=== PATIENT | female | born 1955 | race Caucasian/White ===

== ENCOUNTER 2016-08-21 07:58 | Emergency (ER) | payer BC ==
[2016-08-21 09:22] LABS: BASO % 0.4 % (0.0-1.0); EOS % 0.5 % (0.0-3.0); LARGE UNSTAINED CELL # 0.2 K/mm3 (0.0-0.4); LARGE UNSTAINED CELL % 2.4 % (0.0-4.0); LYMPH # 0.7 K/mm3 (1.5-4.5); LYMPH % 7.1 % (24.0-44.0); MEAN CORPUSCULAR HEMOGLOBIN 28.5 pg (27.0-33.0); MEAN CORPUSCULAR HGB CONC 32.1 g/dl (32.0-36.5); MEAN CORPUSCULAR VOLUME 88.8 fl (80.0-96.0); MONO # 0.3 K/mm3 (0.0-0.8); MONO % 3.4 % (0.0-5.0); NEUTROPHILS # 8.1 K/mm3 (1.8-7.7); NEUTROPHILS % 86.3 % (36.0-66.0); PLATELET COUNT, AUTOMATED 121 k/mm3 (150-450); RED CELL DISTRIBUTION WIDTH 14.1 % (11.5-14.5); WHITE BLOOD COUNT 9.4 K/mm3 (4.0-10.0)
[2016-08-21 09:32] LABS: ANION GAP 13 MEQ/L (8-16); BLOOD UREA NITROGEN 37 MG/DL (7-18); CALCIUM LEVEL 8.7 MG/DL (8.8-10.2); CARBON DIOXIDE LEVEL 25 MEQ/L (21-32); CHLORIDE LEVEL 90 MEQ/L (98-107); CREATININE FOR GFR 2.02 MG/DL (0.55-1.02); GLOMERULAR FILTRATION RATE 26.7 (>45); POTASSIUM SERUM 3.7 MEQ/L (3.5-5.1); SODIUM LEVEL 128 MEQ/L (136-145)
[2016-08-21 09:43] LABS: GLUCOSE, FASTING 689 MG/DL (80-110)
--- NOTE | 2016-08-21 09:58 | REP ---
Chest two views HISTORY: Shortness of breath Comparison: 12/11/2012 The lungs are clear. The heart is normal in size. The pulmonary vasculature is normal in appearance. The bony structure is intact. IMPRESSION: No acute disease. Signed by Calin Arzola MD 08/21/2016 09:50 A
[2016-08-21 10:12] LABS: VENOUS BASE EXCESS -0.5 (-2.0-2.0); VENOUS O2 SATURATION 99.2 % (60.0-80.0); VENOUS PARTIAL PRESSURE CO2 43.4 mmHg (38.0-50.0); VENOUS PARTIAL PRESSURE O2 170.2 mmHg (30.0-50.0); VENOUS STANDARD HCO3 24.1 MEQ/L; VENOUS TOTAL CO2 26.2 MEQ/L (24.0-28.0)
[2016-08-21] MEDS ORDERED: HumuLIN R (REGULAR) INSULIN (NovoLIN R) **100U/ML** PER UNIT As Ordered ONE (11:57)
--- NOTE | 2016-08-21 12:48 | EDDOCDS ---
Nurse's Notes [facility] Name: Marcia Avila Age: 61 yrs Sex: Female : 1955 Arrival Date: 08/21/2016 Time: 07:58 Bed 12 Private MD: Shwetha Alfredo DO. Diagnosis: Type 2 diabetes mellitus with hyperglycemia;Patient's noncompliance with medical treatment and regimen;Chronic kidney disease, stage 3 (moderate) Presentation: 08/21 08:04 Presenting complaint: Patient states: Multiple complaints, generalized weakness, dwg difficulty walking and standing for long periods, shortness of breath with minimal exertion, symptoms started about 7pm yesterday. The last date and time the patient was known to be well was was at 19:00 on August 20, 2016. No acute neurological deficit is noted. Adult Sepsis Screening: The patient does not have new or worsening altered mentation. Patient's respiratory rate is less than 22. Systolic blood pressure is greater than 100. Patient has a qSOFA score of 0- Negative Sepsis Screen. Suicide/Homicide risk assessment- the patient denies having any suicidal and/or homicidal ideations and does not present with any other emotional, behavioral or mental health complaints. 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 Transition of care: patient was not received from another setting of care. 08:04 Acuity: FLETCHER Level 3 dwg 08:04 Method Of Arrival: Wheelchair dwg 08:14 Pre-hospital glucose is not applicable to this patient. js13 Triage Assessment: 08:10 General: Appears in no apparent distress. Pain: Pain currently is 7 out of 10 on a pain dwg scale. HIV screening NA for this visit Offered previously. Historical: - Allergies: PENICILLINS; - Home Meds: 1. Humulin 70/30 Sub-Q per [facility] patient has not filled any medications since December - PMHx: Hypertension; Diabetes - IDDM: controlled; Hypercholesterolemia; DVT's; PE; - PSHx: ''Lung biopsy''; ; Right knee tendon repair; - Social history: Smoking status: Patient states was never smoker of tobacco. No barriers to communication noted, The patient speaks fluent Slovak. - Family history: Not pertinent. - : The pt / caregiver states he / she is not on anticoagulants. Unable to Verify Home Med List with the patient / caregiver. - Exposure Risk Screening:: None identified. Screenin:15 Screening information is obtained from the patient. Fall risk: At risk due to gait js13 disturbance. Assistance ADL's: requires no assistance with activities of daily living. Abuse/DV Screen: The patient / caregiver reports he/she is: not in a situation that causes fear, pain or injury. Nutritional screening: No deficits noted. Advance Directives: There is no active DNR order. home support is adequate. Assessment: 08:43 General: Appears in no apparent distress, comfortable, Behavior is appropriate for age, js13 cooperative. Pain: Denies pain. Neurological: Level of Consciousness is awake, alert. Cardiovascular: Chest pain is denied. Respiratory: Airway is patent Respiratory effort is even, unlabored, Respiratory pattern is regular, symmetrical. Derm: Skin is pink, warm & dry. 08:43 General: called and spoke with Dr. Alfredo's office, patient has not been there to ml6 see him or received Scripts from the office since December 2014. 09:50 General: Appears in no apparent distress, comfortable, to be sleeping. Cardiovascular: js13 Rhythm is sinus rhythm. Respiratory: Airway is patent Respiratory effort is even, unlabored, Respiratory pattern is regular, symmetrical. Derm: Skin is pink, warm & dry. 10:50 General: Appears in no apparent distress, comfortable, Behavior is appropriate for age, js13 cooperative. Pain: Denies pain. Neurological: No deficits noted. Level of Consciousness is awake, alert. Cardiovascular: Rhythm is sinus rhythm Chest pain is denied. Respiratory: Airway is patent Respiratory effort is even, unlabored, Respiratory pattern is regular, symmetrical. Derm: Skin is pink, warm & dry. 10:50 Adult Sepsis Screening: The patient does not have new or worsening altered mentation. js13 Patient's respiratory rate is less than 22. Systolic blood pressure is greater than 100. Patient has a qSOFA score of 0- Negative Sepsis Screen. 11:43 General: Appears in no apparent distress, comfortable, Behavior is appropriate for age, js13 cooperative. Pain: Denies pain. Neurological: Level of Consciousness is awake, alert. Cardiovascular: Rhythm is sinus rhythm Chest pain is denied. Respiratory: Airway is patent Respiratory effort is even, unlabored, Respiratory pattern is regular, symmetrical. Derm: Skin is pink, warm & dry. 12:13 General: Appears in no apparent distress, comfortable, Behavior is appropriate for age, js13 cooperative. Pain: Denies pain. Neurological: No deficits noted. Level of Consciousness is awake, alert. Cardiovascular: Rhythm is sinus tachycardia Chest pain is denied. Respiratory: No deficits noted. Airway is patent Respiratory effort is even, unlabored, Respiratory pattern is regular, symmetrical, Breath sounds are clear. Derm: Skin is pink, warm & dry. Vital Signs: 08:10 BP 106 / 62; Pulse 94; Resp 20; Temp 98.8(T); Pulse Ox 96% on R/A; Weight 125.19 kg; [facility] Height 5 ft. 3 in. (160.02 cm); Pain 7/10; 09:25 BP 129 / 56 (auto/); js13 09:25 Pulse 98 MON; Resp 16; Pulse Ox 95% on R/A; js13 09:42 BP 128 / 62 (auto/); js13 09:44 Pulse 98 MON; Resp 18; Pulse Ox 92% on R/A; js13 09:57 BP 128 / 66 (auto/); js13 09:57 Pulse 94 MON; Resp 18; Pulse Ox 95% on R/A; js13 11:58 BP 140 / 78 (auto/); js13 11:58 Pulse 94 MON; Resp 18; Pulse Ox 95% on R/A; js13 12:13 BP 129 / 72 (auto/); js13 12:13 Pulse 98 MON; Resp 18; Pulse Ox 96% on R/A; js13 12:24 Temp 97.3(O); ar3 12:28 BP 144 / 71 (auto/); js13 12:28 Pulse 102 MON; Resp 18; Pulse Ox 96% on R/A; js13 08:10 Body Mass Index 48.89 (125.19 kg, 160.02 cm) [facility] Vitals: 08:10 Log In Time: August 21, 2016 at 07:57. [facility] ED Course: 07:59 Patient visited by Cherie Perea. mm15 07:59 Shwetha Alfredo is Private Physician. mm15 07:59 Patient moved to Waiting mm15 08:06 Triage Initiated [facility] 08:12 Dulce Nugent,RN is Primary Nurse. [facility] 08:12 Meggan Barrera,BRIGIDO is Primary Nurse. dwg 08:12 Patient moved to 12 dwg 08:15 The patient / caregiver is instructed regarding the plan of care and ED course. js13 08:23 Vero Connelly DO is PHCP. jo4 08:23 Harvey Shaw MD is Attending Physician. jo4 08:33 Patient visited by Vero Connelly DO. jo4 08:43 Placed in gown. Bed in low position. Call light in reach. Side rails up X2. js13 08:43 Inserted saline lock: 18 gauge in left antecubital area and blood collected. The js13 patient tolerated the procedure well. No procedures done that require assistance. Labs drawn. (by ED staff). Sent per order to lab. Labs/Blood culture drawn. 08:45 Patient visited by Meggan Barrera RN. js13 09:20 EKG done. (by ED staff). Reviewed by Harvey Shaw MD. dem1 09:21 [place] [place] [facility] Payment Agreement was scanned into [employer] and attached to record. mm15 09:22 Patient visited by Tom Antunez. dem1 09:43 Notified attending ED physician of Critical lab value. Glucose--689. mcp 09:45 Venous Blood Gas (large pea green tube on ice) Sent. js13 09:58 Patient visited by Jud Chang PCA. ct3 10:18 Chest, 2 View (pa\E\lat) Returned. EDMS 10:36 Patient visited by Jud Chang PCA. ct3 11:43 Patient visited by Jud Chang PCA. ct3 11:45 Patient visited by Tom Antunez. dem1 11:45 Assisted to bedside commode. dem1 12:15 Patient visited by Meggan Barrera RN. js13 12:21 Chichi Taylor FNP is Referral Physician. pc 12:24 Patient visited by Elizabeth Padilla PCA. ar3 12:41 T-Sheet-- Draft Copy was scanned into [employer] and attached to record. gb 12:45 Discontinued IV lock intact, bleeding controlled, pressure dressing applied, No js13 redness/swelling at site. Administered Medications: 09:10 Drug: NS 0.9% 1000 ml [sodium chloride 0.9 % intravenous solution] Route: IV; Rate: js13 bolus; Site: left antecubital; 09:45 Follow up: IV Status: Completed infusion; IV Intake: 1000ml js13 12:01 Drug: Insulin Regular Human 10 units [insulin regular human 100 unit/mL injection js13 solution (0.1 mL)] {Co-Signature: ml6 (Navneet Garcia RN).} Route: Sub-Q; Site: abdomen; 12:44 Follow up: Response: Glucose decreased js13 Point of Care Testing: Blood Glucose: 08:43 Blood Glucose: High; js13 Ranges: Intake: 09:45 IV: 1000.00ml; Total: 1000.00ml. js13 Order Results: Lab Order: Cardiac Marker Panel; SPEC'M 08/21/16 08:40 Test: CPK CREATINE PHOSPHOKINASE; Value: 81; Range: 26-192; Units: U/L; Status: F Test: CK-MB VALUE MASS; Value: 1.3; Range: 0.0-3.6; Units: NG/ML; Status: F Test: MB/CK RELATIVE INDEX; Value: 1.60; Range: < OR =4; Status: F Test: TROPONIN I; Value: < 0.02; Range: < 0.10; Units: NG/ML; Status: F Test Note: ; DIAGNOSIS CRITERIA MMB ng/ml Relative Index (RI) NON-AMI < or = 5 N/A GALDAMEZ ZONE > 5 < or = 4 AMI > 5 > 4 Lab Order: CBC with Diff; SPEC'M 08/21/16 08:40 Test: WHITE BLOOD COUNT; Value: 9.4; Range: 4.0-10.0; Units: K/mm3; Status: F Test: RED BLOOD COUNT; Value: 4.57; Range: 4.00-5.40; Units: M/mm3; Status: F Test: HEMOGLOBIN; Value: 13.0; Range: 12.0-16.0; Units: g/dl; Status: F Test: HEMATOCRIT; Value: 40.6; Range: 36.0-47.0; Units: %; Status: F Test: MEAN CORPUSCULAR VOLUME; Value: 88.8; Range: 80.0-96.0; Units: fl; Status: F Test: MEAN CORPUSCULAR HEMOGLOBIN; Value: 28.5; Range: 27.0-33.0; Units: pg; Status: F Test: MEAN CORPUSCULAR HGB CONC; Value: 32.1; Range: 32.0-36.5; Units: g/dl; Status: F Test: RED CELL DISTRIBUTION WIDTH; Value: 14.1; Range: 11.5-14.5; Units: %; Status: F Test: PLATELET COUNT, AUTOMATED; Value: 121; Range: 150-450; Abnormal: Below low normal; Units: k/mm3; Status: F Test: NEUTROPHILS %; Value: 86.3; Range: 36.0-66.0; Abnormal: Above high normal; Units: %; Status: F Test: LYMPH %; Value: 7.1; Range: 24.0-44.0; Abnormal: Below low normal; Units: %; Status: F Test: MONO %; Value: 3.4; Range: 0.0-5.0; Units: %; Status: F Test: EOS %; Value: 0.5; Range: 0.0-3.0; Units: %; Status: F Test: BASO %; Value: 0.4; Range: 0.0-1.0; Units: %; Status: F Test: LARGE UNSTAINED CELL %; Value: 2.4; Range: 0.0-4.0; Units: %; Status: F Test: NEUTROPHILS #; Value: 8.1; Range: 1.8-7.7; Abnormal: Above high normal; Units: K/mm3; Status: F Test: LYMPH #; Value: 0.7; Range: 1.5-4.5; Abnormal: Below low normal; Units: K/mm3; Status: F Test: MONO #; Value: 0.3; Range: 0.0-0.8; Units: K/mm3; Status: F Test: EOS #; Value: 0.0; Range: 0.0-0.50; Units: K/mm3; Status: F Test: BASO #; Value: 0.0; Range: 0.0-0.2; Units: K/mm3; Status: F Test: LARGE UNSTAINED CELL #; Value: 0.2; Range: 0.0-0.4; Units: K/mm3; Status: F Lab Order: BMP; SPEC'M 08/21/16 08:40 Test: GLUCOSE, FASTING; Value: 689; Range: 80-110; Abnormal: Above upper panic limits; Units: MG/DL; Status: F Test: BLOOD UREA NITROGEN; Value: 37; Range: 7-18; Abnormal: Above high normal; Units: MG/DL; Status: F Test: CREATININE FOR GFR; Value: 2.02; Range: 0.55-1.02; Abnormal: Above high normal; Units: MG/DL; Status: F Test: GLOMERULAR FILTRATION RATE; Value: 26.7; Range: >45; Abnormal: Below low normal; Status: F Test: SODIUM LEVEL; Value: 128; Range: 136-145; Abnormal: Below low normal; Units: MEQ/L; Status: F Test: POTASSIUM SERUM; Value: 3.7; Range: 3.5-5.1; Units: MEQ/L; Status: F Test: CHLORIDE LEVEL; Value: 90; Range: 98-107; Abnormal: Below low normal; Units: MEQ/L; Status: F Test: CARBON DIOXIDE LEVEL; Value: 25; Range: 21-32; Units: MEQ/L; Status: F Test: ANION GAP; Value: 13; Range: 8-16; Units: MEQ/L; Status: F Test: CALCIUM LEVEL; Value: 8.7; Range: 8.8-10.2; Abnormal: Below low normal; Units: MG/DL; Status: F Test Note: ; Units are mL/min/1.73 m2 Chronic Kidney Disease Staging per NKF: Stage I & II GFR >=60 Normal to Mildly Decreased Stage III GFR 30-59 Moderately Decreased Stage IV GFR 15-29 Severely Decreased Stage V GFR <15 Very Little GFR Left ESRD GFR <15 on RETAIL CLERK Lab Order: Venous Blood Gas (large pea green tube on ice); SPEC'M 08/21/16 10:04 Test: VENOUS PH; Value: 7.376; Range: 7.330-7.430; Units: UNITS; Status: F Test: VENOUS PARTIAL PRESSURE CO2; Value: 43.4; Range: 38.0-50.0; Units: mmHg; Status: F Test: VENOUS PARTIAL PRESSURE O2; Value: 170.2; Range: 30.0-50.0; Abnormal: Above high normal; Units: mmHg; Status: F Test: VENOUS TOTAL CO2; Value: 26.2; Range: 24.0-28.0; Units: MEQ/L; Status: F Test: VENOUS HCO3; Value: 24.9; Range: 23.0-27.0; Units: MEQ/L; Status: F Test: VENOUS BASE EXCESS; Value: -0.5; Range: -2.0-2.0; Status: F Test: VENOUS STANDARD HCO3; Value: 24.1; Units: MEQ/L; Status: F Test: VENOUS O2 SATURATION; Value: 99.2; Range: 60.0-80.0; Abnormal: Above high normal; Units: %; Status: F Lab Order: Fingerstick Blood Sugar; SPEC'M 08/21/16 08:24 Test: BEDSIDE GLUCOSE; Value: > 600; Range: 80-115; Abnormal: Above upper panic limits; Units: MG/DL; Status: F Test Note: ; Serum Blood Draw Radiology Order: Chest, 2 View (pa\E\lat) Test: Chest, 2 View (pa\E\lat) REASON FOR EXAMINATION: Shortness of Breath; Chest two views; ; HISTORY: Shortness of breath; ; Comparison: 12/11/2012; ; The lungs are clear. The heart is normal in size. The pulmonary vasculature is; normal in appearance. The bony structure is intact.; ; IMPRESSION: No acute disease.; ; ; Signed by; Calin Arzola MD 08/21/2016 09:50 A; Outcome: 12:21 Discharge ordered by Provider. pc 12:28 Discharge Assessment: Patient awake, alert and oriented x 3. No cognitive and/or js13 functional deficits noted. Patient verbalized understanding of disposition instructions. patient administered narcotics - no. The following High Risk Discharge criteria are identified: None. Discharged to home ambulatory. Condition: stable. Discharge instructions given to patient, Instructed on discharge instructions, follow up and referral plans. medication usage, Demonstrated understanding of instructions, medications, Pt was receptive of discharge instructions/ teaching. Prescriptions given X 1. No special radiology studies were completed. Property :Personal belongings accompany Pt. 12:47 Patient left the ED. js13 Signatures: Dispatcher [employer] EDMS Harvey Shaw MD MD pc Greene, Daniel, RN RN dwg Peters, Mary, RN Ruthie Au mcp, Reg Reg dread Garcia, BRIGIDO Ttoh RN ml6 Valerie, Elizabeth, SPRAY GUN REPAIRER SPRAY GUN REPAIRER ar3 Chang, Jud, SPRAY GUN REPAIRER SPRAY GUN REPAIRER ct3 Tulio, Tom dem1 Meggan Barrera,RN RN js13 Cherie Perea mm15 Vero Connelly, DO CID jo4 Navneet Garcia RN ml6 Corrections: (The following items were deleted from the chart) 08: 08:10 Home Meds: Unknown; issa ml6 08: 08:10 Home Meds: Will contact [facility] for med list; issa [facility] MTDD
--- NOTE | 2016-08-21 12:48 | EDDOCDS ---
Physician Documentation [facility] Name: Marcia Avila Age: 61 yrs Sex: Female : 1955 Arrival Date: 08/21/2016 Time: 07:58 Bed 12 Private MD: Shwetha Alfredo DO. Disposition: 08/21 10:45 I have independently interviewed and examined the patient, and I agree with the pc investigation, diagnosis and treatment plan as documented by the Resident. Disposition: 08/21/16 12:21 Discharged to Home/Self Care. Impression: Type 2 diabetes mellitus with hyperglycemia, Patient's noncompliance with medical treatment and regimen, Chronic kidney disease, stage 3 (moderate). - Condition is Stable. - Discharge Instructions: Hyperglycemia, [id number], Chronic Kidney Disease. - Prescriptions for Humulin 70/30 100 unit/mL (70- 30) Subcutaneous suspension - inject 34 unit by SUBCUTANEOUS route 2 times per day; 1 vial. - Medication Reconciliation, Local Pharmacy Hours form. - Follow up: Chichi Taylor; When: As previously arranged; Reason: Recheck today's complaints. - Problem is chronic. - Symptoms are unchanged. - Notes: You were evaluated in the emergency department for type 2 diabetes mellitus with hyperglycemia. Laboratory results indicated a blood sugar of 689. Your chest x-ray did not show any acute abnormality. Your electrocardiogram was without abnormality. You were given some fluids and 10 units of regular insulin. An appointment has been scheduled with Elizabeth Taylor on 08/23/2016 at 2:20pm. Historical: - Allergies: PENICILLINS; - Home Meds: 1. Humulin 70/30 Sub-Q per [facility] patient has not filled any medications since December - PMHx: Hypertension; Diabetes - IDDM: controlled; Hypercholesterolemia; DVT's; PE; - PSHx: ''Lung biopsy''; ; Right knee tendon repair; - Social history: Smoking status: Patient states was never smoker of tobacco. No barriers to communication noted, The patient speaks fluent Icelandic. - Family history: Not pertinent. - : The pt / caregiver states he / she is not on anticoagulants. Unable to Verify Home Med List with the patient / caregiver. - Exposure Risk Screening:: None identified. Vital Signs: 08:10 BP 106 / 62; Pulse 94; Resp 20; Temp 98.8(T); Pulse Ox 96% on R/A; Weight 125.19 kg / dwg 276 lbs; Height 5 ft. 3 in. (160.02 cm); Pain 7/10; 09:25 BP 129 / 56 (auto/); js13 09:25 Pulse 98 MON; Resp 16; Pulse Ox 95% on R/A; js13 09:42 BP 128 / 62 (auto/); js13 09:44 Pulse 98 MON; Resp 18; Pulse Ox 92% on R/A; js13 09:57 BP 128 / 66 (auto/); js13 09:57 Pulse 94 MON; Resp 18; Pulse Ox 95% on R/A; js13 11:58 BP 140 / 78 (auto/); js13 11:58 Pulse 94 MON; Resp 18; Pulse Ox 95% on R/A; js13 12:13 BP 129 / 72 (auto/); js13 12:13 Pulse 98 MON; Resp 18; Pulse Ox 96% on R/A; js13 12:24 Temp 97.3(O); ar3 12:28 BP 144 / 71 (auto/); js13 12:28 Pulse 102 MON; Resp 18; Pulse Ox 96% on R/A; js13 08:10 Body Mass Index 48.89 (125.19 kg, 160.02 cm) dwg MDM: 08:35 IV Saline Lock ordered. jo4 09:10 Cardiac Marker Panel Ordered. EDMS 09:10 Troponin Ordered. EDMS 09:10 CBC with Diff Ordered. EDMS 09:10 BMP Ordered. EDMS 09:10 Chest, 2 View (pa\E\lat) Ordered. EDMS 09:11 ECG WITH READING ER PHYS+CARDIAG ordered. EDMS 09:12 Misc Shoelace Tipping Machine Operator Order ordered. jo4 09:12 NS 0.9% 1000 ml IV at bolus once ordered. jo4 09:17 Financial registration complete. mm15 09:17 [facility] Shoelace Tipping Machine Operator Order complete. lbd 09:21 [facility] Payment Agreement was scanned into [employer] and attached to record. mm15 09:29 CBC with Diff Reviewed. jo4 09:44 Venous Blood Gas (large pea green tube on ice) Ordered. EDMS 09:48 BMP Reviewed. jo4 09:49 Cardiac Marker Panel Reviewed. jo4 10:29 Venous Blood Gas (large pea green tube on ice) Reviewed. jo4 10:42 Chest, 2 View (pa\E\lat) Reviewed. pc 11:39 Insulin Regular Human 10 units Sub-Q once ordered. jo4 12:41 T-Sheet-- Draft Copy was scanned into [employer] and attached to record. Point of Care Testing: Blood Glucose: 08:43 Blood Glucose: High; js13 Ranges: Administered Medications: 09:10 Drug: NS 0.9% 1000 ml [sodium chloride 0.9 % intravenous solution] Route: IV; Rate: js13 bolus; Site: left antecubital; 09:45 Follow up: IV Status: Completed infusion; IV Intake: 1000ml js13 12:01 Drug: Insulin Regular Human 10 units [insulin regular human 100 unit/mL injection js13 solution (0.1 mL)] {Co-Signature: [email or web address] (Navneet Garcia RN).} Route: Sub-Q; Site: abdomen; 12:44 Follow up: Response: Glucose decreased js13 Signatures: Dispatcher [employer] EDHarvey Granados MD MD pc Daly, Linda, Fine Artist Unit lbd Lorenzo Pleitez RN RN Ruthie Parnell, Reg Reg Navneet Delgado, RN RN ml6 Meggan BarreraRN RN js13 Cherie Perea mm15 Vero Connelly DO DO jo4 Navneet Garcia RN ml6 The chart was reviewed and I authenticate all verbal orders and agree with the evaluation and treatment provided.Corrections: (The following items were deleted from the chart) 08:21 08:10 Home Meds: Unknown; sandovalg ml6 08:21 08:10 [facility]; sandovalg ml6 Attachments: 09:21 [facility] Payment Agreement mm15 12:41 T-Sheet-- Draft Copy MTDD
--- NOTE | 2016-08-22 07:55 | ECGEPIP ---
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
--- NOTE | 2016-08-23 13:48 | EDDOCDS ---
Physician Documentation [facility] Name: Marcia Avila Age: 61 yrs Sex: Female : 1955 Arrival Date: 08/21/2016 Time: 07:58 Bed 12 Private MD: Shwetha Alfredo DO. Disposition: 08/21 10:45 I have independently interviewed and examined the patient, and I agree with the pc investigation, diagnosis and treatment plan as documented by the Resident. Disposition: 08/21/16 12:21 Discharged to Home/Self Care. Impression: Type 2 diabetes mellitus with hyperglycemia, Patient's noncompliance with medical treatment and regimen, Chronic kidney disease, stage 3 (moderate). - Condition is Stable. - Discharge Instructions: Hyperglycemia, [id number], Chronic Kidney Disease. - Prescriptions for Humulin 70/30 100 unit/mL (70- 30) Subcutaneous suspension - inject 34 unit by SUBCUTANEOUS route 2 times per day; 1 vial. - Medication Reconciliation, Local Pharmacy Hours form. - Follow up: Chichi Taylor; When: As previously arranged; Reason: Recheck today's complaints. - Problem is chronic. - Symptoms are unchanged. - Notes: You were evaluated in the emergency department for type 2 diabetes mellitus with hyperglycemia. Laboratory results indicated a blood sugar of 689. Your chest x-ray did not show any acute abnormality. Your electrocardiogram was without abnormality. You were given some fluids and 10 units of regular insulin. An appointment has been scheduled with Elizabeth Taylor on 08/23/2016 at 2:20pm. Historical: - Allergies: PENICILLINS; - Home Meds: 1. Humulin 70/30 Sub-Q per [facility] patient has not filled any medications since December - PMHx: Hypertension; Diabetes - IDDM: controlled; Hypercholesterolemia; DVT's; PE; - PSHx: ''Lung biopsy''; ; Right knee tendon repair; - Social history: Smoking status: Patient states was never smoker of tobacco. No barriers to communication noted, The patient speaks fluent Welsh. - Family history: Not pertinent. - : The pt / caregiver states he / she is not on anticoagulants. Unable to Verify Home Med List with the patient / caregiver. - Exposure Risk Screening:: None identified. Vital Signs: 08:10 BP 106 / 62; Pulse 94; Resp 20; Temp 98.8(T); Pulse Ox 96% on R/A; Weight 125.19 kg / dwg 276 lbs; Height 5 ft. 3 in. (160.02 cm); Pain 7/10; 09:25 BP 129 / 56 (auto/); js13 09:25 Pulse 98 MON; Resp 16; Pulse Ox 95% on R/A; js13 09:42 BP 128 / 62 (auto/); js13 09:44 Pulse 98 MON; Resp 18; Pulse Ox 92% on R/A; js13 09:57 BP 128 / 66 (auto/); js13 09:57 Pulse 94 MON; Resp 18; Pulse Ox 95% on R/A; js13 11:58 BP 140 / 78 (auto/); js13 11:58 Pulse 94 MON; Resp 18; Pulse Ox 95% on R/A; js13 12:13 BP 129 / 72 (auto/); js13 12:13 Pulse 98 MON; Resp 18; Pulse Ox 96% on R/A; js13 12:24 Temp 97.3(O); ar3 12:28 BP 144 / 71 (auto/); js13 12:28 Pulse 102 MON; Resp 18; Pulse Ox 96% on R/A; js13 08:10 Body Mass Index 48.89 (125.19 kg, 160.02 cm) dwg MDM: 08:35 IV Saline Lock ordered. jo4 09:10 Cardiac Marker Panel Ordered. EDMS 09:10 Troponin Ordered. EDMS 09:10 CBC with Diff Ordered. EDMS 09:10 BMP Ordered. EDMS 09:10 Chest, 2 View (pa\E\lat) Ordered. EDMS 09:11 ECG WITH READING ER PHYS+CARDIAG ordered. EDMS 09:12 Misc Toxics Program Officer Order ordered. jo4 09:12 NS 0.9% 1000 ml IV at bolus once ordered. jo4 09:17 Financial registration complete. mm15 09:17 [facility] [place] Order complete. lbd 09:21 [facility] [place] Agreement was scanned into Fetch MD and attached to record. mm15 09:29 CBC with Diff Reviewed. jo4 09:44 Venous Blood Gas (large pea green tube on ice) Ordered. EDMS 09:48 BMP Reviewed. jo4 09:49 Cardiac Marker Panel Reviewed. jo4 10:29 Venous Blood Gas (large pea green tube on ice) Reviewed. jo4 10:42 Chest, 2 View (pa\E\lat) Reviewed. pc 11:39 Insulin Regular Human 10 units Sub-Q once ordered. jo4 12:41 T-Sheet-- Draft Copy was scanned into Fetch MD and attached to record. 12:52 Fingerstick Blood Sugar Ordered. EDMS 08/22 11:55 ECG/EKG was scanned into MEDHOST and attached to record. Point of Care Testing: Blood Glucose: 08/21 08:43 Blood Glucose: High; js13 Ranges: Administered Medications: 09:10 Drug: NS 0.9% 1000 ml [sodium chloride 0.9 % intravenous solution] Route: IV; Rate: js13 bolus; Site: left antecubital; 09:45 Follow up: IV Status: Completed infusion; IV Intake: 1000ml js13 12:01 Drug: Insulin Regular Human 10 units [insulin regular human 100 unit/mL injection js13 solution (0.1 mL)] {Co-Signature: jesús (Navneet Garcia RN).} Route: Sub-Q; Site: abdomen; 12:44 Follow up: Response: Glucose decreased js13 Signatures: Dispatcher MedHost EDMS Harvey Shaw MD MD pc Daly, Linda, Sewing Machine Maintenance Mechanic Unit lbd Lorenzo Pleitez RN RN Ruthie Parnell, Reg Reg Navneet Delgado, BRIGIDO RN ml6 Meggan Barrera RN RN js13 Cherie Perea mm15 Vero Connelly DO DO jo4 Navneet Garcia RN ml6 The chart was reviewed and I authenticate all verbal orders and agree with the evaluation and treatment provided.Corrections: (The following items were deleted from the chart) 08: 08:10 Home Meds: Unknown; issa ml6 08:21 08:10 Home Meds: Will contact Shay on [facility] for med list; issa [email or web address] Attachments: 09: [facility] Payment Agreement mm15 12:41 T-Sheet-- Draft Copy 08/22 11:55 ECG/EKG gb Chart Complete MTDD
--- NOTE | 2016-08-23 13:48 | EDDOCDS ---
Nurse's Notes [facility] Name: Marcia Avila Age: 61 yrs Sex: Female : 1955 Arrival Date: 08/21/2016 Time: 07:58 Bed 12 Private MD: Shwetha Alfredo DO. Diagnosis: Type 2 diabetes mellitus with hyperglycemia;Patient's noncompliance with medical treatment and regimen;Chronic kidney disease, stage 3 (moderate) Presentation: 08/21 08:04 Presenting complaint: Patient states: Multiple complaints, generalized weakness, dwg difficulty walking and standing for long periods, shortness of breath with minimal exertion, symptoms started about 7pm yesterday. The last date and time the patient was known to be well was was at 19:00 on August 20, 2016. No acute neurological deficit is noted. Adult Sepsis Screening: The patient does not have new or worsening altered mentation. Patient's respiratory rate is less than 22. Systolic blood pressure is greater than 100. Patient has a qSOFA score of 0- Negative Sepsis Screen. Suicide/Homicide risk assessment- the patient denies having any suicidal and/or homicidal ideations and does not present with any other emotional, behavioral or mental health complaints. Status: Patient is not a service clerk or dependent. Transition of care: patient was not received from another setting of care. 08:04 Acuity: FLETCHER Level 3 dwg 08:04 Method Of Arrival: Wheelchair dwg 08:14 Pre-hospital glucose is not applicable to this patient. js13 Triage Assessment: 08:10 General: Appears in no apparent distress. Pain: Pain currently is 7 out of 10 on a pain dwg scale. HIV screening NA for this visit Offered previously. Historical: - Allergies: PENICILLINS; - Home Meds: 1. Humulin 70/30 Sub-Q per [facility] patient has not filled any medications since December - PMHx: Hypertension; Diabetes - IDDM: controlled; Hypercholesterolemia; DVT's; PE; - PSHx: ''Lung biopsy''; ; Right knee tendon repair; - Social history: Smoking status: Patient states was never smoker of tobacco. No barriers to communication noted, The patient speaks fluent Chadian. - Family history: Not pertinent. - : The pt / caregiver states he / she is not on anticoagulants. Unable to Verify Home Med List with the patient / caregiver. - Exposure Risk Screening:: None identified. Screenin:15 Screening information is obtained from the patient. Fall risk: At risk due to gait js13 disturbance. Assistance ADL's: requires no assistance with activities of daily living. Abuse/DV Screen: The patient / caregiver reports he/she is: not in a situation that causes fear, pain or injury. Nutritional screening: No deficits noted. Advance Directives: There is no active DNR order. home support is adequate. Assessment: 08:43 General: Appears in no apparent distress, comfortable, Behavior is appropriate for age, js13 cooperative. Pain: Denies pain. Neurological: Level of Consciousness is awake, alert. Cardiovascular: Chest pain is denied. Respiratory: Airway is patent Respiratory effort is even, unlabored, Respiratory pattern is regular, symmetrical. Derm: Skin is pink, warm & dry. 08:43 General: called and spoke with Dr. Alfredo's office, patient has not been there to ml6 see him or received Scripts from the office since December 2014. 09:50 General: Appears in no apparent distress, comfortable, to be sleeping. Cardiovascular: js13 Rhythm is sinus rhythm. Respiratory: Airway is patent Respiratory effort is even, unlabored, Respiratory pattern is regular, symmetrical. Derm: Skin is pink, warm & dry. 10:50 General: Appears in no apparent distress, comfortable, Behavior is appropriate for age, js13 cooperative. Pain: Denies pain. Neurological: No deficits noted. Level of Consciousness is awake, alert. Cardiovascular: Rhythm is sinus rhythm Chest pain is denied. Respiratory: Airway is patent Respiratory effort is even, unlabored, Respiratory pattern is regular, symmetrical. Derm: Skin is pink, warm & dry. 10:50 Adult Sepsis Screening: The patient does not have new or worsening altered mentation. js13 Patient's respiratory rate is less than 22. Systolic blood pressure is greater than 100. Patient has a qSOFA score of 0- Negative Sepsis Screen. 11:43 General: Appears in no apparent distress, comfortable, Behavior is appropriate for age, js13 cooperative. Pain: Denies pain. Neurological: Level of Consciousness is awake, alert. Cardiovascular: Rhythm is sinus rhythm Chest pain is denied. Respiratory: Airway is patent Respiratory effort is even, unlabored, Respiratory pattern is regular, symmetrical. Derm: Skin is pink, warm & dry. 12:13 General: Appears in no apparent distress, comfortable, Behavior is appropriate for age, js13 cooperative. Pain: Denies pain. Neurological: No deficits noted. Level of Consciousness is awake, alert. Cardiovascular: Rhythm is sinus tachycardia Chest pain is denied. Respiratory: No deficits noted. Airway is patent Respiratory effort is even, unlabored, Respiratory pattern is regular, symmetrical, Breath sounds are clear. Derm: Skin is pink, warm & dry. Vital Signs: 08:10 BP 106 / 62; Pulse 94; Resp 20; Temp 98.8(T); Pulse Ox 96% on R/A; Weight 125.19 kg; [facility] Height 5 ft. 3 in. (160.02 cm); Pain 7/10; 09:25 BP 129 / 56 (auto/); js13 09:25 Pulse 98 MON; Resp 16; Pulse Ox 95% on R/A; js13 09:42 BP 128 / 62 (auto/); js13 09:44 Pulse 98 MON; Resp 18; Pulse Ox 92% on R/A; js13 09:57 BP 128 / 66 (auto/); js13 09:57 Pulse 94 MON; Resp 18; Pulse Ox 95% on R/A; js13 11:58 BP 140 / 78 (auto/); js13 11:58 Pulse 94 MON; Resp 18; Pulse Ox 95% on R/A; js13 12:13 BP 129 / 72 (auto/); js13 12:13 Pulse 98 MON; Resp 18; Pulse Ox 96% on R/A; js13 12:24 Temp 97.3(O); ar3 12:28 BP 144 / 71 (auto/); js13 12:28 Pulse 102 MON; Resp 18; Pulse Ox 96% on R/A; js13 08:10 Body Mass Index 48.89 (125.19 kg, 160.02 cm) [facility] Vitals: 08:10 Log In Time: August 21, 2016 at 07:57. [facility] ED Course: 07:59 Patient visited by Cherie Perea. mm15 07:59 Shwetha Alfredo is Private Physician. mm15 07:59 Patient moved to Waiting mm15 08:06 Triage Initiated [facility] 08:12 Dulce Nugent,RN is Primary Nurse. [facility] 08:12 Meggan Barrera,BRIGIDO is Primary Nurse. dwg 08:12 Patient moved to 12 dwg 08:15 The patient / caregiver is instructed regarding the plan of care and ED course. js13 08:23 Vero Connelly DO is PHCP. jo4 08:23 Harvey Shaw MD is Attending Physician. jo4 08:33 Patient visited by Vero Connelly DO. jo4 08:43 Placed in gown. Bed in low position. Call light in reach. Side rails up X2. js13 08:43 Inserted saline lock: 18 gauge in left antecubital area and blood collected. The js13 patient tolerated the procedure well. No procedures done that require assistance. Labs drawn. (by ED staff). Sent per order to lab. Labs/Blood culture drawn. 08:45 Patient visited by Meggan Barrera RN. js13 09:20 EKG done. (by ED staff). Reviewed by Harvey Shaw MD. dem1 09:21 [facility] Payment Agreement was scanned into oDesk and attached to record. mm15 09:22 Patient visited by Tom Antunez. dem1 09:43 Notified attending ED physician of Critical lab value. Glucose--689. mcp 09:45 Venous Blood Gas (large pea green tube on ice) Sent. js13 09:58 Patient visited by Jud Chang PCA. ct3 10:18 Chest, 2 View (pa\E\lat) Returned. EDMS 10:36 Patient visited by Jud Chang PCA. ct3 11:43 Patient visited by Jud Chang PCA. ct3 11:45 Patient visited by Tom Antunez. dem1 11:45 Assisted to bedside commode. dem1 12:15 Patient visited by Meggan Barrera RN. js13 12:21 Chichi Taylor FNP is Referral Physician. pc 12:24 Patient visited by Elizabeth Padilla PCA. ar3 12:41 T-Sheet-- Draft Copy was scanned into oDesk and attached to record. gb 12:45 Discontinued IV lock intact, bleeding controlled, pressure dressing applied, No js13 redness/swelling at site. 08/22 08:22 EKG-ADULT Returned. EDMS 11:55 ECG/EKG was scanned into oDesk and attached to record. gb Administered Medications: 08/21 09:10 Drug: NS 0.9% 1000 ml [sodium chloride 0.9 % intravenous solution] Route: IV; Rate: js13 bolus; Site: left antecubital; 09:45 Follow up: IV Status: Completed infusion; IV Intake: 1000ml js13 12:01 Drug: Insulin Regular Human 10 units [insulin regular human 100 unit/mL injection js13 solution (0.1 mL)] {Co-Signature: ml6 (Navneet Garcia RN).} Route: Sub-Q; Site: abdomen; 12:44 Follow up: Response: Glucose decreased js13 Point of Care Testing: Blood Glucose: 08:43 Blood Glucose: High; js13 Ranges: Intake: 09:45 IV: 1000.00ml; Total: 1000.00ml. js13 Order Results: Lab Order: Cardiac Marker Panel; SPEC'M 08/21/16 08:40 Test: CPK CREATINE PHOSPHOKINASE; Value: 81; Range: 26-192; Units: U/L; Status: F Test: CK-MB VALUE MASS; Value: 1.3; Range: 0.0-3.6; Units: NG/ML; Status: F Test: MB/CK RELATIVE INDEX; Value: 1.60; Range: < OR =4; Status: F Test: TROPONIN I; Value: < 0.02; Range: < 0.10; Units: NG/ML; Status: F Test Note: ; DIAGNOSIS CRITERIA MMB ng/ml Relative Index (RI) NON-AMI < or = 5 N/A GALDAMEZ ZONE > 5 < or = 4 AMI > 5 > 4 Lab Order: CBC with Diff; SPEC'M 08/21/16 08:40 Test: WHITE BLOOD COUNT; Value: 9.4; Range: 4.0-10.0; Units: K/mm3; Status: F Test: RED BLOOD COUNT; Value: 4.57; Range: 4.00-5.40; Units: M/mm3; Status: F Test: HEMOGLOBIN; Value: 13.0; Range: 12.0-16.0; Units: g/dl; Status: F Test: HEMATOCRIT; Value: 40.6; Range: 36.0-47.0; Units: %; Status: F Test: MEAN CORPUSCULAR VOLUME; Value: 88.8; Range: 80.0-96.0; Units: fl; Status: F Test: MEAN CORPUSCULAR HEMOGLOBIN; Value: 28.5; Range: 27.0-33.0; Units: pg; Status: F Test: MEAN CORPUSCULAR HGB CONC; Value: 32.1; Range: 32.0-36.5; Units: g/dl; Status: F Test: RED CELL DISTRIBUTION WIDTH; Value: 14.1; Range: 11.5-14.5; Units: %; Status: F Test: PLATELET COUNT, AUTOMATED; Value: 121; Range: 150-450; Abnormal: Below low normal; Units: k/mm3; Status: F Test: NEUTROPHILS %; Value: 86.3; Range: 36.0-66.0; Abnormal: Above high normal; Units: %; Status: F Test: LYMPH %; Value: 7.1; Range: 24.0-44.0; Abnormal: Below low normal; Units: %; Status: F Test: MONO %; Value: 3.4; Range: 0.0-5.0; Units: %; Status: F Test: EOS %; Value: 0.5; Range: 0.0-3.0; Units: %; Status: F Test: BASO %; Value: 0.4; Range: 0.0-1.0; Units: %; Status: F Test: LARGE UNSTAINED CELL %; Value: 2.4; Range: 0.0-4.0; Units: %; Status: F Test: NEUTROPHILS #; Value: 8.1; Range: 1.8-7.7; Abnormal: Above high normal; Units: K/mm3; Status: F Test: LYMPH #; Value: 0.7; Range: 1.5-4.5; Abnormal: Below low normal; Units: K/mm3; Status: F Test: MONO #; Value: 0.3; Range: 0.0-0.8; Units: K/mm3; Status: F Test: EOS #; Value: 0.0; Range: 0.0-0.50; Units: K/mm3; Status: F Test: BASO #; Value: 0.0; Range: 0.0-0.2; Units: K/mm3; Status: F Test: LARGE UNSTAINED CELL #; Value: 0.2; Range: 0.0-0.4; Units: K/mm3; Status: F Lab Order: [facility]; SPEC'M 08/21/16 08:40 Test: GLUCOSE, FASTING; Value: 689; Range: 80-110; Abnormal: Above upper panic limits; Units: MG/DL; Status: F Test: BLOOD UREA NITROGEN; Value: 37; Range: 7-18; Abnormal: Above high normal; Units: MG/DL; Status: F Test: CREATININE FOR GFR; Value: 2.02; Range: 0.55-1.02; Abnormal: Above high normal; Units: MG/DL; Status: F Test: GLOMERULAR FILTRATION RATE; Value: 26.7; Range: >45; Abnormal: Below low normal; Status: F Test: SODIUM LEVEL; Value: 128; Range: 136-145; Abnormal: Below low normal; Units: MEQ/L; Status: F Test: POTASSIUM SERUM; Value: 3.7; Range: 3.5-5.1; Units: MEQ/L; Status: F Test: CHLORIDE LEVEL; Value: 90; Range: 98-107; Abnormal: Below low normal; Units: MEQ/L; Status: F Test: CARBON DIOXIDE LEVEL; Value: 25; Range: 21-32; Units: MEQ/L; Status: F Test: ANION GAP; Value: 13; Range: 8-16; Units: MEQ/L; Status: F Test: CALCIUM LEVEL; Value: 8.7; Range: 8.8-10.2; Abnormal: Below low normal; Units: MG/DL; Status: F Test Note: ; Units are mL/min/1.73 m2 Chronic Kidney Disease Staging per NKF: Stage I & II GFR >=60 Normal to Mildly Decreased Stage III GFR 30-59 Moderately Decreased Stage IV GFR 15-29 Severely Decreased Stage V GFR <15 Very Little GFR Left ESRD GFR <15 on RESOURCE COORDINATOR Lab Order: Venous Blood Gas (large pea green tube on ice); SPEC'08/21/16 10:04 Test: VENOUS PH; Value: 7.376; Range: 7.330-7.430; Units: UNITS; Status: F Test: VENOUS PARTIAL PRESSURE CO2; Value: 43.4; Range: 38.0-50.0; Units: mmHg; Status: F Test: VENOUS PARTIAL PRESSURE O2; Value: 170.2; Range: 30.0-50.0; Abnormal: Above high normal; Units: mmHg; Status: F Test: VENOUS TOTAL CO2; Value: 26.2; Range: 24.0-28.0; Units: MEQ/L; Status: F Test: VENOUS HCO3; Value: 24.9; Range: 23.0-27.0; Units: MEQ/L; Status: F Test: VENOUS BASE EXCESS; Value: -0.5; Range: -2.0-2.0; Status: F Test: VENOUS STANDARD HCO3; Value: 24.1; Units: MEQ/L; Status: F Test: VENOUS O2 SATURATION; Value: 99.2; Range: 60.0-80.0; Abnormal: Above high normal; Units: %; Status: F Lab Order: Fingerstick Blood Sugar; SPEC'M 08/21/16 08:24 Test: BEDSIDE GLUCOSE; Value: > 600; Range: 80-115; Abnormal: Above upper panic limits; Units: MG/DL; Status: F Test Note: ; Serum Blood Draw Lab Order: Fingerstick Blood Sugar; SPEC'M 08/21/16 12:43 Test: BEDSIDE GLUCOSE; Value: 531; Range: 80-115; Abnormal: Above upper panic limits; Units: MG/DL; Status: F Test Note: ; Dr Order not to Draw Doctor Notified Radiology Order: Chest, 2 View (pa\E\lat) Test: Chest, 2 View (pa\E\lat) REASON FOR EXAMINATION: Shortness of Breath; Chest two views; ; HISTORY: Shortness of breath; ; Comparison: 12/11/2012; ; The lungs are clear. The heart is normal in size. The pulmonary vasculature is; normal in appearance. The bony structure is intact.; ; IMPRESSION: No acute disease.; ; ; Signed by; Calin Arzola MD 08/21/2016 09:50 A; Radiology Order: EKG-ADULT Test: EKG-ADULT REASON FOR EXAMINATION: Shortness of Breath; Stationary ECG Study; [facility] - ED; ; Test Date: 2016-08-21; Pat Name: MARCIA MARY Department:; Room: -; Gender: F Paper Folder: isauro; : 1955 Requested By: VERO JUSTIN; Order Number: [id number] Reading MD: Vannessa Key; Measurements; Intervals [place]; Rate: 102 P: 55; MN: 156 QRS: -11; QRSD: 84 T: 124; QT: 333; QTc: 434; Interpretive Statements; SINUS TACHYCARDIA; LOW QRS VOLTAGE IN PRECORDIAL LEADS; ANTEROSEPTAL MYOCARDIAL INFARCTION, OF INDETERMINATE AGE; NSTTW ABNORMALITY; Electronically Signed On 08-22-2016 7:54:49 EST by Vannessa Key; Outcome: 12:21 Discharge ordered by Provider. pc 12:28 Discharge Assessment: Patient awake, alert and oriented x 3. No cognitive and/or js13 functional deficits noted. Patient verbalized understanding of disposition instructions. patient administered narcotics - no. The following High Risk Discharge criteria are identified: None. Discharged to home ambulatory. Condition: stable. Discharge instructions given to patient, Instructed on discharge instructions, follow up and referral plans. medication usage, Demonstrated understanding of instructions, medications, Pt was receptive of discharge instructions/ teaching. Prescriptions given X 1. No special radiology studies were completed. Property :Personal belongings accompany Pt. 12:47 Patient left the ED. js13 Signatures: Dispatcher MedHost EDMS Harvey Shaw MD MD pc Greene, Daniel, RN Barbara Leon RN Ruthie Au mcp, Navneet Chatman RN RN ml6 Elizabeth Padilla, EMERGENCY MANAGEMENT PROGRAM SPECIALIST EMERGENCY MANAGEMENT PROGRAM SPECIALIST ar3 Jud Chang, EMERGENCY MANAGEMENT PROGRAM SPECIALIST EMERGENCY MANAGEMENT PROGRAM SPECIALIST ct3 Tom Antunez dem1 Meggan BarreraRN RN js13 Cherie Perea mm15 Vero Connelly DO DO jo4 Navneet Garcia RN ml6 Corrections: (The following items were deleted from the chart) 08:21 08:10 Home Meds: Unknown; issa ml6 08:21 08:10 Home Meds: Will contact Shay on [facility] for med list; issa ml6 Chart Complete MTDD
--- NOTE | 2016-08-23 13:48 | EDDOCDS ---
Physician Documentation [facility] Name: Marcia Avila Age: 61 yrs Sex: Female : 1955 Arrival Date: 08/21/2016 Time: 07:58 Bed 12 Private MD: Shwetha Alfredo DO. Disposition: 08/21 10:45 I have independently interviewed and examined the patient, and I agree with the pc investigation, diagnosis and treatment plan as documented by the Resident. Disposition: 08/21/16 12:21 Discharged to Home/Self Care. Impression: Type 2 diabetes mellitus with hyperglycemia, Patient's noncompliance with medical treatment and regimen, Chronic kidney disease, stage 3 (moderate). - Condition is Stable. - Discharge Instructions: Hyperglycemia, [id number], Chronic Kidney Disease. - Prescriptions for Humulin 70/30 100 unit/mL (70- 30) Subcutaneous suspension - inject 34 unit by SUBCUTANEOUS route 2 times per day; 1 vial. - Medication Reconciliation, Local Pharmacy Hours form. - Follow up: Chichi Taylor; When: As previously arranged; Reason: Recheck today's complaints. - Problem is chronic. - Symptoms are unchanged. - Notes: You were evaluated in the emergency department for type 2 diabetes mellitus with hyperglycemia. Laboratory results indicated a blood sugar of 689. Your chest x-ray did not show any acute abnormality. Your electrocardiogram was without abnormality. You were given some fluids and 10 units of regular insulin. An appointment has been scheduled with Elizabeth Taylor on 08/23/2016 at 2:20pm. Historical: - Allergies: PENICILLINS; - Home Meds: 1. Humulin 70/30 Sub-Q per [facility] patient has not filled any medications since December - PMHx: Hypertension; Diabetes - IDDM: controlled; Hypercholesterolemia; DVT's; PE; - PSHx: ''Lung biopsy''; ; Right knee tendon repair; - Social history: Smoking status: Patient states was never smoker of tobacco. No barriers to communication noted, The patient speaks fluent Spanish. - Family history: Not pertinent. - : The pt / caregiver states he / she is not on anticoagulants. Unable to Verify Home Med List with the patient / caregiver. - Exposure Risk Screening:: None identified. Vital Signs: 08:10 BP 106 / 62; Pulse 94; Resp 20; Temp 98.8(T); Pulse Ox 96% on R/A; Weight 125.19 kg / dwg 276 lbs; Height 5 ft. 3 in. (160.02 cm); Pain 7/10; 09:25 BP 129 / 56 (auto/); js13 09:25 Pulse 98 MON; Resp 16; Pulse Ox 95% on R/A; js13 09:42 BP 128 / 62 (auto/); js13 09:44 Pulse 98 MON; Resp 18; Pulse Ox 92% on R/A; js13 09:57 BP 128 / 66 (auto/); js13 09:57 Pulse 94 MON; Resp 18; Pulse Ox 95% on R/A; js13 11:58 BP 140 / 78 (auto/); js13 11:58 Pulse 94 MON; Resp 18; Pulse Ox 95% on R/A; js13 12:13 BP 129 / 72 (auto/); js13 12:13 Pulse 98 MON; Resp 18; Pulse Ox 96% on R/A; js13 12:24 Temp 97.3(O); ar3 12:28 BP 144 / 71 (auto/); js13 12:28 Pulse 102 MON; Resp 18; Pulse Ox 96% on R/A; js13 08:10 Body Mass Index 48.89 (125.19 kg, 160.02 cm) dwg MDM: 08:35 IV Saline Lock ordered. jo4 09:10 Cardiac Marker Panel Ordered. EDMS 09:10 Troponin Ordered. EDMS 09:10 CBC with Diff Ordered. EDMS 09:10 BMP Ordered. EDMS 09:10 Chest, 2 View (pa\E\lat) Ordered. EDMS 09:11 ECG WITH READING ER PHYS+CARDIAG ordered. EDMS 09:12 Misc Professor Of Theology Order ordered. jo4 09:12 NS 0.9% 1000 ml IV at bolus once ordered. jo4 09:17 Financial registration complete. mm15 09:17 [facility] Order complete. lbd 09:21 [facility] [place] [facility] Payment Agreement was scanned into [employer] and attached to record. mm15 09:29 CBC with Diff Reviewed. jo4 09:44 Venous Blood Gas (large pea green tube on ice) Ordered. EDMS 09:48 BMP Reviewed. jo4 09:49 Cardiac Marker Panel Reviewed. jo4 10:29 Venous Blood Gas (large pea green tube on ice) Reviewed. jo4 10:42 Chest, 2 View (pa\E\lat) Reviewed. pc 11:39 Insulin Regular Human 10 units Sub-Q once ordered. jo4 12:41 T-Sheet-- Draft Copy was scanned into [employer] and attached to record. 12:52 Fingerstick Blood Sugar Ordered. EDMS 08/22 11:55 ECG/EKG was scanned into [employer] and attached to record. Point of Care Testing: Blood Glucose: 08/21 08:43 Blood Glucose: High; js13 Ranges: Administered Medications: 09:10 Drug: NS 0.9% 1000 ml [sodium chloride 0.9 % intravenous solution] Route: IV; Rate: js13 bolus; Site: left antecubital; 09:45 Follow up: IV Status: Completed infusion; IV Intake: 1000ml js13 12:01 Drug: Insulin Regular Human 10 units [insulin regular human 100 unit/mL injection js13 solution (0.1 mL)] {Co-Signature: jseús (Navneet Garcia RN).} Route: Sub-Q; Site: abdomen; 12:44 Follow up: Response: Glucose decreased js13 Signatures: Dispatcher [employer] EDMS Harvey Shaw MD MD pc Daly, Linda, Director Of [facility] lbd Lorenzo Pleitez RN RN Ruthie Parnell, Reg Reg Navneet Delgado, BRIGIDO RN ml6 Meggan Barrera RN RN js13 Cherie Perea mm15 Vero Connelly DO DO jo4 Navneet Garcia RN ml6 The chart was reviewed and I authenticate all verbal orders and agree with the evaluation and treatment provided.Corrections: (The following items were deleted from the chart) 08: 08:10 Home Meds: Unknown; issa ml6 08:21 08:10 Home Meds: Will contact [facility] for med list; issa [email or web address] Attachments: 09: [facility] Payment Agreement mm15 12:41 T-Sheet-- Draft Copy 08/22 11:55 ECG/EKG gb Chart Complete MTDD
== END 2016-08-21 12:47 | disposition home or self-care (01) ==
LOC: M ED 07:58
DX: E11.65 Type 2 diabetes mellitus with hyperglycemia (principal); N18.3 Chronic kidney disease, stage 3 (moderate); Z91.19 Patient's noncompliance with other medical treatment and regimen; E11.22 Type 2 diabetes mellitus with diabetic chronic kidney disease; I12.9 Hypertensive chronic kidney disease with stage 1 through stage 4 chronic kidney disease, or unspecified chronic kidney disease; E78.00 Pure hypercholesterolemia, unspecified; Z86.718 Personal history of other venous thrombosis and embolism; Z86.711 Personal history of pulmonary embolism; Z88.0 Allergy status to penicillin

== ENCOUNTER → 2016-08-23 | Outpatient (REF) | payer BC | LOC: M LAB REF 10:16 | PROVIDERS: ATTEND Podiatrist | DX: L97.512 Non-pressure chronic ulcer of other part of right foot with fat layer exposed (principal) ==

== ENCOUNTER 2016-09-30 10:07 | Inpatient (IN) | payer BC ==
[~2016-09-30] VITALS: Ht 160 cm; Wt 126.0 kg
[2016-09-30] MEDS ORDERED: CIPROFLOXACIN/D5W 400 MG/200 ML BAG (J0744) As Ordered ONE (11:02)
[2016-09-30 11:13] LABS: BASO % 0.2 % (0.0-1.0); EOS # 0.2 K/mm3 (0.0-0.50); EOS % 1.3 % (0.0-3.0); LARGE UNSTAINED CELL # 0.1 K/mm3 (0.0-0.4); LARGE UNSTAINED CELL % 0.7 % (0.0-4.0); LYMPH # 1.5 K/mm3 (1.5-4.5); LYMPH % 9.6 % (24.0-44.0); MEAN CORPUSCULAR VOLUME 84.4 fl (80.0-96.0); MONO # 0.5 K/mm3 (0.0-0.8); MONO % 3.2 % (0.0-5.0); NEUTROPHILS # 12.1 K/mm3 (1.8-7.7); PLATELET COUNT, AUTOMATED 525 k/mm3 (150-450); RED CELL DISTRIBUTION WIDTH 13.5 % (11.5-14.5); WHITE BLOOD COUNT 14.2 K/mm3 (4.0-10.0)
[2016-09-30 11:18] LABS: INR 1.13
--- NOTE | 2016-09-30 11:32 | REP ---
Clinical: Evaluate for osteomyelitis. Technique: AP, lateral, bilateral oblique views of the right toes. Findings: Fracture-dislocation involving the second toe at the proximal interphalangeal joint is appreciated along with erosive changes at the terminal tuft. Overlying soft tissue swelling with subcutaneous emphysema involve the region of the second through fourth toes. Findings are concerning for cellulitis and osteomyelitis with gas-forming organism. Impression: Osseous and soft tissue changes including fracture dislocation and subcutaneous emphysema is most suggestive of osteomyelitis and cellulitis with gas-forming organisms. Signed by Aamir Medina MD 09/30/2016 11:23 A
[2016-09-30 11:34] LABS: ALBUMIN 2.7 GM/DL (3.2-5.2); ALBUMIN/GLOBULIN RATIO 0.45 (1.00-1.93); ALKALINE PHOSPHATASE 112 U/L (45-117); ALT/SGPT 15 U/L (12-78); ANION GAP 11 MEQ/L (8-16); AST/SGOT 17 U/L (15-37); BILIRUBIN,DIRECT 0.2 MG/DL (0.0-0.2); BILIRUBIN,TOTAL 0.5 MG/DL (0.2-1.0); BLOOD UREA NITROGEN 14 MG/DL (7-18); CALCIUM LEVEL 8.8 MG/DL (8.8-10.2); CARBON DIOXIDE LEVEL 31 MEQ/L (21-32); CHLORIDE LEVEL 92 MEQ/L (98-107); CREATININE FOR GFR 0.79 MG/DL (0.55-1.02); GLOMERULAR FILTRATION RATE > 60.0 (>45); GLUCOSE, FASTING 140 MG/DL (80-110); SODIUM LEVEL 134 MEQ/L (136-145); TOTAL PROTEIN 8.7 GM/DL (6.4-8.2)
[2016-09-30] MEDS ORDERED: VANCOMYCIN 1000 MG/20 ML VIAL (J3370) As Ordered ONE (12:04)
[2016-09-30] MEDS ORDERED: POTA10CA PO (12:14)
[2016-09-30] MEDS ORDERED: HYDR12CA PO (12:14)
[2016-09-30] MEDS ORDERED: IBUP40TA PO (12:14)
[2016-09-30] MEDS ORDERED: METF1000 PO (12:14)
[2016-09-30] MEDS ORDERED: ATOR40TA PO (12:14)
[2016-09-30] MEDS ORDERED: SILV50CR EXT (12:14)
[2016-09-30] MEDS ORDERED: HUMU70IN SC ×2 (12:14)
[2016-09-30] MEDS ORDERED: BYET10IN2 SC (12:14)
[2016-09-30] MEDS ORDERED: POTASSIUM CHLORIDE 10 MEQ SR TABLET As Ordered ONE (12:18)
[2016-09-30] MEDS ORDERED: ONDANSETRON 4MG/2ML VIAL (J2405) IV PRN (13:15)
[2016-09-30] MEDS ORDERED: GLUCOSE 4 GM CHEW TABLET PO PRN (13:15)
[2016-09-30] MEDS ORDERED: GLUCAGON FOR INJ 1 MG VIAL (J1610) SC PRN (13:15)
[2016-09-30] MEDS ORDERED: BISACODYL 10 MG SUPP PR PRN (13:15)
[2016-09-30] MEDS ORDERED: DEXTROSE 50% 50 ML SYRINGE IV PRN (13:15)
--- NOTE | 2016-09-30 14:38 | EDDOCDS ---
Physician Documentation [facility] Name: Marcia Avila Age: 61 yrs Sex: Female : 1955 Arrival Date: 09/30/2016 Time: 10:07 Bed I4 / M4 Private MD: Other - Complete Info On Cds Disposition: 09/30/16 12:31 Hospitalization ordered by Vivian Mccurdy for Inpatient Admission. Preliminary diagnosis are Gas gangrene - right foot, Other acute osteomyelitis, right ankle and foot, Hypokalemia, Elevated C-reactive protein (CRP), Elevated erythrocyte sedimentation rate, Elevated white blood cell count. - Bed requested for M PED. - Status is Inpatient Admission. rs3 - Condition is Stable. - Problem is new. - Symptoms are unchanged. Historical: - Allergies: PENICILLINS; - Home Meds: 1. Humulin 70/30 38 units in AM, 46 units in PM Sub-Q per [facility] patient has not filled any medications since December (Last dose: 09/29/2016) 2. potassium 10 MEQ daily (Last dose: 09/29/2016) 3. HCTZ 12.5mg daily (Last dose: 09/29/2016) 4. metformin 1,000 mg Oral tab 1 tab 2 times per day (Last dose: 09/29/2016) 5. Lipitor 40 mg Oral tab 1 tab once daily (Last dose: 09/29/2016) 6. Byetta 10 mg twice a day (Last dose: 09/29/2016) - PMHx: Diabetes - IDDM: controlled; DVT's; Hypercholesterolemia; Hypertension; PE; - PSHx: Laparoscopic right knee surgery; ; Lung biopsy; - Social history: Smoking status: Patient states was never smoker of tobacco. No barriers to communication noted, The patient speaks fluent Syriac. - Family history: Not pertinent. - : The pt / caregiver states he / she is not on anticoagulants. Home medication list is obtained from the patient. - Exposure Risk Screening:: None identified. Vital Signs: 09/30 10:10 BP 178 / 88 RA Sitting (auto/reg); Pulse 87; Resp 18; Temp 98.6(O); Pulse Ox 100% on jrd R/A; Weight 122.47 kg / 270 lbs (R); Height 5 ft. 3 in. (160.02 cm) (R); Pain 6/10; 12:23 BP 172 / 69; Pulse 94; Resp 16; Temp 99.2(O); Pulse Ox 96% on R/A; dy 14:10 BP 154 / 74; Pulse 89; Resp 16; Temp 99.5; Pulse Ox 96% ; Pain 6/10; jlf 10:10 Body Mass Index 47.83 (122.47 kg, 160.02 cm) jrd MDM: 10:20 Accucheck ordered. btw 10:32 -Blood Culture (Adults Only), peripheral from different site, or from device/port/PICC btw etc. if present ordered. 10:32 IV Saline Lock ordered. btw 10:33 -Blood Culture Ordered. EDMS 10:33 C Reactive Protein Ordered. EDMS 10:33 CBC with Diff Ordered. EDMS 10:33 Lactic Acid (Reyes tube on ice) Ordered. EDMS 10:33 Liver Profile Ordered. EDMS 10:33 MED Profile Ordered. EDMS 10:33 PT/INR Ordered. EDMS 10:33 PTT Ordered. EDMS 10:33 Wound Culture & GS - All Other Sources Ordered. EDMS 10:34 Fingerstick Blood Sugar Ordered. EDMS 10:34 -Blood Culture (Adults Only), peripheral from different site, or from device/port/PICC jlf etc. if present complete. 10:34 Toes Ordered. EDMS 10:35 Ciprofloxacin 400 mg IVPB at 200 mL/hr once over 60 mins ordered. btw 10:35 BLOOD CULTURES Ordered. EDMS 10:[address] GRAM [address] Ordered. EDMS 10:43 Fingerstick Blood Sugar Reviewed. btw 10:44 ESR Ordered. EDMS 11:06 Financial registration complete. mm15 11:10 [facility] Payment Agreement was scanned into [employer] and attached to record. mm15 11:35 CBC with Diff Reviewed. btw 11:35 PT/INR Reviewed. btw 11:35 Lactic Acid (Reyes tube on ice) Reviewed. btw 11:35 PTT Reviewed. btw 11:37 C Reactive Protein Reviewed. btw 11:37 Liver Profile Reviewed. btw 11:37 MED Profile Reviewed. btw 11:37 ESR Reviewed. btw 11:50 vancomycin (loading dose for pt. wt. >= 80kg) 2000 mg IVPB once ordered. btw 11:52 BED REQUEST+ADM ordered. EDMS 12:11 Potassium Chloride Extended Release Tablet 20 mEq PO once ordered. btw 13:09 Admission / Observation Status ordered. EDMS 13:09 CONSISTENT CARBOHYDRATES ordered. EDMS Point of Care Testing: Blood Glucose: 10:27 Blood Glucose: 129 mg/dL; mlb1 Ranges: Administered Medications: 11:09 Drug: Ciprofloxacin 400 mg [ciprofloxacin 400 mg/200 mL in 5 % dextrose intravenous dy piggyback] Route: IVPB; Rate: 200 mL/hr; Infused Over: 60 mins; Site: left forearm; 12:10 Follow up: IV Status: Completed infusion; IV Intake: 200ml dy 12:15 Drug: vancomycin (loading dose for pt. wt. >= 80kg) 2000 mg [vancomycin 1,000 mg dy intravenous injection] Route: IVPB; Site: left forearm; 14:23 Follow up: IV Status: Completed infusion rs3 12:23 Drug: Potassium Chloride 20 mEq [potassium chloride ER 10 mEq tablet,extended release dy (2 tabs)] Route: PO; Signatures: Dispatcher [employer] Lorenzo Mcgraw, BRIGIDO RN dwLolis TruongRN RN rs3 Roosevelt Schultz PA PA btw Cherie Perea mm15 Jess Carter, JESUSITA SURVEILLANCE SYSTEM MONITOR Saul Harrison RN dy The chart was reviewed and I authenticate all verbal orders and agree with the evaluation and treatment provided.Attachments: 11:10 [facility] Payment Agreement mm15 MTDD
--- NOTE | 2016-09-30 14:39 | EDDOCDS ---
Nurse's Notes [facility] Name: Marcia Avila Age: 61 yrs Sex: Female : 1955 Arrival Date: 09/30/2016 Time: 10:07 Bed I4 / M4 Private MD: Other - Complete Info On Cds Diagnosis: Gas gangrene-right foot;Other acute osteomyelitis, right ankle and foot;Hypokalemia;Elevated C-reactive protein (CRP);Elevated erythrocyte sedimentation rate;Elevated white blood cell count Presentation: 09/30 10:15 Presenting complaint: Patient states: Worsening diabetic ulcers to 3rd and 4th toes dwg right foot. Blood sugars have been elevated for last 3 days. Adult Sepsis Screening: The patient does not have new or worsening altered mentation. Patient's respiratory rate is less than 22. Systolic blood pressure is greater than 100. Patient has a qSOFA score of 0- Negative Sepsis Screen. Suicide/Homicide risk assessment- the patient denies having any suicidal and/or homicidal ideations and does not present with any other emotional, behavioral or mental health complaints. Status: Patient is not a substance abuse services director or dependent. Transition of care: patient was not received from another setting of care. 10:15 Acuity: FLETCHER Level 3 dwg 10:15 Method Of Arrival: Walkin/Carried/Asstd dwg Triage Assessment: 10:22 General: Appears in no apparent distress. Pain: Pain currently is 6 out of 10 on a pain dwg scale. HIV screening NA for this visit Offered previously. Historical: - Allergies: PENICILLINS; - Home Meds: 1. Humulin 70/30 38 units in AM, 46 units in PM Sub-Q per [facility] patient has not filled any medications since December (Last dose: 09/29/2016) 2. potassium 10 MEQ daily (Last dose: 09/29/2016) 3. HCTZ 12.5mg daily (Last dose: 09/29/2016) 4. metformin 1,000 mg Oral tab 1 tab 2 times per day (Last dose: 09/29/2016) 5. Lipitor 40 mg Oral tab 1 tab once daily (Last dose: 09/29/2016) 6. Byetta 10 mg twice a day (Last dose: 09/29/2016) - PMHx: Diabetes - IDDM: controlled; DVT's; Hypercholesterolemia; Hypertension; PE; - PSHx: Laparoscopic right knee surgery; ; Lung biopsy; - Social history: Smoking status: Patient states was never smoker of tobacco. No barriers to communication noted, The patient speaks fluent [place]. - Family history: Not pertinent. - : The pt / caregiver states he / she is not on anticoagulants. Home medication list is obtained from the patient. - Exposure Risk Screening:: None identified. Screenin:58 Screening information is obtained from the patient. Fall risk: No risks identified. dy Assistance ADL's: requires no assistance with activities of daily living. Abuse/DV Screen: The patient / caregiver reports he/she is: not in a situation that causes fear, pain or injury. Nutritional screening: No deficits noted. Advance Directives: There is no active DNR order. home support is adequate. Assessment: 11:09 General: Appears in no apparent distress, Behavior is appropriate for age, cooperative. dy Pain: Location: right second toe Pain currently is 6 out of 10 on a pain scale. Neurological: No deficits noted. Respiratory: Airway is patent Respiratory effort is even, unlabored, Breath sounds are clear bilaterally. Derm: Skin is on dorsum of right foot, right second toe and right third toe. 12:24 General: Appears in no apparent distress, Behavior is appropriate for age, cooperative. dy General: Reports chills for. Pain: Denies pain. Neurological: No deficits noted. 13:16 General: Appears in no apparent distress, Behavior is cooperative, resting comfortable. rs3 IV antibiotic vancomycin infusing. tolerating well. reports of right foot pain. 14:19 General: Appears in no apparent distress, Behavior is appropriate for age, cooperative. rs3 Pain: Location: right third toe and right foot. Cardiovascular: Capillary refill < 3 seconds Heart tones S1 S2. Respiratory: Airway is patent Respiratory effort is even, unlabored. GI: Abdomen is non- distended. : No deficits noted. Derm: necrosed eschar on 3 rd toe, mild odor to the wound Swollen area noted on dorsum of right foot and right second toe. Vital Signs: 10:10 BP 178 / 88 RA Sitting (auto/reg); Pulse 87; Resp 18; Temp 98.6(O); Pulse Ox 100% on jrd R/A; Weight 122.47 kg (R); Height 5 ft. 3 in. (160.02 cm) (R); Pain 6/10; 12:23 BP 172 / 69; Pulse 94; Resp 16; Temp 99.2(O); Pulse Ox 96% on R/A; dy 14:10 BP 154 / 74; Pulse 89; Resp 16; Temp 99.5; Pulse Ox 96% ; Pain 6/10; jlf 10:10 Body Mass Index 47.83 (122.47 kg, 160.02 cm) [facility] Vitals: 10:10 Log In Time: September 30, 2016 at 10:08. d ED Course: 10:09 Patient visited by Casey Bill PCA. jrd 10:09 Other - Complete Info On Cds is Private Physician. jrd 10:09 Patient moved to Waiting jrd 10:11 Patient visited by Casey Bill PCA. jrd 10:11 Patient moved to Pre RCE jrd 10:18 Triage Initiated dwg 10:23 Patient moved to Triage 2 dwg 10:26 Roosevelt Schultz PA is PHCP. btw 10:27 Danielito Dey MD is Attending Physician. btw 10:27 Patient visited by Roosevelt Schultz PA. btw 10:37 Patient moved to I4 / M4 mlb1 10:55 Inserted saline lock: 20 gauge in left forearm and blood collected. The patient dy tolerated the procedure well. 10:55 Labs/Blood culture drawn Wound culture sent to lab. dy 10:57 Patient visited by Jess Carter PCA. jlf 10:57 ESR Sent. dy 10:[address] GRAM [address] Sent. dy 10:57 BLOOD CULTURES Sent. dy 10:57 Wound Culture & GS - All Other Sources Sent. dy 10:58 The patient / caregiver is instructed regarding the plan of care and ED course. Patient dy has correct armband on for positive identification. Placed in gown. Bed in low position. Call light in reach. Side rails up X 1. 10:58 -Blood Culture Sent. dy 10:58 C Reactive Protein Sent. dy 10:58 CBC with Diff Sent. dy 10:58 Lactic Acid (Reyes tube on ice) Sent. dy 10:58 Liver Profile Sent. dy 10:58 MED Profile Sent. dy 10:58 PT/INR Sent. dy 10:58 PTT Sent. dy 11:10 [facility] Payment Agreement was scanned into [employer] and attached to record. mm15 11:42 Patient visited by Jess Carter PCA. jlf 11:59 Toes Returned. EDMS 12:07 Patient visited by Jess Carter PCA. jlf 12:24 Patient visited by Saul Lakhani RN. dy 12:28 Vivian Mccurdy is Hospitalizing Provider. btw 13:16 Patient visited by Lolis Jacobo RN. rs3 14:10 Patient visited by Jess Carter PCA. jlf 14:11 Patient visited by Jess Carter PCA. jlf 14:23 No procedures done that require assistance. rs3 Administered Medications: 11:09 Drug: Ciprofloxacin 400 mg [ciprofloxacin 400 mg/200 mL in 5 % dextrose intravenous dy piggyback] Route: IVPB; Rate: 200 mL/hr; Infused Over: 60 mins; Site: left forearm; 12:10 Follow up: IV Status: Completed infusion; IV Intake: 200ml dy 12:15 Drug: vancomycin (loading dose for pt. wt. >= 80kg) 2000 mg [vancomycin 1,000 mg dy intravenous injection] Route: IVPB; Site: left forearm; 14:23 Follow up: IV Status: Completed infusion rs3 12:23 Drug: Potassium Chloride 20 mEq [potassium chloride ER 10 mEq tablet,extended release dy (2 tabs)] Route: PO; Point of Care Testing: Blood Glucose: 10:27 Blood Glucose: 129 mg/dL; mlb1 Ranges: Intake: 12:10 IV: 200.00ml; Total: 200.00ml. dy Order Results: Lab Order: C Reactive Protein; SPEC'M 09/30/16 10:52 Test: C REACTIVE PROTEIN QUANTITATIV; Value: 24.80; Range: 0.00-0.30; Abnormal: Above high normal; Units: MG/DL; Status: F Lab Order: CBC with Diff; SPEC'M 09/30/16 10:52 Test: WHITE BLOOD COUNT; Value: 14.2; Range: 4.0-10.0; Abnormal: Above high normal; Units: K/mm3; Status: F Test: RED BLOOD COUNT; Value: 4.27; Range: 4.00-5.40; Units: M/mm3; Status: F Test: HEMOGLOBIN; Value: 11.5; Range: 12.0-16.0; Abnormal: Below low normal; Units: g/dl; Status: F Test: HEMATOCRIT; Value: 36.0; Range: 36.0-47.0; Units: %; Status: F Test: MEAN CORPUSCULAR VOLUME; Value: 84.4; Range: 80.0-96.0; Units: fl; Status: F Test: MEAN CORPUSCULAR HEMOGLOBIN; Value: 27.0; Range: 27.0-33.0; Units: pg; Status: F Test: MEAN CORPUSCULAR HGB CONC; Value: 32.0; Range: 32.0-36.5; Units: g/dl; Status: F Test: RED CELL DISTRIBUTION WIDTH; Value: 13.5; Range: 11.5-14.5; Units: %; Status: F Test: PLATELET COUNT, AUTOMATED; Value: 525; Range: 150-450; Abnormal: Above high normal; Units: k/mm3; Status: F Test: NEUTROPHILS %; Value: 85.0; Range: 36.0-66.0; Abnormal: Above high normal; Units: %; Status: F Test: LYMPH %; Value: 9.6; Range: 24.0-44.0; Abnormal: Below low normal; Units: %; Status: F Test: MONO %; Value: 3.2; Range: 0.0-5.0; Units: %; Status: F Test: EOS %; Value: 1.3; Range: 0.0-3.0; Units: %; Status: F Test: BASO %; Value: 0.2; Range: 0.0-1.0; Units: %; Status: F Test: LARGE UNSTAINED CELL %; Value: 0.7; Range: 0.0-4.0; Units: %; Status: F Test: NEUTROPHILS #; Value: 12.1; Range: 1.8-7.7; Abnormal: Above high normal; Units: K/mm3; Status: F Test: LYMPH #; Value: 1.5; Range: 1.5-4.5; Units: K/mm3; Status: F Test: MONO #; Value: 0.5; Range: 0.0-0.8; Units: K/mm3; Status: F Test: EOS #; Value: 0.2; Range: 0.0-0.50; Units: K/mm3; Status: F Test: BASO #; Value: 0.0; Range: 0.0-0.2; Units: K/mm3; Status: F Test: LARGE UNSTAINED CELL #; Value: 0.1; Range: 0.0-0.4; Units: K/mm3; Status: F Lab Order: Lactic Acid (Reyes tube on ice); [facility] 09/30/16 10:52 Test: LACTIC ACID SEPSIS PROTOCOL; Value: 1.1; Range: 0.4-2.0; Units: MMOL/L; Status: F Lab Order: Liver Profile; [facility] 09/30/16 10:52 Test: AST/SGOT; Value: 17; Range: 15-37; Units: U/L; Status: F Test: ALT/SGPT; Value: 15; Range: 12-78; Units: U/L; Status: F Test: ALKALINE PHOSPHATASE; Value: 112; Range: 45-117; Units: U/L; Status: F Test: BILIRUBIN,TOTAL; Value: 0.5; Range: 0.2-1.0; Units: MG/DL; Status: F Test: BILIRUBIN,DIRECT; Value: 0.2; Range: 0.0-0.2; Units: MG/DL; Status: F Test: TOTAL PROTEIN; Value: 8.7; Range: 6.4-8.2; Abnormal: Above high normal; Units: GM/DL; Status: F Test: ALBUMIN; Value: 2.7; Range: 3.2-5.2; Abnormal: Below low normal; Units: GM/DL; Status: F Test: ALBUMIN/GLOBULIN RATIO; Value: 0.45; Range: 1.00-1.93; Abnormal: Below low normal; Status: F Lab Order: MED Profile; [facility] 10:52 Test: GLUCOSE, FASTING; Value: 140; Range: 80-110; Abnormal: Above high normal; Units: MG/DL; Status: F Test: BLOOD UREA NITROGEN; Value: 14; Range: 7-18; Units: MG/DL; Status: F Test: CREATININE FOR GFR; Value: 0.79; Range: 0.55-1.02; Units: MG/DL; Status: F Test: GLOMERULAR FILTRATION RATE; Value: > 60.0; Range: >45; Status: F Test: SODIUM LEVEL; Value: 134; Range: 136-145; Abnormal: Below low normal; Units: MEQ/L; Status: F Test: POTASSIUM SERUM; Value: 3.0; Range: 3.5-5.1; Abnormal: Below low normal; Units: MEQ/L; Status: F Test: CHLORIDE LEVEL; Value: 92; Range: 98-107; Abnormal: Below low normal; Units: MEQ/L; Status: F Test: CARBON DIOXIDE LEVEL; Value: 31; Range: 21-32; Units: MEQ/L; Status: F Test: ANION GAP; Value: 11; Range: 8-16; Units: MEQ/L; Status: F Test: CALCIUM LEVEL; Value: 8.8; Range: 8.8-10.2; Units: MG/DL; Status: F Test Note: ; Units are mL/min/1.73 m2 Chronic Kidney Disease Staging per NKF: Stage I & II GFR >=60 Normal to Mildly Decreased Stage III GFR 30-59 Moderately Decreased Stage IV GFR 15-29 Severely Decreased Stage V GFR <15 Very Little GFR Left ESRD GFR <15 on SEATING AND MOBILITY TECHNOLOGIST Lab Order: PT/INR; SPEC'09/30/16 10:52 Test: PROTHROMBIN TIME; Value: 14.6; Range: 12.3-14.5; Abnormal: Above high normal; Units: SECONDS; Status: F Test: INR; Value: 1.13; Status: F Test Note: ; THERAPUTIC HUMAN INR VALUES INDICATIONS NORMAL RANGES PROPHYLAXIS/TREATMENT OF: VENOUS THROMBOSIS 2.0-3.0 PULMONARY EMBOLISM 2.0-3.0 PREVENTION OF SYSTEMIC EMBOLISM FROM: TISSUE HEART VALVES 2.0-3.0 ACUTE MYOCARDIAL INFARCTION 2.0-3.0 VALVULAR HEART DISEASE 2.0-3.0 ATRIAL FIBRILLATION 2.0-3.0 MECHANICAL VALVES(HIGH RISK) 2.5-3.5 RECURRENT MYOCARDIAL INFARCTION 2.5-3.5 Lab Order: PTT; SPEC'09/30/16 10:52 Test: PARTIAL THROMBOPLASTIN TIME; Value: 32.6; Range: 26.6-37.1; Units: SECONDS; Status: F Lab Order: Fingerstick Blood Sugar; SPEC'M 09/30/16 10:25 Test: BEDSIDE GLUCOSE; Value: 129; Range: 80-115; Abnormal: Above high normal; Units: MG/DL; Status: F Lab Order: ESR; SPEC'M 09/30/16 10:54 Test: ERYTHROCYTE SEDIMENTATION RATE; Value: 92; Range: 0-30; Abnormal: Above high normal; Units: mm/hr; Status: F Radiology Order: Toes Test: Toes REASON FOR EXAMINATION: ? OSTEOMYELITIS; Clinical: Evaluate for osteomyelitis.; ; Technique: AP, lateral, bilateral oblique views of the right toes.; ; Findings:; Fracture-dislocation involving the second toe at the proximal interphalangeal; joint is appreciated along with erosive changes at the terminal tuft. Overlying; soft tissue swelling with subcutaneous emphysema involve the region of the second; through fourth toes. Findings are concerning for cellulitis and osteomyelitis; with gas-forming organism.; ; Impression:; Osseous and soft tissue changes including fracture dislocation and subcutaneous; emphysema is most suggestive of osteomyelitis and cellulitis with gas-forming; organisms.; ; ; Signed by; Aamir Medina MD 09/30/2016 11:23 A; Outcome: 12:31 Decision to Hospitalize by Provider. btw 14:22 Discharge Assessment: patient administered narcotics - no. The following High Risk rs3 Discharge criteria are identified: None. Admitted to Pediatrics accompanied by tech, via wheelchair, with chart. Condition: stable. No special radiology studies were completed. Property :Personal belongings accompany Pt. 14:38 Patient left the ED. rs3 Signatures: Dispatcher [employer] EDMS Lorenzo Pleitez RN Saul Brown RN RN dy Barney, Michael B, RN RN mlb1 Lolis Jacobo RN RN rs3 Roosevelt Schultz PA PA btw Cherie Perea mm15 Jess Carter, INSTRUCTIONAL DEVELOPER INSTRUCTIONAL DEVELOPER Casey Patterson, INSTRUCTIONAL DEVELOPER INSTRUCTIONAL DEVELOPER jrd MTDD
[2016-09-30 15:00] VITALS: BP 164/74
--- NOTE | 2016-09-30 15:28 | HPE ---
DATE OF ADMISSION: 09/30/2016 PRIMARY CARE PROVIDER: Edd Claudia at [facility] PRACTICE SPECIALIST: Dr. Walker. CHIEF COMPLAINT: Right second and third toe redness, swelling, maceration and discharge, worsened over the past 3 days with change in color. PAST MEDICAL HISTORY: 1. Diabetes. 2. Obesity. 3. Obstructive sleep apnea on continuous positive airway pressure (CPAP). 4. Hypertension. 5. Hyperlipidemia. 6. Diabetic neuropathy. 7. Chronic diabetic ulcer. 8. History of pulmonary embolism 4 or 5 years ago, not on any anticoagulation. 9. History of deep vein thrombosis (DVT), not on anticoagulation. HISTORY OF PRESENT ILLNESS: This is a 61-year-old female who has been having right toe little redness and discoloration and some ulcer for the past 3 weeks, for which she has been following with Dr. Walker and has been doing dressings twice a day; however, three days ago she noticed that the coloration has worsened and there is increased swelling, increased discoloration and discharge from the toe and foul smelling, so came to the emergency room today for evaluation. The patient notes that about 6 weeks ago she had dropped a box of Ensure on her right foot, though she was wearing her sneakers and she did not have much pain, so she did not pay any attention to that. Subsequently, about 4 weeks ago, she had gone to see her primary care provider and mentioned this and she was noted to have a little discoloration on her right toes, second and third toes, so she was referred to Dr. Walker and started following up with him and continued to do dressings as advised and then the toes got really bad over the past three days so came to the emergency room. In the emergency department, she had an x-ray of the foot done, which showed some soft tissue changes, including fracture, dislocation and subcutaneous emphysema involving the right second toe and the proximal interphalangeal joint, along with erosive changes of the terminal tuft. There is subcutaneous emphysema involving the whole region from the second to the fourth toes, concerning for cellulitis and osteomyelitis with gas forming organism. Dr. Walker was consulted from emergency room and he is going to evaluate the patient, but his initial opinion was that the patient will need to go to the operating room tomorrow for removal of the toes. The patient is being admitted to the hospitalist service for antibiotics and further treatment. The patient received vancomycin and Cipro in the emergency department. Blood cultures and wound cultures were sent. PAST SURGICAL HISTORY: 1. Laparoscopic knee surgery. 2. section. 3. Lung biopsy. SOCIAL HISTORY: The patient does not smoke. Does not abuse alcohol or recreational drugs. ALLERGIES: PENICILLIN. HOME MEDICATIONS: - atorvastatin 40 mg at bedtime - Byetta 10 mcg subcutaneously twice a day - hydrochlorothiazide 12.5 mg by mouth daily - ibuprofen 400 mg by mouth as needed for pain - Humulin 70/30 38 units in the morning - Humulin 70/30 46 units at night - metformin 1000 mg by mouth twice a day - potassium chloride 10 mEq by mouth daily - silver sulfadiazine 1% cream twice a day REVIEW OF SYSTEMS: The patient denied any fever or chills. Denied any chest pain, shortness of breath. Denies any nausea, vomiting, diarrhea or abdominal pain. Has some pain on the right foot but not too bad. PHYSICAL EXAMINATION: VITAL SIGNS: Blood pressure 178/88, pulse 87, respiratory rate 18, temperature 98.6, pulse oximetry 100% on room air. GENERAL: Awake, alert, oriented times three. Sitting up in bed in no acute distress. HEENT: Normocephalic, atraumatic. Moist mucous membranes. Anicteric eyes. CHEST: Clear to auscultation. CARDIOVASCULAR: S1, S2 regular. No rub, murmur or gallop. ABDOMEN: Obese, soft, nontender. Bowel sounds present. EXTREMITIES: There is diffuse edema of the right lower extremity with inflammation and maceration, some gangrenous changes noted on the right second and third toes. The left has no edema. on the left big toe there is ulcer. LABORATORY DATA: WBC 14.2, hemoglobin 11.5, platelets 525, ESR is 92. Sodium is 134, potassium 3.0, chloride 92, bicarbonate 31, BUN 14, creatinine 0.7, sugar 140, lactate 1.1. Liver function tests are normal. C-reactive protein 24.8, protein 8.7, albumin 2.7. ASSESSMENT AND PLAN: This is a 61-year-old female admitted for right toe cellulitis, osteomyelitis, and gangrene. PLAN: 1. Right toe gangrene and left toe ulcer: The patient is to be evaluated by Dr. Walker for possible operating room tomorrow. We will continue with meropenem and clindamycin. Meropenem to cover for gram-positive, gram-negative Pseudomonas and clindamycin to cover for methicillin resistant Staphylococcus aureus (MRSA), clostridium, and anaerobes. We will add antibiotics based on wound culture. 2. Diabetes. We will continue with Humulin mixture of 70/30 insulin, 30 units twice a day. We will give Lispro if required. We will hold metformin and Byetta at this point. 3. Hypertension. We will hold hydrochlorothiazide at this point. We will give amlodipine if required. 4. Hyperlipidemia. We will continue with atorvastatin. 5. Obstructive sleep apnea. We will continue with home continuous positive airway pressure (CPAP). 6. Hypokalemia. Potassium has been replaced. 7. Deep vein thrombosis (DVT) prophylaxis has been ordered. [facility]
[2016-09-30] MEDS ORDERED: HumuLIN (NovoLIN)70/30 INSULIN INJ PER UNIT SC SCH (17:30)
[2016-09-30] MEDS: POTASSIUM CHLORIDE 10 MEQ SR TABLET PO SCH (18:05)
[2016-09-30] MEDS: HumuLIN (NovoLIN)70/30 INSULIN INJ PER UNIT SC SCH (18:06)
[2016-09-30] MEDS: CLINDAMYCIN 600 MG in APPROPRIATE DILUENT 1 EA IV SCH ×2 (18:06→21:36)
[2016-09-30] MEDS: amLODIPine 5 MG TAB PO SCH (18:06)
--- NOTE | 2016-09-30 18:25 | REP ---
Clinical: Ulcer. Technique: AP, lateral, bilateral oblique views of the left first toe. Findings: The osseous structures are intact. There is no evidence for acute fracture or dislocation. Age-related degenerative changes suggested. Subtle swelling and possible subcutaneous emphysema at the level of the first interphalangeal joint. Impression: Degenerative changes. No acute fracture or dislocation. Osteomyelitis cannot be inferred by current radiographic evaluation. Signed by Aamir Medina MD 09/30/2016 06:16 P
--- NOTE | 2016-09-30 18:54 | CR ---
DATE: 09/30/2016 TIME: 6:30 p.m. CHIEF COMPLAINT: Patient is seen today for evaluation of worsening of her ulcer. She states she has noticed it worsen over the last three days and noticed change in color and increasing odor. She denies any recent trauma to the area; however, she states it may have been caught in her bed sheets at night. She is seen today for evaluation. PAST MEDICAL HISTORY: 1. Diabetes. 2. Obesity. 3. Chronic obstructive pulmonary disease. 4. Hypertension. 5. Hyperlipidemia. 6. Diabetic neuropathy. 7. Chronic ulcerations. 8. History of pulmonary embolism and deep vein thrombosis. PAST SURGICAL HISTORY: 1. Laparoscopic knee surgery. 2. section. 3. Lung biopsy. HOME MEDICATIONS: - atorvastatin 40 mg at bedtime - Byetta 10 mg subcutaneously twice a day - hydrochlorothiazide 12.5 mg daily - ibuprofen 400 mg as needed for pain - Humulin 70/30 38 units in the morning and 46 units at night - metformin 1000 mg twice a day - potassium chloride 10 mEq daily - silver sulfadiazine applied to ulcers twice a day PHYSICAL EXAMINATION: Reveals an alert, well orientated 61-year-old female in no acute distress. Evaluation of her foot reveals an ulceration on the second toe at the proximal interphalangeal joint. Bone is sticking through the ulcer with discharge. There is a cyanotic color to the toe. There is also an ulcer present on the distal aspect of the digit. The proximal ulcer over the proximal interphalangeal joint measures 1 cm from medial to lateral, and 2 cm from distal to proximal, extending to bone with a yellow discharge. The ulceration on the distal tip of the second toe measures approximately 4 mm x 5 mm x 1 mm in depth. Ulceration on the third toe of the right foot over the proximal interphalangeal joint measures 6 mm x 6 mm x 1 mm in depth with a yellow, necrotic base. Evaluation of the ulcer on her left foot reveals an ulceration measuring 1 cm x 2 cm with a dark eschar over the dorsal aspect of the hallux. The dorsalis pedis and posterior tibial pulses are palpable. DIAGNOSTIC STUDIES: Reviewed. White blood cell count 14.2. ESR 92. C-reactive protein 24.8. GFR greater than 60. X-rays reveal a fracture of the proximal phalanx and necrosis of the distal phalanx consistent with osteomyelitis. Evaluation on x-ray of the left foot revealed some periosteal reaction over the lateral aspect of the head of the proximal phalanx of the hallux. No definitive evidence of osteomyelitis. ASSESSMENT: 1. Osteomyelitis with gangrenous changes second toe right foot. 2. Stage IV ulceration third toe, right foot. 3. Stage IV ulceration left hallux. PLAN: Informed consent was obtained and signed by the patient, consisting of an amputation of the second toe of the right foot which will be performed tomorrow. She will be nothing by mouth after breakfast tomorrow. This will be scheduled after office hours, and debridement of the ulceration on the third toe of the right foot, and on the left hallux. Wound care will consist of Silvadene and a dressing. The patient's antibiotics will be tailored according to her culture and sensitivity. Her questions were answered.
[2016-09-30] MEDS: MEROPENEM INJ 1 GM in D5W MINI-BAG PLUS 100 ML IV SCH (19:09)
[2016-09-30 20:00] VITALS: BP 155/75
[2016-09-30] MEDS: ATORVASTATIN 20 MG TAB PO SCH (21:36)
[2016-09-30] MEDS: SILVER SULFADIAZINE 1% CR 50 GM JAR TOP SCH (21:38)
[2016-10-01] VITALS (8 sets, daily range): BP systolic 119–145; BP diastolic 56–68
[2016-10-01] MEDS: MEROPENEM INJ 1 GM in D5W MINI-BAG PLUS 100 ML IV SCH ×3 (00:17→16:30)
[2016-10-01] MEDS: ACETAMINOPHEN 500 MG TAB PO PRN (00:28)
[2016-10-01] MEDS: CLINDAMYCIN 600 MG in APPROPRIATE DILUENT 1 EA IV SCH ×4 (02:53→21:24)
[2016-10-01 07:09] LABS: BASO % 0.4 % (0.0-1.0); EOS # 0.1 K/mm3 (0.0-0.50); EOS % 0.9 % (0.0-3.0); LARGE UNSTAINED CELL # 0.2 K/mm3 (0.0-0.4); LARGE UNSTAINED CELL % 1.6 % (0.0-4.0); LYMPH # 1.7 K/mm3 (1.5-4.5); LYMPH % 11.4 % (24.0-44.0); MEAN CORPUSCULAR HEMOGLOBIN 26.4 pg (27.0-33.0); MEAN CORPUSCULAR HGB CONC 31.8 g/dl (32.0-36.5); MONO # 0.7 K/mm3 (0.0-0.8); MONO % 4.7 % (0.0-5.0); NEUTROPHILS % 81.1 % (36.0-66.0); PLATELET COUNT, AUTOMATED 542 k/mm3 (150-450); RED CELL DISTRIBUTION WIDTH 13.5 % (11.5-14.5); WHITE BLOOD COUNT 14.8 K/mm3 (4.0-10.0)
[2016-10-01 07:18] LABS: ANION GAP 10 MEQ/L (8-16); BLOOD UREA NITROGEN 11 MG/DL (7-18); CARBON DIOXIDE LEVEL 31 MEQ/L (21-32); CHLORIDE LEVEL 94 MEQ/L (98-107); CREATININE FOR GFR 0.77 MG/DL (0.55-1.02); GLOMERULAR FILTRATION RATE > 60.0 (>45); GLUCOSE, FASTING 154 MG/DL (80-110); MAGNESIUM LEVEL 1.5 MG/DL (1.8-2.4); POTASSIUM SERUM 3.5 MEQ/L (3.5-5.1); SODIUM LEVEL 135 MEQ/L (136-145)
[2016-10-01] MEDS ORDERED: HumuLIN (NovoLIN)70/30 INSULIN INJ PER UNIT SC SCH (07:30)
[2016-10-01] MEDS: amLODIPine 5 MG TAB PO SCH (08:31)
[2016-10-01] MEDS: POTASSIUM CHLORIDE 10 MEQ SR TABLET PO SCH (08:32)
[2016-10-01] MEDS ORDERED: ENOXAPARIN 40 MG/0.4 ML SYRINGE (J1650) SC SCH (09:00)
[2016-10-01] MEDS: SILVER SULFADIAZINE 1% CR 50 GM JAR TOP SCH ×2 (09:30→21:00)
[2016-10-01] MEDS: MAG SULF 1GM/100ML (MAG RUN) 1 GM in APPROPRIATE DILUENT 1 EA IV SCH ×2 (11:29→14:03)
[2016-10-01] MEDS ORDERED: POTASSIUM CHLORIDE 10 MEQ SR TABLET PO ONE (11:30)
--- NOTE | 2016-10-01 11:33 | IPN ---
DATE OF EXAMINATION: 10/01/2016 SUBJECTIVE: Today, the patient tells me that she has some subtle pain in the right lower extremity but otherwise has no complaints, no fevers, chills, chest pain, shortness of breath, nausea, vomiting, or diarrhea. OBJECTIVE: VITAL SIGNS: Temperature 98.2, pulse 77, respiratory rate 18, blood pressure (BP) 145/67, oxygen (O2) saturation 97% on room air. GENERAL: She is very pleasant elderly female, lying flat in bed. She does not appear to be in any acute distress. HEENT: Cranial nerves II-XII are grossly intact. She has moist mucous membranes. No elevation in central venous pressure. CARDIOVASCULAR EXAMINATION: S1, S2, regular rate and rhythm. RESPIRATORY EXAMINATION: Is fairly clear. ABDOMINAL EXAMINATION: Obese. Bowel sounds are present. The abdomen is soft. EXTREMITIES: Her bilateral lower extremities are bandaged, taken down, in the right lower extremity, reveals necrotic 2nd toe, malodorous, purulent drainage, necrotic. Appears to be wet gangrene. No edema is appreciated. LABORATORY STUDIES: Today, WBC 14.8, hemoglobin 9.7, hematocrit 30.4, platelet count 542, ESR 92. Chemistry panel: Sodium 135, potassium 3.5, chloride 94, bicarbonate 31, BUN 11, creatinine 0.7, magnesium 1.5, CRP 18 down from 24 yesterday. Blood cultures are pending. Wound culture is pending. IMAGING: Toe x-ray on the left reveals no acute fracture. Osteomyelitis cannot be inferred by the current radiographic evaluation. The patient also had a toe x-ray on the right, which revealed fracture dislocation and subcutaneous emphysema most suggestive of osteomyelitis and cellulitis with gas-forming organisms. ASSESSMENT AND PLAN: This is a 61-year-old female with osteomyelitis with wet gangrene of the right 2nd toe. PROBLEMS: 1. Osteomyelitis with wet gangrene of the right 2nd toe. Dr. Walker has been consulted. He is planning to take her to the operating room for amputation. The patient had a previously culture, which has been polymicrobial. She is currently on clindamycin for possible methicillin-resistant Staphylococcus aureus (MRSA), which has been sensitive to in the past with addition of meropenem. If Dr. Walker is able to remove all of her infected bone, she is likely to be treated for a course of antibiotics for cellulitis. In preparation for her operative procedure, we will hold her deep venous thrombosis (DVT) prophylaxis and hold her morning insulin. 2. Hypertension. The patient is controlled with Norvasc. 3. Dyslipidemia. The patient on Lipitor. 4. Type 2 diabetes. The patient is currently nothing by mouth. We are holding her morning insulin. She will require a [id number] consistent-carbohydrate diet with fingerstick before meals and at bedtime on returning from the operating room (OR). 5. Hypokalemia. Will replete. She is normally on 10 mEq. Will give her an additional 40. Will also replete her magnesium with a magnesium run. 6. Deep venous thrombosis (DVT) prophylaxis. The patient is ordered for Lovenox. We will hold this in preparation for her operative procedure. 7. Obstructive sleep apnea. The patient is to use her home continuous positive airway pressure (CPAP).
[2016-10-01 12:37] LABS: RETIC HEMOGLOBIN CONTENT CHr 24.2 PG (24-36); RETICULOCYTE % ADVIA2120 1.6 % (0.5-1.5)
[2016-10-01 13:12] LABS: PERCENT SATURATION 10.9 % (13.2-37.4)
[2016-10-01] MEDS ORDERED: BUPIVACAINE HCL 0.5% 30 ML VIAL As Ordered ONE (16:59)
[2016-10-01] MEDS ORDERED: GENTAMICIN SULF INJ 80MG/2ML VIAL (J1580) As Ordered ONE (16:59)
[2016-10-01] MEDS ORDERED: LIDOCAINE 2% MDV 20 ML VIAL As Ordered ONE (16:59)
[2016-10-01] MEDS ORDERED: MIDAZOLAM INJ 2 MG/2 ML VIAL (J2250) As Ordered ONE (17:16)
[2016-10-01] MEDS ORDERED: fentaNYL 100 MCG/2 ML INJECTION (J3010) As Ordered ONE (17:17)
[2016-10-01] MEDS ORDERED: LIDOCAINE 2% INJ 100 MG/5 ML SDV (FOR ANES.) As Ordered ONE (17:18)
[2016-10-01] MEDS ORDERED: PROPOFOL 200 MG/20 ML VIAL As Ordered ONE (17:18)
[2016-10-01] MEDS: HumuLIN (NovoLIN)70/30 INSULIN INJ PER UNIT SC SCH ×2 (17:23→20:00)
[2016-10-01] MEDS ORDERED: HumaLOG INSULIN (NovoLOG) PER UNIT As Ordered ONE ×2 (17:25→18:41)
[2016-10-01] MEDS: HumaLOG INSULIN (NovoLOG) PER UNIT SC SCH ×3 (17:30→21:00)
[2016-10-01] MEDS ORDERED: BUPIVACAINE HCL 0.5% 10 ML VIAL SC ONE (18:04)
[2016-10-01] MEDS ORDERED: LIDOCAINE 1% MDV 20ML VIAL XX ONE (18:06)
[2016-10-01] MEDS ORDERED: GENTAMICIN/SOD CHL 80 MG/100 ML BAG (J1580) XX ONE (18:08)
[2016-10-01] MEDS ORDERED: ePHEDrine SULFATE 25 MG/5 ML(5MG/ML) SYRINGE As Ordered ONE (18:12)
[2016-10-01] MEDS ORDERED: ONDANSETRON 4MG/2ML VIAL (J2405) As Ordered ONE (18:15)
[2016-10-01] MEDS ORDERED: ONDANSETRON 4MG/2ML VIAL (J2405) IV PRN (19:00)
[2016-10-01] MEDS ORDERED: fentaNYL 100 MCG/2 ML INJECTION (J3010) IV PRN (19:00)
[2016-10-01] MEDS ORDERED: LR 1,000 ML IV SCH (19:00)
[2016-10-01] MEDS ORDERED: ENOXAPARIN 40 MG/0.4 ML SYRINGE (J1650) SC ONE (21:00)
[2016-10-01] MEDS ORDERED: HumaLOG INSULIN (NovoLOG) PER UNIT SC SCH (21:00)
[2016-10-01] MEDS: ATORVASTATIN 20 MG TAB PO SCH (21:26)
[2016-10-01] MEDS: SENOKOT S TAB PO SCH (21:26)
[2016-10-01] MEDS ORDERED: NORCO, ANEXSIA 5/325MG TABLET (HYDROcodone/ACETAMINOPHEN) PO PRN (22:45)
[2016-10-02] VITALS: BP 109/56
[2016-10-02] MEDS: MEROPENEM INJ 1 GM in D5W MINI-BAG PLUS 100 ML IV SCH ×3 (00:28→15:49)
[2016-10-02] MEDS: NORCO, ANEXSIA 5/325MG TABLET (HYDROcodone/ACETAMINOPHEN) PO PRN ×3 (00:29→22:39)
[2016-10-02] MEDS: CLINDAMYCIN 600 MG in APPROPRIATE DILUENT 1 EA IV SCH ×4 (03:17→22:40)
[2016-10-02 04:00] VITALS: BP 121/59
--- NOTE | 2016-10-02 06:47 | REP ---
Right foot series: Three views. History: Postop. Findings: Views taken through overlying dressing demonstrate amputation of the second toe at the MTP joint. There is diffuse forefoot swelling. There is Achilles and plantar calcaneal spurring and some midfoot spurring is seen. Signed by Paco Morton MD 10/02/2016 08:30 A
[2016-10-02 07:06] LABS: BASO % 0.2 % (0.0-1.0); EOS # 0.2 K/mm3 (0.0-0.50); EOS % 1.2 % (0.0-3.0); LARGE UNSTAINED CELL # 0.2 K/mm3 (0.0-0.4); LARGE UNSTAINED CELL % 1.5 % (0.0-4.0); LYMPH # 2.4 K/mm3 (1.5-4.5); LYMPH % 16.5 % (24.0-44.0); MEAN CORPUSCULAR HEMOGLOBIN 27.4 pg (27.0-33.0); MEAN CORPUSCULAR VOLUME 85.8 fl (80.0-96.0); MONO # 0.7 K/mm3 (0.0-0.8); MONO % 5.6 % (0.0-5.0); NEUTROPHILS # 9.9 K/mm3 (1.8-7.7); PLATELET COUNT, AUTOMATED 548 k/mm3 (150-450); RED CELL DISTRIBUTION WIDTH 13.9 % (11.5-14.5); WHITE BLOOD COUNT 13.2 K/mm3 (4.0-10.0)
[2016-10-02 07:09] LABS: ANION GAP 6 MEQ/L (8-16); BLOOD UREA NITROGEN 12 MG/DL (7-18); CALCIUM LEVEL 7.7 MG/DL (8.8-10.2); CARBON DIOXIDE LEVEL 32 MEQ/L (21-32); CHLORIDE LEVEL 95 MEQ/L (98-107); CREATININE FOR GFR 0.85 MG/DL (0.55-1.02); GLOMERULAR FILTRATION RATE > 60.0 (>45); GLUCOSE, FASTING 153 MG/DL (80-110); MAGNESIUM LEVEL 1.9 MG/DL (1.8-2.4); POTASSIUM SERUM 3.9 MEQ/L (3.5-5.1); SODIUM LEVEL 133 MEQ/L (136-145)
[2016-10-02] MEDS: HumuLIN (NovoLIN)70/30 INSULIN INJ PER UNIT SC SCH ×2 (08:19→17:52)
[2016-10-02] MEDS: SENOKOT S TAB PO SCH ×2 (08:21→22:40)
[2016-10-02] MEDS: HumaLOG INSULIN (NovoLOG) PER UNIT SC SCH ×4 (08:21→21:00)
[2016-10-02] MEDS: POTASSIUM CHLORIDE 10 MEQ SR TABLET PO SCH (08:21)
--- NOTE | 2016-10-02 08:33 | RO ---
DATE OF PROCEDURE: 10/01/2016 PREOPERATIVE DIAGNOSES: 1. Osteomyelitis 2nd toe, right foot. 2. Stage IV ulceration 3rd toe, right foot. 3. Stage IV ulceration left hallux. POSTOPERATIVE DIAGNOSES: 1. Osteomyelitis 2nd toe, right foot. 2. Stage IV ulceration 3rd toe, right foot. 3. Stage IV ulceration left hallux. SURGERY PERFORMED: 1. 2nd toe amputation right foot. 2. Debridement to tendon 3rd toe, right foot. 3. Debridement to capsule left hallux. SURGEON: Dr. Kade Walker DPM E/M ENGINEER: None. ANESTHESIA: Local MAC IRRIGATION: Dilute gentamicin solution. ESTIMATED BLOOD LOSS: Less than 10 mL. HEMOSTASIS: None. SPECIMENS: 2nd toe and aerobic and anaerobic cultures. DESCRIPTION OF OPERATION: On 10/01/2016, this 61-year-old white female was taken from her hospital room to the operating room and placed on the operating table in supine position. Following induction of intravenous (IV) sedation, local and regional anesthesia, attention was directed to the patient's 2nd toe of the right foot and the following procedure was performed: 2ND TOE AMPUTATION AT THE METATARSAL PHALANGEAL JOINT RIGHT FOOT: Attention was directed to the patient's right foot where the bone was sticking through the skin on the 2nd toe with pathologic fracture and infection. A racket- type incision was placed over the 2nd toe, which is proximal to the ulcerations. Dissection was carried straight to bone. The toe was disarticulated. Utilizing a low pressure pulse lavage system, the wound was irrigated with dilute gentamicin solution. Hemostasis was obtained with electrocautery and the wound was closed with #3-0 nylon in a simple interrupted type fashion. Attention was then directed to the patient's 3rd toe where the following procedure was performed: DEBRIDEMENT TO TENDON 3RD TOE, RIGHT FOOT: Attention was directed to the patient's 3rd toe where utilizing a sterile scalpel debridement was carried down to the level of the 3rd toe extensor tendon. All necrotic tissue was removed and the wound was irrigated. Sterile dressing was applied to the patient's right foot consisting of 4 x 4's, Fred and Boom wrap. Attention was directed to the patient's left hallux and the following procedure was performed: DEBRIDEMENT TO CAPSULE LEFT HALLUX: Attention was directed to the patient's left hallux where an ulceration was noted measuring 2 cm x 1.7 cm. Utilizing a scalpel, the necrotic tissue was debrided to the joint capsule. The wound was irrigated and a sterile dressing was applied to the patient's left foot consisting of 4 x 4's and Fred. Patient having apparently tolerated the surgical procedure well was taken from the operating room (OR) to the recovery room for further monitoring by the anesthesia department. All surgical specimens were sent to pathology. The bone was sent to mycobacteriology for aerobic and anaerobic cultures. Patient's questions were answered. AMANDA
[2016-10-02] MEDS: amLODIPine 5 MG TAB PO SCH (09:00)
[2016-10-02] MEDS: SILVER SULFADIAZINE 1% CR 50 GM JAR TOP SCH ×2 (09:00→22:41)
[2016-10-02 12:00] VITALS: BP 124/59
--- NOTE | 2016-10-02 15:39 | EDDOCDS ---
Nurse's Notes [facility] Name: Marcia Avila Age: 61 yrs Sex: Female : 1955 Arrival Date: 09/30/2016 Time: 10:07 Bed I4 / M4 Private MD: Other - Complete Info On Cds Diagnosis: Gas gangrene-right foot;Other acute osteomyelitis, right ankle and foot;Hypokalemia;Elevated C-reactive protein (CRP);Elevated erythrocyte sedimentation rate;Elevated white blood cell count Presentation: 09/30 10:15 Presenting complaint: Patient states: Worsening diabetic ulcers to 3rd and 4th toes dwg right foot. Blood sugars have been elevated for last 3 days. Adult Sepsis Screening: The patient does not have new or worsening altered mentation. Patient's respiratory rate is less than 22. Systolic blood pressure is greater than 100. Patient has a qSOFA score of 0- Negative Sepsis Screen. Suicide/Homicide risk assessment- the patient denies having any suicidal and/or homicidal ideations and does not present with any other emotional, behavioral or mental health complaints. Status: Patient is not a janitorial services supervisor or dependent. Transition of care: patient was not received from another setting of care. 10:15 Acuity: FLETCHER Level 3 dwg 10:15 Method Of Arrival: Walkin/Carried/Asstd dwg Triage Assessment: 10:22 General: Appears in no apparent distress. Pain: Pain currently is 6 out of 10 on a pain dwg scale. HIV screening NA for this visit Offered previously. Historical: - Allergies: PENICILLINS; - Home Meds: 1. Humulin 70/30 38 units in AM, 46 units in PM Sub-Q per [facility] patient has not filled any medications since December (Last dose: 09/29/2016) 2. potassium 10 MEQ daily (Last dose: 09/29/2016) 3. HCTZ 12.5mg daily (Last dose: 09/29/2016) 4. metformin 1,000 mg Oral tab 1 tab 2 times per day (Last dose: 09/29/2016) 5. Lipitor 40 mg Oral tab 1 tab once daily (Last dose: 09/29/2016) 6. Byetta 10 mg twice a day (Last dose: 09/29/2016) - PMHx: Diabetes - IDDM: controlled; DVT's; Hypercholesterolemia; Hypertension; PE; - PSHx: Laparoscopic right knee surgery; ; Lung biopsy; - Social history: Smoking status: Patient states was never smoker of tobacco. No barriers to communication noted, The patient speaks fluent Chinese. - Family history: Not pertinent. - : The pt / caregiver states he / she is not on anticoagulants. Home medication list is obtained from the patient. - Exposure Risk Screening:: None identified. Screenin:58 Screening information is obtained from the patient. Fall risk: No risks identified. dy Assistance ADL's: requires no assistance with activities of daily living. Abuse/DV Screen: The patient / caregiver reports he/she is: not in a situation that causes fear, pain or injury. Nutritional screening: No deficits noted. Advance Directives: There is no active DNR order. home support is adequate. Assessment: 11:09 General: Appears in no apparent distress, Behavior is appropriate for age, cooperative. dy Pain: Location: right second toe Pain currently is 6 out of 10 on a pain scale. Neurological: No deficits noted. Respiratory: Airway is patent Respiratory effort is even, unlabored, Breath sounds are clear bilaterally. Derm: Skin is on dorsum of right foot, right second toe and right third toe. 12:24 General: Appears in no apparent distress, Behavior is appropriate for age, cooperative. dy General: Reports chills for. Pain: Denies pain. Neurological: No deficits noted. 13:16 General: Appears in no apparent distress, Behavior is cooperative, resting comfortable. rs3 IV antibiotic vancomycin infusing. tolerating well. reports of right foot pain. 14:19 General: Appears in no apparent distress, Behavior is appropriate for age, cooperative. rs3 Pain: Location: right third toe and right foot. Cardiovascular: Capillary refill < 3 seconds Heart tones S1 S2. Respiratory: Airway is patent Respiratory effort is even, unlabored. GI: Abdomen is non- distended. : No deficits noted. Derm: necrosed eschar on 3 rd toe, mild odor to the wound Swollen area noted on dorsum of right foot and right second toe. Vital Signs: 10:10 BP 178 / 88 RA Sitting (auto/reg); Pulse 87; Resp 18; Temp 98.6(O); Pulse Ox 100% on jrd R/A; Weight 122.47 kg (R); Height 5 ft. 3 in. (160.02 cm) (R); Pain 6/10; 12:23 BP 172 / 69; Pulse 94; Resp 16; Temp 99.2(O); Pulse Ox 96% on R/A; dy 14:10 BP 154 / 74; Pulse 89; Resp 16; Temp 99.5; Pulse Ox 96% ; Pain 6/10; jlf 10:10 Body Mass Index 47.83 (122.47 kg, 160.02 cm) [facility] Vitals: 10:10 Log In Time: September 30, 2016 at 10:08. d ED Course: 10:09 Patient visited by Casey Bill PCA. jrd 10:09 Other - Complete Info On Cds is Private Physician. jrd 10:09 Patient moved to Waiting jrd 10:11 Patient visited by Casey Bill PCA. jrd 10:11 Patient moved to Pre RCE jrd 10:18 Triage Initiated dwg 10:23 Patient moved to Triage 2 dwg 10:26 Roosevelt Schultz PA is PHCP. btw 10:27 Danielito Dey MD is Attending Physician. btw 10:27 Patient visited by Roosevelt Schultz PA. btw 10:37 Patient moved to I4 / M4 mlb1 10:55 Inserted saline lock: 20 gauge in left forearm and blood collected. The patient dy tolerated the procedure well. 10:55 Labs/Blood culture drawn Wound culture sent to lab. dy 10:57 Patient visited by Jess Carter PCA. jlf 10:57 ESR Sent. dy 10:[address] GRAM [address] Sent. dy 10:57 BLOOD CULTURES Sent. dy 10:57 Wound Culture & GS - All Other Sources Sent. dy 10:58 The patient / caregiver is instructed regarding the plan of care and ED course. Patient dy has correct armband on for positive identification. Placed in gown. Bed in low position. Call light in reach. Side rails up X 1. 10:58 -Blood Culture Sent. dy 10:58 C Reactive Protein Sent. dy 10:58 CBC with Diff Sent. dy 10:58 Lactic Acid (Reyes tube on ice) Sent. dy 10:58 Liver Profile Sent. dy 10:58 MED Profile Sent. dy 10:58 PT/INR Sent. dy 10:58 PTT Sent. dy 11:10 [facility] Payment Agreement was scanned into [employer] and attached to record. mm15 11:42 Patient visited by Jess Carter PCA. jlf 11:59 Toes Returned. EDMS 12:07 Patient visited by Jess Carter PCA. jlf 12:24 Patient visited by Saul Lakhani RN. dy 12:28 Kaz Vivian is Hospitalizing Provider. btw 13:16 Patient visited by Lolis Jacobo RN. rs3 14:10 Patient visited by Jess Carter PCA. jlf 14:11 Patient visited by Jess Carter PCA. jlf 14:23 No procedures done that require assistance. rs3 10/01 10:27 T-Sheet-- Draft Copy was scanned into [employer] and attached to record. gb Administered Medications: 09/30 11:09 Drug: Ciprofloxacin 400 mg [ciprofloxacin 400 mg/200 mL in 5 % dextrose intravenous dy piggyback] Route: IVPB; Rate: 200 mL/hr; Infused Over: 60 mins; Site: left forearm; 12:10 Follow up: IV Status: Completed infusion; IV Intake: 200ml dy 12:15 Drug: vancomycin (loading dose for pt. wt. >= 80kg) 2000 mg [vancomycin 1,000 mg dy intravenous injection] Route: IVPB; Site: left forearm; 14:23 Follow up: IV Status: Completed infusion rs3 12:23 Drug: Potassium Chloride 20 mEq [potassium chloride ER 10 mEq tablet,extended release dy (2 tabs)] Route: PO; Point of Care Testing: Blood Glucose: :27 Blood Glucose: 129 mg/dL; mlb1 Ranges: Intake: 12:10 IV: 200.00ml; Total: 200.00ml. dy Order Results: Lab Order: C Reactive Protein; SPEC'M 09/30/16 10:52 Test: C REACTIVE PROTEIN QUANTITATIV; Value: 24.80; Range: 0.00-0.30; Abnormal: Above high normal; Units: MG/DL; Status: F Lab Order: CBC with Diff; SPEC'M 09/30/16 10:52 Test: WHITE BLOOD COUNT; Value: 14.2; Range: 4.0-10.0; Abnormal: Above high normal; Units: K/mm3; Status: F Test: RED BLOOD COUNT; Value: 4.27; Range: 4.00-5.40; Units: M/mm3; Status: F Test: HEMOGLOBIN; Value: 11.5; Range: 12.0-16.0; Abnormal: Below low normal; Units: g/dl; Status: F Test: HEMATOCRIT; Value: 36.0; Range: 36.0-47.0; Units: %; Status: F Test: MEAN CORPUSCULAR VOLUME; Value: 84.4; Range: 80.0-96.0; Units: fl; Status: F Test: MEAN CORPUSCULAR HEMOGLOBIN; Value: 27.0; Range: 27.0-33.0; Units: pg; Status: F Test: MEAN CORPUSCULAR HGB CONC; Value: 32.0; Range: 32.0-36.5; Units: g/dl; Status: F Test: RED CELL DISTRIBUTION WIDTH; Value: 13.5; Range: 11.5-14.5; Units: %; Status: F Test: PLATELET COUNT, AUTOMATED; Value: 525; Range: 150-450; Abnormal: Above high normal; Units: k/mm3; Status: F Test: NEUTROPHILS %; Value: 85.0; Range: 36.0-66.0; Abnormal: Above high normal; Units: %; Status: F Test: LYMPH %; Value: 9.6; Range: 24.0-44.0; Abnormal: Below low normal; Units: %; Status: F Test: MONO %; Value: 3.2; Range: 0.0-5.0; Units: %; Status: F Test: EOS %; Value: 1.3; Range: 0.0-3.0; Units: %; Status: F Test: BASO %; Value: 0.2; Range: 0.0-1.0; Units: %; Status: F Test: LARGE UNSTAINED CELL %; Value: 0.7; Range: 0.0-4.0; Units: %; Status: F Test: NEUTROPHILS #; Value: 12.1; Range: 1.8-7.7; Abnormal: Above high normal; Units: K/mm3; Status: F Test: LYMPH #; Value: 1.5; Range: 1.5-4.5; Units: K/mm3; Status: F Test: MONO #; Value: 0.5; Range: 0.0-0.8; Units: K/mm3; Status: F Test: EOS #; Value: 0.2; Range: 0.0-0.50; Units: K/mm3; Status: F Test: BASO #; Value: 0.0; Range: 0.0-0.2; Units: K/mm3; Status: F Test: LARGE UNSTAINED CELL #; Value: 0.1; Range: 0.0-0.4; Units: K/mm3; Status: F Lab Order: Lactic Acid (Reyes tube on ice); [facility] 09/30/16 10:52 Test: LACTIC ACID SEPSIS PROTOCOL; Value: 1.1; Range: 0.4-2.0; Units: MMOL/L; Status: F Lab Order: Liver Profile; [facility] 09/30/16 10:52 Test: AST/SGOT; Value: 17; Range: 15-37; Units: U/L; Status: F Test: ALT/SGPT; Value: 15; Range: 12-78; Units: U/L; Status: F Test: ALKALINE PHOSPHATASE; Value: 112; Range: 45-117; Units: U/L; Status: F Test: BILIRUBIN,TOTAL; Value: 0.5; Range: 0.2-1.0; Units: MG/DL; Status: F Test: BILIRUBIN,DIRECT; Value: 0.2; Range: 0.0-0.2; Units: MG/DL; Status: F Test: TOTAL PROTEIN; Value: 8.7; Range: 6.4-8.2; Abnormal: Above high normal; Units: GM/DL; Status: F Test: ALBUMIN; Value: 2.7; Range: 3.2-5.2; Abnormal: Below low normal; Units: GM/DL; Status: F Test: ALBUMIN/GLOBULIN RATIO; Value: 0.45; Range: 1.00-1.93; Abnormal: Below low normal; Status: F Lab Order: MED Profile; [facility] 09/30/16 10:52 Test: GLUCOSE, FASTING; Value: 140; Range: 80-110; Abnormal: Above high normal; Units: MG/DL; Status: F Test: BLOOD UREA NITROGEN; Value: 14; Range: 7-18; Units: MG/DL; Status: F Test: CREATININE FOR GFR; Value: 0.79; Range: 0.55-1.02; Units: MG/DL; Status: F Test: GLOMERULAR FILTRATION RATE; Value: > 60.0; Range: >45; Status: F Test: SODIUM LEVEL; Value: 134; Range: 136-145; Abnormal: Below low normal; Units: MEQ/L; Status: F Test: POTASSIUM SERUM; Value: 3.0; Range: 3.5-5.1; Abnormal: Below low normal; Units: MEQ/L; Status: F Test: CHLORIDE LEVEL; Value: 92; Range: 98-107; Abnormal: Below low normal; Units: MEQ/L; Status: F Test: CARBON DIOXIDE LEVEL; Value: 31; Range: 21-32; Units: MEQ/L; Status: F Test: ANION GAP; Value: 11; Range: 8-16; Units: MEQ/L; Status: F Test: CALCIUM LEVEL; Value: 8.8; Range: 8.8-10.2; Units: MG/DL; Status: F Test Note: ; Units are mL/min/1.73 m2 Chronic Kidney Disease Staging per NKF: Stage I & II GFR >=60 Normal to Mildly Decreased Stage III GFR 30-59 Moderately Decreased Stage IV GFR 15-29 Severely Decreased Stage V GFR <15 Very Little GFR Left ESRD GFR <15 on [employer] Lab Order: PT/INR; SPEC'09/30/16 10:52 Test: PROTHROMBIN TIME; Value: 14.6; Range: 12.3-14.5; Abnormal: Above high normal; Units: SECONDS; Status: F Test: INR; Value: 1.13; Status: F Test Note: ; THERAPUTIC HUMAN INR VALUES INDICATIONS NORMAL RANGES PROPHYLAXIS/TREATMENT OF: VENOUS THROMBOSIS 2.0-3.0 PULMONARY EMBOLISM 2.0-3.0 PREVENTION OF SYSTEMIC EMBOLISM FROM: TISSUE HEART VALVES 2.0-3.0 ACUTE MYOCARDIAL INFARCTION 2.0-3.0 VALVULAR HEART DISEASE 2.0-3.0 ATRIAL FIBRILLATION 2.0-3.0 MECHANICAL VALVES(HIGH RISK) 2.5-3.5 RECURRENT MYOCARDIAL INFARCTION 2.5-3.5 Lab Order: PTT; SPEC'09/30/16 10:52 Test: PARTIAL THROMBOPLASTIN TIME; Value: 32.6; Range: 26.6-37.1; Units: SECONDS; Status: F Lab Order: Fingerstick Blood Sugar; SPEC'M 09/30/16 10:25 Test: BEDSIDE GLUCOSE; Value: 129; Range: 80-115; Abnormal: Above high normal; Units: MG/DL; Status: F Lab Order: ESR; SPEC'M 09/30/16 10:54 Test: ERYTHROCYTE SEDIMENTATION RATE; Value: 92; Range: 0-30; Abnormal: Above high normal; Units: mm/hr; Status: F Radiology Order: Toes Test: Toes REASON FOR EXAMINATION: ? OSTEOMYELITIS; Clinical: Evaluate for osteomyelitis.; ; Technique: AP, lateral, bilateral oblique views of the right toes.; ; Findings:; Fracture-dislocation involving the second toe at the proximal interphalangeal; joint is appreciated along with erosive changes at the terminal tuft. Overlying; soft tissue swelling with subcutaneous emphysema involve the region of the second; through fourth toes. Findings are concerning for cellulitis and osteomyelitis; with gas-forming organism.; ; Impression:; Osseous and soft tissue changes including fracture dislocation and subcutaneous; emphysema is most suggestive of osteomyelitis and cellulitis with gas-forming; organisms.; ; ; Signed by; Aamir Medina MD 09/30/2016 11:23 A; Outcome: 12:31 Decision to Hospitalize by Provider. btw 14:22 Discharge Assessment: patient administered narcotics - no. The following High Risk rs3 Discharge criteria are identified: None. Admitted to Pediatrics accompanied by tech, via wheelchair, with chart. Condition: stable. No special radiology studies were completed. Property :Personal belongings accompany Pt. 14:38 Patient left the ED. rs3 Signatures: Dispatcher [employer] EDMS Lorenzo Pleitez, Ruthie Bloom RN, Reg Reg Saul Jarrell RN Dexter Nguyen RN RN mlLolis Wei RN RN rs3 Roosevelt Schultz PA PA btw Cherie Perea mm15 Jess Carter, AUTOMATIC TOE LASTER AUTOMATIC TOE LASTER jlf Casey Bill, AUTOMATIC TOE LASTER AUTOMATIC TOE LASTER jrd Chart Complete MTDD
--- NOTE | 2016-10-02 15:39 | EDDOCDS ---
Physician Documentation [facility] Name: Marcia Avila Age: 61 yrs Sex: Female : 1955 Arrival Date: 09/30/2016 Time: 10:07 Bed I4 / M4 Private MD: Other - Complete Info On Cds Disposition: 09/30/16 12:31 Hospitalization ordered by Vivian Mccurdy for Inpatient Admission. Preliminary diagnosis are Gas gangrene - right foot, Other acute osteomyelitis, right ankle and foot, Hypokalemia, Elevated C-reactive protein (CRP), Elevated erythrocyte sedimentation rate, Elevated white blood cell count. - Bed requested for M PED. - Status is Inpatient Admission. rs3 - Condition is Stable. - Problem is new. - Symptoms are unchanged. Historical: - Allergies: PENICILLINS; - Home Meds: 1. Humulin 70/30 38 units in AM, 46 units in PM Sub-Q per [facility] patient has not filled any medications since December (Last dose: 09/29/2016) 2. potassium 10 MEQ daily (Last dose: 09/29/2016) 3. HCTZ 12.5mg daily (Last dose: 09/29/2016) 4. metformin 1,000 mg Oral tab 1 tab 2 times per day (Last dose: 09/29/2016) 5. Lipitor 40 mg Oral tab 1 tab once daily (Last dose: 09/29/2016) 6. Byetta 10 mg twice a day (Last dose: 09/29/2016) - PMHx: Diabetes - IDDM: controlled; DVT's; Hypercholesterolemia; Hypertension; PE; - PSHx: Laparoscopic right knee surgery; ; Lung biopsy; - Social history: Smoking status: Patient states was never smoker of tobacco. No barriers to communication noted, The patient speaks fluent Macedonian. - Family history: Not pertinent. - : The pt / caregiver states he / she is not on anticoagulants. Home medication list is obtained from the patient. - Exposure Risk Screening:: None identified. Vital Signs: 09/30 10:10 BP 178 / 88 RA Sitting (auto/reg); Pulse 87; Resp 18; Temp 98.6(O); Pulse Ox 100% on jrd R/A; Weight 122.47 kg / 270 lbs (R); Height 5 ft. 3 in. (160.02 cm) (R); Pain 6/10; 12:23 BP 172 / 69; Pulse 94; Resp 16; Temp 99.2(O); Pulse Ox 96% on R/A; dy 14:10 BP 154 / 74; Pulse 89; Resp 16; Temp 99.5; Pulse Ox 96% ; Pain 6/10; jlf 10:10 Body Mass Index 47.83 (122.47 kg, 160.02 cm) jrd MDM: 10:20 Accucheck ordered. btw 10:32 -Blood Culture (Adults Only), peripheral from different site, or from device/port/PICC btw etc. if present ordered. 10:32 IV Saline Lock ordered. btw 10:33 -Blood Culture Ordered. EDMS 10:33 C Reactive Protein Ordered. EDMS 10:33 CBC with Diff Ordered. EDMS 10:33 Lactic Acid (Reyes tube on ice) Ordered. EDMS 10:33 Liver Profile Ordered. EDMS 10:33 MED Profile Ordered. EDMS 10:33 PT/INR Ordered. EDMS 10:33 PTT Ordered. EDMS 10:33 Wound Culture & GS - All Other Sources Ordered. EDMS 10:34 Fingerstick Blood Sugar Ordered. EDMS 10:34 -Blood Culture (Adults Only), peripheral from different site, or from device/port/PICC jlf etc. if present complete. 10:34 Toes Ordered. EDMS 10:35 Ciprofloxacin 400 mg IVPB at 200 mL/hr once over 60 mins ordered. btw 10:35 BLOOD CULTURES Ordered. EDMS 10:36 WOUND CULTURE AND GRAM ST Ordered. EDMS 10:43 Fingerstick Blood Sugar Reviewed. btw 10:44 ESR Ordered. EDMS 11:06 Financial registration complete. mm15 11:10 [facility] Payment Agreement was scanned into [employer] and attached to record. mm15 11:35 CBC with Diff Reviewed. btw 11:35 PT/INR Reviewed. btw 11:35 Lactic Acid (Reyes tube on ice) Reviewed. btw 11:35 PTT Reviewed. btw 11:37 C Reactive Protein Reviewed. btw 11:37 Liver Profile Reviewed. btw 11:37 MED Profile Reviewed. btw 11:37 ESR Reviewed. btw 11:50 vancomycin (loading dose for pt. wt. >= 80kg) 2000 mg IVPB once ordered. btw 11:52 BED REQUEST+ADM ordered. EDMS 12:11 Potassium Chloride Extended Release Tablet 20 mEq PO once ordered. btw 13:09 Admission / Observation Status ordered. EDMS 13:09 CONSISTENT CARBOHYDRATES ordered. EDMS 10/01 10: T-Sheet-- Draft Copy was scanned into [employer] and attached to record. Point of Care Testing: Blood Glucose: 09/30 10: Blood Glucose: 129 mg/dL; mlb1 Ranges: Administered Medications: 11:09 Drug: Ciprofloxacin 400 mg [ciprofloxacin 400 mg/200 mL in 5 % dextrose intravenous dy piggyback] Route: IVPB; Rate: 200 mL/hr; Infused Over: 60 mins; Site: left forearm; 12:10 Follow up: IV Status: Completed infusion; IV Intake: 200ml dy 12:15 Drug: vancomycin (loading dose for pt. wt. >= 80kg) 2000 mg [vancomycin 1,000 mg dy intravenous injection] Route: IVPB; Site: left forearm; 14:23 Follow up: IV Status: Completed infusion rs3 12:23 Drug: Potassium Chloride 20 mEq [potassium chloride ER 10 mEq tablet,extended release dy (2 tabs)] Route: PO; Signatures: Dispatcher [employer] EDMS Lorenzo Pleitez, RN RN dwg Ruthie Nguyen, Reg Reg gb Lolis Jacobo RN RN rs3 Roosevelt Schultz PA PA btw Cherie Perea mm15 Jess Carter, Saul Camahco RN dy The chart was reviewed and I authenticate all verbal orders and agree with the evaluation and treatment provided.Attachments: 11: [place] Payment Agreement mm15 10/01 10:27 T-Sheet-- Draft Copy gb Chart Complete MTDD
--- NOTE | 2016-10-02 15:39 | EDDOCDS ---
Physician Documentation [facility] Name: Marcia Avila Age: 61 yrs Sex: Female : 1955 Arrival Date: 09/30/2016 Time: 10:07 Bed I4 / M4 Private MD: Other - Complete Info On Cds Disposition: 09/30/16 12:31 Hospitalization ordered by Vivian Mccurdy for Inpatient Admission. Preliminary diagnosis are Gas gangrene - right foot, Other acute osteomyelitis, right ankle and foot, Hypokalemia, Elevated C-reactive protein (CRP), Elevated erythrocyte sedimentation rate, Elevated white blood cell count. - Bed requested for M PED. - Status is Inpatient Admission. rs3 - Condition is Stable. - Problem is new. - Symptoms are unchanged. Historical: - Allergies: PENICILLINS; - Home Meds: 1. Humulin 70/30 38 units in AM, 46 units in PM Sub-Q per [facility] patient has not filled any medications since December (Last dose: 09/29/2016) 2. potassium 10 MEQ daily (Last dose: 09/29/2016) 3. HCTZ 12.5mg daily (Last dose: 09/29/2016) 4. metformin 1,000 mg Oral tab 1 tab 2 times per day (Last dose: 09/29/2016) 5. Lipitor 40 mg Oral tab 1 tab once daily (Last dose: 09/29/2016) 6. Byetta 10 mg twice a day (Last dose: 09/29/2016) - PMHx: Diabetes - IDDM: controlled; DVT's; Hypercholesterolemia; Hypertension; PE; - PSHx: Laparoscopic right knee surgery; ; Lung biopsy; - Social history: Smoking status: Patient states was never smoker of tobacco. No barriers to communication noted, The patient speaks fluent Swedish. - Family history: Not pertinent. - : The pt / caregiver states he / she is not on anticoagulants. Home medication list is obtained from the patient. - Exposure Risk Screening:: None identified. Vital Signs: 09/30 10:10 BP 178 / 88 RA Sitting (auto/reg); Pulse 87; Resp 18; Temp 98.6(O); Pulse Ox 100% on jrd R/A; Weight 122.47 kg / 270 lbs (R); Height 5 ft. 3 in. (160.02 cm) (R); Pain 6/10; 12:23 BP 172 / 69; Pulse 94; Resp 16; Temp 99.2(O); Pulse Ox 96% on R/A; dy 14:10 BP 154 / 74; Pulse 89; Resp 16; Temp 99.5; Pulse Ox 96% ; Pain 6/10; jlf 10:10 Body Mass Index 47.83 (122.47 kg, 160.02 cm) jrd MDM: 10:20 Accucheck ordered. btw 10:32 -Blood Culture (Adults Only), peripheral from different site, or from device/port/PICC btw etc. if present ordered. 10:32 IV Saline Lock ordered. btw 10:33 -Blood Culture Ordered. EDMS 10:33 C Reactive Protein Ordered. EDMS 10:33 CBC with Diff Ordered. EDMS 10:33 Lactic Acid (Reyes tube on ice) Ordered. EDMS 10:33 Liver Profile Ordered. EDMS 10:33 MED Profile Ordered. EDMS 10:33 PT/INR Ordered. EDMS 10:33 PTT Ordered. EDMS 10:33 Wound Culture & GS - All Other Sources Ordered. EDMS 10:34 Fingerstick Blood Sugar Ordered. EDMS 10:34 -Blood Culture (Adults Only), peripheral from different site, or from device/port/PICC jlf etc. if present complete. 10:34 Toes Ordered. EDMS 10:35 Ciprofloxacin 400 mg IVPB at 200 mL/hr once over 60 mins ordered. btw 10:35 BLOOD CULTURES Ordered. EDMS 10:[address] W[address]ULT[address] AND GRAM ST Ordered. EDMS 10:43 Fingerstick Blood Sugar Reviewed. btw 10:44 ESR Ordered. EDMS 11:06 Financial registration complete. mm15 11:10 [facility] Payment Agreement was scanned into [employer] and attached to record. mm15 11:35 CBC with Diff Reviewed. btw 11:35 PT/INR Reviewed. btw 11:35 Lactic Acid (Reyes tube on ice) Reviewed. btw 11:35 PTT Reviewed. btw 11:37 C Reactive Protein Reviewed. btw 11:37 Liver Profile Reviewed. btw 11:37 MED Profile Reviewed. btw 11:37 ESR Reviewed. btw 11:50 vancomycin (loading dose for pt. wt. >= 80kg) 2000 mg IVPB once ordered. btw 11:52 BED REQUEST+ADM ordered. EDMS 12:11 Potassium Chloride Extended Release Tablet 20 mEq PO once ordered. btw 13:09 Admission / Observation Status ordered. EDMS 13:09 CONSISTENT CARBOHYDRATES ordered. EDMS 10/01 10: T-Sheet-- Draft Copy was scanned into [employer] and attached to record. Point of Care Testing: Blood Glucose: 09/30 10: Blood Glucose: 129 mg/dL; mlb1 Ranges: Administered Medications: 11:09 Drug: Ciprofloxacin 400 mg [ciprofloxacin 400 mg/200 mL in 5 % dextrose intravenous dy piggyback] Route: IVPB; Rate: 200 mL/hr; Infused Over: 60 mins; Site: left forearm; 12:10 Follow up: IV Status: Completed infusion; IV Intake: 200ml dy 12:15 Drug: vancomycin (loading dose for pt. wt. >= 80kg) 2000 mg [vancomycin 1,000 mg dy intravenous injection] Route: IVPB; Site: left forearm; 14:23 Follow up: IV Status: Completed infusion rs3 12:23 Drug: Potassium Chloride 20 mEq [potassium chloride ER 10 mEq tablet,extended release dy (2 tabs)] Route: PO; Signatures: Dispatcher [employer] EDMS Lorenzo Pleitez, RN RN dwg Ruthie Nguyen, Reg Reg gb Lolis Jacobo RN RN rs3 Roosevelt Schultz PA PA btw Cherie Perea mm15 Jess Carter, Saul Camacho RN dy The chart was reviewed and I authenticate all verbal orders and agree with the evaluation and treatment provided.Attachments: 11: [place] Payment Agreement mm15 10/01 10:27 T-Sheet-- Draft Copy gb Chart Complete MTDD
[2016-10-02 16:24] VITALS: BP 119/69
--- NOTE | 2016-10-02 16:57 | IPN ---
DATE OF SERVICE: 10/02/2016 A 61-year-old female seen at bedside today. Did well with her surgery with Dr. Walker. No overnight issues. No chest pain. No nausea or vomiting. No shortness of breath. OBJECTIVE: Temperature is 98.4, pulse 71, respiratory rate 18, blood pressure 124/59, SpO2 96% on room air. GENERAL: The patient appears to be in no acute distress, is alert, oriented. HEENT: Unremarkable. LUNGS: Clear. HEART: Regular rate and rhythm. ABDOMEN: Soft. EXTREMITIES: No edema. No calf tenderness. She does have multiple lower extremity lesions status post right toe amputation involving the metatarsophalangeal joint, the right second toe, debridement of the tendon in the third of right foot, and debridement of the capsule of the left hallux by Dr. Walker. White count today is 13.2, down from 14,000, hemoglobin 9.2 and platelets 548,000. Sodium 133, potassium 3.9, chloride 95, bicarbonate 32, anion gap 6, BUN 12, creatinine 0.85, glucose 153, calcium 7.7, magnesium 1.9. C-reactive protein (CRP) is 17.6, down from 18.5. Current wound and blood cultures are pending times two. Will continue with antibiotic coverage as outlined previously and per Dr. Walker's recommendations. ASSESSMENT AND PLAN: 1. Diabetic osteomyelitis involving the right foot, second toe, with gas gangrene status post amputation and debridement per Dr. Walker, as described above. 2. Multiple lower extremity skin lesions. Appreciate Dr. Walker's recommendations for wound dressings. 3. Diabetes. We will continue fingersticks before meals and at bedtime. Consistent carbohydrate diet and sliding scale coverage. 4. Obesity, which complicates her medical care with having a body mass index (BMI) of 48. 5. Obstructive sleep apnea with continuous positive airway pressure (CPAP) use. 6. Hypertension stable. 7. Hyperlipidemia. Stable. 8. Diabetic neuropathy. Continue current medications. 9. History of chronic diabetic ulcer. Again, appreciate Dr. Wlaker's involvement. 10. Prior history of pulmonary embolism four or five years ago, not currently on any anticoagulation therapy. 11. Prior history of deep venous thrombosis (DVT). No anticoagulation currently, but will continue with DVT prophylaxis. DISPOSITION: The patient does appear to be doing well. We will continue to follow her labs and appreciate Dr. Walker's input regarding wound management and current intravenous (IV) antibiotics include clindamycin, meropenem, and will deescalate pending any further changes in her cultures.
[2016-10-02 20:00] VITALS: BP 120/59
[2016-10-02] MEDS: ATORVASTATIN 20 MG TAB PO SCH (22:39)
[2016-10-03] VITALS: BP 110/78
[2016-10-03] MEDS: MEROPENEM INJ 1 GM in D5W MINI-BAG PLUS 100 ML IV SCH ×3 (01:09→16:07)
[2016-10-03] MEDS: CLINDAMYCIN 600 MG in APPROPRIATE DILUENT 1 EA IV SCH ×3 (02:36→15:01)
[2016-10-03] MEDS: HumaLOG INSULIN (NovoLOG) PER UNIT SC SCH ×4 (07:30→21:00)
[2016-10-03 07:51] LABS: ANION GAP 8 MEQ/L (8-16); BLOOD UREA NITROGEN 13 MG/DL (7-18); CALCIUM LEVEL 8.2 MG/DL (8.8-10.2); CARBON DIOXIDE LEVEL 28 MEQ/L (21-32); CHLORIDE LEVEL 98 MEQ/L (98-107); CREATININE FOR GFR 0.76 MG/DL (0.55-1.02); GLOMERULAR FILTRATION RATE > 60.0 (>45); GLUCOSE, FASTING 83 MG/DL (80-110); MAGNESIUM LEVEL 1.9 MG/DL (1.8-2.4); SODIUM LEVEL 134 MEQ/L (136-145)
[2016-10-03 08:00] VITALS: BP 141/67
[2016-10-03 08:40] LABS: BASO % 0.3 % (0.0-1.0); EOS # 0.2 K/mm3 (0.0-0.50); EOS % 1.6 % (0.0-3.0); LARGE UNSTAINED CELL # 0.2 K/mm3 (0.0-0.4); LARGE UNSTAINED CELL % 1.5 % (0.0-4.0); LYMPH # 1.9 K/mm3 (1.5-4.5); MEAN CORPUSCULAR HEMOGLOBIN 26.5 pg (27.0-33.0); MEAN CORPUSCULAR HGB CONC 31.5 g/dl (32.0-36.5); MEAN CORPUSCULAR VOLUME 84.3 fl (80.0-96.0); MONO # 0.5 K/mm3 (0.0-0.8); MONO % 4.2 % (0.0-5.0); NEUTROPHILS # 9.3 K/mm3 (1.8-7.7); NEUTROPHILS % 76.3 % (36.0-66.0); PLATELET COUNT, AUTOMATED 604 k/mm3 (150-450); RED CELL DISTRIBUTION WIDTH 13.7 % (11.5-14.5); WHITE BLOOD COUNT 12.2 K/mm3 (4.0-10.0)
[2016-10-03] MEDS: HumuLIN (NovoLIN)70/30 INSULIN INJ PER UNIT SC SCH ×2 (08:55→18:34)
[2016-10-03] MEDS: SENOKOT S TAB PO SCH ×2 (08:56→22:04)
[2016-10-03] MEDS: POTASSIUM CHLORIDE 10 MEQ SR TABLET PO SCH (08:56)
[2016-10-03] MEDS: amLODIPine 5 MG TAB PO SCH (08:57)
[2016-10-03] MEDS: SILVER SULFADIAZINE 1% CR 50 GM JAR TOP SCH (09:04)
--- NOTE | 2016-10-03 14:15 | IPN ---
DATE: 10/03/2016 CHIEF COMPLAINT: Patient was visited at bedside for evaluation of bilateral ulcers on her foot and a 2nd toe amputation on the right foot. The bandage is intact. It was removed. The stitches are intact over the 2nd toe amputation site, and the ulcers on the 3rd toe of the left foot are improving as well as the left hallux ulcer. Cultures obtained from the right 2nd toe reveal staphylococcus group B. The anaerobic cultures are pending. Soft tissue culture revealed enterococcus. Patient is allergic to PENICILLIN. The enterococcus is sensitive to quinolones, however. ASSESSMENT: Healing status post 2nd toe amputation and stage IV ulcerations, as described, left hallux and 3rd toe right foot. PLAN: Continue with local wound care on the ulcers, Silvadene and a dressing twice a day. Patient is presently on clindamycin and meropenem. On discharge, her coverage could be obtained with ciprofloxacin 500 mg one by mouth twice a day. Patient will be followed up in my office; however, I will be out of town next week, and Dr. Too Soler is covering my service. Her questions are answered.
[2016-10-03] MEDS: ACETAMINOPHEN 500 MG TAB PO PRN (14:29)
[2016-10-03 16:00] VITALS: BP 106/53
--- NOTE | 2016-10-03 17:35 | IPN ---
DATE: 10/03/2016 SUBJECTIVE: A 61-year-old female seen at bedside, doing well. No chest pain, shortness breath, no nausea, vomiting, tolerating her meals, passing flatus and voiding fine. OBJECTIVE: VITAL SIGNS: Temperature is 98.9, pulse 75, respiratory rate 20, blood pressure 141/76, sPO2 is 95% on room air. GENERAL: The patient appears to be in no acute distress. Is alert and oriented. HEENT: Unremarkable. LUNGS: Clear. HEART: Regular rate and rhythm. ABDOMEN: Soft. EXTREMITIES: No edema, no calf tenderness. Dressings are in place on both feet and legs. They have already been changed by Dr. Walker earlier today, so I will not disrupt the dressings at this time. LABORATORY DATA: White count 12.2 down from 13,000, hemoglobin 10.4 and platelets are 604,000. Sodium 134, potassium 4.0, chloride 98, bicarb 28, anion gap eight, BUN is 13, creatinine 0.76, glucose 83, magnesium 1.9. CRP is 16.1. MICROBIOLOGY: Cultures of the wound sites did grow Enterococcus fecalis, Streptococcus anginosus, and Streptococcus agalactiae group B. Sensitivities are in the chart as well. However, the patient does have an allergy to PENICILLIN. ASSESSMENT AND PLAN: 1. Diabetic osteomyelitis involving the right foot second toe with gangrene, status post amputation and debridement by Dr. Walker. 2. Multiple lower extremity skin lesions. Appreciate Dr. Walker's recommendations for wound dressings. 3. Diabetes. Continue fingersticks before meals and at bedtime, consistent carbohydrate diet. Sliding scale coverage. 4. Obesity which complicates medical care. She has a body mass index of 48. 5. Obstructive sleep apnea (STACY). Encourage continued use of home continuous positive airway pressure (CPAP). 6. Hypertension, stable. 7. Hyperlipidemia. Stable. 8. Diabetic neuropathy. Continue current medications. 9. Chronic diabetic ulcer. Appreciate Dr. Walker's input. 10. Prior history of pulmonary embolism 4-5 years ago. No current anticoagulation therapy and she is asymptomatic. 11. Deep venous thrombosis (DVT) prophylaxis. No anticoagulation currently, but will continue on DVT prophylaxis with thromboembolism deterrent stockings (TEDs) sequentials, and she is ambulating with assistance of nursing and physical therapy (PT). DISPOSITION: She does appear to be doing well. Again, appreciate Dr. Walker's input, Based on sensitivities and allergy to PENICILLINS, I am going to switch her antibiotics from clindamycin and meropenem to start on Zyvox, I already sent the script in to her pharmacy in case it needs prior authorization. Further disposition: I do anticipate the patient will be here another couple of days. MTDD
[2016-10-03] MEDS: LINEZOLID 600 MG in APPROPRIATE DILUENT 1 EA IV SCH (18:34)
[2016-10-03 20:00] VITALS: BP 121/58
[2016-10-03] MEDS: ATORVASTATIN 20 MG TAB PO SCH (22:04)
[2016-10-04] MEDS: ACETAMINOPHEN 500 MG TAB PO PRN ×2 (01:46→21:29)
[2016-10-04 04:00] VITALS: BP 161/70
[2016-10-04] MEDS: LINEZOLID 600 MG in APPROPRIATE DILUENT 1 EA IV SCH ×2 (05:31→18:00)
[2016-10-04] MEDS: NORCO, ANEXSIA 5/325MG TABLET (HYDROcodone/ACETAMINOPHEN) PO PRN (05:31)
[2016-10-04] MEDS: SILVER SULFADIAZINE 1% CR 50 GM JAR TOP SCH ×3 (05:32→20:59)
[2016-10-04 07:16] LABS: BASO % 0.3 % (0.0-1.0); EOS # 0.2 K/mm3 (0.0-0.50); LARGE UNSTAINED CELL # 0.1 K/mm3 (0.0-0.4); LARGE UNSTAINED CELL % 1.1 % (0.0-4.0); LYMPH % 18.2 % (24.0-44.0); MEAN CORPUSCULAR HEMOGLOBIN 26.5 pg (27.0-33.0); MEAN CORPUSCULAR HGB CONC 31.7 g/dl (32.0-36.5); MEAN CORPUSCULAR VOLUME 83.5 fl (80.0-96.0); MONO # 0.6 K/mm3 (0.0-0.8); MONO % 5.6 % (0.0-5.0); NEUTROPHILS # 7.4 K/mm3 (1.8-7.7); NEUTROPHILS % 72.7 % (36.0-66.0); RED CELL DISTRIBUTION WIDTH 13.7 % (11.5-14.5); WHITE BLOOD COUNT 10.2 K/mm3 (4.0-10.0)
[2016-10-04 07:26] LABS: PLATELET COUNT, AUTOMATED 733 k/mm3 (150-450)
[2016-10-04] MEDS ORDERED: ZYVO100T PO (07:35)
[2016-10-04 07:44] LABS: ANION GAP 7 MEQ/L (8-16); BLOOD UREA NITROGEN 11 MG/DL (7-18); CALCIUM LEVEL 8.6 MG/DL (8.8-10.2); CARBON DIOXIDE LEVEL 31 MEQ/L (21-32); CHLORIDE LEVEL 98 MEQ/L (98-107); CREATININE FOR GFR 0.69 MG/DL (0.55-1.02); GLOMERULAR FILTRATION RATE > 60.0 (>45); GLUCOSE, FASTING 120 MG/DL (80-110); MAGNESIUM LEVEL 1.9 MG/DL (1.8-2.4); POTASSIUM SERUM 4.3 MEQ/L (3.5-5.1); SODIUM LEVEL 136 MEQ/L (136-145)
[2016-10-04 08:00] VITALS: BP 153/69
[2016-10-04] MEDS: HumaLOG INSULIN (NovoLOG) PER UNIT SC SCH ×4 (08:16→21:00)
[2016-10-04] MEDS: HumuLIN (NovoLIN)70/30 INSULIN INJ PER UNIT SC SCH ×2 (08:16→18:00)
[2016-10-04] MEDS: amLODIPine 5 MG TAB PO SCH (08:17)
[2016-10-04] MEDS: POTASSIUM CHLORIDE 10 MEQ SR TABLET PO SCH (08:17)
[2016-10-04] MEDS: SENOKOT S TAB PO SCH ×2 (08:17→20:58)
[2016-10-04] MEDS: NYSTATIN 100,000 UNITS/GM TOPICAL PWD 15 GM TOP SCH ×2 (08:17→20:59)
[2016-10-04 12:00] VITALS: BP 162/69
[2016-10-04 16:00] VITALS: BP 141/76
--- NOTE | 2016-10-04 17:53 | IPN ---
DATE: 10/04/2016 61-year-old female doing well at bedside, status post amputation and debridement with Dr. Walker. No overnight issues. OBJECTIVE: Temperature 97.3, pulse 78, respiratory rate 18, BP 141/76, SPO2 is 96% on room air. General: The patient appears to be in no acute distress. Is alert, oriented. HEENT: Unremarkable. Lungs: Clear. Heart: Regular rhythm. Abdomen: Soft. Extremities: No edema or calf tenderness. LABORATORY DATA: White count 10.2 down from 12,000, hemoglobin 10.1, platelets 733,000, most likely reactive. Sodium is 136, potassium 4.3, chloride 98, bicarb 31, anion gap 7, BUN is 11, creatinine 0.69, glucose 120. C-reactive protein is 11.2, down from 16.1. ASSESSMENT/PLAN: 1. Diabetic osteomyelitis involving the right foot second toe with gangrene, status post amputation for debridement of wounds by Dr. Walker. Doing well otherwise. She did have multiple organisms growing in her cultures consisting of enterococcus facealis, Streptococcus, anginosum and group B Streptococcus. She is allergic to PENICILLIN. We did start on Zyvox yesterday, which she is tolerating and a prescription was sent in for prior authorization. 2. Multiple lower extremity skin lesions. Appreciate Dr. Walker's recommendations, wound dressings. 3. Diabetes. Continue fingersticks before food, at bedtime. Consistent carbohydrate diet. Sliding scale coverage. 4. Obesity, which complicates medical care. Body mass index 48. 5. Obstructive sleep apnea (STACY). Encourage use of C-PAP while sleeping. 6. Hypertension, stable. 7. Hyperlipidemia, stable. 8. Diabetic neuropathy. Continue current medications. 9. Chronic diabetic ulcer. Appreciate Dr. Walker's input. 10. History of pulmonary embolism 4 or 5 years ago. No current issues. Not currently on anticoagulation therapy. 11. Deep venous thrombosis (DVT) prophylaxis. Thromboembolism deterrents (TEDs), sequential was encouraged to ambulate and physical therapy. DISPOSITION: She has done well with physical therapy today. Feels that she is at her baseline. Again we are making sure there Zyvox prior authorized. Will watch her overnight. Anticipate home discharge tomorrow morning.
[2016-10-04 20:00] VITALS: BP 143/72
[2016-10-04] MEDS: ATORVASTATIN 20 MG TAB PO SCH (20:58)
[2016-10-05] VITALS: BP 120/59
[2016-10-05] MEDS: LINEZOLID 600 MG in APPROPRIATE DILUENT 1 EA IV SCH (06:02)
[2016-10-05] MEDS ORDERED: NYST10PW TOP (06:41)
[2016-10-05] MEDS ORDERED: NORCOTAB PO (06:41)
[2016-10-05] MEDS ORDERED: AMLO5TAB2 PO (06:41)
[2016-10-05 07:42] LABS: BASO % 0.3 % (0.0-1.0); EOS # 0.2 K/mm3 (0.0-0.50); EOS % 1.7 % (0.0-3.0); LARGE UNSTAINED CELL # 0.2 K/mm3 (0.0-0.4); LARGE UNSTAINED CELL % 1.7 % (0.0-4.0); LYMPH # 2.2 K/mm3 (1.5-4.5); MEAN CORPUSCULAR HEMOGLOBIN 27.3 pg (27.0-33.0); MEAN CORPUSCULAR VOLUME 85.3 fl (80.0-96.0); MONO # 0.6 K/mm3 (0.0-0.8); MONO % 5.6 % (0.0-5.0); NEUTROPHILS # 6.9 K/mm3 (1.8-7.7); NEUTROPHILS % 69.7 % (36.0-66.0); PLATELET COUNT, AUTOMATED 674 k/mm3 (150-450); RED CELL DISTRIBUTION WIDTH 13.6 % (11.5-14.5); WHITE BLOOD COUNT 9.8 K/mm3 (4.0-10.0)
[2016-10-05 08:00] VITALS: BP 145/86
[2016-10-05 08:00] LABS: ANION GAP 6 MEQ/L (8-16); BLOOD UREA NITROGEN 10 MG/DL (7-18); CALCIUM LEVEL 8.2 MG/DL (8.8-10.2); CARBON DIOXIDE LEVEL 30 MEQ/L (21-32); CHLORIDE LEVEL 99 MEQ/L (98-107); GLOMERULAR FILTRATION RATE > 60.0 (>45); GLUCOSE, FASTING 159 MG/DL (80-110); MAGNESIUM LEVEL 1.8 MG/DL (1.8-2.4); POTASSIUM SERUM 4.4 MEQ/L (3.5-5.1); SODIUM LEVEL 135 MEQ/L (136-145)
[2016-10-05] MEDS: POTASSIUM CHLORIDE 10 MEQ SR TABLET PO SCH (08:19)
[2016-10-05] MEDS: SENOKOT S TAB PO SCH (08:19)
[2016-10-05 08:20] VITALS: BP 145/86
[2016-10-05] MEDS: amLODIPine 5 MG TAB PO SCH (08:20)
[2016-10-05] MEDS: NYSTATIN 100,000 UNITS/GM TOPICAL PWD 15 GM TOP SCH (08:21)
[2016-10-05] MEDS: HumuLIN (NovoLIN)70/30 INSULIN INJ PER UNIT SC SCH (08:22)
[2016-10-05] MEDS: HumaLOG INSULIN (NovoLOG) PER UNIT SC SCH ×2 (08:23→12:34)
[2016-10-05] MEDS: SILVER SULFADIAZINE 1% CR 50 GM JAR TOP SCH (08:24)
--- NOTE | 2016-10-05 17:42 | DSES ---
DATE OF ADMISSION: 09/30/2016 DATE OF DISCHARGE: 10/05/2016 PRIMARY CARE PROVIDER: Elizabeth Taylor [place] supercharge repair supervisor. INDIGO MIXER: Dr. Walker. CONSULTANTS: Dr. Walker. PROCEDURES: Second toe amputation of the right foot, debridement of the tendon of the third toe on the right foot, and debridement of the capsule left hallux. COMPLICATIONS: None. ADMISSION/DISCHARGE DIAGNOSES: 1. Osteomyelitis of the second toe of the right foot likely secondary to diabetes. 2. Stage IV ulceration of the third toe of the right foot. 3. Stage IV alteration of the left hallux managed by surgical intervention. 4. Diabetes. 5. Obesity which complicates medical care. 6. Obstructive sleep apnea (STACY), encouraged to use continuous positive airway pressure (C-PAP) while sleeping. 7. Hypertension. 8. Hyperlipidemia. 9. Diabetic neuropathy. 10. Chronic diabetic ulcers 11. Pulmonary embolism 4-5 years ago. No current problems. Not currently on any anticoagulation therapy. BRIEF HOSPITAL COURSE: Ms. Avila was admitted to the hospital on 09/30/2016, due to issues with gangrene involving the right second toe, as well as the third toe and left hallux area needing further debridement. Initially her labs showed a white count of 14.2. Sedimentation rate of 92 and C-reactive protein (CRP) of 24.8. She was admitted. Dr. Walker was consulted and debridement and amputation as outlined above. She was initially placed on broad-spectrum antibiotics. Wound cultures did grow multiple species with group B strep, coagulase-negative Staphylococcus, Enterococcus faecalis, streptococcus milleri. Antibiotics were de-escalated and streamlined to Zyvox. She was given a couple doses of intravenous (IV) Zyvox, tolerating this here in the hospital and prior authorization was approved for oral Zyvox. On date of discharge she was doing well with wound dressings, postoperative shoes both left and right, and did well with physical therapy who felt that she was appropriate for home discharge with home health services. For further information regarding intake, physical, labs, diagnostics, as well as the surgical note, please refer the history and physical (H P) by Dr. Mccurdy and the surgical note by Dr. Zamudio. PHYSICAL EXAMINATION: VITAL SIGNS: Today temperature is 96.3, pulse 72, respiratory rate is 20, blood pressure 145/86, sPO2 is 96% on room air. GENERAL: The patient appears to be in no acute distress. She is alert, pleasant. HEENT: Unremarkable. LUNGS: Clear to auscultation bilaterally. HEART: Regular rate, rhythm. ABDOMEN: Soft. EXTREMITIES: No edema. No calf tenderness. Pulses were equal distally. The wounds do appear to be granulating well and dressings are being changed appropriately. LABORATORY DATA: Today white count is 14.8, hemoglobin 9.7, and platelets are 542,000, CRP is down to 7.37. Sodium 135, potassium 4.4, chloride 99, bicarb 30, anion gap 6, BUN is 10, creatinine 0.7. DISCHARGE CONDITION: Good. DISPOSITION: Discharge to home with home health services and dressing changes appropriately per Dr. Walker's instructions. DISCHARGE MEDICATIONS - Zyvox 600 mg twice a day for 10 more days - [place] 5/325 one tablet every four hours as needed - Norvasc 5 mg daily - Nystatin powder applied twice a day to skin folds - Lipitor 40 mg at bedtime - Byetta 10 mg subcutaneous twice a day - hydrochlorothiazide 12.5 mg daily - ibuprofen 400 mg three times a day as needed - insulin Humalog 70/30 38 units in the morning, 46 units in the evening - metformin 1000 mg twice a day - Klor-Con 10 mEq daily - silver sulfadiazine applied daily twice a day with dressing changes DISCHARGE INSTRUCTIONS: Discharge home. Activity as tolerated. Consistent carbohydrate diet. Followup with primary care provider in a week, with Dr. Walker in a week. Dressing changes 1-2 times daily. Public health referral was placed and she is to seek medical attention if symptoms should worsen or progress. She voices understanding.
== END 2016-10-05 14:20 | disposition home or self-care (01) | DRG 314 ==
LOC: M ED 10:07 → M ED INP 13:01 → M PED 14:30
PROVIDERS: ADMIT Internal Medicine Nephrology; ATTEND Hospitalist
PROC: 0QBQ0ZZ Excision of Right Toe Phalanx, Open Approach (ICD-10-PCS; 2016-10-01)
PROC: 0JBQ0ZZ Excision of Right Foot Subcutaneous Tissue and Fascia, Open Approach (ICD-10-PCS; 2016-10-01)
PROC: 0Y6R0Z3 Detachment at Right 2nd Toe, Low, Open Approach (ICD-10-PCS; principal; 2016-10-01 07:49)
DX: E11.621 Type 2 diabetes mellitus with foot ulcer (principal); E11.40 Type 2 diabetes mellitus with diabetic neuropathy, unspecified; E11.52 Type 2 diabetes mellitus with diabetic peripheral angiopathy with gangrene; L97.514 Non-pressure chronic ulcer of other part of right foot with necrosis of bone; Z68.42 Body mass index [BMI] 45.0-49.9, adult; M90.871 Osteopathy in diseases classified elsewhere, right ankle and foot; E66.9 Obesity, unspecified; G47.33 Obstructive sleep apnea (adult) (pediatric); I10 Essential (primary) hypertension; E78.5 Hyperlipidemia, unspecified; Z86.711 Personal history of pulmonary embolism; Z79.899 Other long term (current) drug therapy; Z79.4 Long term (current) use of insulin; Z86.718 Personal history of other venous thrombosis and embolism; Z88.0 Allergy status to penicillin; E87.6 Hypokalemia; E11.628 Type 2 diabetes mellitus with other skin complications

== ENCOUNTER → 2016-10-16 | Outpatient (REF) | payer BC ==
[~2016-10-16] MED LIST: AMLO5TAB2 PO; ATOR40TA PO; BYET10IN2 SC; HUMU70IN SC; HYDR12CA PO; IBUP40TA PO; METF1000 PO; NORCOTAB PO; NYST10PW TOP; POTA10CA PO; SILV50CR EXT; ZYVO100T PO
== END ==
LOC: M LAB REF 11:12
PROVIDERS: ATTEND Podiatrist
DX: E11.621 Type 2 diabetes mellitus with foot ulcer (principal); L97.512 Non-pressure chronic ulcer of other part of right foot with fat layer exposed; L97.522 Non-pressure chronic ulcer of other part of left foot with fat layer exposed

== ENCOUNTER → 2017-03-28 | Outpatient (REF) | payer OTHER ==
[~2017-03-28] MED LIST changes: +AMLO10TA2 PO; -ATOR40TA PO; +ATOR40TA75 PO; +INVO100T; +LIPI20TA PO; -METF1000 PO; +METF10004 PO; +MUPI2OI; +XARE20TA PO
== END ==
LOC: M LAB REF 17:20
PROVIDERS: ATTEND Nurse Practitioner Family
DX: Z02.1 Encounter for pre-employment examination (principal)

== ENCOUNTER 2017-06-10 11:11 | Inpatient (IN) | payer OTHER ==
[~2017-06-10] VITALS: Ht 160 cm; Wt 114.3 kg
[~2017-06-10 11:11] MED LIST changes: -AMLO10TA2 PO; -INVO100T; -LIPI20TA PO; -MUPI2OI; -XARE20TA PO
[2017-06-10] MEDS ORDERED: INVO100T (11:19)
[2017-06-10] MEDS ORDERED: MUPI2OI (11:19)
[2017-06-10] MEDS ORDERED: XARE20TA PO (11:20)
[2017-06-10] MEDS ORDERED: LIPI20TA PO (11:20)
[2017-06-10 13:16] LABS: MEAN CORPUSCULAR HEMOGLOBIN 26.7 pg (27.0-33.0); MEAN CORPUSCULAR HGB CONC 32.4 g/dl (32.0-36.5); MEAN CORPUSCULAR VOLUME 82.5 fl (80.0-96.0); PLATELET COUNT, AUTOMATED 255 10^3/uL (150-450); WHITE BLOOD COUNT 11.2 10^3/uL (4.0-10.0)
--- NOTE | 2017-06-10 13:26 | REP ---
LEFT LOWER EXTREMITY DOPPLER VENOUS ULTRASOUND: 06/10/2017. Clinical history: Pain, erythema, swelling lower extremity. History of DVT. Comparison: 05/07/2014. Technique: The deep venous system of the left lower extremity is evaluated with lan scale imaging, compression ultrasound, color imaging and duplex Doppler interrogation. Examination from the groin through the popliteal fossa into the proximal calf. Findings: There is full compressibility from the common femoral vein in the inguinal region through the popliteal vein. Color imaging confirms patency throughout the course of the deep venous system. There is respiratory variation and augmented flow at all levels. Impression: 1. No Doppler venous ultrasound evidence of DVT in the left lower extremity. Signed by Jesus Nichols MD 06/10/2017 02:29 P
[2017-06-10 13:37] LABS: CALCIUM LEVEL 9.1 MG/DL (8.8-10.2); CREATININE FOR GFR 1.1 MG/DL (0.55-1.02); GLOMERULAR FILTRATION RATE 53.6 (>45); POTASSIUM SERUM 3.5 MEQ/L (3.5-5.1)
--- NOTE | 2017-06-10 13:43 | REP ---
LEFT TIBIA-FIBULA: 06/10/2017. CLINICAL HISTORY: Pain and swelling left lower extremity. FINDINGS: No prior study. Four views were provided to encompass the entirety of the tibia and fibula. There is diffuse subcutaneous edema in the lower leg. There are vascular calcifications in the popliteal artery and its branches in the calf. There are degenerative changes of the patellofemoral joint and knee with slight narrowing of the medial compartment. There is no focal bone lesion or fracture in the tibia or fibula. Plantar and Achilles insertion spurs noted in the posterior calcaneus. Subtalar joints with some degenerative change and mild spurring dorsal aspect talonavicular joint. IMPRESSION: 1. Diffuse soft tissue swelling and subcutaneous edema lower leg on that left side with vascular calcifications. 2. Degenerative changes knee and ankle without visible or displaced fracture. Signed by Jesus Nichols MD 06/10/2017 02:33 P
[2017-06-10 13:54] LABS: ERYTHROCYTE SEDIMENTATION RATE 76 mm/hr (0-30)
[2017-06-10] MEDS ORDERED: CEFTAROLINE FOSAMIL 600 MG in D5W 50 ML IV ONE (14:30)
--- NOTE | 2017-06-10 15:10 | HPEPDOC ---
[facility] Medical History & Physical Date of Admission Jun 10, 2017 History and Physical ATTENDING: Dr. 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 Denies any fevers, chills, weakness, fatigue, MCGRATH, CP, SOB, cough, palpitations, abdominal pain, N/V/D or changes in bowel or bladder habits. Upon presentation to the hospital the patient was found to have cellulitis LLE, thus the hospitalist team was consulted. PMHx: 1. IDDM. 2. Obesity. BMI 44.3 3. Obstructive sleep apnea on continuous positive airway pressure (CPAP). 4. Hypertension. 5. Hyperlipidemia. 6. Diabetic neuropathy. 7. Chronic diabetic ulcer. 8. History of pulmonary embolism 4 or 5 years ago, not on any anticoagulation. 9. 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 On Xarelto. PSHX: c section x 2 labia reduction surgery [facility] Lung biopsy 25 yo. Sarcoidosis. Rt knee surgery. amputation and Rt foot debridement 09/21 [facility]. SOCHX: Resides in: [facility] Marital Status: Employment: [employer] Tobacco use: denies ETOH: denies Illicit Drugs: Denies Recent travel: denies Advanced directives: none FAMHX: Mother: Alive, HTN, DM, CKD Father: Lung Ca Siblings: 2 brothers, 1 sister Alive, AL, stents, COPD, DVT, PE. Children: Alive, RA, Bipolar disorder ROS: As noted in HPI, otherwise 11pt ROS of systems reviewed and unremarkable. PE: GEN: 62yoF, appears stated age. Well-nourished, well developed. No acute distress. Alert and oriented x 3. Pleasant, interactive. HEENT: Normocephalic, atraumatic. Pupils are equal, round, and reactive to light. Extraocular movements are intact. No nystagmus appreciated. Sclera are nonicteric. Conjunctiva without injection. Nose midline. Nasal turbinates without bogginess. EACs both patent BL. TMs both visualized and lan with good cone of light, no bulging or erythema. No facial asymmetry. Moist mucous membranes. Dentition fair. Pharynx pink and moist, no cobblestoning. Neck supple , trachea midline. No lymphadenopathy or thyromegaly appreciated. CHEST: Regular rate and rhythm, +S1, +S2 LUNGS: Clear to auscultation bilaterally. No wheezes, rales, or rhonchi. Breathing appears symmetric and easy. Patient is speaking in full sentences. No accessory muscle use. ABD: Round, soft, non-tender, non-distended. +Bowel sounds throughout. No rebound or guarding. No costovertebral angle tenderness. EXT: Pulses 2+ bilaterally dorsalis pedis and radial. Erythema edema and warmth noted LLE with small ulceration noted, no drainage. NEURO: Alert and oriented x 3. Cranial nerves III-XII are intact. No focal deficits appreciated. XR: 1. Diffuse soft tissue swelling and subcutaneous edema lower leg on that left side with vascular calcifications. 2. Degenerative changes knee and ankle without visible or displaced fracture. LE U/S 1. No Doppler venous ultrasound evidence of DVT in the left lower extremity. EKG: Sr, low voltage, poss old AWMI, 86 bpm. BLOOD CULTURES: x 2 pending. CRP 17.50 A&P: 62yoF with a past medical history significant for DM, diabetic neuropathy , HTN, HLD, who reports onset of LLE pain. 1. The patient will be admitted to /S for at least [address] Lara's service. Pt is discussed with Dr Mccurdy. 2. LLE cellulitis. BC x 2 pending. UC pending. Trend CRP. Continue IV ceftaroline. 3. IDDM. Hold Metformin. CC diet/Continue Insulin 70/30. 4. STACY. CPAP. 5. HTN. Hold HCTZ temporarily. SCr noted to be 1.10. Norvasc with hold parameters 6. HLD. Statin. 7. H/O Recurrent DVT/H/O PE. Continue Xarelto. DVT prophylaxis. The patient is a Full code. Vital Signs Vital Signs Date Time Temp Pulse Resp B/P (MAP) Pulse Ox O2 Delivery O2 Flow Rate FiO2 06/10/17 14:40 98.9 85 20 126/59 (81) 97 Room Air Laboratory Data Labs 24H Laboratory Tests 2 06/10/17 11:54: Nucleated Red Blood Cells % (auto) 0.0, Erythrocyte Sedimentation Rate 76H, Anion Gap 8, Glomerular Filtration Rate 53.6, Blood Urea Nitrogen 16, Creatinine 1.10H, Sodium Level 133L, Potassium Level 3.5, Chloride Level 95L, Carbon Dioxide Level 30, Calcium Level 9.1, C-Reactive Protein, Quantitative 17.50H CBC/BMP Laboratory Tests 06/10/17 11:54 Red Blood Count 4.45, Mean Corpuscular Volume 82.5, Mean Corpuscular Hemoglobin 26.7 L, Mean Corpuscular Hemoglobin Concent 32.4, Red Cell Distribution Width 14.0, Calcium Level 9.1 Microbiology Microbiology 06/10/17 Blood Culture, Received Pending 06/10/17 Blood Culture, Received Pending Home Medications Scheduled Amlodipine Besylate (Amlodipine Besylate) 10 Mg Tab, 10 MG PO DAILY Atorvastatin Calcium (Atorvastatin Calcium) 40 Mg Tab, 40 MG PO QHS Hydrochlorothiazide (Hydrochlorothiazide) 12.5 Mg Cap, 12.5 MG PO DAILY Insulin Human Isophan/Regular (Humulin 70/30 (70-30) 100 Unit/ml) 1 Inj Inj, 38 UNITS SC QAM Insulin Human Isophan/Regular (Humulin 70/30 (70-30) 100 Unit/ml) 1 Inj Inj, 46 UNITS SC QPM Metformin Hydrochloride (Metformin HCl) 1,000 Mg Tab, 1,000 MG PO BID Potassium Chloride (Klor-Con M10) 10 Meq Tabcr, 10 MEQ PO DAILY Rivaroxaban (Xarelto) 20 Mg Tab, 20 MG PO DAILY Allergies Coded Allergies: Penicillins (Verified Allergy, Mild, HIVES, 09/30/16) Shannon Marcus Jun 10, 2017 15:10
[2017-06-10] MEDS ORDERED: AMLO10TA2 PO (15:40)
[2017-06-10] MEDS ORDERED: GLUCOSE 4 GM CHEW TABLET PO PRN (15:45)
[2017-06-10] MEDS ORDERED: DEXTROSE 50% 50 ML SYRINGE IV PRN (15:45)
[2017-06-10] MEDS ORDERED: GLUCAGON FOR INJ 1 MG VIAL (J1610) SC PRN (15:45)
[2017-06-10 16:45] VITALS: BP 145/70
[2017-06-10] MEDS ORDERED: HumaLOG INSULIN (NovoLOG) PER UNIT SC SCH ×2 (17:30→21:00)
[2017-06-10] MEDS: ATORVASTATIN 20 MG TAB PO SCH (20:45)
[2017-06-10] MEDS ORDERED: HumuLIN (NovoLIN)70/30 INSULIN INJ PER UNIT SC SCH (21:00)
[2017-06-11 00:30] VITALS: BP 127/55
[2017-06-11] MEDS: CEFTAROLINE FOSAMIL 600 MG in D5W 50 ML IV SCH ×2 (04:15→15:00)
[2017-06-11 06:00] VITALS: BP 122/56
[2017-06-11 07:03] LABS: MEAN CORPUSCULAR HEMOGLOBIN 26.9 pg (27.0-33.0); MEAN CORPUSCULAR HGB CONC 32.7 g/dl (32.0-36.5); MEAN CORPUSCULAR VOLUME 82.2 fl (80.0-96.0); PLATELET COUNT, AUTOMATED 254 10^3/uL (150-450); RED CELL DISTRIBUTION WIDTH 13.9 % (11.5-14.5); WHITE BLOOD COUNT 12.8 10^3/uL (4.0-10.0)
[2017-06-11 07:10] LABS: ALBUMIN 2.3 GM/DL (3.2-5.2); ALKALINE PHOSPHATASE 51 U/L (45-117); ALT/SGPT 15 U/L (12-78); ANION GAP 8 MEQ/L (8-16); AST/SGOT 20 U/L (7-37); BILIRUBIN,TOTAL 0.5 MG/DL (0.2-1.0); BLOOD UREA NITROGEN 15 MG/DL (7-18); CALCIUM LEVEL 8.4 MG/DL (8.8-10.2); CARBON DIOXIDE LEVEL 30 MEQ/L (21-32); CHLORIDE LEVEL 96 MEQ/L (98-107); CREATININE FOR GFR 0.78 MG/DL (0.55-1.02); GLOMERULAR FILTRATION RATE > 60.0 (>45); GLUCOSE, FASTING 107 MG/DL (80-110); SODIUM LEVEL 134 MEQ/L (136-145); TOTAL PROTEIN 6.9 GM/DL (6.4-8.2)
[2017-06-11] MEDS: HumuLIN (NovoLIN)70/30 INSULIN INJ PER UNIT SC SCH ×2 (09:00→21:00)
--- NOTE | 2017-06-11 09:08 | ECGEPIP ---
Stationary ECG Study [facility] - ED Test Date: 2017-06-10 Pat Name: HEATHER HERNANDEZ Department: Room: [place] [address] Gender: F Canvas Baster: dustin : 1955 Requested By: TAMMI Crow PA-C Order Number: [id number] Reading MD: Vannessa Key Measurements Intervals [place] Rate: 86 P: 86 HI: 146 QRS: -1 QRSD: 72 T: 40 QT: 339 QTc: 406 Interpretive Statements SINUS RHYTHM LOW QRS VOLTAGE IN PRECORDIAL LEADS POSSIBLE ANTERIOR MYOCARDIAL INFARCTION, PROBABLY OLD DECREASED RATE 08/21/16 Electronically Signed On 06-11-2017 9:08:32 EST by Vannessa Key
[2017-06-11] MEDS: RIVAROXABAN 20 MG TAB (XARELTO) PO SCH (10:18)
[2017-06-11] MEDS: POTASSIUM CHLORIDE 10 MEQ SR TABLET PO SCH (10:18)
[2017-06-11] MEDS: amLODIPine 10 MG TAB PO SCH (10:20)
[2017-06-11] MEDS ORDERED: POTASSIUM CHLORIDE 10 MEQ SR TABLET PO ONE (11:00)
[2017-06-11] MEDS: KCL 10MEQ IN 100ML SWI (KRUN) 10 MEQ in APPROPRIATE DILUENT 1 EA IV SCH ×4 (12:11→13:21)
[2017-06-11 14:00] VITALS: BP 110/53
[2017-06-11 21:00] VITALS: BP 131/58
[2017-06-11] MEDS: ATORVASTATIN 20 MG TAB PO SCH (21:10)
--- NOTE | 2017-06-11 21:31 | IPN ---
DATE: 06/11/2017 06/11/2017. SUBJECTIVE: Patient seen and examined in the room today. Patient states that the discomfort of her left lower extremity where she has infection is improving. Per patient, patient stated that her skin erythema and the swelling progress rapidly since the weekend and creates significant discomfort for the patient. There is (cut off) originating from the punch-like lesion located at the medial distal lower extremity just about the ankle. Patient cannot remember if she had a traumatic injury or she has a bite from insects or animals. OBJECTIVE: VITAL SIGNS: Temperature 96.5, pulse is 78, respirations 18, blood pressure 122/56, pulse oximetry 95% in room air. GENERAL: No acute distress, alert and oriented times three. HEENT: Normocephalic, atraumatic. Extraocular motor grossly intact. CARDIOVASCULAR: Positive S1, S2, regular rate. LUNGS: Clear to auscultation bilaterally. ABDOMEN: Soft, nontender, nondistended. Bowel sounds present. EXTREMITIES: Erythematous skin changes and warmth noted on the left lower extremity below the knee. There is a small ulcerative lesion located at the distal lower extremity medially, just above the ankle. No active discharge noted. The wound lesion border marked with a surgical marker. Additional significant progression noted. Still has some extremity edema noted, especially near the erythematous lesion. LABORATORY DATA: WBC 12.8, hemoglobin 10.7, hematocrit 32.7, platelet count is 254. Sodium is 134, potassium 3, chloride is 96, carbon dioxide 30, BUN 15, creatinine 0.78, GFR greater than 60, fasting glucose 107, calcium 8.4. Total bilirubin 0.5, AST 20, ALT 15, alkaline phosphatase is 51, C-reactive protein is 17.9, total protein 6.9, albumin 2.3. Microbiology: Blood cultures negative after 24 hours times two. Official report pending. Urine culture pending. ASSESSMENT AND PLAN: 1. Left lower extremity cellulitis. Patient started on the intravenous (IV) antibiotics. Wound borders were outlined with a surgical marker. Continue to trend with infection/inflammatory markers and also vital signs. 2. Insulin-dependent diabetes, on Humulin 70/30 regimen, 30 units every morning, 46 units every evening. On consistent-carbohydrate diet. 3. Hypokalemia. Start potassium supplement. 4. Hyperlipidemia. On statin. 5. Hypertension. Previously patient had acute kidney injury (TEMO). Diuretic was on hold. Renal function improved to baseline, even without the hydrochlorothiazide. Patient blood pressure is still within normal range. Continue with Norvasc. 6. History of recurrent deep vein thrombosis (DVT) of the left lower extremity. Most recent one May 2017, on Xarelto. 7. Deep vein thrombosis (DVT) prophylaxis, on Xarelto. 8. Obstructive sleep apnea (STACY), on continuous positive airway pressure (CPAP).
[2017-06-11 22:20] VITALS: BP 132/67
[2017-06-11] MEDS: NYSTATIN 100,000 UNITS/GM TOPICAL PWD 15 GM TOP PRN (23:24)
[2017-06-12] MEDS: CEFTAROLINE FOSAMIL 600 MG in D5W 50 ML IV SCH ×2 (03:02→15:02)
[2017-06-12 06:00] VITALS: BP 147/63
[2017-06-12 07:20] LABS: MEAN CORPUSCULAR HEMOGLOBIN 26.8 pg (27.0-33.0); MEAN CORPUSCULAR HGB CONC 32.3 g/dl (32.0-36.5); PLATELET COUNT, AUTOMATED 289 10^3/uL (150-450); WHITE BLOOD COUNT 13.5 10^3/uL (4.0-10.0)
[2017-06-12 07:40] LABS: ALBUMIN 2.4 GM/DL (3.2-5.2); ALBUMIN/GLOBULIN RATIO 0.45 (1.00-1.93); ALKALINE PHOSPHATASE 70 U/L (45-117); ALT/SGPT 18 U/L (12-78); ANION GAP 6 MEQ/L (8-16); AST/SGOT 23 U/L (7-37); BILIRUBIN,TOTAL 0.3 MG/DL (0.2-1.0); BLOOD UREA NITROGEN 18 MG/DL (7-18); CALCIUM LEVEL 8.7 MG/DL (8.8-10.2); CARBON DIOXIDE LEVEL 29 MEQ/L (21-32); CHLORIDE LEVEL 98 MEQ/L (98-107); CREATININE FOR GFR 0.79 MG/DL (0.55-1.02); GLOMERULAR FILTRATION RATE > 60.0 (>45); GLUCOSE, FASTING 138 MG/DL (80-110); POTASSIUM SERUM 3.6 MEQ/L (3.5-5.1); SODIUM LEVEL 133 MEQ/L (136-145); TOTAL PROTEIN 7.7 GM/DL (6.4-8.2)
[2017-06-12 08:00] VITALS: BP 128/60
[2017-06-12] MEDS: amLODIPine 10 MG TAB PO SCH (08:59)
[2017-06-12] MEDS: RIVAROXABAN 20 MG TAB (XARELTO) PO SCH (09:00)
[2017-06-12] MEDS: POTASSIUM CHLORIDE 10 MEQ SR TABLET PO SCH (09:00)
[2017-06-12] MEDS: HumuLIN (NovoLIN)70/30 INSULIN INJ PER UNIT SC SCH ×2 (10:25→20:30)
--- NOTE | 2017-06-12 15:06 | IPN ---
DATE: 06/12/2017 SUBJECTIVE: Patient seen and examined in the room today. Patient states that the discomfort of her left lower extremity cellulitis is improving; however, there is still some swelling that persists, but there is no progression of the erythema. The patient has never had a similar episode in the past. The patient denies any history of vasculitis. OBJECTIVE: VITAL SIGNS: Temperature 96.7, pulse 65, respiratory rate 18, blood pressure 128/60, pulse oximetry 97% on room air. GENERAL: No acute distress, alert and oriented times three. HEENT: Normocephalic, atraumatic. Extraocular motor grossly intact. CARDIOVASCULAR: Positive S1, S2, regular rate. LUNGS: Clear to auscultation bilaterally. ABDOMEN: Soft, nontender, nondistended. Bowel sounds present. EXTREMITIES: There are still some erythematous skin changes and warmth noted on the left lower extremity below the knee. The borders were marked with a surgical marker, there is no progression of the erythema beyond the surgical marker site. There is a small ulcerative lesion located at the distal lower extremity medially.. No active discharge noted. No active bleeding noted. There is still 2+ pitting edema at the left lower extremity. LABORATORY DATA: WBC 13.5, hemoglobin 12, hematocrit 37.1, platelet count is 289. Sodium is 133, potassium 3.6, chloride 98, carbon dioxide 29, BUN 18, creatinine 0.79, GFR is greater than 60, fasting glucose is 138, A1/c is 9, calcium is 8.7, magnesium 2, total bilirubin 0.3, AST is 23, ALT is 18, alkaline phosphatase is 70, C-reactive protein is 15.2, total protein 7.7, albumin is 2.84. Blood cultures negative after 48 hours times two sets, official report pending. ASSESSMENT AND PLAN: 1. Left lower extremity cellulitis. Patient has been on intravenous (IV) Teflaro. Clinically, the patient stated that there is improvement of her lesions. The patient started to have decreased C-reactive protein. Continue to follow. Currently, the patient has stable vitals. No history of vasculitis. 2. Insulin-dependent diabetes. The patient's A1/c is 9. Yesterday, the patient did have an episode of hypoglycemia. Before the insulin usage, the patient had a glucose measurement of around 110. The patient stated that according to her experience when the glucose is around 110 range, she will try to avoid using the insulin because it will cause hypoglycemia episode. The patient is on consistent carbohydrate diet. 3. Hypokalemia. The patient had potassium supplement. 4. Hypertension. Previously due to acute kidney injury (TEMO). Diuretic was on hold. Renal function returned to baseline now. Currently, even without the diuretic, the patient's blood pressure is in the satisfactory range. Continue with Norvasc only. 5. History of recurrent deep vein thrombosis (DVT) of the left lower extremity. On Xarelto. 6. Deep vein thrombosis (DVT) prophylaxis, on Xarelto. 7. Obstructive sleep apnea (STACY), on continuous positive airway pressure (CPAP).
[2017-06-12 16:00] VITALS: BP 144/68
[2017-06-12] MEDS: ACETAMINOPHEN TAB 650MG DOSE (2X325MG) PO PRN (19:12)
[2017-06-12 20:00] VITALS: BP 129/58
[2017-06-12] MEDS: NYSTATIN 100,000 UNITS/GM TOPICAL PWD 15 GM TOP PRN (20:28)
[2017-06-12] MEDS: ATORVASTATIN 20 MG TAB PO SCH (20:28)
[2017-06-13] MEDS: CEFTAROLINE FOSAMIL 600 MG in D5W 50 ML IV SCH ×2 (03:05→14:59)
[2017-06-13 04:00] VITALS: BP 127/63
[2017-06-13 07:25] LABS: MEAN CORPUSCULAR HEMOGLOBIN 26.9 pg (27.0-33.0); MEAN CORPUSCULAR HGB CONC 32.9 g/dl (32.0-36.5); MEAN CORPUSCULAR VOLUME 81.6 fl (80.0-96.0); PLATELET COUNT, AUTOMATED 330 10^3/uL (150-450); RED CELL DISTRIBUTION WIDTH 13.9 % (11.5-14.5); WHITE BLOOD COUNT 10.3 10^3/uL (4.0-10.0)
[2017-06-13 07:52] LABS: ALBUMIN 2.3 GM/DL (3.2-5.2); ALBUMIN/GLOBULIN RATIO 0.48 (1.00-1.93); ALKALINE PHOSPHATASE 54 U/L (45-117); ALT/SGPT 15 U/L (12-78); ANION GAP 6 MEQ/L (8-16); AST/SGOT 16 U/L (7-37); BILIRUBIN,TOTAL 0.3 MG/DL (0.2-1.0); BLOOD UREA NITROGEN 14 MG/DL (7-18); CALCIUM LEVEL 8.3 MG/DL (8.8-10.2); CARBON DIOXIDE LEVEL 30 MEQ/L (21-32); CHLORIDE LEVEL 99 MEQ/L (98-107); GLOMERULAR FILTRATION RATE > 60.0 (>45); GLUCOSE, FASTING 194 MG/DL (80-110); POTASSIUM SERUM 3.6 MEQ/L (3.5-5.1); SODIUM LEVEL 135 MEQ/L (136-145); TOTAL PROTEIN 7.1 GM/DL (6.4-8.2)
[2017-06-13 08:00] VITALS: BP 122/59
[2017-06-13] MEDS: RIVAROXABAN 20 MG TAB (XARELTO) PO SCH (08:09)
[2017-06-13] MEDS: POTASSIUM CHLORIDE 10 MEQ SR TABLET PO SCH (08:10)
[2017-06-13] MEDS: amLODIPine 10 MG TAB PO SCH (08:10)
[2017-06-13] MEDS: HumuLIN (NovoLIN)70/30 INSULIN INJ PER UNIT SC SCH ×2 (08:10→20:42)
[2017-06-13] MEDS: SENNA 8.6 MG TAB (SENOKOT) PO PRN (14:59)
[2017-06-13] MEDS: ACETAMINOPHEN TAB 650MG DOSE (2X325MG) PO PRN (15:01)
[2017-06-13 16:00] VITALS: BP 131/64
--- NOTE | 2017-06-13 18:34 | IPNPDOC ---
Text Note Date of Service The patient was seen on 06/13/17. NOTE SUBJECTIVE: Patient seen and examined in the room today. Patient states she feels her left leg swelling and redness are improving. Denies any fever or chill. Denies LLE discomfort from swelling. OBJECTIVE: VITAL SIGNS: Listed below. GENERAL: No acute distress, alert and oriented times three. HEENT: Normocephalic, atraumatic. Extraocular motor grossly intact. CARDIOVASCULAR: Positive S1, S2, regular rate. LUNGS: Clear to auscultation bilaterally. ABDOMEN: Soft, nontender, nondistended. Bowel sounds present. EXTREMITIES: There are still some erythematous skin changes and warmth noted on the left lower extremity below the knee. The borders were marked with a surgical marker, there is no progression of the erythema beyond the surgical marker site. There is a small ulcerative lesion located at the distal lower extremity medially.. No active discharge noted. No active bleeding noted. There is still 2+ pitting edema at the left lower extremity. LABORATORY DATA: Listed below ASSESSMENT AND PLAN: 1. Left lower extremity cellulitis. Patient has been on intravenous (IV) Teflaro. Clinically, the patient stated that there is improvement of her lesions. The patient started to have decreased C-reactive protein and WBC. Continue to follow. Currently, the patient has stable vitals. No history of vasculitis. 2. Insulin-dependent diabetes. The patient's A1/c is 9. Yesterday, the patient did have an episode of hypoglycemia. Before the insulin usage, the patient had a glucose measurement of around 110. The patient stated that according to her experience when the glucose is around 110 range, she will try to avoid using the insulin because it will cause hypoglycemia episode. The patient is on consistent carbohydrate diet. 3. Hypokalemia. The patient had potassium supplement. 4. Hypertension. Previously due to acute kidney injury (TEMO). Diuretic was on hold. Renal function returned to baseline now. Currently, even without the diuretic, the patient's blood pressure is in the satisfactory range. Continue with Norvasc only. 5. History of recurrent deep vein thrombosis (DVT) of the left lower extremity. On Xarelto. 6. Deep vein thrombosis (DVT) prophylaxis, on Xarelto. 7. Obstructive sleep apnea (STACY), Non-compliant with CPAP. On STACY protocol VS,Fishbone, I+O VS, Fishbone, I+O Laboratory Tests 06/13/17 07:12 Red Blood Count 4.02, Mean Corpuscular Volume 81.6, Mean Corpuscular Hemoglobin 26.9 L, Mean Corpuscular Hemoglobin Concent 32.9, Red Cell Distribution Width 13.9, Calcium Level 8.3 L, Aspartate Amino Transf (AST/SGOT) 16, Alanine Aminotransferase (ALT/SGPT) 15, Alkaline Phosphatase 54, Total Bilirubin 0.3, Total Protein 7.1, Albumin 2.3 L Vital Signs Date Time Temp Pulse Resp B/P (MAP) Pulse Ox O2 Delivery O2 Flow Rate FiO2 06/13/17 16:00 97.5 65 16 131/64 (86) 96 Room Air I&O- Last 24 Hours up to 6 AM 06/14/17 06:00 Intake Total 650 ml Output Total 700 ml Balance -50 ml KEVIN BRITO DO Jun 13, 2017 18:34
[2017-06-13] MEDS: ATORVASTATIN 20 MG TAB PO SCH (20:42)
[2017-06-13] MEDS: NYSTATIN 100,000 UNITS/GM TOPICAL PWD 15 GM TOP PRN (21:00)
[2017-06-14] VITALS: BP 107/57
[2017-06-14] MEDS: ACETAMINOPHEN TAB 650MG DOSE (2X325MG) PO PRN ×2 (00:22→20:48)
[2017-06-14] MEDS: CEFTAROLINE FOSAMIL 600 MG in D5W 50 ML IV SCH (03:29)
[2017-06-14 07:17] LABS: MEAN CORPUSCULAR HEMOGLOBIN 26.9 pg (27.0-33.0); MEAN CORPUSCULAR HGB CONC 32.1 g/dl (32.0-36.5); MEAN CORPUSCULAR VOLUME 83.6 fl (80.0-96.0); PLATELET COUNT, AUTOMATED 393 10^3/uL (150-450); RED CELL DISTRIBUTION WIDTH 14.2 % (11.5-14.5); WHITE BLOOD COUNT 8.9 10^3/uL (4.0-10.0)
[2017-06-14 07:37] LABS: ALBUMIN 2.2 GM/DL (3.2-5.2); ALBUMIN/GLOBULIN RATIO 0.46 (1.00-1.93); ALKALINE PHOSPHATASE 57 U/L (45-117); ALT/SGPT 17 U/L (12-78); ANION GAP 4 MEQ/L (8-16); AST/SGOT 15 U/L (7-37); BILIRUBIN,TOTAL 0.3 MG/DL (0.2-1.0); BLOOD UREA NITROGEN 14 MG/DL (7-18); CALCIUM LEVEL 8.3 MG/DL (8.8-10.2); CARBON DIOXIDE LEVEL 32 MEQ/L (21-32); CHLORIDE LEVEL 103 MEQ/L (98-107); CREATININE FOR GFR 0.73 MG/DL (0.55-1.02); GLOMERULAR FILTRATION RATE > 60.0 (>45); GLUCOSE, FASTING 112 MG/DL (80-110); POTASSIUM SERUM 3.7 MEQ/L (3.5-5.1); SODIUM LEVEL 139 MEQ/L (136-145)
[2017-06-14 08:30] VITALS: BP 142/67
[2017-06-14] MEDS: RIVAROXABAN 20 MG TAB (XARELTO) PO SCH (08:41)
[2017-06-14] MEDS: HumuLIN (NovoLIN)70/30 INSULIN INJ PER UNIT SC SCH ×2 (08:43→17:53)
[2017-06-14] MEDS: POTASSIUM CHLORIDE 10 MEQ SR TABLET PO SCH (08:44)
[2017-06-14] MEDS: amLODIPine 10 MG TAB PO SCH (08:45)
[2017-06-14] MEDS ORDERED: **hydrALAZINE HCL** 25 MG TAB PO SCH (09:00)
[2017-06-14] MEDS: DOXYCYCLINE HYCLATE 100 MG TAB PO SCH ×2 (14:31→20:48)
[2017-06-14 15:45] VITALS: BP 119/56
--- NOTE | 2017-06-14 16:04 | IPNPDOC ---
Text Note Date of Service The patient was seen on 06/14/17. NOTE SUBJECTIVE: Patient seen and examined in the room today. Patient states she feels her left leg swelling and redness are improving. Denies any fever or chill. Denies LLE discomfort from swelling. OBJECTIVE: VITAL SIGNS: Listed below. GENERAL: No acute distress, alert and oriented times three. HEENT: Normocephalic, atraumatic. Extraocular motor grossly intact. CARDIOVASCULAR: Positive S1, S2, regular rate. LUNGS: Clear to auscultation bilaterally. ABDOMEN: Soft, nontender, nondistended. Bowel sounds present. EXTREMITIES: There are still some erythematous skin changes and warmth noted on the left lower extremity below the knee. The borders were marked with a surgical marker, there is no progression of the erythema beyond the surgical marker site. There is a small ulcerative lesion located at the distal lower extremity medially.. No active discharge noted. No active bleeding noted. There is still 2+ pitting edema at the left lower extremity. LABORATORY DATA: Listed below ASSESSMENT AND PLAN: 1. Left lower extremity cellulitis. Patient has been on intravenous (IV) Teflaro. Clinically, the patient stated that there is improvement of her lesions. The patient started to have decreased C-reactive protein and WBC. Will switch to PO doxycycline. Currently, the patient has stable vitals. 2. Insulin-dependent diabetes. The patient's A1/c is 9. The patient is on consistent carbohydrate diet. On insulin. 3. Hypokalemia. resolved. 4. Hypertension. Previously due to acute kidney injury (TEMO). Diuretic was on hold. Renal function returned to baseline now. Continue Norvasc. Restart hydrochlorothiazide. 5. History of recurrent deep vein thrombosis (DVT) of the left lower extremity. On Xarelto. 6. Deep vein thrombosis (DVT) prophylaxis, on Xarelto. 7. Obstructive sleep apnea (STACY). Non-compliant with CPAP. On STACY protocol VS,Fishbone, I+O VS, Fishbone, I+O Laboratory Tests 06/14/17 06:54 Red Blood Count 3.91 L, Mean Corpuscular Volume 83.6, Mean Corpuscular Hemoglobin 26.9 L, Mean Corpuscular Hemoglobin Concent 32.1, Red Cell Distribution Width 14.2, Calcium Level 8.3 L, Aspartate Amino Transf (AST/SGOT) 15, Alanine Aminotransferase (ALT/SGPT) 17, Alkaline Phosphatase 57, Total Bilirubin 0.3, Total Protein 7.0, Albumin 2.2 L Vital Signs Date Time Temp Pulse Resp B/P (MAP) Pulse Ox O2 Delivery O2 Flow Rate FiO2 06/14/17 08:45 60 142/67 06/14/17 08:30 98.1 18 96 Room Air 06/14/17 05:00 2.0 I&O- Last 24 Hours up to 6 AM 06/15/17 06:00 Intake Total 540 ml Output Total 350 ml Balance 190 ml KEVIN BRITO DO Jun 14, 2017 16:04
[2017-06-14] MEDS ORDERED: hydroCHLOROthiazide 12.5 MG CAPSULE PO ONE (17:00)
[2017-06-14 20:00] VITALS: BP 138/65
[2017-06-14] MEDS: ATORVASTATIN 20 MG TAB PO SCH (20:48)
[2017-06-14] MEDS: NYSTATIN 100,000 UNITS/GM TOPICAL PWD 15 GM TOP PRN (20:49)
[2017-06-15] VITALS: BP 126/59
[2017-06-15 07:04] LABS: MEAN CORPUSCULAR HEMOGLOBIN 26.6 pg (27.0-33.0); MEAN CORPUSCULAR HGB CONC 31.9 g/dl (32.0-36.5); MEAN CORPUSCULAR VOLUME 83.5 fl (80.0-96.0); PLATELET COUNT, AUTOMATED 420 10^3/uL (150-450); WHITE BLOOD COUNT 9.2 10^3/uL (4.0-10.0)
[2017-06-15 07:29] LABS: ALBUMIN 2.3 GM/DL (3.2-5.2); ALBUMIN/GLOBULIN RATIO 0.47 (1.00-1.93); ALKALINE PHOSPHATASE 61 U/L (45-117); ALT/SGPT 18 U/L (12-78); ANION GAP 6 MEQ/L (8-16); AST/SGOT 14 U/L (7-37); BILIRUBIN,TOTAL 0.3 MG/DL (0.2-1.0); BLOOD UREA NITROGEN 13 MG/DL (7-18); CALCIUM LEVEL 8.8 MG/DL (8.8-10.2); CARBON DIOXIDE LEVEL 31 MEQ/L (21-32); CHLORIDE LEVEL 102 MEQ/L (98-107); CREATININE FOR GFR 0.77 MG/DL (0.55-1.02); GLOMERULAR FILTRATION RATE > 60.0 (>45); GLUCOSE, FASTING 185 MG/DL (80-110); POTASSIUM SERUM 3.9 MEQ/L (3.5-5.1); SODIUM LEVEL 139 MEQ/L (136-145); TOTAL PROTEIN 7.2 GM/DL (6.4-8.2)
[2017-06-15] MEDS: POTASSIUM CHLORIDE 10 MEQ SR TABLET PO SCH (08:29)
[2017-06-15] MEDS: hydroCHLOROthiazide 12.5 MG CAPSULE PO SCH (08:29)
[2017-06-15] MEDS: RIVAROXABAN 20 MG TAB (XARELTO) PO SCH (08:29)
[2017-06-15] MEDS: amLODIPine 10 MG TAB PO SCH (08:30)
[2017-06-15] MEDS: DOXYCYCLINE HYCLATE 100 MG TAB PO SCH ×2 (08:30→20:42)
[2017-06-15] MEDS: HumuLIN (NovoLIN)70/30 INSULIN INJ PER UNIT SC SCH ×2 (08:31→20:42)
[2017-06-15 08:35] VITALS: BP 145/67
--- NOTE | 2017-06-15 11:57 | IPNPDOC ---
Text Note Date of Service The patient was seen on 06/15/17. NOTE SUBJECTIVE: Patient seen and examined in the room today. Patient states she feels her left leg swelling and redness are improving. Denies any fever or chill. Antibiotic was switched to doxycycline since yesterday. Denies any adverse effect to doxycycline. OBJECTIVE: VITAL SIGNS: Listed below. GENERAL: No acute distress, alert and oriented times three. HEENT: Normocephalic, atraumatic. Extraocular motor grossly intact. CARDIOVASCULAR: Positive S1, S2, regular rate. LUNGS: Clear to auscultation bilaterally. ABDOMEN: Soft, nontender, nondistended. Bowel sounds present. EXTREMITIES: There are still some erythematous skin changes and warmth noted on the left lower extremity below the knee. The borders were marked with a surgical marker, there is no progression of the erythema beyond the surgical marker site. There is a small ulcerative lesion located at the distal lower extremity medially.. No active discharge noted. No active bleeding noted. There is still 2+ pitting edema at the left lower extremity. No edema at right lower extremity LABORATORY DATA: Listed below ASSESSMENT AND PLAN: 1. Left lower extremity cellulitis. Patient was on Teflaro previously. Switched to doxycycline PO since yesterday. Continue showing clinical improvements. Currently, the patient has stable vitals. 2. Insulin-dependent diabetes. The patient's A1/c is 9. The patient is on consistent carbohydrate diet. On insulin 3. Hypokalemia. resolved. 4. Hypertension. Previously due to acute kidney injury (TEMO). Diuretic was on hold. Renal function returned to baseline now. Continue Norvasc. Restart hydrochlorothiazide. 5. History of recurrent deep vein thrombosis (DVT) of the left lower extremity. On Xarelto. 6. Deep vein thrombosis (DVT) prophylaxis, on Xarelto. 7. Obstructive sleep apnea (STACY). Non-compliant with CPAP. On STACY protocol VS,Fishbone, I+O VS, Fishbone, I+O Laboratory Tests 06/15/17 06:45 Red Blood Count 3.94 L, Mean Corpuscular Volume 83.5, Mean Corpuscular Hemoglobin 26.6 L, Mean Corpuscular Hemoglobin Concent 31.9 L, Red Cell Distribution Width 14.0, Calcium Level 8.8, Aspartate Amino Transf (AST/SGOT) 14 , Alanine Aminotransferase (ALT/SGPT) 18, Alkaline Phosphatase 61, Total Bilirubin 0.3, Total Protein 7.2, Albumin 2.3 L Vital Signs Date Time Temp Pulse Resp B/P (MAP) Pulse Ox O2 Delivery O2 Flow Rate FiO2 06/15/17 08:48 97 Room Air 06/15/17 08:35 98.1 66 18 145/67 (93) 06/15/17 00:00 2.0 I&O- Last 24 Hours up to 6 AM 06/16/17 06:00 Intake Total 240 ml Output Total 500 ml Balance -260 ml KEVIN BRITO DO Jun 15, 2017 11:57
[2017-06-15 16:00] VITALS: BP 133/65
[2017-06-15 20:00] VITALS: BP 143/67
[2017-06-15] MEDS: ATORVASTATIN 20 MG TAB PO SCH (20:43)
[2017-06-15] MEDS: ACETAMINOPHEN TAB 650MG DOSE (2X325MG) PO PRN (20:59)
[2017-06-16 01:05] VITALS: BP 135/62
[2017-06-16 06:33] LABS: MEAN CORPUSCULAR HEMOGLOBIN 26.4 pg (27.0-33.0); MEAN CORPUSCULAR HGB CONC 31.6 g/dl (32.0-36.5); MEAN CORPUSCULAR VOLUME 83.6 fl (80.0-96.0); PLATELET COUNT, AUTOMATED 492 10^3/uL (150-450); RED CELL DISTRIBUTION WIDTH 14.1 % (11.5-14.5); WHITE BLOOD COUNT 9.6 10^3/uL (4.0-10.0)
[2017-06-16 06:51] LABS: ALBUMIN 2.3 GM/DL (3.2-5.2); ALBUMIN/GLOBULIN RATIO 0.43 (1.00-1.93); ALKALINE PHOSPHATASE 60 U/L (45-117); ALT/SGPT 19 U/L (12-78); ANION GAP 4 MEQ/L (8-16); AST/SGOT 21 U/L (7-37); BILIRUBIN,TOTAL 0.3 MG/DL (0.2-1.0); BLOOD UREA NITROGEN 12 MG/DL (7-18); CALCIUM LEVEL 8.7 MG/DL (8.8-10.2); CARBON DIOXIDE LEVEL 33 MEQ/L (21-32); CHLORIDE LEVEL 101 MEQ/L (98-107); CREATININE FOR GFR 0.75 MG/DL (0.55-1.02); GLOMERULAR FILTRATION RATE > 60.0 (>45); GLUCOSE, FASTING 72 MG/DL (80-110); POTASSIUM SERUM 3.7 MEQ/L (3.5-5.1); SODIUM LEVEL 138 MEQ/L (136-145); TOTAL PROTEIN 7.7 GM/DL (6.4-8.2)
[2017-06-16 09:30] VITALS: BP 138/69
[2017-06-16] MEDS: RIVAROXABAN 20 MG TAB (XARELTO) PO SCH (10:14)
[2017-06-16] MEDS: POTASSIUM CHLORIDE 10 MEQ SR TABLET PO SCH (10:15)
[2017-06-16] MEDS: hydroCHLOROthiazide 12.5 MG CAPSULE PO SCH (10:15)
[2017-06-16] MEDS: amLODIPine 10 MG TAB PO SCH (10:15)
[2017-06-16] MEDS: DOXYCYCLINE HYCLATE 100 MG TAB PO SCH ×2 (10:16→20:26)
[2017-06-16] MEDS: HumuLIN (NovoLIN)70/30 INSULIN INJ PER UNIT SC SCH ×2 (10:16→20:26)
--- NOTE | 2017-06-16 13:53 | IPNPDOC ---
Text Note Date of Service The patient was seen on 06/16/17. NOTE SUBJECTIVE: Patient seen and examined in the room today. Patient states she feels her left leg swelling and redness are improving. Denies any fever or chill. Antibiotic was switched to doxycycline. Denies any adverse effect to doxycycline. She always restarted on hydrochlorothiazide, she feels her left lower extremity swelling is improving. OBJECTIVE: VITAL SIGNS: Listed below. GENERAL: No acute distress, alert and oriented times three. HEENT: Normocephalic, atraumatic. Extraocular motor grossly intact. CARDIOVASCULAR: Positive S1, S2, regular rate. LUNGS: Clear to auscultation bilaterally. ABDOMEN: Soft, nontender, nondistended. Bowel sounds present. EXTREMITIES: There are still some erythematous skin changes and warmth noted on the left lower extremity below the knee. The borders were marked with a surgical marker, there is no progression of the erythema beyond the surgical marker site. There is a small ulcerative lesion located at the distal lower extremity medially.. No active discharge noted. No active bleeding noted. There is still 2+ pitting edema at the left lower extremity. No edema at right lower extremity LABORATORY DATA: Listed below ASSESSMENT AND PLAN: 1. Left lower extremity cellulitis. Patient was on Teflaro previously. Switched to doxycycline PO since 2 days ago. Continue showing clinical improvements. Currently, the patient has stable vitals. No abscess formation is noted. 2. Insulin-dependent diabetes. The patient's A1/c is 9. The patient is on consistent carbohydrate diet. On insulin 3. Hypokalemia. resolved. 4. Hypertension. Previously due to acute kidney injury (TEMO). Diuretic was on hold. Renal function returned to baseline now. Continue Norvasc. Restart hydrochlorothiazide. 5. History of recurrent deep vein thrombosis (DVT) of the left lower extremity. On Xarelto. 6. Deep vein thrombosis (DVT) prophylaxis, on Xarelto. 7. Obstructive sleep apnea (STACY). Non-compliant with CPAP. On STACY protocol VS,Fishbone, I+O VS, Fishbone, I+O Laboratory Tests 06/16/17 06:20 Red Blood Count 4.20, Mean Corpuscular Volume 83.6, Mean Corpuscular Hemoglobin 26.4 L, Mean Corpuscular Hemoglobin Concent 31.6 L, Red Cell Distribution Width 14.1, Calcium Level 8.7 L, Aspartate Amino Transf (AST/SGOT) 21, Alanine Aminotransferase (ALT/SGPT) 19, Alkaline Phosphatase 60, Total Bilirubin 0.3, Total Protein 7.7, Albumin 2.3 L Vital Signs Date Time Temp Pulse Resp B/P (MAP) Pulse Ox O2 Delivery O2 Flow Rate FiO2 06/16/17 10:15 70 138/69 06/16/17 09:30 97.5 16 97 Room Air 06/15/17 00:00 2.0 I&O- Last 24 Hours up to 6 AM 06/17/17 06:00 Intake Total 120 ml Output Total 350 ml Balance -230 ml KEVIN BRITO DO Jun 16, 2017 13:53
[2017-06-16 16:16] VITALS: BP 151/68
[2017-06-16] MEDS: SENNA 8.6 MG TAB (SENOKOT) PO PRN (16:19)
[2017-06-16 20:00] VITALS: BP 157/70
[2017-06-16] MEDS: ATORVASTATIN 20 MG TAB PO SCH (20:26)
[2017-06-17 04:00] VITALS: BP 128/62
[2017-06-17 07:29] LABS: MEAN CORPUSCULAR HEMOGLOBIN 26.7 pg (27.0-33.0); MEAN CORPUSCULAR VOLUME 83.6 fl (80.0-96.0); PLATELET COUNT, AUTOMATED 484 10^3/uL (150-450); RED CELL DISTRIBUTION WIDTH 14.1 % (11.5-14.5); WHITE BLOOD COUNT 9.5 10^3/uL (4.0-10.0)
[2017-06-17 07:59] LABS: ALBUMIN 2.3 GM/DL (3.2-5.2); ALBUMIN/GLOBULIN RATIO 0.48 (1.00-1.93); ALKALINE PHOSPHATASE 54 U/L (45-117); ALT/SGPT 20 U/L (12-78); ANION GAP 5 MEQ/L (8-16); AST/SGOT 17 U/L (7-37); BILIRUBIN,TOTAL 0.3 MG/DL (0.2-1.0); BLOOD UREA NITROGEN 11 MG/DL (7-18); CALCIUM LEVEL 8.8 MG/DL (8.8-10.2); CARBON DIOXIDE LEVEL 33 MEQ/L (21-32); CHLORIDE LEVEL 99 MEQ/L (98-107); CREATININE FOR GFR 0.74 MG/DL (0.55-1.02); GLOMERULAR FILTRATION RATE > 60.0 (>45); GLUCOSE, FASTING 117 MG/DL (80-110); POTASSIUM SERUM 3.9 MEQ/L (3.5-5.1); SODIUM LEVEL 137 MEQ/L (136-145); TOTAL PROTEIN 7.1 GM/DL (6.4-8.2)
[2017-06-17 08:00] VITALS: BP 131/63
[2017-06-17] MEDS: RIVAROXABAN 20 MG TAB (XARELTO) PO SCH (08:28)
[2017-06-17] MEDS: DOXYCYCLINE HYCLATE 100 MG TAB PO SCH (08:28)
[2017-06-17] MEDS: hydroCHLOROthiazide 12.5 MG CAPSULE PO SCH (08:28)
[2017-06-17 08:29] VITALS: BP 131/63
[2017-06-17] MEDS: amLODIPine 10 MG TAB PO SCH (08:29)
[2017-06-17] MEDS: HumuLIN (NovoLIN)70/30 INSULIN INJ PER UNIT SC SCH (08:32)
[2017-06-17] MEDS: POTASSIUM CHLORIDE 10 MEQ SR TABLET PO SCH (08:32)
[2017-06-17] MEDS ORDERED: BACITAB PO (11:23)
[2017-06-17] MEDS ORDERED: DOXY100T PO (11:23)
[2017-06-17] MEDS ORDERED: DESIOIN3 TOP (11:23)
--- NOTE | 2017-06-17 17:42 | DSES ---
DATE OF ADMISSION: 06/10/2017 DATE OF DISCHARGE: 06/17/2017 PRIMARY CARE PROVIDER: LOUISE Turcios CONSULTANTS: None. DISCHARGE DIAGNOSES: 1. Left lower extremity cellulitis. 2. Insulin dependent diabetes with A1c of 9. 3. Hypokalemia. 4. Hypertension. 5. History of recurrent deep venous thrombosis (DVT), on Xarelto. 6. Obstructive sleep apnea (STACY). Noncompliant with CPAP. HOSPITALIZATION COURSE: The patient is 62-year-old female presented to the [facility] [place] on June 10, 2017 with left lower extremity swelling with erythematous lesions. The patient was diagnosed with lower extremity cellulitis. The patient was started on IV antibiotics treatment. The patient's erythematous lesions have continued to decrease in size and the swelling is also improving. The patient continues to show clinical improvement. Later the patient's antibiotic was switched to oral doxycycline and the patient was monitored closely. The patient continued to show improvements without any adverse affect or allergy to the medications and on 06/17/2017 the patient was determined medically stable for discharge with recommendation to finish the course of antibiotics for her cellulitis and the patient recommended to followup with primary care provider in 1 to 2 weeks. VITAL SIGNS ON THE DAY OF DISCHARGE: Temperature is 97.2, pulse is 66, respirations 18, blood pressure 131/63, pulse oximetry 100% with 2 liter nasal cannula. Later went off to room air. The patient has been using nasal cannula during the nighttime for her obstructive sleep apnea (STACY). LABORATORY DATA ON THE DAY OF DISCHARGE: WBC 9.5, hemoglobin 10.9, hematocrit 34.1, platelet count is 484. Sodium is 137, potassium 3.9, chloride 99, carbon dioxide 33, BUN 11, creatinine 0.74. GFR greater than 60. Fasting glucose 117. Calcium 8.8. Total bilirubin is 0.3, AST 17, ALT 20, alkaline phosphatase 54, total protein 7.1, albumin 2.3. MICROBIOLOGY: Blood cultures negative after 5 days times two sets. Second one on 06/10/2017. Urine culture on 06/11/2017 is negative. IMAGING STUDIES: Left lower extremity Doppler shows no DVT. Left tibia and fibula x-ray show diffuse soft tissue swelling and subcutaneous edema of the left lower extremity. DISCHARGE MEDICATIONS: - Doxycycline 100 mg by mouth twice a day for 3 more days - Bacid 1 tablet by mouth by mouth with meals for 7 days - Desitin topically applied over the buttocks - amlodipine 10 mg by mouth every day - atorvastatin 40 mg by mouth at bedtime - hydrochlorothiazide 12.5 mg by mouth every daily - insulin 70/30, 38 units subcutaneous every a.m. - insulin 70/30, 46 units subcutaneous every p.m. - metformin 1000 mg by mouth twice a day - potassium chloride 10 mg by mouth daily - Xarelto 20 mg by mouth daily DISCHARGE CONDITION: Stable. Discharge time greater than 30 minutes.
== END 2017-06-17 12:56 | disposition home or self-care (01) | DRG 383 ==
LOC: M ED 11:11 → M ED INP 16:07 → M MS4PR 18:15 → M PED 06-11 22:12
PROVIDERS: ADMIT Internal Medicine Nephrology; ATTEND Internal Medicine
DX: L03.116 Cellulitis of left lower limb (principal); E11.40 Type 2 diabetes mellitus with diabetic neuropathy, unspecified; Z68.41 Body mass index [BMI] 40.0-44.9, adult; Z79.4 Long term (current) use of insulin; Z88.0 Allergy status to penicillin; Z79.899 Other long term (current) drug therapy; E78.5 Hyperlipidemia, unspecified; E87.6 Hypokalemia; Z86.711 Personal history of pulmonary embolism; Z86.718 Personal history of other venous thrombosis and embolism; I10 Essential (primary) hypertension; G47.33 Obstructive sleep apnea (adult) (pediatric); Z91.19 Patient's noncompliance with other medical treatment and regimen; E66.9 Obesity, unspecified

== ENCOUNTER 2019-01-19 08:59 | Day surgery (SDC) | payer OTHER ==
[~2019-01-19] VITALS: Ht 160 cm; Wt 125.6 kg
[~2019-01-19 08:59] MED LIST changes: +AMLO10TA5 PO; -AMLO5TAB2 PO; +AMLO5TAB6 PO; +BACITAB PO; +BYET10IN10 SC; -BYET10IN2 SC; +DESIOIN3 TOP; +DOXY100T PO; +HYDR-3715 PO; +INVO100T; +KLOR10TA76 PO; +LIPI20TA PO; +LOMO2.5T PO; +LOSA50TA88 PO; +MUPI2OI; -NORCOTAB PO; +NS 1,000 ML IV ONE; +NYST-15 TOP; -NYST10PW TOP; -POTA10CA PO; +STEG5TAB PO; +XARE20TA PO; -ZYVO100T PO; +ZYVO1TAB PO
[2019-01-19] MEDS ORDERED: LIDOCAINE 2% INJ 100 MG/5 ML SDV (FOR ANES.) As Ordered ONE (10:37)
[2019-01-19] MEDS ORDERED: PROPOFOL 200 MG/20 ML VIAL As Ordered ONE (10:37)
--- NOTE | 2019-01-19 11:22 | ROOR ---
Patient Name: Marcia Avila Procedure Date: 01/19/2019 11:01 AM Date of : 1955 Age: 63 Room: [facility] Gender: Female Note Status: Finalized Procedure: Total Colonoscopy to Cecum Indications: Screening for colorectal malignant neoplasm Providers: Howard Guan MD Referring MD: NATALIE MORALEZ NP Requesting Provider: Medicines: Monitored Anesthesia Care Complications: No immediate complications. Procedure: Pre-Anesthesia Assessment: - The heart rate, respiratory rate, oxygen saturations, blood pressure, adequacy of pulmonary ventilation, and response to care were monitored throughout the procedure. The Colonoscope was introduced through the anus and advanced to the cecum, identified by appendiceal orifice and ileocecal valve. The colonoscopy was performed without difficulty. The patient tolerated the procedure well. The quality of the bowel preparation was good. Findings: The perianal and digital rectal examinations were normal. Non-bleeding internal hemorrhoids were found during retroflexion. The hemorrhoids were small and Grade I (internal hemorrhoids that do not prolapse). No other significant abnormalities were identified in a careful examination of the remainder of the colon. The exam was otherwise without abnormality on direct and retroflexion views. Impression: - Non-bleeding internal hemorrhoids. - The examination was otherwise normal on direct and retroflexion views. - No specimens collected. - The exam was otherwise normal to the cecum. Recommendation: - Patient has a contact number available for emergencies. The signs and symptoms of potential delayed complications were discussed with the patient. Return to normal activities tomorrow. Written discharge instructions were provided to the patient. - High fiber diet. - Discharge patient to home. - Continue present medications. - Repeat colonoscopy in 10 years for screening purposes. - Return to referring physician. - The findings and recommendations were discussed with the patient's family. Howard Guan MD Howard Guan MD 01/19/2019 11:21:49 AM Electronically signed by Howard Guan MD Number of Addenda: 0 Note Initiated On: 01/19/2019 11:01 AM Estimated Blood Loss: Estimated blood loss: none.
[2019-01-19 11:45] VITALS: BP 145/73
== END 2019-01-19 11:50 | disposition home or self-care (01) ==
LOC: M OPP 08:59
PROVIDERS: ATTEND Internal Medicine Gastroenterology
DX: Z12.11 Encounter for screening for malignant neoplasm of colon (principal); K64.0 First degree hemorrhoids; Z79.899 Other long term (current) drug therapy; Z88.0 Allergy status to penicillin

== ENCOUNTER 2019-04-17 22:58 | Emergency (ER) | payer OTHER ==
[~2019-04-17] VITALS: Ht 160 cm; Wt 125.9 kg
[~2019-04-17 22:58] MED LIST changes: -NS 1,000 ML IV ONE
[2019-04-18] MEDS ORDERED: NS 1,000 ML IV ONE (00:30)
[2019-04-18] MEDS ORDERED: ONDANSETRON 4MG/2ML VIAL (J2405) IV ONE (00:30)
[2019-04-18 01:31] LABS: BASO % 0.4 % (0.0-1.0); EOS % 0.2 % (0.0-3.0); HEMATOCRIT 44.6 % (36.0-47.0); HEMOGLOBIN 14.5 g/dl (12.0-15.5); LYMPH # 1.4 10^3/uL (1.5-5.0); LYMPH % 12.5 % (24.0-44.0); MEAN CORPUSCULAR HGB CONC 32.5 g/dl (32.0-36.5); MEAN CORPUSCULAR VOLUME 86.3 fl (80.0-96.0); MONO # 0.6 10^3/uL (0.0-0.8); NEUTROPHILS # 9.2 10^3/uL (1.5-8.5); NEUTROPHILS % 81.6 % (36.0-66.0); PLATELET COUNT, AUTOMATED 311 10^3/uL (150-450); RED BLOOD COUNT 5.17 10^6/uL (4.00-5.40); WHITE BLOOD COUNT 11.2 10^3/uL (4.0-10.0)
--- NOTE | 2019-04-18 02:03 | REPVR ---
EXAM: US Duplex Bilateral Lower Extremity Veins EXAM DATE/TIME: 04/18/2019 12:40 AM CLINICAL HISTORY: 63 years old, female; Swelling (edema) of limb; Lower extremity, bilateral; Additional info: B/l leg swelling, HX of dvt TECHNIQUE: Imaging protocol: Real-time duplex ultrasound of the Bilateral Lower Extremities with 2-D lan scale, color Doppler flow and spectral waveform analysis with image documentation. Complete exam focused on the bilateral lower extremity veins. COMPARISON: US Duplex, Ext,LOWER veins,unilat LEFT 06/10/2017 12:08 PM FINDINGS: Right deep veins: The common femoral, femoral and popliteal veins are patent without thrombus. Normal Doppler waveforms. Normal compressibility and/or augmentation response. Right superficial veins: Saphenofemoral junction is patent without thrombus. Left deep veins: The common femoral, femoral and popliteal veins are patent without thrombus. Normal Doppler waveforms. Normal compressibility and/or augmentation response. Left superficial veins: Saphenofemoral junction is patent without thrombus. IMPRESSION: No evidence of deep vein thrombosis. Electronically signed by: Justin Mayorga On 04/18/2019 02:03:08 AM
[2019-04-18 02:05] LABS: BLOOD UREA NITROGEN 26 MG/DL (7-18); CALCIUM LEVEL 9.6 MG/DL (8.8-10.2); CARBON DIOXIDE LEVEL 28 MEQ/L (21-32); CHLORIDE LEVEL 99 MEQ/L (98-107); CK-MB VALUE MASS 2.4 NG/ML (<3.6); CPK CREATINE PHOSPHOKINASE 197 U/L (26-192); CREATININE FOR GFR 1.79 MG/DL (0.55-1.30); GLOMERULAR FILTRATION RATE 30.4 (>45); GLUCOSE, FASTING 189 MG/DL (70-100); MB/CK RELATIVE INDEX 1.22 (< OR =4); POTASSIUM SERUM 4.8 MEQ/L (3.5-5.1); SODIUM LEVEL 137 MEQ/L (136-145); TROPONIN I < 0.02 NG/ML (< 0.10)
--- NOTE | 2019-04-18 06:07 | ECGEPIP ---
[facility] - ED Test Date: 2019-04-18 Pat Name: HEATHER HERNANDEZ Department: Room: - Gender: Female Clinical Program Coordinator: : 1955 Requested By: MATHEUS Lowe Order Number: [id number] Reading MD: Harvey Shaw Measurements Intervals Harvey Rate: 90 P: 42 CA: 158 QRS: -21 QRSD: 86 T: 110 QT: 343 QTc: 420 Interpretive Statements SINUS RHYTHM ANTEROSEPTAL MYOCARDIAL INFARCTION, OF INDETERMINATE AGE SIMILAR TO 06/13/17 Electronically Signed on 04-18-2019 6:07:20 EDT by Harvey Shaw
[2019-04-18 07:15] VITALS: BP 148/71
--- NOTE | 2019-04-18 09:42 | REP ---
TWO-VIEW CHEST: REASON: Chest pain. COMPARISON: 08/21/2016 The technique utilized in obtaining the radiograph has magnified the cardiac silhouette and accentuated the interstitial markings. FINDINGS: The superior mediastinal structures are midline. The cardiac silhouette is unremarkable in size, shape, and position. The diaphragmatic surfaces of the lungs are regular, and the costophrenic angles are clear. The pulmonary wilkins are clear. The imaged osseous structures are intact. IMPRESSION: There is no acute cardiopulmonary disease. No significant change from the prior exam. Electronically Signed by Haris Herrera DO 04/18/2019 09:48 A
== END 2019-04-18 07:16 | disposition home or self-care (01) ==
LOC: M ED 22:58
DX: R53.81 Other malaise (principal); E11.65 Type 2 diabetes mellitus with hyperglycemia; I10 Essential (primary) hypertension; Z88.0 Allergy status to penicillin; Z79.4 Long term (current) use of insulin; Z79.899 Other long term (current) drug therapy
CPT/HCPCS: 71045; 80048; 82550; 82553; 85025; 93005; 93041; 93970; 94760; 96361; 96374; 99285; J2405

== ENCOUNTER 2020-02-28 10:13 | Emergency (ER) | payer OTHER ==
[~2020-02-28 10:13] MED LIST changes: -AMLO10TA5 PO; +AMLO1TAB24 PO; +AMLO1TAB25 PO; -AMLO5TAB6 PO
[2020-02-28] MEDS ORDERED: ISOVUE-370 76% 100ML VIAL As Ordered ONE (12:29)
[2020-02-28] MEDS ORDERED: MORPHINE 4 MG/ML 1ML VIAL/SYRINGE (J2270) As Ordered ONE (12:45)
[2020-03-25 11:54] LABS: INR 1.2; PARTIAL THROMBOPLASTIN TIME 35.1 SECONDS (25.0-38.4); PROTHROMBIN TIME 15.5 SECONDS (11.8-14.0)
[2020-03-25 16:08] LABS: BASO # 0.1 10^3/uL (0.0-0.2); BASO % 0.6 % (0.0-1.0); EOS # 0.1 10^3/uL (0.0-0.5); EOS % 1.2 % (0.0-3.0); HEMATOCRIT 43.6 % (36.0-47.0); HEMOGLOBIN 13.7 g/dl (12.0-15.5); LYMPH # 1.5 10^3/uL (1.5-5.0); LYMPH % 16.6 % (24.0-44.0); MEAN CORPUSCULAR HEMOGLOBIN 26.7 pg (27.0-33.0); MEAN CORPUSCULAR HGB CONC 31.4 g/dl (32.0-36.5); MONO # 0.5 10^3/uL (0.0-0.8); MONO % 5.9 % (0.0-5.0); NEUTROPHILS # 6.8 10^3/uL (1.5-8.5); NEUTROPHILS % 75.1 % (36.0-66.0); PLATELET COUNT, AUTOMATED 300 10^3/uL (150-450); RED BLOOD COUNT 5.13 10^6/uL (4.00-5.40)
[2020-04-05 10:54] LABS: ALT/SGPT 19 IU/L (0-32); BLOOD UREA NITROGEN 28 MG/DL (7-18); CALCIUM LEVEL 9.2 MG/DL (8.8-10.2); CARBON DIOXIDE LEVEL 30 mmol/L (20-29); CHLORIDE LEVEL 103 MEQ/L (98-107); CREATININE FOR GFR 1.27 MG/DL (0.55-1.30); GLOMERULAR FILTRATION RATE 45.1 (>45); GLUCOSE, FASTING 130 MG/DL (70-100); POTASSIUM SERUM 3.7 MEQ/L (3.5-5.1); SODIUM LEVEL 139 MEQ/L (136-145)
[2020-04-05 10:55] LABS: ALBUMIN 3.4 GM/DL (3.2-5.2); BILIRUBIN,DIRECT < 0.1 MG/DL (0.0-0.2); BILIRUBIN,TOTAL 0.4 MG/DL (0.2-1.0); TOTAL PROTEIN 8.6 GM/DL (6.4-8.2)
[2020-04-05 11:05] LABS: CA 125 10.3 U/ML (<30.2); CA19-9 TUMOR MARKER,CARBOHYDRA 68.5 U/ML (<35.0)
--- NOTE | 2020-04-22 13:52 | REP ---
CT OF THE ABDOMEN AND PELVIS WITH CONTRAST: HISTORY: Abdominal pain. TECHNIQUE: Axial contrast-enhanced images from the lung bases to the pubic symphysis using 100 cc Isovue 370 intravenous contrast material with coronal and sagittal reformations. FINDINGS: The lung bases are clear. The visualized heart and pericardium are normal. Mild fatty infiltration to the liver is suggested without focal hepatic lesion. The spleen, pancreas, bilateral adrenal glands and kidneys are essentially normal. A 2.3 cm exophytic left renal cyst is identified. Evidence for prior cholecystectomy noted. The enteric system is without obstruction or acute inflammatory process. A normal terminal ileum and appendix are identified in the right lower quadrant. The pelvis demonstrates normal uterus and left adnexa. There is a 4.7 cm complex right ovarian cyst which is nonspecific. No pelvic fluid. No ascites. No free air. No adenopathy. The abdominal aorta and vasculature are without aneurysm or dissection. There is a 3 cm periumbilical hernia containing mesenteric fat and suspected small trapped lymph node. The osseous structures demonstrate age related degenerative changes without acute abnormality. IMPRESSION: 1. 4.7 cm complex right ovarian cyst may warrant pelvic ultrasound follow up. 2. Left renal hypodensity most compatible with simple cyst. May be confirmed by ultrasound. 3. Mild fatty infiltration to the liver. 4. No further acute abdominopelvic pathology appreciated. MTDD
--- NOTE | 2020-04-22 13:54 | REP ---
PELVIC ULTRASOUND: HISTORY: Lower abdominal pain and complex cyst on recent CT. TECHNIQUE: Transabdominal and transvaginal ultrasound examination with color Doppler evaluation. FINDINGS: The bladder is normal and measures 10.0 x 8.0 x 8.8 cm. Anteverted uterus measures 8.0 x 3.2 x 4.5 cm. The endometrial complex measures 4 mm in thickness. The left ovary is not visualized on either transabdominal or transvaginal imaging. The right ovary measures 5.1 x 6.7 x 3.9 cm (RI 0.67) and includes a 3.9 x 5.0 x 3.1 cm complex cyst. No pelvic fluid or obvious adnexal mass lesion. IMPRESSION: Complex right ovarian cyst. Consider follow up examination in 4-6 weeks to evaluate for resolution. Normal uterus. Left ovary not visualized. MTDD
[2020-04-26] MEDS ORDERED: ELIQ5TAB PO (13:10)
[2020-04-26] MEDS ORDERED: LIPI80TA PO (13:10)
--- NOTE | 2020-05-24 19:37 | ED PDOC ---
Post-Departure Follow-Up [facility] faxed formal report of ct abd/p for fu Abdulaziz Hassan MD May 24, 2020 19:37
--- NOTE | 2020-05-24 19:38 | ED PDOC ---
Post-Departure Follow-Up pelvic us faxed to [facility] for fu Abdulaziz Hassan MD May 24, 2020 19:38
== END 2020-02-28 15:38 | disposition home or self-care (01) ==
LOC: M ED 10:13
DX: N83.291 Other ovarian cyst, right side (principal); Z79.899 Other long term (current) drug therapy; Z79.01 Long term (current) use of anticoagulants; Z88.0 Allergy status to penicillin
CPT/HCPCS: 74177; 76830; 76856; 80048; 80076; 82378; 85025; 85610; 85730; 86301; 86304; 93976; 96361; 96374; 99284; J2270; Q9967

== ENCOUNTER → 2020-04-13 | Outpatient (CLI) | payer MEDICARE, OTHER ==
[~2020-04-13] MED LIST changes: +ELIQ5TAB PO; +LIPI80TA PO
[2020-04-14 11:45] LABS: CA 125 9.9 U/ML (<30.2)
[2020-04-14 12:53] LABS: CA19-9 TUMOR MARKER,CARBOHYDRA 70.1 U/ML (<35.0)
== END ==
LOC: M LAB 15:16
PROVIDERS: ATTEND Obstetrics & Gynecology
DX: N83.291 Other ovarian cyst, right side (principal)

== ENCOUNTER → 2020-04-29 | Outpatient (CLI) | payer OTHER | LOC: M LABSMTC 10:14 | PROVIDERS: ATTEND Anesthesiology | DX: Z01.812 Encounter for preprocedural laboratory examination (principal); Z20.828 Contact with and (suspected) exposure to other viral communicable diseases | CPT/HCPCS: C9803; U0003 ==

== ENCOUNTER 2020-05-04 07:03 | Day surgery (SDC) | payer MEDICARE, OTHER ==
[~2020-05-04] VITALS: Ht 160 cm; Wt 127.0 kg
[2020-05-04] VITALS (9 sets, daily range): BP systolic 137–168; BP diastolic 76–90; O2SAT 100
[~2020-05-04 07:03] MED LIST changes: +ACETAMINOPHEN *IV* 1,000 MG IV ONE; +LR 1,000 ML IV ONE
[2020-05-04 07:37] LABS: HEMATOCRIT 50.1 % (36.0-47.0); HEMOGLOBIN 15.4 g/dl (12.0-15.5); MEAN CORPUSCULAR HEMOGLOBIN 26.3 pg (27.0-33.0); MEAN CORPUSCULAR HGB CONC 30.7 g/dl (32.0-36.5); MEAN CORPUSCULAR VOLUME 85.6 fl (80.0-96.0); PLATELET COUNT, AUTOMATED 311 10^3/uL (150-450); RED BLOOD COUNT 5.85 10^6/uL (4.00-5.40); WHITE BLOOD COUNT 8.4 10^3/uL (4.0-10.0)
[2020-05-04] MEDS ORDERED: ceFAZolin SOD 2 GM in IV 1 EA IV ONE (07:45)
[2020-05-04] MEDS ORDERED: dexameTHASONE 4 MG/ML 1ML VIAL (J1100 PER 1MG) As Ordered ONE (07:56)
[2020-05-04] MEDS ORDERED: MIDAZOLAM INJ 2MG/2ML VIAL (J2250 PER 1MG) As Ordered ONE (07:56)
[2020-05-04] MEDS ORDERED: fentaNYL 250 MCG/5 ML INJECTION (J3010) As Ordered ONE (07:56)
[2020-05-04] MEDS ORDERED: ONDANSETRON 4MG/2ML VIAL As Ordered ONE (07:56)
[2020-05-04] MEDS ORDERED: LIDOCAINE 2% 100MG/5ML SDV (FOR ANES.) As Ordered ONE (07:57)
[2020-05-04] MEDS ORDERED: propofoL 200 MG/20 ML VIAL As Ordered ONE (07:59)
[2020-05-04] MEDS ORDERED: ROCURONIUM BROMIDE 50 MG/5 ML VIAL As Ordered ONE (08:02)
[2020-05-04] MEDS ORDERED: SUGAMMADEX SODIUM 500 MG/5 ML VIAL (BRIDION) As Ordered ONE (08:02)
[2020-05-04 08:03] LABS: CALCIUM LEVEL 9.2 MG/DL (8.8-10.2); GLOMERULAR FILTRATION RATE 59.2 (>45)
[2020-05-04] MEDS ORDERED: LOSARTAN 50MG TABLET PO SCH (09:00)
[2020-05-04] MEDS ORDERED: hydroCHLOROthiazide 12.5 MG CAPSULE PO SCH (09:00)
[2020-05-04] MEDS ORDERED: BUPIVACAINE/EPIN 0.25% 30 ML VIAL As Ordered ONE (09:29)
[2020-05-04] MEDS ORDERED: FLUORESCEIN 10% (100MG/ML) 5 ML VIAL As Ordered ONE (09:30)
[2020-05-04] MEDS ORDERED: ACETAMINOPHEN 1000MG 100ML IV BTL (OFIRMEV) (J0131 PER 10MG) As Ordered ONE (10:12)
[2020-05-04] MEDS ORDERED: ePHEDrine SULFATE 25 MG/5 ML(5MG/ML) SYRINGE As Ordered ONE (10:34)
[2020-05-04] MEDS ORDERED: PHENYLephrine HCL 500 MCG/5 ML (100MCG/ML) SYRINGE (J2370) As Ordered ONE (10:34)
[2020-05-04] MEDS ORDERED: LR 1,000 ML IV SCH ×2 (12:49→13:45)
[2020-05-04] MEDS ORDERED: fentaNYL 100 MCG/2 ML INJECTION (J3010) As Ordered ONE (12:56)
[2020-05-04] MEDS ORDERED: ONDANSETRON 4MG/2ML VIAL IV PRN ×2 (13:00→13:45)
[2020-05-04] MEDS ORDERED: PERCOCET 5MG/325MG TAB PO PRN ×2 (13:00)
[2020-05-04] MEDS ORDERED: GLUCAGON INJ 1MG VIAL SC PRN (13:15)
[2020-05-04] MEDS ORDERED: GLUCOSE 4GM CHEW TABLET PO PRN (13:15)
[2020-05-04] MEDS ORDERED: DEXTROSE 50% 50 ML SYRINGE IV PRN (13:15)
[2020-05-04] MEDS ORDERED: oxyCODONE 5MG TAB As Ordered ONE (13:23)
[2020-05-04] MEDS: oxyCODONE 5MG TAB PO PRN ×2 (13:25→14:05)
[2020-05-04] MEDS ORDERED: MEPERIDINE INJ 25 MG/ML VIAL (J2175) IV PRN (13:45)
[2020-05-04] MEDS ORDERED: METOCLOPRAMIDE INJ 10MG/2ML VIAL (J2765 PER 1) IV PRN (13:45)
[2020-05-04] MEDS ORDERED: fentaNYL 100 MCG/2 ML INJECTION (J3010) IV PRN (13:45)
--- NOTE | 2020-05-04 14:36 | HPEPDOC ---
General Date of Admission 05/04/2020 Date of Service: May 04, [address] ARROYO Attending Physician: JASON CAMPOS MD Chief Complaint The patient is a 65-year-old female admitted with a reason for visit of Pelvic, Perineal Pain, Ovarian Cyst. Source: Patient Exam Limitations: No limitations Severity: Severe Associated Symptoms: Other (pelvic pain) History of Present Illness 65 yo W with IDDM c/b peripheral neuropathy, morbid obesity, HTN, HLD, history of DVT/PE on eliquis, STACY on CPAP, history of PCOS with a complex right ovarian cyst c/b R pelvic and groin pain for which she presented today for elective hysterectomy is now being admitted post robotic laparoscopic hysterectomy, cystoscopy with pelvic washings and bilateral oophorectomy and internal medicine is now consulted for co-management of chronic medical conditions. On evaluation, Ms. Avila is currently in 02/11 pelvic pain, is mildly drowsy but otherwise normotensive and breathing comfortably on room air. Her pre-op labs were wnl with WBC of 8.4, hgb 15.4, platelets 311, Na 139, K 4, Cr 1, glucose 130 and covid-19 was negative. She reports having held her eliquis a few days ago pre instruction in preparation for surgery, and this morning only took amlodipine for hypertension and held her HCTZ and losartan.. Home Medications Scheduled Amlodipine Besylate (Amlodipine Besylate) 10 Mg Tab, 10 MG PO DAILY, (Reported) Apixaban (Eliquis) 5 Mg Tablet, 5 MG PO BID, (Reported) Atorvastatin Calcium (Lipitor) 80 Mg Tablet, 80 MG PO QPM, (Reported) Ertugliflozin Pidolate (Steglatro) 5 Mg Tablet, 15 MG PO DAILY, (Reported) Hydrochlorothiazide (Hydrochlorothiazide) 12.5 Mg Cap, 12.5 MG PO DAILY, (Reported) Insulin NPH Hum/Reg Insulin Hm (Humulin 70-30 Vial) 1 Inj Inj, 42 UNITS SC QAM, (Reported) Insulin NPH Hum/Reg Insulin Hm (Humulin 70-30 Vial) 1 Inj Inj, 40 UNITS SC QPM, (Reported) Losartan Potassium (Losartan Potassium) 50 Mg Tablet, 50 MG PO DAILY, (Reported) Potassium Chloride (Klor-Con M10) 10 Meq Tabcr, 10 MEQ PO DAILY, (Reported) Allergies Coded Allergies: Penicillins (Verified Allergy, Intermediate, hives, 04/26/20) Past Medical History Medical History IDDM c/b peripheral neuropathy Morbid obesity HTN HLD History of DVT/PE on eliquis STACY on CPAP History of PCOS with a complex right ovarian cyst c/b R pelvic and groin pain Surgical History C section x 2 R knee arthroplasty cholecystectomy tubal ligation labia reduction R lung biopsy 2nd R toe amputation Family History Significant Family History: No pertinent family hx Social History * Smoker: Denies Alcohol: rarely Drugs: denies Recent Travel/Sick Contacts: Denies: Recent travel, Recent sick contacts Psychosocial History: No pertinent psych hx A-FIB/CHADSVASC A-FIB History Current/History of A-Fib/PAF?: No Current PO Anticoag Therapy: No Age/Risk Factor Scoring CHADSVASC: CHADSVASC Response (Comments) Value Age Risk Factor Age < 65 years old 0 Gender Risk Factor Female 1 Hx of CHF No 0 Hx of HTN Yes 1 Hx of Stroke/TIA/or VTE Yes 2 Hx of Diabetes Yes 1 Hx of Vascular Disease No 0 Total 5 Treatment Treatment ordered: NONE Reason Anticoagulant not given: Recent/upcomin procedure Review of Systems Constitutional: Denies: Chills, Fever, Night Sweats Eyes: Denies: Pain, Vision change ENT: Denies: Head Aches, Ear Pain, Dysphagia Skin: Denies: Rash, Lesions, Breakdown Pulmonary: Denies: Dyspnea, Cough Cardiovascular: Denies: Chest Pain, Palpitations, Orthopnea, Paroxysmal Noc. Dyspnea, Lt Headedness Gastrointestinal: Reports: Abdominal Pain (pelvic pain R>L); Denies: Nausea, Vomiting, Diarrhea Genitourinary: Denies: Dysuria, Frequency, Incontinence, Hematuria, Retention Hematologic: Denies: Bruising, Bleeding Excessively Endocrine: Denies: Polydipsia, Polyphagia, Polyuria, Heat Intolerance, Cold Intolerance, Other Endocrine Sx Musculoskeletal: Denies: Neck Pain, Back Pain, Joint Pain, Muscle Pain, Spasms Neurological: Denies: Weakness, Numbness, Change in speech, Confusion Psych: Reports: Mood Normal; Denies: Depression, Memory Issues Physical Examination General Exam: Positive: Alert, Cooperative, No Acute Distress, Other (obese) Eye Exam: Positive: PERRLA, Conjunctiva & lids normal, EOMI; Negative: Sclera icteric ENT Exam: Positive: Atraumatic, Mucous membr. moist/pink, Pharynx Normal Neck Exam: Positive: Supple; Negative: JVD, thyromegaly, Lymphadenopathy Chest Exam: Positive: Clear to auscultation, Normal air movement Heart Exam: Positive: Rate Normal, Regular Rhythm, Normal S1, Normal S2; Negative: Murmurs, Rubs Abdomen Exam: Positive: BS Hypoactive, Soft, Tenderness (TTP), Other (Obese) Extremity Exam: Positive: Edema (trace bilateral LE edema), Normal pulses; Negative: Clubbing, Cyanosis Skin Exam: Positive: Nl turgor and temperature; Negative: Breakdown, Lesion Neuro Exam: Positive: Normal Speech, Cranial Nerves 3-12 NL, Other (moving all extremities, clear speech) Psych Exam: Positive: Mental status NL, Mood NL, Oriented x 3 Vital Signs Vital Signs Date Time Temp Pulse Resp B/P (MAP) Pulse Ox O2 Delivery O2 Flow Rate FiO2 05/04/20 07:47 97.8 80 20 180/78 (112) 99 Room Air Laboratory Data Labs 24H Laboratory Tests 2 05/04/20 07:20: Nucleated Red Blood Cells % (auto) 0.0, Anion Gap 5L, Glomerular Filtration Rate 59.2, Calcium Level 9.2 05/04/20 08:10: Bedside Glucose (Misc Panel) 122H 05/04/20 13:35: Bedside Glucose (Misc Panel) 170H CBC/BMP Laboratory Tests 05/04/20 07:20 Assessment/Plan 65 yo W with IDDM c/b peripheral neuropathy, morbid obesity, HTN, HLD, history of DVT/PE on eliquis, STACY on CPAP, history of PCOS with a complex right ovarian cyst c/b R pelvic and groin pain for which she presented today for elective hysterectomy is now being admitted post robotic laparoscopic hysterectomy, cystoscopy with pelvic washings and bilateral oophorectomy and internal medicine is now consulted for co-management of chronic medical conditions. Pelvic pain s/p robotic laparoscopic hysterectomy, cystoscopy with pelvic w ashings and bilateral oophorectomy: -Pain management per surgery primary team--> Percocet [id number] for moderate and [id number] for severe pain -zofran 4mg Q6HPRN for nausea -To resume anticoagulation per the direction of surgery -s/p periop ancef -will defer the starting of a diet to the primary surgery team HTN: -resume home HCTZ, losartan and amlodipine tomorrow AM HLD: -resume home lipitor IDDM: -continue home 70/30 insulin BID -SSI AC/HS -FSBG AC/HS -Diet will be advanced per surgery primary team to consistent carb/2g sodium DVT ppx: per surgical team, for now will give TEDs and SCDs Plan / VTE VTE Prophylaxis Ordered?: Yes JASON CAMPOS MD May 04, 2020 14:36
[2020-05-04] MEDS: HumuLIN (NovoLIN)70/30 INSULIN INJ PER UNIT SC SCH (16:27)
[2020-05-04] MEDS: HumaLOG INSULIN (NovoLOG) PER UNIT SC SCH (17:46)
[2020-05-04] MEDS: POTASSIUM CHLORIDE 10 MEQ SR TABLET PO SCH (17:46)
[2020-05-04] MEDS ORDERED: HumaLOG INSULIN (NovoLOG) PER UNIT SC SCH ×3 (18:00→21:00)
[2020-05-04] MEDS: LOSARTAN 50MG TABLET PO SCH (18:20)
[2020-05-04] MEDS ORDERED: ATORVASTATIN 20 MG TAB PO SCH (21:00)
[2020-05-04] MEDS ORDERED: HumuLIN (NovoLIN)70/30 INSULIN INJ PER UNIT SC SCH (21:00)
[2020-05-04] MEDS: DOCUSATE SODIUM 100 MG CAP PO SCH (21:57)
[2020-05-05 02:52] VITALS: O2SAT 100
[2020-05-05 06:00] VITALS: BP 139/69
[2020-05-05 06:06] LABS: BASO % 0.1 % (0.0-1.0); HEMATOCRIT 45.1 % (36.0-47.0); HEMOGLOBIN 14.2 g/dl (12.0-15.5); LYMPH # 0.9 10^3/uL (1.5-5.0); LYMPH % 6.5 % (24.0-44.0); MEAN CORPUSCULAR HEMOGLOBIN 26.4 pg (27.0-33.0); MEAN CORPUSCULAR HGB CONC 31.5 g/dl (32.0-36.5); MEAN CORPUSCULAR VOLUME 83.8 fl (80.0-96.0); MONO # 0.7 10^3/uL (0.0-0.8); MONO % 4.9 % (0.0-5.0); NEUTROPHILS # 11.8 10^3/uL (1.5-8.5); NEUTROPHILS % 88.1 % (36.0-66.0); PLATELET COUNT, AUTOMATED 321 10^3/uL (150-450); RED BLOOD COUNT 5.38 10^6/uL (4.00-5.40); WHITE BLOOD COUNT 13.4 10^3/uL (4.0-10.0)
[2020-05-05 06:33] LABS: ALBUMIN 2.9 GM/DL (3.2-5.2); BILIRUBIN,TOTAL 0.2 MG/DL (0.2-1.0); CALCIUM LEVEL 8.6 MG/DL (8.8-10.2); CREATININE FOR GFR 1.11 MG/DL (0.55-1.30); GLOMERULAR FILTRATION RATE 52.5 (>45); POTASSIUM SERUM 3.9 MEQ/L (3.5-5.1); TOTAL PROTEIN 7.2 GM/DL (6.4-8.2)
[2020-05-05] MEDS: HumaLOG INSULIN (NovoLOG) PER UNIT SC SCH ×2 (07:59→11:34)
[2020-05-05] MEDS: DOCUSATE SODIUM 100 MG CAP PO SCH (07:59)
[2020-05-05] MEDS: LOSARTAN 50MG TABLET PO SCH (07:59)
[2020-05-05] MEDS: POTASSIUM CHLORIDE 10 MEQ SR TABLET PO SCH (08:00)
[2020-05-05 08:01] VITALS: BP 139/69
[2020-05-05] MEDS: HumuLIN (NovoLIN)70/30 INSULIN INJ PER UNIT SC SCH (08:01)
[2020-05-05 08:52] VITALS: O2SAT 98
[2020-05-05] MEDS ORDERED: amLODIPine 10 MG TAB PO SCH (09:00)
[2020-05-05] MEDS ORDERED: ENTER DRUG NAME HERE (PATIENT'S OWN MED) PO SCH (09:00)
[2020-05-05] MEDS ORDERED: hydroCHLOROthiazide 12.5 MG CAPSULE PO SCH (09:00)
--- NOTE | 2020-05-05 10:20 | IPNPDOC ---
Text Note Date of Service The patient was seen on 05/05/20. NOTE Subjective: -Pain much better controlled -No other acute issues overnight Objective: General: Obese, NAD Eyes: PERRLA, EOMI, anicteric ENT: MMM Neck: Supple, no JVD Chest: Clear to auscultation, no crackles, wheezing or rhonchi Heart: Rate Normal, Regular Rhythm, no mrg Abdomen: Obese, normoactive, TTP in pelvic region, no rebound or guarding Extremity: bilateral trace LE edema, WWP Skin: No breakdown, no rashes Neuro: Normal Speech, Cranial Nerves 3-12 NL, moving all extremities, AOx3 Laboratory Data WBC 13.4 Hgb 14.2 platelets 321 na 134 K 3.9 Cr 1.11 Assessment: 65 yo W with IDDM c/b peripheral neuropathy, morbid obesity, HTN, HLD, history of DVT/PE on eliquis, STACY on CPAP, history of PCOS with a complex right ovarian cyst c/b R pelvic and groin pain for which she presented today for elective hysterectomy is now being admitted post robotic laparoscopic hysterectomy, cystoscopy with pelvic washings and bilateral oophorectomy and internal medicine is now consulted for co-management of chronic medical conditions. Pelvic pain s/p robotic laparoscopic hysterectomy, cystoscopy with pelvic washings and bilateral oophorectomy: -Pain management per surgery primary team -To resume anticoagulation per the direction of surgery -s/p periop ancef HTN: -resume home HCTZ, losartan and amlodipine HLD: -resume home lipitor IDDM: -continue home 70/30 insulin BID -SSI AC/HS -FSBG AC/HS -consistent carb/2g sodium DVT ppx: per surgical team, for now will give TEDs and SCDs Dispo: per primary surgery team. Otherwise medically clear for potential discharge home. VS,Fishbone, I+O VS, Fishbone, I+O Laboratory Tests 05/05/20 05:35 Vital Signs Date Time Temp Pulse Resp B/P (MAP) Pulse Ox O2 Delivery O2 Flow Rate FiO2 05/05/20 06:00 98.2 88 17 139/69 (92) 99 Nasal Cannula 2.0 I&O- Last 24 Hours up to 6 AM 05/05/20 06:00 Intake Total 6102 ml Output Total 3600 ml Balance 2502 ml JASON CAMPOS MD May 05, 2020 07:46
--- NOTE | 2020-05-11 07:16 | RO ---
DATE OF OPERATION: 05/04/2020 Marcia is a 65-year-old female with multiple medical illnesses and a history of chronic pelvic pain and found to have pelvic mass on her right ovary. After extensive counseling and a medical clearance, decision was made to proceed with a robotic-assisted total hysterectomy, removal of both tubes and ovaries, lysis of pelvic washing, and possible cystoscopy. PREOPERATIVE DIAGNOSES: 1. Pelvic mass. 2. Pelvic pain. POSTOPERATIVE DIAGNOSES: 1. Pelvic mass. 2. Pelvic pain. 3. Large right ovarian mass.. 4. Dense omental adhesion. PROCEDURES: 1. Robotic-assisted total hysterectomy. 2. Bilateral salpingo-oophorectomy. 3. Extensive lysis of adhesion. 4. Pelvic washing. 5. Cystoscopy. ANESTHESIA: General. SURGEON: Dr. Worrell SAND SLINGER: Mel Naik COMPLICATIONS: None. ESTIMATED BLOOD LOSS: Less than 50 mL. FINDINGS: An enlarged right solid ovarian mass, dense omental adhesions. Normal- size uterus. On cystoscopy bilateral tubal ostia visualized and were within normal limits. DESCRIPTION OF PROCEDURE: After obtaining informed consent, patient was taken to the operating room, where general anesthesia was found to be adequate. She was then draped and prepped in the usual sterile fashion in the dorsal lithotomy position. At this point, a Jacinto catheter was placed in the bladder for drainage. We then placed a weighed speculum in the posterior fornix of the vagina. Using a Locke retractor, and the anterior lip of the cervix was then grasped with a single-tooth tenaculum. The uterus was sounded to approximately 9 cm in size. A ELROY uterine manipulator was then placed. Attention was then turned to the abdomen, where an 8 mm infraumbilical incision was made. Using the Veress needle, the abdomen was insufflated with CO2 gas to approximately 3.5 liters. We then placed an 8 mm trocar for the camera port under direct visualization. Then two left 8 mm lateral portals were placed for robotic arms 1 and 2. After placement of these two ports, we were not able to place the robotic arm 1 port on the right side due to dense omental adhesion. At this point, the Boom Harmonic scalpel was used. Laparoscopically we were able to with a series of blunt and sharp dissection removed the omental adhesions and free up the pelvis. After taking down the omental adhesions, we were then able to place the 8 mm right lateral port for robotic arm 1. The patient was placed in steep Trendelenburg. The robot was brought to the patient's side, and the camera was docked in usual fashion. The proper targeting was done with the system, and the remaining arms were the docked. At this point, Endoshear was placed in arm 1 and a bipolar grasper in arm 2. I then unscrubbed and went to the surgeon site to begin her hysterectomy. A pelvic washing was obtained. We then obtained infundibulopelvic ligament on both sides using the vessel sealer. This was cauterized and cut. Serial bites were taken all the way down to the uterine artery. The opposite side was done in similar fashion. The large right pelvic mass that was found was found to be moveable and was able to remove without any significant difficulty. The anterior leaflet of the broad ligament was dissected to create a bladder flap. The posterior leaflet was dissected in a similar fashion. AT this point, the vessel sealer was removed and Endoshear was placed. Anterior-posterior colpotomy was performed. The uterus and the ovarian mass were removed through the vagina. We then closed the vaginal cuff using 2-0 V-lock suture in running fashion. The peritoneum over the vaginal cuff was also closed. Pelvis copiously irrigated with normal saline and suctioned down. One mL of fluorescein was given by the anesthesiologist to assist in cystoscopy. I then went to the patient's side, retrograde filled her bladder with 230 mL of normal saline. Cystoscope was inserted. Bilateral ureteral jets were noted. No evidence of any bladder injury noted. At this point, the cystoscope was removed. A Jacinto catheter was replaced back in the bladder for drainage. We then turned our attention to the abdomen, where all the trocars were removed, and the robotic ports were closed using 3-0 Vicryl in a subcuticular fashion. Marcaine 0.25% placed for postoperative pain. Dermabond placed. Patient tolerated the procedure well. She was then transferred to recovery room in stable condition. Please note that a hospitalist consult was also obtained to co-manage her medical illnesses. AMANDA
== END 2020-05-05 13:57 | disposition home or self-care (01) ==
LOC: M SDC 07:03 → M MSPAV 15:35 → M SDC 05-05 13:57
PROVIDERS: ATTEND Obstetrics & Gynecology
DX: N83.12 Corpus luteum cyst of left ovary (principal); N83.291 Other ovarian cyst, right side; K66.0 Peritoneal adhesions (postprocedural) (postinfection); N72 Inflammatory disease of cervix uteri; D27.0 Benign neoplasm of right ovary; I10 Essential (primary) hypertension; K21.9 Gastro-esophageal reflux disease without esophagitis; E28.2 Polycystic ovarian syndrome; E11.9 Type 2 diabetes mellitus without complications; Z79.4 Long term (current) use of insulin; Z86.711 Personal history of pulmonary embolism; Z86.718 Personal history of other venous thrombosis and embolism; Z79.01 Long term (current) use of anticoagulants; E78.2 Mixed hyperlipidemia; M81.0 Age-related osteoporosis without current pathological fracture; Z88.0 Allergy status to penicillin
CPT/HCPCS: 36415; 58571; 80048; 80053; 85025; 85027; 86850; 86900; 86901; 88108; 88307; 88313; J0131; J0690; J1100; J2250; J2370; J2405; J3010; S2900

== ENCOUNTER 2020-09-25 08:50 | Emergency (ER) | payer MEDICARE, MEDICAID ==
[~2020-09-25] VITALS: Ht 157.5 cm; Wt 132.7 kg
[~2020-09-25 08:50] MED LIST changes: -ACETAMINOPHEN *IV* 1,000 MG IV ONE; +IBUP1TAB5 PO; -IBUP40TA PO; -LR 1,000 ML IV ONE
--- OUTSIDE RECORDS SUMMARY | 2020-09-25 08:56 | CCD | Continuity of Care Document ---
Author Author Marcia Kraft Organization Unknown Address [address] [address] Phone [phone] Care Team Providers Care Check Scaler Name Role Phone Kim Kraft AUTM [phone] Problems Active Problems Provider Date Essential hypertension Ángel Monsalve D.O. Onset: Type 2 diabetes mellitus Ángel Monsalve D.O. Onset: 0 01/16/2012 Weight decreased Ángel Monsalve D.O. Onset: 2011 Social History Type Date Description Comments Sex Unknown ETOH Use Denies alcohol use 11/14/18 Tobacco Use Start: Unknown Patient has never smoked Allergies, Adverse Reactions, Alerts Active Allergies Reaction Severity Comments Date Penicillins hives 11/14/2011 Boom cough 09/04/2012 Medications Active Medications SIG Qnty Indications Ordering Provide r Date Torsemide 10mg Tablets 1 by mouth every day 90tabs NEO Greer 07/05/2020 Lotrimin AF 1% Cream apply daily under left breast 48gm Segun Brody MD 04/29/2020 Onetouch Ultra Strips use four times daily to check blood sugar dx e11.9 400units Fariba muñoz M.D. 03/18/2020 Lipitor 80mg Tablets 1 by mouth every day 90tabs NEO Greer 12/07/2019 Steglatro 15mg Tablets 1 by mouth every day 90tabs NEO Greer 12/07/2019 Eliquis 5mg Tablets Take One Tablet By Mouth Twice A Day 60tabs NEO Greer 0 Lomotil 2.5-0.025mg Tablets 1-2 by mouth 3-4x/d as needed for diarrhea 30tabs Danika Reeves FN 12/22/2018 Losartan Potassium 50mg Tablets 1 by mouth every day 90tabs I10 Danika Reeves FNP 11/17/2018 Shingrix 50mcg/0.5ML Suspension Re c administer at pharmacy 1units Danika Reeves FNP 11/14 Insulin Syringe/Needle 1ML/29G X 1/2" 29G X 1/2" 1 ML Misc use as directed 100units Danika Reeves FNP Amlodipine Besylate 10mg Tablets 1 by mouth every day 90tabs Danika Reeves FNP 05/13/2017 BD Pen Bailey Short/Ultrafine/31G X 5/1 6" 31G X 8 mm Misc use bid E11.9 200units Elizabeth Taylor [facility] 10/04 Nystatin Powder apply twice a day as needed to groin 120gm Yoandy Haji [facility] 10/18/2016 Klor-Con 10 10Meq Tablets ER 1 by mouth every day 90tabs E87.6 [facility]/2016 Humulin 70/30 (70-30 )100Unit/ML Suspension inject 40 units subcutaneously each morning and 20 units ea ch evening [id number] E11.65 Danika Reeves FNP 12/03/2014 One Touch Lancets bid as directed dx 250.00 100units Ángel Monsalve D.O. 12/11/2012 Medications Administered in Office Medication SIG Qnty Indications Ordering Provider Date Immunization Adminstration,1 Vaccine/Tox oid Injection Segun Brody MD 2019 Immunization Each Add'l Vacc/To Injection Danika Reeves FNP 05/26/20 19 Immunization Adminstration,1 Vaccine/Tox oid Injection Danika Reeves FNP 05/26/20 19 Immunization Adminstration,1 Vaccine/Tox oid Injection Yoandy Haji [facility] 05/19/2018 Immunization Each Add'l Vacc/To Injection Elizabeth Talyor [employer] 7 Immunizations CPT Code Status Date Vaccine Reaction Lot # 31611 Given 05/24/2020 PPD [id number] Given 04/29/2020 Influenza Vaccin e Quadrivalent Preser/Antibiotic Free Im Use [id number] 96802 Given 05/26/2019 Adacel- Tetanus Diphtheria Pertussis (Age64 & Under) [id number] 14262 Given 05/26/2019 Influenza Vaccin e Quadrivalent Preser/Antibiotic Free Im Use 801145 73756 Given 05/19/2018 Influenza Virus Vaccine, Quadrivalent (Cciiv4), Derived From 9 Given 05/14/2018 PPD 10--18 negative omm BW [id number] 66282 Given 05/13/2017 Pneumovax 23 [id number] 50131 Given 05/13/2017 Influenza Vaccin e Quadrivalent Preser/Antibiotic Free Im Use [id number] Q2037 Given 05/06/2013 Fluvirin Virus Vaccine 13 [id number] Vital Signs Date Vital Result Comment 07/05/2020 1:28pm BP Systolic 130 mmHg BP Diastolic 70 mmHg Heart Rate 86 /min Height 62.75 inches 5'2.75" Weight 299.00 lb O2 % BldC Oximetry 96 % RM Air BMI (Body Mass Index) 53.4 kg/m2 04/29/2020 8:15am BP Systolic 128 mmHg BP Diastolic 80 mmHg Heart Rate 76 /min Height 62.75 inches 5'2.75" Weight 289.00 lb BMI (Body Mass Index) 51.6 kg/m2 Results Test Acquired Date Facility Test Result H/L Range Note Complete Blood Count 07/05/2020 [facility] Podiatric Technician: [place] [address] [phone] WBC 7.6 x10*3/UL 4.1 - 10.9 RBC 5.06 x10*6/UL 4.20 - 6.30 Hemoglobin 13.9 g/dL 12.0 - 18.0 Hematocrit 41.3 % 37.0 - 51.0 MCV 81.5 fL 80.0 - 97.0 MCH 27.5 pg 26.0 - 32.0 MCHC 33.8 g/dL 31.0 - 38.0 RDW 13.7 % 11.6 - 13.7 PLT 298 x10*3/UL 140 - 440 MPV 7.9 FL 7.8 - 11.0 Lymph % 19.6 % 10.0 - 58.5 Mid % 5.0 % 1.7 - 9.3 Neut % 75.4 % 37.0 - 92.0 Lymph # 1.5 x10*3/UL 0.6 - 4.1 Mid # 0.4 x10*3/UL 0.1 - 0.6 Neut # 5.7 x10*3/UL 2.0 - 7.8 A1c 07/05/2020 [facility] Podiatric Technician: Dr Segun Brody [place], [place] [id number] [phone] Hba1c 7.2 % High <5.7 1 Est Avg Glucose 160 mg/dL High 60 - 110 Basic Metabolic Panel 07/05/2020 [facility] Podiatric Technician: [place] [address] [phone] Glucose 208 mg/dL High 74 - 99 2 BUN 28 mg/dL High 7 - 18 Creatinine 1.2 mg/dL 0.6 - 1.3 Sodium 141 mEq/L 136 - 145 Potassium 4.6 mEq/L 3.5 - 5.1 Chloride 102 mEq/L 98 - 107 Carbon Dioxide 33 mEq/L High 21 - 32 Calcium 8.8 mg/dL 8.5 - 10.1 GFR 45 mL/min Low >60 GFR 55 mL/min Low >60 3 Lipid Profile 07/05/2020 [facility] Podiatric Technician: [place] [address] [phone] Cholesterol 226 mg/dL High 131 - 200 Triglycerides 81 mg/dL 30 - 150 HDL Cholesterol 70 mg/dL High 35 - 60 LDL (Calculated) 140 CALC 50 - 159 Laboratory test finding 05/05/2020 [facility] [address] [place] [address] [phone] Bedside Glucose 96 mg/dL Normal 80-115 CBC With Differential 05/05/2020 [facility] [address] [place] [address] [phone] White Blood Count 13.4 10 High 4.0-10.0 Red Blood Count 5.38 10 Normal 4.00-5.40 Hemoglobin 14.2 g/dL Normal 12.0-15.5 Hematocrit 45.1 % Normal 36.0-47.0 Mean Corpuscular Volume 83.8 fl Normal 80.0-96.0 Mean Corpuscular Hemoglobin 26.4 pg Low 27.0-33.0 Mean Corpuscular HGB Conc 31.5 g/dL Low 32.0-36.5 Red Cell Distribution Width 14.0 % Normal 11.5-14.5 Platelet Count, Automated 321 10 Normal 150-450 Neutrophils % 88.1 % High 36.0-66.0 Lymph % 6.5 % Low 24.0-44.0 [place] % 4.9 % Normal 0.0-5.0 Eos % 0.0 % Normal 0.0-3.0 Baso % 0.1 % Normal 0.0-1.0 Immature Granulocyte % 0.4 % Normal 0-3.0 Nucleated Red Blood Cell % 0.0 % Normal 0-0 Neutrophils # 11.8 10 High 1.5-8.5 Lymph # 0.9 10 Low 1.5-5.0 [place] # 0.7 10 Normal 0.0-0.8 Eos # 0.0 10 Normal 0.0-0.5 Baso # 0.0 10 Normal 0.0-0.2 Comprehensive Metabolic Profil 05/05/[address] [address] [phone] Glucose, Fasting 179 mg/dL High 70-100 Blood Urea Nitrogen 19 mg/dL High 7-18 Creatinine For GFR 1.11 mg/dL Normal 0.55-1.30 Glomerular Filtration Rate 52.5 Normal >45 4 Sodium Level 134 mEq/L Low 136-145 Potassium Serum 3.9 mEq/L Normal 3.5-5.1 Chloride Level 100 mEq/L Normal 98-107 Carbon Dioxide Level 31 mEq/L Normal 21-32 Anion Gap 3 mEq/L Low 8-16 Calcium Level 8.6 mg/dL Low 8.8-10.2 Ast/Sgot 18 U/L Normal 7-37 Alt/SGPT 19 U/L Normal 12-78 Alkaline Phosphatase 63 U/L Normal 45-117 Bilirubin,Total 0.2 mg/dL Normal 0.2-1.0 Total Protein 7.2 GM/DL Normal 6.4-8.2 Albumin 2.9 GM/DL Low 3.2-5.2 Albumin/Globulin Ratio 0.7 Low 1.2-2.2 Type & Screen -Incl Blood Type,Shane,AB SC 05/04/[address] [address] [phone] Blood Type A POSITIVE Normal AB Screen (Indirect Addie)Vis NEGATIVE Normal Basic Metabolic Profile 05/04/[address] [address] [phone] Glucose, Fasting 130 mg/dL High 70-100 Blood Urea Nitrogen 14 mg/dL Normal 7-18 Creatinine For GFR 1.00 mg/dL Normal 0.55-1.30 Glomerular Filtration Rate 59.2 Normal >45 5 Sodium Level 139 mEq/L Normal 136-145 Potassium Serum 4.0 mEq/L Normal 3.5-5.1 Chloride Level 103 mEq/L Normal 98-107 Carbon Dioxide Level 31 mEq/L Normal 21-32 Anion Gap 5 mEq/L Low 8-16 Calcium Level 9.2 mg/dL Normal 8.8-10.2 Complete Blood Count 05/04/2020 [facility] [address] [place] [address] [phone] White Blood Count 8.4 10 Normal 4.0-10.0 Red Blood Count 5.85 10 High 4.00-5.40 Hemoglobin 15.4 g/dL Normal 12.0-15.5 Hematocrit 50.1 % High 36.0-47.0 Mean Corpuscular Volume 85.6 fl Normal 80.0-96.0 Mean Corpuscular Hemoglobin 26.3 pg Low 27.0-33.0 Mean Corpuscular HGB Conc 30.7 g/dL Low 32.0-36.5 Red Cell Distribution Width 14.0 % Normal 11.5-14.5 Platelet Count, Automated 311 10 Normal 150-450 Nucleated Red Blood Cell % 0.0 % Normal 0-0 Laboratory test finding 05/04/[address] [address] [phone] Bedside Glucose 122 mg/dL High 80-115 Laboratory test finding 05/04/[address] [address] [phone] Bedside Glucose 170 mg/dL High 80-115 6 Laboratory test finding 05/04/2020 [facility] [address] [place] [address] [phone] Bedside Glucose 189 mg/dL High 80-115 Laboratory test finding 05/04/2020 [facility] [address] [place] [address] [phone] Bedside Glucose 189 mg/dL High 80-115 Complete Blood Count 04/29/2020 [facility] Podiatric Technician: [place] [address] [phone] WBC 7.4 x10*3/UL 4.1 - 10.9 RBC 5.61 x10*6/UL 4.20 - 6.30 Hemoglobin 15.0 g/dL 12.0 - 18.0 Hematocrit 45.6 % 37.0 - 51.0 MCV 81.2 fL 80.0 - 97.0 MCH 26.7 pg 26.0 - 32.0 MCHC 32.9 g/dL 31.0 - 38.0 RDW 13.8 % High 11.6 - 13.7 PLT 319 x10*3/UL 140 - 440 MPV 7.8 FL 7.8 - 11.0 Lymph % 18.5 % 10.0 - 58.5 Mid % 5.6 % 1.7 - 9.3 Neut % 75.9 % 37.0 - 92.0 Lymph # 1.3 x10*3/UL 0.6 - 4.1 Mid # 0.5 x10*3/UL 0.1 - 0.6 Neut # 5.6 x10*3/UL 2.0 - 7.8 A1c 04/29/2020 [facility] Podiatric Technician: [place] [address] [phone] Hba1c 7.2 % High <5.7 7 Est Avg Glucose 160 mg/dL High 60 - 110 Comprehensive Chem Profile 04/29/2020 [facility] Podiatric Technician: [place] [address] [phone] Glucose 151 mg/dL High 74 - 99 8 BUN 25 mg/dL High 7 - 18 Creatinine 1.1 mg/dL 0.6 - 1.3 Sodium 137 mEq/L 136 - 145 Potassium 4.1 mEq/L 3.5 - 5.1 Chloride 97 mEq/L Low 98 - 107 Carbon Dioxide 32 mEq/L 21 - 32 Calcium 9.1 mg/dL 8.5 - 10.1 Alk. Phosphatase 64 mg/dL 46 - 116 Total Bilirubin 0.4 mg/dL 0.2 - 1.0 Ast (Sgot) 17 U/L 15 - 37 Alt (SGPT) 21 U/L 12 - 78 Albumin 3.8 g/dL 3.4 - 5.0 Total Protein 8.0 g/dL 6.4 - 8.2 A/G Ratio 0.90 CALC Low 1.00 - 1.90 GFR 50 mL/min Low >60 GFR >= 60 mL/min >60 9 Laboratory test finding 04/13/2020 [facility] [address] [place] [address] [phone] Ca19-9 Tumor Marker,Carbohydra 70.1 U/ML High < 35.0 10 LDH Lactate Dehydrogenase 207 U/L Normal 84-246 CA 125 9.9 U/ML Normal <30.2 11 Carcinoembryonic Antigen 1.5 NG/ML Normal <2.5 12 PT & Aptt 02/28/2020 [facility] [address] [place] [address] [phone] Prothrombin Time 15.5 seconds High 11.8-14.0 Inr 1.20 Normal 13 Partial Thromboplastin Time 35.1 seconds Normal 25.0-38.4 CBC With Differential 02/28/2020 [facility] [address] [place] [address] [phone] White Blood Count 9.0 10 Normal 4.0-10.0 Red Blood Count 5.13 10 Normal 4.00-5.40 Hemoglobin 13.7 g/dL Normal 12.0-15.5 Hematocrit 43.6 % Normal 36.0-47.0 Mean Corpuscular Volume 85.0 fl Normal 80.0-96.0 Mean Corpuscular Hemoglobin 26.7 pg Low 27.0-33.0 Mean Corpuscular HGB Conc 31.4 g/dL Low 32.0-36.5 Red Cell Distribution Width 14.1 % Normal 11.5-14.5 Platelet Count, Automated 300 10 Normal 150-450 Neutrophils % 75.1 % High 36.0-66.0 Lymph % 16.6 % Low 24.0-44.0 Chel[place] % 5.9 % High 0.0-5.0 Eos % 1.2 % Normal 0.0-3.0 Baso % 0.6 % Normal 0.0-1.0 Immature Granulocyte % 0.6 % Normal 0-3.0 Nucleated Red Blood Cell % 0.0 % Normal 0-0 Neutrophils # 6.8 10 Normal 1.5-8.5 Lymph # 1.5 10 Normal 1.5-5.0 [place] # 0.5 10 Normal 0.0-0.8 Eos # 0.1 10 Normal 0.0-0.5 Baso # 0.1 10 Normal 0.0-0.2 Liver Profile 02/28/2020 [facility] [address] [place] [address] [phone] Ast/Sgot 17 IU/L Normal 0-40 Alt/SGPT 19 IU/L Normal 0-32 Alkaline Phosphatase 74 U/L Normal 45-117 Bilirubin,Total 0.4 mg/dL Normal 0.2-1.0 Bilirubin,Direct < 0.1 mg/dL Normal 0.0-0.2 Total Protein 8.6 GM/DL High 6.4-8.2 Albumin 3.4 GM/DL Normal 3.2-5.2 Albumin/Globulin Ratio 0.7 Low 1.2-2.2 Basic Metabolic Profile 02/28/2020 [facility] [address] [place], [place] [id number] [phone] Glucose, Fasting 130 mg/dL High 70-100 Blood Urea Nitrogen 28 mg/dL High 7-18 Creatinine For GFR 1.27 mg/dL Normal 0.55-1.30 Glomerular Filtration Rate 45.1 Normal >45 1 4 Sodium Level 139 mEq/L Normal 136-145 Potassium Serum 3.7 mEq/L Normal 3.5-5.1 Chloride Level 103 mEq/L Normal 98-107 Carbon Dioxide Level 30 mmol/L High 20-29 Anion Gap 6 mEq/L Low 8-16 Calcium Level 9.2 mg/dL Normal 8.8-10.2 Laboratory test finding 02/28/2020 [facility] [address] [place] [address] [phone] Ca19-9 Tumor Marker,Carbohydra 68.5 U/ML High < 35.0 15 CA 125 10.3 U/ML Normal <30.2 16 Carcinoembryonic Antigen 2.7 NG/ML High <2.5 17 1 Lab Result Notes: Pre-Diabetes 5.7 - 6.4 % Diabetes = or > 6.5% 2 100-125 mg/dL PRE-DIABET ES/FASTING >126 mg/dL DIABETES/FASTING 3 CHRONIC KIDNEY DISEASE STAGI NG PER NKF STAGE I & II GFR >= 60 NORMAL TO MILDLY DECREASED STAGE III GFR 30-59 MODERATELY DECREASED STAGE IV GFR 15-29 SEVERELY DECREASED STAGE V GFR <15 VERY LITTLE GFR LEFT ESRD GFR <15 ON SERVICE STATION OPERATOR 4 Units are mL/min/1.73 m2 Chronic Kidney Disease Staging per NKF: Stage I & II GFR >=60 Normal to Mildly Decreased Stage III GFR 30-59 Moderately Decreased Stage IV GFR 15-29 Severely Decreased Stage V GFR <15 Very Little GFR Left ESRD GFR <15 on SERVICE STATION OPERATOR 5 Units are mL/min/1.73 m2 Chronic Kidney Disease Staging per NKF: Stage I & II GFR >=60 Normal to Mildly Decreased Stage III GFR 30-59 Moderately Decreased Stage IV GFR 15-29 Severely Decreased Stage V GFR <15 Very Little GFR Left ESRD GFR <15 on SERVICE STATION OPERATOR 6 Nurse Notified 7 Lab Result Notes: Pre-Diabetes 5.7 - 6.4 % Diabetes = or > 6.5% 8 100-125 mg/dL PRE-DIABET ES/FASTING >126 mg/dL DIABETES/FASTING 9 CHRONIC KIDNEY DISEASE STAGI NG PER NKF STAGE I & II GFR >= 60 NORMAL TO MILDLY DECREASED STAGE III GFR 30-59 MODERATELY DECREASED STAGE IV GFR 15-29 SEVERELY DECREASED STAGE V GFR <15 VERY LITTLE GFR LEFT ESRD GFR <15 ON SERVICE STATION OPERATOR 10 THE CA 19-9 ASSAY IS PERFORM ED ON THE Contemporary Analysis BY CHEMILUMINESCENCE AND SHOULD NOT BE COMPARED INTERCHANGEABLY WITH OTHER METHODS. IT SHOULD NOT BE USED ALONE A SCREENING TEST OR DIAGNOSIS FOR THE PRESENCE OR ABSENCE OF MALIGNANT DISEASE. PREDICTIONS OF DISEASE RECURRENCE SHOULD NOT BE BASED SOLELY ON VALUES OBTAINED FROM SERIAL PATIENT SERUM VALUES. 11 THE CA 125 ASSAY IS PERFORME D ON THE [place] BY CHEMILUMINESCENCE AND SHOULD NOT BE COMPARED INTERCHANGEABLY WITH OTHER METHODS. IT SHOULD NOT BE USED ALONE A SCREENING TEST OR DIAGNOSIS FOR THE PRESENCE OR ABSENCE OF MALIGNANT DISEASE. PREDICTIONS OF DISEASE RECURRENCE SHOULD NOT BE BASED SOLELY ON VALUES OBTAINED FROM SERIAL PATIENT SERUM VALUES. 12 THE CEA ASSAY IS PERFORMED O N THE [place] BY CHEMILUMINESCENCE AND SHOULD NOT BE COMPARED INTERCHANGEABLY WITH OTHER METHODS. IT SHOULD NOT BE USED ALONE A SCREENING TEST OR DIAGNOSIS FOR THE PRESENCE OR ABSENCE OF MALIGNANT DISEASE. PREDICTIONS OF DISEASE RECURRENCE SHOULD NOT BE BASED SOLELY ON VALUES OBTAINED FROM SERIAL PATIENT SERUM VALUES. 13 THERAPUTIC HUMAN INR VALUES INDICATIONS NORMAL RANGES PROPHYLAXIS/TREATMENT OF: VENOUS THROMBOSIS 2.0-3.0 PULMONARY EMBOLISM 2.0-3.0 PREVENTION OF SYSTEMIC EMBOLISM FROM: TISSUE HEART VALVES 2.0-3.0 ACUTE MYOCARDIAL INFARCTION 2.0-3.0 VALVULAR HEART DISEASE 2.0-3.0 ATRIAL FIBRILLATION 2.0-3.0 MECHANICAL VALVES(HIGH RISK) 2.5-3.5 RECURRENT MYOCARDIAL INFARCTION 2.5-3.5 14 Units are mL/min/1.73 m2 Chronic Kidney Disease Staging per NKF: Stage I & II GFR >=60 Normal to Mildly Decreased Stage III GFR 30-59 Moderately Decreased Stage IV GFR 15-29 Severely Decreased Stage V GFR <15 Very Little GFR Left ESRD GFR <15 on SERVICE STATION OPERATOR 15 THE CA 19-9 ASSAY IS PERFORM ED ON THE [place] BY CHEMILUMINESCENCE AND SHOULD NOT BE COMPARED INTERCHANGEABLY WITH OTHER METHODS. IT SHOULD NOT BE USED ALONE A SCREENING TEST OR DIAGNOSIS FOR THE PRESENCE OR ABSENCE OF MALIGNANT DISEASE. PREDICTIONS OF DISEASE RECURRENCE SHOULD NOT BE BASED SOLELY ON VALUES OBTAINED FROM SERIAL PATIENT SERUM VALUES. 16 THE CA 125 ASSAY IS PERFORME D ON THE [place] BY CHEMILUMINESCENCE AND SHOULD NOT BE COMPARED INTERCHANGEABLY WITH OTHER METHODS. IT SHOULD NOT BE USED ALONE A SCREENING TEST OR DIAGNOSIS FOR THE PRESENCE OR ABSENCE OF MALIGNANT DISEASE. PREDICTIONS OF DISEASE RECURRENCE SHOULD NOT BE BASED SOLELY ON VALUES OBTAINED FROM SERIAL PATIENT SERUM VALUES. 17 THE CEA ASSAY IS PERFORMED O N THE [place] BY CHEMILUMINESCENCE AND SHOULD NOT BE COMPARED INTERCHANGEABLY WITH OTHER METHODS. IT SHOULD NOT BE USED ALONE A SCREENING TEST OR DIAGNOSIS FOR THE PRESENCE OR ABSENCE OF MALIGNANT DISEASE. PREDICTIONS OF DISEASE RECURRENCE SHOULD NOT BE BASED SOLELY ON VALUES OBTAINED FROM SERIAL PATIENT SERUM VALUES. Procedures Date Code Description Status 04/29/2020 77427 EKG/Interpretation & Report Comp leted 01/21/2020 [id number] Diabetic Retinal Eye Exam Comple tam 01/12/2020 [id number] Diabetic Retinal Eye Exam Comple tam 12/21/2019 [id number] Diabetic Retinal Eye Exam Comple tam 02/26/2019 [id number] Diabetic Retinal Eye Exam Comple tam 01/19/2019 [id number] Colonoscopy Completed 06/19/2017 [id number] Diabetic Retinal Eye Exam Comple tam 09/18/2012 [id number] Mammogram Completed Medical Devices Description No Information Available Encounters Type Date Location Provider Dx Diagnosis Office Visit 07/05/2020 1:45p [facility] 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 G47.33 Obstructive sleep apnea (paty lt) (pediatric) I10 Essential (primary) hyperten teresita E66.01 Morbid (severe) obesity due to excess calories Z68.43 Body mass index [BMI] 50.0-5 9.9, adult Office Visit 04/29/2020 8:40a [facility] Z01.810 Encounter for preprocedural cardiovascul ar examination N83.291 Other ovarian cyst, right si de E11.65 Type 2 diabetes mellitus wit h hyperglycemia E11.649 Type 2 diabetes mellitus wit h hypoglycemia without coma 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 E11.42 Type 2 diabetes mellitus wit h diabetic polyneuropathy 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 G47.33 Obstructive sleep apnea (paty lt) (pediatric) I82.502 Chronic embolism and thombos unsp deep veins of l low extrem E66.01 Morbid (severe) obesity due to excess calories Z68.43 Body mass index (BMI) 50.0-5 9.9, adult Z23 Encounter for immunization Assessments Date Code Description Provider 07/05/2020 E11.65 Type 2 diabetes mellitus with hy perglycemia NEO Greer 07/05/2020 E11.21 Type 2 diabetes mellitus with di abetic nephropathy NEO Greer 07/05/2020 E11.42 Type 2 diabetes mellitus with di abetic polyneuropathy NEO Greer 07/05/2020 Z79.4 care home (current) use of insul in NEO Greer 07/05/2020 G47.33 Obstructive sleep apnea (adult) (pediatric) NEO Greer 07/05/2020 I10 Essential (primary) hypertension NEO Greer 07/05/2020 E66.01 Morbid (severe) obesity due to e xcess calories NEO Greer 07/05/2020 Z68.43 Body mass index [BMI] 50.0-59.9, adult NEO Greer 05/24/2020 Z11.1 Encounter for screening for resp iratory tuberculosis NEO Greer 05/24/2020 Z11.1 Encounter for screening for resp iratory tuberculosis Nurse Schedule 04/29/2020 Z01.810 Encounter for preprocedural card iovascular examination Segun Brody MD 04/29/2020 N83.291 Other ovarian cyst, right side C windy Brody MD 04/29/2020 E11.65 Type 2 diabetes mellitus with hy perglycemia Segun Brody MD 04/29/2020 E11.649 Type 2 diabetes mellitus with hy poglycemia without coma Segun Brody MD 04/29/2020 E11.21 Type 2 diabetes mellitus with di abetic nephropathy Segun Brody MD 04/29/2020 E11.42 Type 2 diabetes mellitus with di abetic polyneuropathy Segun Brody MD 04/29/2020 Z79.4 care home (current) use of insul in Segun Brody MD 04/29/2020 G47.33 Obstructive sleep apnea (adult) (pediatric) Segun Brody MD 04/29/2020 I82.502 Chronic embolism and thrombosis of unspecified deep veins of left lower extremity Segun Brody MD 04/29/2020 E66.01 Morbid (severe) obesity due to e xcess calories Segun Brody MD 04/29/2020 Z68.43 Body mass index (BMI) 50.0-59.9, adult Segun Brody MD 04/29/2020 Z23 Encounter for immunization Colli parris Brody MD Plan of Treatment Future Appointment(s):* 07/27/2020 11:15 am - NEO Greer at [facility] 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 Functional Status Description No Information Available Mental Status Description No Information Available Referrals Refer to Reason for Referral Status Appt Date Renny Tomas DO CONSULT FOR OVARIAN CYSTS Closed 04/2020 [facility] [address] [place] [address] [id number] [phone]
--- OUTSIDE RECORDS SUMMARY | 2020-09-25 08:56 | CCD | Continuity of Care Document ---
Author Author Marcia Kraft Organization Unknown Address [address] [address] Phone [phone] Care Team Providers Care Import Specialist Name Role Phone Kim Kraft AUTM [phone] Problems Active Problems Provider Date Essential hypertension Ángel oMnsalve D.O. Onset: Type 2 diabetes mellitus Ángel [...] 90tabs Danika Reeves FNP 05/13/2017 BD Pen [place] Short/Ultrafine/31G X 5/1 6" 31G X 8 mm Misc use bid E11.9 200units Elizabeth Taylor [facility] 10/04 Nystatin Powder apply twice a day as needed to groin 120gm Yoandy Haji [facility] 10/18/2016 Klor-Con 10 10Meq Tablets ER 1 by mouth every day 90tabs E87.6 [facility] 09/03/2016 Humulin 70/30 (70-30 )100Unit/ML Suspension inject [...] Immunization Adminstration,1 Vaccine/Tox oid Injection Yoandy Haji [facility] 05/19/2018 Immunization Each Add'l Vacc/To Injection Elizabeth Taylor [employer] 7 Immunizations CPT Code Status Date Vaccine Reaction Lot # 14836 Given 05/24/2020 PPD [id number] Given 04/29/2020 Influenza Vaccin e Quadrivalent Preser/Antibiotic Free Im Use [id number] 40995 Given 05/26/2019 Adacel- Tetanus Diphtheria Pertussis (Age64 & Under) [id number] 50908 Given 05/26/2019 Influenza Vaccin e Quadrivalent Preser/Antibiotic Free Im Use [id number] 80047 Given 05/19/2018 Influenza Virus Vaccine, Quadrivalent (Cciiv4), Derived From 4 Given 05/14/2018 PPD 10--18 negative omm BW [id number] 98623 Given 05/13/2017 Pneumovax 23 [id number] 13408 Given 05/13/2017 Influenza Vaccin e Quadrivalent Preser/Antibiotic Free Im Use 874062 Q2037 Given 05/06/2013 Fluvirin Virus Vaccine 13 [id number] Vital Signs Date Vital Result Comment 07/05/2020 [...] H/L Range Note Complete Blood Count 07/05/2020 [facility] Mortgage Loan Counselor: [place] [address] [phone] WBC 7.6 x10*3/UL 4.1 - 10.9 RBC [...] 5.7 x10*3/UL 2.0 - 7.8 A1c 07/05/2020 [facility] Mortgage Loan Counselor: Dr Segun Brody [place], [place] [id number] [phone] Hba1c 7.2 % High <5.7 1 Est Avg Glucose 160 mg/dL High 60 - 110 Basic Metabolic Panel 07/05/2020 [facility] Mortgage Loan Counselor: [place] [address] [phone] Glucose 208 mg/dL High 74 - 99 [...] mL/min Low >60 3 Lipid Profile 07/05/2020 [facility] Mortgage Loan Counselor: [place] [address] [phone] Cholesterol 226 mg/dL High 131 - 200 Triglycerides 81 mg/dL 30 - 150 HDL Cholesterol 70 mg/dL High 35 - 60 LDL (Calculated) 140 CALC 50 - 159 Laboratory test finding 05/05/2020 [facility] [address] [place] [address] [phone] Bedside Glucose 96 mg/dL Normal 80-115 CBC With Differential 05/05/2020 [facility] [address] [place] [address] [phone] White Blood Count 13.4 10 High 4.0-10.0 [...] 36.0-66.0 Lymph % 6.5 % Low 24.0-44.0 [place] % 4.9 % Normal 0.0-5.0 Eos % 0.0 % Normal 0.0-3.0 Baso % 0.1 % Normal 0.0-1.0 Immature Granulocyte % 0.4 % Normal 0-3.0 Nucleated Red Blood Cell % 0.0 % Normal 0-0 Neutrophils # 11.8 10 High 1.5-8.5 Lymph # 0.9 10 Low 1.5-5.0 [place] # 0.7 10 Normal 0.0-0.8 Eos # 0.0 10 Normal 0.0-0.5 Baso # 0.0 10 Normal 0.0-0.2 Comprehensive Metabolic Profil 05/05/[address] [address] [phone] Glucose, Fasting 179 mg/dL High 70-100 Blood [...] & Screen -Incl Blood Type,Shane,AB SC 05/04/[address] [address] [phone] Blood Type A POSITIVE Normal AB Screen (Indirect Addie)Vis NEGATIVE Normal Basic Metabolic Profile 05/04/[address] [address] [phone] Glucose, Fasting 130 mg/dL High 70-100 Blood [...] mg/dL Normal 8.8-10.2 Complete Blood Count 05/04/2020 [facility] [address] [place] [address] [phone] White Blood Count 8.4 10 Normal 4.0-10.0 [...] % Normal 0-0 Laboratory test finding 05/04/[address] [address] [phone] Bedside Glucose 122 mg/dL High 80-115 Laboratory test finding 05/04/[address] [address] [phone] Bedside Glucose 170 mg/dL High 80-115 6 Laboratory test finding 05/04/2020 [facility] [address] [place] [address] [phone] Bedside Glucose 189 mg/dL High 80-115 Laboratory test finding 05/04/2020 [facility] [address] [place] [address] [phone] Bedside Glucose 189 mg/dL High 80-115 Complete Blood Count 04/29/2020 [facility] Mortgage Loan Counselor: [place] [address] [phone] WBC 7.4 x10*3/UL 4.1 - 10.9 RBC [...] 5.6 x10*3/UL 2.0 - 7.8 A1c 04/29/2020 [facility] Mortgage Loan Counselor: [place] [address] [phone] Hba1c 7.2 % High <5.7 7 Est Avg Glucose 160 mg/dL High 60 - 110 Comprehensive Chem Profile 04/29/2020 [facility] Mortgage Loan Counselor: [place] [address] [phone] Glucose 151 mg/dL High 74 - 99 [...] mL/min >60 9 Laboratory test finding 04/13/2020 [facility] [address] [place] [address] [phone] Ca19-9 Tumor Marker,Carbohydra 70.1 U/ML High < 35.0 10 LDH Lactate Dehydrogenase 207 U/L Normal 84-246 CA 125 9.9 U/ML Normal <30.2 11 Carcinoembryonic Antigen 1.5 NG/ML Normal <2.5 12 PT & Aptt 02/28/2020 [facility] [address] [place] [address] [phone] Prothrombin Time 15.5 seconds High 11.8-14.0 Inr 1.20 Normal 13 Partial Thromboplastin Time 35.1 seconds Normal 25.0-38.4 CBC With Differential 02/28/2020 [facility] [address] [place] [address] [phone] White Blood Count 9.0 10 Normal 4.0-10.0 [...] 36.0-66.0 Lymph % 16.6 % Low 24.0-44.0 [place] % 5.9 % High 0.0-5.0 Eos % 1.2 % Normal 0.0-3.0 Baso % 0.6 % Normal 0.0-1.0 Immature Granulocyte % 0.6 % Normal 0-3.0 Nucleated Red Blood Cell % 0.0 % Normal 0-0 Neutrophils # 6.8 10 Normal 1.5-8.5 Lymph # 1.5 10 Normal 1.5-5.0 [place] # 0.5 10 Normal 0.0-0.8 Eos # 0.1 10 Normal 0.0-0.5 Baso # 0.1 10 Normal 0.0-0.2 Liver Profile 02/28/2020 [facility] [address] [place] [address] [phone] Ast/Sgot 17 IU/L Normal 0-40 Alt/SGPT 19 IU/L Normal 0-32 Alkaline Phosphatase 74 U/L Normal 45-117 Bilirubin,Total 0.4 mg/dL Normal 0.2-1.0 Bilirubin,Direct < 0.1 mg/dL Normal 0.0-0.2 Total Protein 8.6 GM/DL High 6.4-8.2 Albumin 3.4 GM/DL Normal 3.2-5.2 Albumin/Globulin Ratio 0.7 Low 1.2-2.2 Basic Metabolic Profile 02/28/2020 [facility] [address] [place], [place] [address] [phone] Glucose, Fasting 130 mg/dL High 70-100 Blood [...] mg/dL Normal 8.8-10.2 Laboratory test finding 02/28/2020 [facility] [address] [place] [address] [phone] Ca19-9 Tumor Marker,Carbohydra 68.5 U/ML High < [...] LITTLE GFR LEFT ESRD GFR <15 ON JOURNEYMAN PIPEFITTER 4 Units are mL/min/1.73 m2 Chronic Kidney Disease Staging per NKF: Stage I & II GFR >=60 Normal to Mildly Decreased Stage III GFR 30-59 Moderately Decreased Stage IV GFR 15-29 Severely Decreased Stage V GFR <15 Very Little GFR Left ESRD GFR <15 on JOURNEYMAN PIPEFITTER 5 Units are mL/min/1.73 m2 Chronic Kidney Disease Staging per NKF: Stage I & II GFR >=60 Normal to Mildly Decreased Stage III GFR 30-59 Moderately Decreased Stage IV GFR 15-29 Severely Decreased Stage V GFR <15 Very Little GFR Left ESRD GFR <15 on JOURNEYMAN PIPEFITTER 6 Nurse Notified 7 Lab Result Notes: [...] LITTLE GFR LEFT ESRD GFR <15 ON JOURNEYMAN PIPEFITTER 10 THE CA 19-9 ASSAY IS PERFORM ED ON THE [place] BY CHEMILUMINESCENCE AND SHOULD NOT BE COMPARED [...] Little GFR Left ESRD GFR <15 on JOURNEYMAN PIPEFITTER 15 THE CA 19-9 ASSAY IS PERFORM [...] VALUES. Procedures Date Code Description Status 04/29/2020 29012 EKG/Interpretation & Report Comp leted 01/21/2020 [id number] Diabetic Retinal Eye Exam Comple tam 01/12/2020 [id number] Diabetic Retinal Eye Exam Comple tam 12/21/2019 [id number] Diabetic Retinal Eye Exam Comple tam 02/26/2019 [id number] Diabetic Retinal Eye Exam Comple tam 01/19/2019 [id number] Colonoscopy Completed 06/19/2017 [id number] Diabetic Retinal Eye Exam Comple tam 09/18/2012 [id number] Mammogram Completed Medical Devices Description No Information Available Encounters Type Date Location Provider Dx Diagnosis Office Visit 04/29/2020 8:40a [facility] MD Z01.810 Encounter for preprocedural cardiovascul ar examination N83.291 Other ovarian cyst, right si de E11.65 Type 2 diabetes mellitus wit h hyperglycemia E11.649 Type 2 diabetes mellitus wit h hypoglycemia without coma 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 E11.42 Type 2 diabetes mellitus wit h diabetic polyneuropathy Z79.4 keno terminal operator (current) use of i nsulin G47.33 Obstructive [...] di abetic polyneuropathy NEO Greer 07/05/2020 Z79.4 custodial (current) use of insul in NEO Greer 07/05/2020 G47.33 Obstructive sleep apnea (adult) (pediatric) NEO Greer 07/05/2020 E66.01 Morbid (severe) obesity due to e xcess calories NEO Greer 07/05/2020 I10 Essential (primary) hypertension NEO Greer 07/05/2020 Z68.43 Body mass index [...] abetic polyneuropathy Segun Brody MD 04/29/2020 Z79.4 custodial (current) use of insul in Segun Brody [...] 07/27/2020 11:15 am - NEO Greer at [facility] 07/05/2020 - NEO Greer* E11.65 Type 2 diabetes mellitus with hyperglycemia * E11.21 Type 2 diabetes mellitus with diabetic nephropathy * E11.42 Type 2 diabetes mellitus with diabetic polyneuropathy * Z79.4 keno terminal operator (current) use of insulin * G47.33 Obstructive sleep apnea (adult) (pediatric) * E66.01 Morbid (severe) obesity due to excess calories * I10 Essential (primary) hypertension * Z68.43 Body mass index [BMI] 50.0-59.9, adult * All * New Medication:* Torsemide 10 mg - 1 by mouth every day Functional Status Description No Information Available Mental Status Description No Information Available Referrals Refer to Reason for Referral Status Appt Date Renny Tomas DO CONSULT FOR OVARIAN CYSTS Closed 04/2020 [facility] [address] [place] [address] [id number] [phone]
--- OUTSIDE RECORDS SUMMARY | 2020-09-25 08:56 | CCD | Continuity of Care Document ---
Author Author Marcia Kraft Organization Unknown Address [address] [address] Phone [phone] Care Team Providers Care Rug Dyer Name Role Phone Kim Kraft AUTM [phone] Problems Active Problems Provider Date Essential hypertension [...] Tablets 1 by mouth every day 90tabs Daniak Reeves FNP 05/13/2017 BD Pen [place] Short/Ultrafine/31G X 5/1 6" 31G X 8 mm Misc use bid E11.9 200units Elizabeth Taylor [facility] 10/04 Nystatin Powder apply twice a day as needed to groin 120gm Yoandy Haji [facility] 10/18/2016 Klor-Con 10 10Meq Tablets ER 1 by mouth every day 90tabs E87.6 [facility] 09/03/2016 Humulin 70/30 (70-30 )100Unit/ML Suspension [...] Immunization Adminstration,1 Vaccine/Tox oid Injection Yoandy Haji [facility] 05/19/2018 Immunization Each Add'l Vacc/To Injection Elizabeth Taylor EXTRACTOR MACHINE OPERATOR 7 Immunizations CPT Code Status Date Vaccine Reaction Lot # 08243 Given 05/24/2020 PPD [id number] 09310 Given 04/29/2020 Influenza Vaccin e Quadrivalent Preser/Antibiotic Free Im Use [id number] 50461 Given 05/26/2019 Adacel- Tetanus Diphtheria Pertussis (Age64 & Under) [id number] 25142 Given 05/26/2019 Influenza Vaccin e Quadrivalent Preser/Antibiotic Free Im Use 455843 07204 Given 05/19/2018 Influenza Virus Vaccine, Quadrivalent (Cciiv4), Derived From 5 Given 05/14/2018 PPD 10--18 negative omm BW [id number] 20239 Given 05/13/2017 Pneumovax 23 [id number] 75628 Given 05/13/2017 Influenza Vaccin e Quadrivalent Preser/Antibiotic Free Im Use 209398 Q2037 Given 05/06/2013 Fluvirin Virus Vaccine 13 [id number] Vital Signs Date Vital Result Comment 07/05/2020 [...] H/L Range Note Complete Blood Count 07/05/2020 [facility] Tile Layer Supervisor: [place] [address] [phone] WBC 7.6 x10*3/UL 4.1 - 10.9 RBC [...] 5.7 x10*3/UL 2.0 - 7.8 A1c 07/05/2020 [facility] Tile Layer Supervisor: Dr Segun Brody [place], [place] [address] [phone] Hba1c 7.2 % High <5.7 1 Est Avg Glucose 160 mg/dL High 60 - 110 Basic Metabolic Panel 07/05/2020 [facility] Tile Layer Supervisor: [place] [address] [phone] Glucose 208 mg/dL High 74 - 99 [...] mL/min Low >60 3 Lipid Profile 07/05/2020 [facility] Tile Layer Supervisor: [place] [address] [phone] Cholesterol 226 mg/dL High 131 - 200 Triglycerides 81 mg/dL 30 - 150 HDL Cholesterol 70 mg/dL High 35 - 60 LDL (Calculated) 140 CALC 50 - 159 Laboratory test finding 05/05/2020 [facility] [address] [place] [address] [phone] Bedside Glucose 96 mg/dL Normal 80-115 CBC With Differential 05/05/2020 [facility] [address] [place] [address] [phone] White Blood Count 13.4 10 High 4.0-10.0 [...] 36.0-66.0 Lymph % 6.5 % Low 24.0-44.0 [place] % 4.9 % Normal 0.0-5.0 Eos % 0.0 % Normal 0.0-3.0 Baso % 0.1 % Normal 0.0-1.0 Immature Granulocyte % 0.4 % Normal 0-3.0 Nucleated Red Blood Cell % 0.0 % Normal 0-0 Neutrophils # 11.8 10 High 1.5-8.5 Lymph # 0.9 10 Low 1.5-5.0 [place] # 0.7 10 Normal 0.0-0.8 Eos # 0.0 10 Normal 0.0-0.5 Baso # 0.0 10 Normal 0.0-0.2 Comprehensive Metabolic Profil 05/05/[address] [address] [phone] Glucose, Fasting 179 mg/dL High 70-100 Blood [...] & Screen -Incl Blood Type,Shane,AB SC 05/04/[address] [address] [phone] Blood Type A POSITIVE Normal AB Screen (Indirect Addie)Vis NEGATIVE Normal Basic Metabolic Profile 05/04/[address] [address] [phone] Glucose, Fasting 130 mg/dL High 70-100 Blood [...] mg/dL Normal 8.8-10.2 Complete Blood Count 05/04/2020 [facility] [address] [place] [address] [phone] White Blood Count 8.4 10 Normal 4.0-10.0 [...] % Normal 0-0 Laboratory test finding 05/04/[address] [address] [phone] Bedside Glucose 122 mg/dL High 80-115 Laboratory test finding 05/04/[address] [address] [phone] Bedside Glucose 170 mg/dL High 80-115 6 Laboratory test finding 05/04/2020 [facility] [address] [place] [address] [phone] Bedside Glucose 189 mg/dL High 80-115 Laboratory test finding 05/04/2020 [facility] [address] [place] [address] [phone] Bedside Glucose 189 mg/dL High 80-115 Complete Blood Count 04/29/2020 [facility] Tile Layer Supervisor: [place] [address] [phone] WBC 7.4 x10*3/UL 4.1 - 10.9 RBC [...] 5.6 x10*3/UL 2.0 - 7.8 A1c 04/29/2020 [facility] Tile Layer Supervisor: [place] [address] [phone] Hba1c 7.2 % High <5.7 7 Est Avg Glucose 160 mg/dL High 60 - 110 Comprehensive Chem Profile 04/29/2020 [facility] Tile Layer Supervisor: [place] [address] [phone] Glucose 151 mg/dL High 74 - 99 [...] mL/min >60 9 Laboratory test finding 04/13/2020 [facility] [address] [place] [address] [phone] Ca19-9 Tumor Marker,Carbohydra 70.1 U/ML High < 35.0 10 LDH Lactate Dehydrogenase 207 U/L Normal 84-246 CA 125 9.9 U/ML Normal <30.2 11 Carcinoembryonic Antigen 1.5 NG/ML Normal <2.5 12 PT & Aptt 02/28/2020 [facility] [address] [place] [address] [phone] Prothrombin Time 15.5 seconds High 11.8-14.0 Inr 1.20 Normal 13 Partial Thromboplastin Time 35.1 seconds Normal 25.0-38.4 CBC With Differential 02/28/2020 [facility] [address] [place] [address] [phone] White Blood Count 9.0 10 Normal 4.0-10.0 [...] 36.0-66.0 Lymph % 16.6 % Low 24.0-44.0 [place] % 5.9 % High 0.0-5.0 Eos % 1.2 % Normal 0.0-3.0 Baso % 0.6 % Normal 0.0-1.0 Immature Granulocyte % 0.6 % Normal 0-3.0 Nucleated Red Blood Cell % 0.0 % Normal 0-0 Neutrophils # 6.8 10 Normal 1.5-8.5 Lymph # 1.5 10 Normal 1.5-5.0 [place] # 0.5 10 Normal 0.0-0.8 Eos # 0.1 10 Normal 0.0-0.5 Baso # 0.1 10 Normal 0.0-0.2 Liver Profile 02/28/2020 [facility] [address] [place] [address] [phone] Ast/Sgot 17 IU/L Normal 0-40 Alt/SGPT 19 IU/L Normal 0-32 Alkaline Phosphatase 74 U/L Normal 45-117 Bilirubin,Total 0.4 mg/dL Normal 0.2-1.0 Bilirubin,Direct < 0.1 mg/dL Normal 0.0-0.2 Total Protein 8.6 GM/DL High 6.4-8.2 Albumin 3.4 GM/DL Normal 3.2-5.2 Albumin/Globulin Ratio 0.7 Low 1.2-2.2 Basic Metabolic Profile 02/28/2020 [facility] [address] [place], [place] [address] [phone] Glucose, Fasting 130 mg/dL High 70-100 Blood [...] mg/dL Normal 8.8-10.2 Laboratory test finding 02/28/2020 [facility] [place] [address] [phone] Ca19-9 Tumor Marker,Carbohydra 68.5 U/ML High < [...] LITTLE GFR LEFT ESRD GFR <15 ON MASON APPRENTICE 4 Units are mL/min/1.73 m2 Chronic Kidney Disease Staging per NKF: Stage I & II GFR >=60 Normal to Mildly Decreased Stage III GFR 30-59 Moderately Decreased Stage IV GFR 15-29 Severely Decreased Stage V GFR <15 Very Little GFR Left ESRD GFR <15 on MASON APPRENTICE 5 Units are mL/min/1.73 m2 Chronic Kidney Disease Staging per NKF: Stage I & II GFR >=60 Normal to Mildly Decreased Stage III GFR 30-59 Moderately Decreased Stage IV GFR 15-29 Severely Decreased Stage V GFR <15 Very Little GFR Left ESRD GFR <15 on MASON APPRENTICE 6 Nurse Notified 7 Lab Result Notes: [...] LITTLE GFR LEFT ESRD GFR <15 ON MASON APPRENTICE 10 THE CA 19-9 ASSAY IS PERFORM ED ON THE [place] BY CHEMILUMINESCENCE AND SHOULD NOT BE COMPARED [...] Little GFR Left ESRD GFR <15 on MASON APPRENTICE 15 THE CA 19-9 ASSAY IS PERFORM [...] VALUES. Procedures Date Code Description Status 04/29/2020 41363 EKG/Interpretation & Report Comp leted 01/21/2020 [id number] Diabetic Retinal Eye Exam Comple tam 01/12/2020 [id number] Diabetic Retinal Eye Exam Comple tam 12/21/2019 [id number] Diabetic Retinal Eye Exam Comple tam 02/26/2019 [id number] Diabetic Retinal Eye Exam Comple tam 01/19/2019 [id number] Colonoscopy Completed 06/19/2017 [id number] Diabetic Retinal Eye Exam Comple tam 09/18/2012 [id number] Mammogram Completed Medical Devices Description No Information Available Encounters Type Date Location Provider Dx Diagnosis Office Visit 07/05/2020 1:45p [facility] 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 bundler (current) use of i nsulin G47.33 Obstructive sleep apnea (paty lt) (pediatric) I10 Essential (primary) hyperten teresita E66.01 Morbid (severe) obesity due to excess calories Z68.43 Body mass index [BMI] 50.0-5 9.9, adult Office Visit 04/29/2020 8:40a [facility] Z01.810 Encounter for preprocedural cardiovascul ar examination N83.291 Other ovarian cyst, right si de E11.65 Type 2 diabetes mellitus wit h hyperglycemia E11.649 Type 2 diabetes mellitus wit h hypoglycemia without coma 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 07/05/2020 - NEO Greer* E11.65 Type 2 diabetes mellitus with hyperglycemia * E11.21 Type 2 diabetes mellitus with diabetic nephropathy * E11.42 Type 2 diabetes mellitus with diabetic polyneuropathy * Z79.4 upholstery bundler (current) use of insulin * G47.33 Obstructive [...] CYSTS Closed 04/2020 [facility] [address] [place] [id number] [phone]
--- OUTSIDE RECORDS SUMMARY | 2020-09-25 08:57 | CCD ---
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 Name Role Phone Ayala Brody MD Unavailable Unavailable Ayala Brody MD Unavailable Unavailable Ayala Brody MD Unavailable Unavailable Ayala Brody MD Unavailable Unavailable Ayala Brody MD Unavailable Unavailable Ayala Brody MD Unavailable Unavailable Ayala Brody MD Unavailable Unavailable Ayala Brody MD Unavailable Unavailable Ayala Brody MD Unavailable Unavailable Ayala Brody MD Unavailable Unavailable Ayala Brody MD Unavailable Unavailable Ayala Brody MD Unavailable Unavailable Ayala Brody MD Unavailable Unavailable Ayala Brody MD Unavailable Unavailable Ayala Brody MD Unavailable Unavailable Ayala Brody MD Unavailable Unavailable Ayala Brody MD Unavailable Unavailable Ayala Brody MD Unavailable Unavailable Ayala Brody MD Unavailable Unavailable Ayala Brody MD Unavailable Unavailable Ayala Brody MD Unavailable Unavailable Ayala Brody MD Unavailable Unavailable Ayala Brody MD Unavailable Unavailable Ayala Brody MD Unavailable Unavailable Ayala Brody MD Unavailable Unavailable Ayala Brody MD Unavailable Unavailable Ayala Brody MD Unavailable Unavailable Ayala Brody MD Unavailable Unavailable BillericaAyala MD Unavailable Unavailable BillericaAyala MD Unavailable Unavailable Mary GraceAyala MD Unavailable Unavailable BillericaAyala MD Unavailable Unavailable Mary GraceAyala MD Unavailable Unavailable Mary GraceAyala MD Unavailable Unavailable BillericaAyala MD Unavailable Unavailable BillericaAyala MD Unavailable Unavailable Mary GraceAyala MD Unavailable Unavailable Mary GraceAyala MD Unavailable Unavailable BillericaAyala MD Unavailable Unavailable BillericaAyala MD Unavailable Unavailable Mary GraceAyala MD Unavailable Unavailable Mary GraceAyala MD Unavailable Unavailable Mary GraceAyala MD Unavailable Unavailable BillericaAyala MD Unavailable Unavailable BillericaAyala MD Unavailable Unavailable Mary GraceAyala MD Unavailable Unavailable BillericaAyala MD Unavailable Unavailable BillericaAyala MD Unavailable Unavailable BillericaAyala MD Unavailable Unavailable Mary GraceAyala MD Unavailable Unavailable Mary GraceAyala MD Unavailable Unavailable Mary GraceAyala MD Unavailable Unavailable BillericaAyala MD Unavailable Unavailable BillericaAyala MD Unavailable Unavailable Mary GraceAyala MD Unavailable Unavailable Mary GraceAyala MD Unavailable Unavailable BillericaAyala MD Unavailable Unavailable Mary GraceAyala MD Unavailable Unavailable Mary GraceAyala MD Unavailable Unavailable BillericaAyala MD Unavailable Unavailable BillericaAyala MD Unavailable Unavailable Mary GraceAyala MD Unavailable Unavailable BillericaAyala MD Unavailable Unavailable BillericaAyala MD Unavailable Unavailable BillericaAyala MD Unavailable Unavailable Mary GraceAyala MD Unavailable Unavailable Mary GraceAyala MD Unavailable Unavailable BillericaAyala MD Unavailable Unavailable BillericaAyala MD Unavailable Unavailable BillericaAyala MD Unavailable Unavailable Mary GraceAyala MD Unavailable Unavailable BillericaAyala MD Unavailable Unavailable Mary GraceAyala MD Unavailable Unavailable Mary GraceAyala MD Unavailable Unavailable Mary GraceAyala MD Unavailable Unavailable Mary GraceAyala MD Unavailable Unavailable BillericaAyala MD Unavailable Unavailable BillericaAyala MD Unavailable Unavailable BillericaAyala MD Unavailable Unavailable Mary GraceAyala MD Unavailable Unavailable Mary GraceAyala MD Unavailable Unavailable BillericaAyala MD Unavailable Unavailable Mary GraceAyala MD Unavailable Unavailable BillericaAyala MD Unavailable Unavailable BillericaAyala mejía MD Unavailable Unavailable Mary GraceAyala MD Unavailable Unavailable Leandro, Danika PLUMBING INSTALLER Unavailable Unavailable Leandro, Danika PLUMBING INSTALLER Unavailable Unavailable Leandro, Danika PLUMBING INSTALLER Unavailable Unavailable Leanrdo, Danika PLUMBING INSTALLER Unavailable Unavailable Leandro, Danika PLUMBING INSTALLER Unavailable Unavailable Leandro, Danika PLUMBING INSTALLER Unavailable Unavailable Leandro, Danika PLUMBING INSTALLER Unavailable Unavailable Leandro, Danika PLUMBING INSTALLER Unavailable Unavailable Leandro, Danika PLUMBING INSTALLER Unavailable Unavailable Leandro, Danika PLUMBING INSTALLER Unavailable Unavailable Leandro, Danika PLUMBING INSTALLER Unavailable Unavailable Leandro, Danika PLUMBING INSTALLER Unavailable Unavailable Leandro, Danika PLUMBING INSTALLER Unavailable Unavailable Leandro, Danika PLUMBING INSTALLER Unavailable Unavailable Leandro, Danika PLUMBING INSTALLER Unavailable Unavailable Leandro, Danika PLUMBING INSTALLER Unavailable Unavailable Leandro, Danika PLUMBING INSTALLER Unavailable Unavailable Leandro, Danika PLUMBING INSTALLER Unavailable Unavailable Leandro, Danika PLUMBING INSTALLER Unavailable Unavailable Leandro, Danika PLUMBING INSTALLER Unavailable Unavailable Leandro, Danika PLUMBING INSTALLER Unavailable Unavailable Leandro, Danika PLUMBING INSTALLER Unavailable Unavailable Leandro, Danika PLUMBING INSTALLER Unavailable Unavailable Leandro, Danika PLUMBING INSTALLER Unavailable Unavailable Leandro, Danika PLUMBING INSTALLER Unavailable Unavailable Leandro, Danika PLUMBING INSTALLER Unavailable Unavailable Leandro, Danika PLUMBING INSTALLER Unavailable Unavailable Leandro, Danika PLUMBING INSTALLER Unavailable Unavailable Leandro, Danika PLUMBING INSTALLER Unavailable Unavailable Leandro, Danika PLUMBING INSTALLER Unavailable Unavailable Leandro, Danika PLUMBING INSTALLER Unavailable Unavailable Leandro, Danika PLUMBING INSTALLER Unavailable Unavailable Leandro, Daniak PLUMBING INSTALLER Unavailable Unavailable Leandro, Danika PLUMBING INSTALLER Unavailable Unavailable Leandro, Danika PLUMBING INSTALLER Unavailable Unavailable Leandro, Danika PLUMBING INSTALLER Unavailable Unavailable Leandro, Danika PLUMBING INSTALLER Unavailable Unavailable Leandro, Danika PLUMBING INSTALLER Unavailable Unavailable Leandro, Danika PLUMBING INSTALLER Unavailable Unavailable Leandro, Danika PLUMBING INSTALLER Unavailable Unavailable Leandro, Danika PLUMBING INSTALLER Unavailable Unavailable Leandro, Danika PLUMBING INSTALLER Unavailable Unavailable Leandro, Danika PLUMBING INSTALLER Unavailable Unavailable Leandro, Danika PLUMBING INSTALLER Unavailable Unavailable Leandro, Danika PLUMBING INSTALLER Unavailable Unavailable Leandro, Danika PLUMBING INSTALLER Unavailable Unavailable Leandro, Danika PLUMBING INSTALLER Unavailable Unavailable Leandro, Danika PLUMBING INSTALLER Unavailable Unavailable Leandro, Danika PLUMBING INSTALLER Unavailable Unavailable Leandro, Danika PLUMBING INSTALLER Unavailable Unavailable Leandro, Danika PLUMBING INSTALLER Unavailable Unavailable Leandro, Danika PLUMBING INSTALLER Unavailable Unavailable Leandro, Danika PLUMBING INSTALLER Unavailable Unavailable YVON, J Kim ANP Unavailable Unavailable YVON, J Kim ANP Unavailable Unavailable YVON, J Kim ANP Unavailable Unavailable YVON, J Kim ANP Unavailable Unavailable YVON, J Kim ANP Unavailable Unavailable YVON, J Kim ANP Unavailable Unavailable YVON, J Kim ANP Unavailable Unavailable YVON, J Kim ANP Unavailable Unavailable YVON, J Kim ANP Unavailable Unavailable YVON, J Kim ANP Unavailable Unavailable YVON, J Kim ANP Unavailable Unavailable YVON, J Kim ANP Unavailable Unavailable YVON, J Kim ANP Unavailable Unavailable YVON, J Kim ANP Unavailable Unavailable YVON, J Kim ANP Unavailable Unavailable YVON, J Kim ANP Unavailable Unavailable YVON, J Kim ANP Unavailable Unavailable YVON, J Kim ANP Unavailable Unavailable YVON, J Kim ANP Unavailable Unavailable YVON, J Kim ANP Unavailable Unavailable YVON, J Kim ANP Unavailable Unavailable YVON, J Kim ANP Unavailable Unavailable YVON, J Kim ANP Unavailable Unavailable YVON, J Kim ANP Unavailable Unavailable YVON, J Kim ANP Unavailable Unavailable YVON, J Kim ANP Unavailable Unavailable YVON, J Kim ANP Unavailable Unavailable YVON, J Kim ANP Unavailable Unavailable YVON, J Kim ANP Unavailable Unavailable YVON, J Kim ANP Unavailable Unavailable YVON, J Kim ANP Unavailable Unavailable YVON, J Kim ANP Unavailable Unavailable YVON, J Kim ANP Unavailable Unavailable YVON, J Kim ANP Unavailable Unavailable YVON, J Kim ANP Unavailable Unavailable YVON, J Kim ANP Unavailable Unavailable YVON, J Kim ANP Unavailable Unavailable YVON, J Kim ANP Unavailable Unavailable YVON, J Kim ANP Unavailable Unavailable YVON, J Kim ANP Unavailable Unavailable YVON, J Kim ANP Unavailable Unavailable YVON, J Kim ANP Unavailable Unavailable YVON, J Kim ANP Unavailable Unavailable YVON, J Kim ANP Unavailable Unavailable YVON, J Kim ANP Unavailable Unavailable YVON, J Kim ANP Unavailable Unavailable YVON, J Kim ANP Unavailable Unavailable YVON, J Kim ANP Unavailable Unavailable YVON, J Kim ANP Unavailable Unavailable YVON, J Kim ANP Unavailable Unavailable YVON, J Kim ANP Unavailable Unavailable YVON, J Kim ANP Unavailable Unavailable YVON, J Kim ANP Unavailable Unavailable YVON, J Kim ANP Unavailable Unavailable YVON, J Kim ANP Unavailable Unavailable YVON, J Kim ANP Unavailable Unavailable YVON, J Kim ANP Unavailable Unavailable YVON, J Kim ANP Unavailable Unavailable YVON, J Kim ANP Unavailable Unavailable YVON, J Kim ANP Unavailable Unavailable YVON, J Kim ANP Unavailable Unavailable YVON, J Kim ANP Unavailable Unavailable YVON, J Kim ANP Unavailable Unavailable YVON, J Kim ANP Unavailable Unavailable YVON, J Kim ANP Unavailable Unavailable YVON, J Kim ANP Unavailable Unavailable Re-disclosure Warning The records that you are about to access may contain information from federally-assisted alcohol or drug abuse programs. If such information is present, then the following federally mandated warning applies: This information has been disclosed to you from records protected by federal confidentiality rules (42 CFR part 2). The federal rules prohibit you from making any further disclosure of this information unless further disclosure is expressly permitted by the written consent of the person to whom it pertains or as otherwise permitted by 42 CFR part 2. A general authorization for the release of medical or other information is NOT sufficient for this purpose. The Federal rules restrict any use of the information to criminally investigate or prosecute any alcohol or drug abuse patient.The records that you are about to access may contain highly sensitive health information, the redisclosure of which is protected by Article 27-F of the [facility] Public Health law. If you continue you may have access to information: Regarding HIV / AIDS; Provided by facilities licensed or operated by the [facility] Office of Mental Health; or Provided by the [facility] Office for People With Developmental Disabilities. If such information is present, then the following [facility] mandated warning applies: This information has been disclosed to you from confidential records which are protected by state law. State law prohibits you from making any further disclosure of this information without the specific written consent of the person to whom it pertains, or as otherwise permitted by law. Any unauthorized further disclosure in violation of state law may result in a fine or fdc sentence or both. A general authorization for the release of medical or other information is NOT sufficient authorization for further disc losure. Family History Family Member Name Family Member Gender Family Member Status Date o f Status Description Data Source(s) Unknown Male Problem [facility] ([facility]) Encounters Encounter Providers Location Date Indications Data Source(s ) Outpatient Attender: Kim SANZ NEO Alfredo 08/2019 12:45:00 PM EST [facility] ([facility] ) Outpatient Attender: Segun Alfredo 0 04/29/2020 08:40:00 AM EDT [facility] ([facility] ) Outpatient Attender: Danika Alfredo 0 12/07/2019 08:15:00 AM EDT [facility] ([facility] ) Immunizations Vaccine Date Status Description Data Source(s) TB Skin test is not vaccine. 05/24/2020 12:46:00 PM EDT completed [facility] ([facility]) Influenza, injectable, MDCK, preservative free, yaquelin valent 04/29/2020 08:30:00 AM EDT completed [facility]) Medications Medication Brand Name Start Date Product Form Dose Route Admi nistrative Instructions Pharmacy Instructions Status Indications Reaction Description Data Source(s) 80 mg 07/06/2020 12:00:00 AM EST tablet 90 TAKE ONE TABLET BY MOUTH EVERY DAY TAKE ONE TABLET BY MOUTH EVERY DAY SOLD: 07/07/2020 [facility] 10 mg 07/06/2020 12:00:00 AM EST tablet 90 TAKE ONE TABLET BY MOUTH EVERY DAY TAKE ONE TABLET BY MOUTH EVERY DAY SOLD: 07/07/2020 [facility] 15 mg 07/06/2020 12:00:00 AM EST tablet 90 TAKE ONE TABLET BY MOUTH EVERY DAY TAKE ONE TABLET BY MOUTH EVERY DAY SOLD: 07/07/2020 [facility] torsemide 10 MG Oral Tablet Torsemide 07/05/2020 12:00:00 AM EST ORAL active [facility] ([facility]) Immunization Adminstration,1 Vaccine/Toxoid 04/29/2020 12:00 :00 AM EDT completed [facility] ([facility]) Medication administered onsite Clotrimazole 10 MG/ML Topical Cream [Lotrimin] Lotrimin AF 04/29/2020 12:00:00 AM EDT active [facility] ([facility]) Onetouch Ultra 03/18/2020 12:00:00 AM EDT act yolanda [facility] ([facility]) 15 mg 02/08/2020 12:00:00 AM EDT tablet 30 TAKE ONE TABLET BY MOUTH EVERY DAY TAKE ONE TABLET BY MOUTH EVERY DAY SOLD: 03/11/2020 [facility] 15 mg 02/08/2020 12:00:00 AM EDT tablet 30 TAKE ONE TABLET BY MOUTH EVERY DAY TAKE ONE TABLET BY MOUTH EVERY DAY SOLD: 02/08/2020 [facility] 15 mg 02/08/2020 12:00:00 AM EDT tablet 30 TAKE ONE TABLET BY MOUTH EVERY DAY TAKE ONE TABLET BY MOUTH EVERY DAY SOLD: 04/09/2020 [facility] 80 mg 12/08/2019 12:00:00 AM EDT tablet 30 TAKE ONE TABLET BY MOUTH EVERY DAY TAKE ONE TABLET BY MOUTH EVERY DAY SOLD: 12/11/2019 [facility] Steglatro Steglatro 12/07/2019 12:00:00 AM EDT ORAL act yolanda [facility] ([facility]) atorvastatin 80 MG Oral Tablet [Lipitor] Lipitor 12/07/2019 12:00: 00 AM EDT ORAL active [facility] ([facility]) 5 mg 11/04/2019 12:00:00 AM EDT tablet 60 TAKE ONE TABLET BY MOUTH TWICE A DAY TAKE ONE TABLET BY MOUTH TWICE A DAY SOLD: 04/09/2020 [facility] 5 mg 11/04/2019 12:00:00 AM EDT tablet 60 TAKE ONE TABLET BY MOUTH TWICE A DAY TAKE ONE TABLET BY MOUTH TWICE A DAY SOLD: 01/04/2020 [facility] 5 mg 11/04/2019 12:00:00 AM EDT tablet 60 TAKE ONE TABLET BY MOUTH TWICE A DAY TAKE ONE TABLET BY MOUTH TWICE A DAY SOLD: 02/08/2020 [facility] 5 mg 11/04/2019 12:00:00 AM EDT tablet 60 TAKE ONE TABLET BY MOUTH TWICE A DAY TAKE ONE TABLET BY MOUTH TWICE A DAY SOLD: 12/07/2019 [facility] 5 mg 11/04/2019 12:00:00 AM EDT tablet 60 TAKE ONE TABLET BY MOUTH TWICE A DAY TAKE ONE TABLET BY MOUTH TWICE A DAY SOLD: 11/06/2019 [facility] 5 mg 11/04/2019 12:00:00 AM EDT tablet 60 TAKE ONE TABLET BY MOUTH TWICE A DAY TAKE ONE TABLET BY MOUTH TWICE A DAY SOLD: 03/11/2020 [facility] apixaban 5 MG Oral Tablet [Eliquis] Eliquis 11/03/2019 12:00:00 AM EDT active [facility] ([facility]) BLOOD SUGAR DIAGNOSTIC 10/24/2019 12:00:00 AM EDT strip 350 USE FOUR TIMES A DAY TO CHECK BLOOD SUGAR USE FOUR TIMES A DAY TO CHECK BLOOD SUGAR SOLD: 04/18/2020 [facility] BLOOD SUGAR DIAGNOSTIC 10/24/2019 12:00:00 AM EDT strip 350 USE FOUR TIMES A DAY TO CHECK BLOOD SUGAR USE FOUR TIMES A DAY TO CHECK BLOOD SUGAR SOLD: 01/23/2020 [facility] BLOOD SUGAR DIAGNOSTIC 10/24/2019 12:00:00 AM EDT strip 350 USE FOUR TIMES A DAY TO CHECK BLOOD SUGAR USE FOUR TIMES A DAY TO CHECK BLOOD SUGAR SOLD: 10/26/2019 [facility] 50 mg 10/23/2019 12:00:00 AM EDT tablet 90 TAKE ONE TABLET BY MOUTH EVERY DAY TAKE ONE TABLET BY MOUTH EVERY DAY SOLD: 04/22/2020 [facility] Potassium Chloride 10 MEQ Extended Release Oral Tablet POTAS SIUM CHLORIDE 10/23/2019 12:00:00 AM EDT tablet extended release 90 TAKE ONE TABLET BY MOUTH EVERY DAY TAKE ONE TABLET BY MOUTH EVERY DAY SOLD: 04/22/2020 [facility] Potassium Chloride 10 MEQ Extended Release Oral Tablet POTAS SIUM CHLORIDE 10/23/2019 12:00:00 AM EDT tablet extended release 90 TAKE ONE TABLET BY MOUTH EVERY DAY TAKE ONE TABLET BY MOUTH EVERY DAY SOLD: 01/23/2020 [facility] 100 unit/mL (70-30) 10/23/2019 12:00:00 AM EDT suspension 60 INJECT 38 UNITS UNDER THE SKIN EVERY MORNING AND 40 UNITS EVERY EVENING INJECT 38 UNITS UNDER THE SKIN EVERY MORNING AND 40 UNITS EVERY EVENING SOLD: 10/24/2019 [facility] 10 mg 10/23/2019 12:00:00 AM EDT tablet 90 TAKE ONE TABLET BY MOUTH EVERY DAY TAKE ONE TABLET BY MOUTH EVERY DAY SOLD: 10/24/2019 [facility] 12.5 mg 10/23/2019 12:00:00 AM EDT capsule 90 TAKE ONE CAPSULE BY MOUTH EVERY DAY TAKE ONE CAPSULE BY MOUTH EVERY DAY SOLD: 04/22/2020 [facility] 10 mg 10/23/2019 12:00:00 AM EDT tablet 90 TAKE ONE TABLET BY MOUTH EVERY DAY TAKE ONE TABLET BY MOUTH EVERY DAY SOLD: 04/22/2020 [facility] 10 mEq 10/23/2019 12:00:00 AM EDT tablet extended release 90 TAKE ONE TABLET BY MOUTH EVERY DAY TAKE ONE TABLET BY MOUTH EVERY DAY SOLD: 10/24/2019 [facility] 12.5 mg 10/23/2019 12:00:00 AM EDT capsule 90 TAKE ONE CAPSULE BY MOUTH EVERY DAY TAKE ONE CAPSULE BY MOUTH EVERY DAY SOLD: 10/24/2019 [facility] Losartan Potassium 50 MG Oral Tablet LOSARTAN POTASSIUM 12:00:00 AM EDT tablet 90 TAKE ONE TABLET BY MOUTH MICHAEL DAY TAKE ONE TABLET BY MOUTH EVERY DAY SOLD: 10/24/2019 [facility] 12.5 mg 10/23/2019 12:00:00 AM EDT capsule 90 TAKE ONE CAPSULE BY MOUTH EVERY DAY TAKE ONE CAPSULE BY MOUTH EVERY DAY SOLD: 01/23/2020 [facility] 50 mg 10/23/2019 12:00:00 AM EDT tablet 90 TAKE ONE TABLET BY MOUTH EVERY DAY TAKE ONE TABLET BY MOUTH EVERY DAY SOLD: 01/23/2020 [facility] 10 mg 10/23/2019 12:00:00 AM EDT tablet 90 TAKE ONE TABLET BY MOUTH EVERY DAY TAKE ONE TABLET BY MOUTH EVERY DAY SOLD: 01/23/2020 [facility] 5 mg 06/22/2019 12:00:00 AM EST tablet 30 TAKE ONE TABLET BY MOUTH EVERY DAY IN THE MORNING TAKE ONE TABLET BY MOUTH EVERY DAY IN THE MORNING SOLD : 12/07/2019 [facility] 5 mg 06/22/2019 12:00:00 AM EST tablet 30 TAKE ONE TABLET BY MOUTH EVERY DAY IN THE MORNING TAKE ONE TABLET BY MOUTH EVERY DAY IN THE MORNING SOLD : 10/26/2019 [facility] BLOOD SUGAR DIAGNOSTIC 12/25/2018 12:00:00 AM EDT strip 350 USE 4 TIMES DAILY TO CHECK BLOOD SUGARS USE 4 TIMES DAILY TO CHECK BLOOD SUGARS SOLD: 09/27/2019 [facility] BLOOD SUGAR DIAGNOSTIC 12/25/2018 12:00:00 AM EDT strip 350 USE 4 TIMES DAILY TO CHECK BLOOD SUGARS USE 4 TIMES DAILY TO CHECK BLOOD SUGARS SOLD: 12/21/2019 [facility] Insurance Providers Payer name Policy type / Coverage type Policy ID Covered democrat ID Covered democrat's relationship to vargas Policy Vargas Plan Information [facility] [id number] SP [id number] UN COMMUNITY PLAN [id number] SP [id number] [facility]) O [id number] S [id number] [place] [employer] Medigap Part B [id number] Self [id number] [place] [employer] Medigap Part B [id number] Self [id number] Medicaid Medigap Part B [id number] Self [id number] [facility] Allie/Ess PLS Commercial [id number] Self [id number] [employer] [place] [employer] Medigap Part B [id number] Self [id number] [place] [employer] Medigap Part B [id number] Self [id number] Medicaid Medigap Part B [id number] Self [id number] [place] [employer] Medigap Part B [id number] Self [id number] [place] [employer] Medigap Part B [id number] Self [id number] Medicaid Medigap Part B [id number] Self [id number] [employer] [place] [employer] Medigap Part B [id number] Self [id number] [place] [employer] Medigap Part B [id number] Self [id number] Medicaid Medigap Part B [id number] Self [id number] [facility] Medicaid Medicaid [id number] Self [id number] [place] [employer] Medigap Part B [id number] Self [id number] [place] [employer] Medigap Part B [id number] Self [id number] Medicaid Medigap Part B [id number] Self [id number] [place] [employer] Medigap Part B [id number] Self [id number] [place] [employer] Medigap Part B [id number] Self [id number] Medicaid Medigap Part B [id number] Self [id number] [employer] [place] [employer] Medigap Part B [id number] Self [id number] [place] [employer] Medigap Part B [id number] Self [id number] Medicaid Medigap Part B [id number] Self [id number] [employer] [place] [employer] Medigap Part B [id number] Self [id number] [place] [employer] Medigap Part B [id number] Self [id number] Medicaid Medigap Part B [id number] Self [id number] [employer] [place] [employer] Commercial [id number] Self [id number] [employer] [place] [employer] Commercial [id number] Self [id number] Medicaid Medigap Part B [id number] Self [id number] [employer] [place] [employer] Commercial [id number] Self [id number] [employer] [place] [employer] Commercial [id number] Self [id number] Medicaid Medigap Part B [id number] Self [id number] [facility] Allie/Ess PLS Commercial [id number] Self [id number] [facility] [id number] SP [id number] [facility] [id number] SP [id number] [employer] [place] [employer] Commercial [id number] Self [id number] [employer] [place] [employer] Commercial [id number] Self [id number] Medicaid Medigap Part B [id number] Self [id number] [facility] MEDICAID [id number] Keely [id number] [facility] MEDICAID [id number] Keely [id number] [facility] MEDICAID PI PI [employer] [place] [employer] Commercial [id number] Self [id number] [employer] [place] [employer] Commercial [id number] Self [id number] [facility] Allie/Ess PLS Commercial [id number] Self [id number] Medicaid Medicaid [id number] Self [id number] [employer] [employer] Commercial [id number] Self [id number] [employer] [place] [employer] Commercial [id number] Self [id number] [employer] [place] [employer] Commercial [id number] Self [id number] [employer] [place] [employer] Commercial [id number] Self [id number] [employer] [place] [employer] Commercial [id number] Self [id number] [employer] [place] [employer] Commercial [id number] Self [id number] [place] [employer] Commercial [id number] Self [id number] [employer] [place] [employer] Commercial [id number] Self [id number] [place] 306/806 [id number] SP [id number] [employer] [place] [employer] Commercial [id number] Self [id number] [place] [employer] Commercial [id number] Self [id number] [place] [employer] B [id number] S [id number] [employer] [place] [employer] Commercial 802 Self [id number] [employer] [place] [employer] Commercial 806 Self [id number] [place] [employer] Commercial 802 Self 802 [employer] 306/806 [id number] SP [id number] OTHER WORKERS COMPENSATION [id number] SP [id number] SELF PAY UNAVAILABLE SP UNAVAILA BLE [employer] [place] PPO [id number] SP [id number] [employer] [employer] P [id number] S [id number] Surgeries/Procedures Procedure Description Date Indications Data Source(s) ECG ROUTINE ECG W/LEAST 12 LDS W/I&R 04/29/2020 12:00: 00 AM EDT [facility] ([facility]) Diabetic Retinal Eye Exam 01/21/2020 12:00:00 AM EDT [facility] ([facility]) Diabetic Retinal Eye Exam 01/12/2020 12:00:00 AM EDT [facility] ([facility]) Diabetic Retinal Eye Exam 12/21/2019 12:00:00 AM EDT [facility] ([facility]) Diabetic Retinal Eye Exam 12/08/2019 12:00:00 AM EDT [facility] ([facility]) Results ID Date Data Source [id number] 09/06/2020 12:00:00 AM EST [facility] Name Value Range Interpretation Code Description Data Leighann rce(s) Supporting Document(s) SARS coronavirus 2 Ag Not Detected [facility] This lab was ordered by [facility] and reported by [facility]. ID Date Data Source [id number] 07/05/2020 01:07:00 PM EST [facility] ([facility]) Name Value Range Interpretation Code Description Data Leighann rce(s) Supporting Document(s) Triglyceride [Mass/volume] in Serum or Plasma 81 mg/dL 30-150 [facility] ([facility]) Cholesterol in HDL [Mass/volume] in Serum or Plasma 70 mg/dL 35-60 [facility] ([facility]) Cholesterol [Mass/volume] in Serum or Plasma 226 mg/dL 131-200 [facility] ([facility]) Cholesterol in LDL [Mass/volume] in Serum or Plasma by calcu lation 140 CALC 50-159 [facility] ([facility]) ID Date Data Source [id number] 07/05/2020 01:07:00 PM EST [facility] ([facility]) Name Value Range Interpretation Code Description Data Leighann rce(s) Supporting Document(s) Glucose [Mass/volume] in Serum or Plasma 208 mg/dL 74-99 [facility] ([facility]) 100-125 mg/dL PRE-DIABETES/FASTING >126 mg/dL DIABETES/FASTING Urea nitrogen [Mass/volume] in Serum or Plasma 28 mg/dL 7-18 [facility] ([facility]) Potassium [Moles/volume] in Serum or Plasma 4.6 meq/L 3.5-5.1 [facility] ([facility]) Sodium [Moles/volume] in Serum or Plasma 141 meq/L 136-145 [facility] ([facility]) Creatinine 1.2 mg/dL 0.6-1.3 [facility] ([facility]) Chloride [Moles/volume] in Serum or Plasma 102 meq/L 98-107 [facility] ([facility]) Calcium [Mass/volume] in Serum or Plasma 8.8 mg/dL 8.5-10.1 [facility] ([facility]) Carbon dioxide, total [Moles/volume] in Serum or Plasma 33 meq/L 21 -32 [facility] ([facility]) Glomerular filtration rate/1.73 sq M pre dicted among blacks [Volume Rate/Area] in Serum or Plasma by Creatinine-based formula (MDRD) 55 mL/min [facility] <content>CHRONIC KIDNEY DISEASE STAGING PER NKF</content>
<content></content>
<content>STAGE I & II GFR >= 60 NORMAL TO MILDLY DECREASED</content>
<content>STAGE III GFR 30-59 MODERATELY DECREASED</content>
<content>STAGE IV GFR 15-29 SEVERELY DECREASED</content>
<content>STAGE V GFR <15 VERY LITTLE GFR LEFT</content>
<content>ESRD GFR <15 ON PIPE LINE WALKER</content>
<content></content> Glomerular filtration rate/1.73 sq M pre dicted among non-blacks [Volume Rate/Area] in Serum or Plasma by Creatinine-based formula (MDRD) 45 mL/min [facility] ID Date Data Source [id number] 07/05/2020 01:07:00 PM EST [facility] Name Value Range Interpretation Code Description Data Leighann rce(s) Supporting Document(s) Hemoglobin A1c/Hemoglobin.total in Blood 7.2 % [facility] ([facility]) Lab Result Notes: Pre-Diabetes 5.7 - 6.4 % Diabetes = or > 6.5% Glucose mean value [Mass/volume] in Blood Estimated fr om glycated hemoglobin 160 mg/dL 60-110 [facility] ([facility] ) ID Date Data Source [id number] 07/05/2020 01:07:00 PM EST [facility] ([facility]) Name Value Range Interpretation Code Description Data Leighann rce(s) Supporting Document(s) Erythrocytes [#/volume] in Blood by Automated count 5.06 x10*6/UL 4.2 0-6.30 [facility] ([facility]) Leukocytes [#/volume] in Blood by Automated count 7.6 x10*3/UL 4.1-10 .9 [facility] ([facility]) Hemoglobin [Mass/volume] in Blood 13.9 g/dL 12.0-18.0 [facility] ([facility]) MCV 81.5 fL 80.0-97.0 [facility] ([facility]) Hematocrit [Volume Fraction] of Blood by Automated count 41.3 % 3 7.0-51.0 [facility] ([facility]) MCH 27.5 pg 26.0-32.0 [facility] ([facility]) Erythrocyte distribution width [Ratio] by Automated count 13.7 % 11.6-13.7 [facility] ([facility]) Platelets [#/volume] in Blood by Automated count 298 x10*3/UL 140-440 [facility] ([facility]) MCHC 33.8 g/dL 31.0-38.0 [facility] ([facility]) Lymph % 19.6 % 10.0-58.5 [facility] ([facility]) Mid % 5.0 % 1.7-9.3 [facility] ([facility]) MPV 7.9 FL 7.8-11.0 [facility] ([facility]) Neut % 75.4 % 37.0-92.0 [facility] ([facility]) Mid # 0.4 x10*3/UL 0.1-0.6 [facility] ([facility]) Lymph # 1.5 x10*3/UL 0.6-4.1 [facility] ([facility]) Neut # 5.7 x10*3/UL 2.0-7.8 [facility] ([facility]) ID Date Data Source [id number] 06/28/2020 12:00:00 AM EST [facility] Name Value Range Interpretation Code Description Data Leighann rce(s) Supporting Document(s) SARS coronavirus 2 Ag [facility] This lab was ordered by [facility] and reported by [facility]. ID Date Data Source [id number] 05/05/2020 11:29:00 AM EDT [facility] ([facility]) Name Value Range Interpretation Code Description Data Leighann rce(s) Supporting Document(s) Bedside Glucose 96 mg/dL 80-115 [facility] ([facility]) ID Date Data Source [id number] 05/05/2020 05:35:00 AM EDT [facility] ([facility]) Name Value Range Interpretation Code Description Data Leighann rce(s) Supporting Document(s) Glucose, Fasting 179 mg/dL 70-100 [facility] ([facility]) Blood Urea Nitrogen 19 mg/dL 7-18 [facility] ([facility]) Creatinine For GFR 1.11 mg/dL 0.55-1.30 [facility] ([facility]) Glomerular Filtration Rate 52.5 [facility] ([facility]) <content>Units are mL/min/1.73 m2</content>
<content></content>
<content>Chronic Kidney Disease Staging per NKF:</content>
<content></content>
<content>Stage I & II GFR >=60 Normal to Mildly Decreased</content>
<content>Stage III GFR 30- 59 Moderately Decreased</content>
<content>Stage IV GFR 15-29 Severely Decreased</content>
<content>Stage V GFR <15 Very Little GFR Left</content>
<content>ESRD GFR <15 on PIPE LINE WALKER</content>
<content></content> Potassium Serum 3.9 meq/L 3.5-5.1 [facility] ([facility]) Sodium Level 134 meq/L 136-145 [facility] ([facility]) Carbon Dioxide Level 31 meq/L 21-32 [facility] ([facility]) Anion Gap 3 meq/L 8-16 [facility] ([facility]) Chloride Level 100 meq/L 98-107 [facility] ([facility]) Alt/SGPT 19 U/L 12-78 [facility] ([facility]) Ast/Sgot 18 U/L 7-37 [facility] ([facility]) Calcium Level 8.6 mg/dL 8.8-10.2 [facility] ([facility]) Total Protein 7.2 GM/DL 6.4-8.2 [facility] ([facility]) Alkaline Phosphatase 63 U/L 45-117 [facility] ([facility]) Bilirubin,Total 0.2 mg/dL 0.2-1.0 [facility] ([facility]) Albumin 2.9 GM/DL 3.2-5.2 [facility] ([facility]) Albumin/Globulin Ratio 0.7 1.2-2.2 [facility] ([facility]) ID Date Data Source [id number] 05/05/2020 05:35:00 AM EDT [facility] ([facility]) Name Value Range Interpretation Code Description Data Leighann rce(s) Supporting Document(s) Red Blood Count 5.38 10 4.00-5.40 [facility] ([facility]) White Blood Count 13.4 10 4.0-10.0 [facility] ([facility]) Mean Corpuscular Volume 83.8 fl 80.0-96.0 [facility] ([facility]) Hematocrit 45.1 % 36.0-47.0 [facility] Hemoglobin 14.2 g/dL 12.0-15.5 [facility] ([facility]) Red Cell Distribution Width 14.0 % 11.5-14.5 [facility] ([facility]) Mean Corpuscular HGB Conc 31.5 g/dL 32.0-36.5 [facility] ([facility]) Mean Corpuscular Hemoglobin 26.4 pg 27.0-33.0 [facility] ([facility]) Neutrophils % 88.1 % 36.0-66.0 [facility] ([facility]) Lymph % 6.5 % 24.0-44.0 [facility] ([facility]) Platelet Count, Automated 321 10 150-450 [facility] ([facility]) [place] % 4.9 % 0.0-5.0 [facility] Eos % 0.0 % 0.0-3.0 [facility] ([facility]) Baso % 0.1 % 0.0-1.0 [facility] ([facility]) Neutrophils # 11.8 10 1.5-8.5 [facility] ([facility]) Immature Granulocyte % 0.4 % 0-3.0 [facility] ([facility]) Nucleated Red Blood Cell % 0.0 % 0-0 [facility] ([facility]) Lymph # 0.9 10 1.5-5.0 [facility]) [place] # 0.7 10 0.0-0.8 [facility] Eos # 0.0 10 0.0-0.5 [facility]) Baso # 0.0 10 0.0-0.2 [facility] ([facility]) ID Date Data Source [id number] 05/04/2020 08:04:00 PM EDT [facility] ([facility]) Name Value Range Interpretation Code Description Data Leighann rce(s) Supporting Document(s) Bedside Glucose 189 mg/dL 80-115 [facility] ([facility]) ID Date Data Source [id number] 05/04/2020 05:14:00 PM EDT [facility] ([facility]) Name Value Range Interpretation Code Description Data Leighann rce(s) Supporting Document(s) Bedside Glucose 189 mg/dL 80-115 [facility] ([facility]) ID Date Data Source [id number] 05/04/2020 01:35:00 PM EDT [facility] ([facility]) Name Value Range Interpretation Code Description Data Leighann rce(s) Supporting Document(s) Bedside Glucose 170 mg/dL 80-115 [facility] ([facility]) Nurse Notified ID Date Data Source [id number] 05/04/2020 08:10:00 AM EDT [facility] ([facility]) Name Value Range Interpretation Code Description Data Leighann rce(s) Supporting Document(s) Bedside Glucose 122 mg/dL 80-115 [facility] ([facility]) ID Date Data Source [id number] 05/04/2020 07:20:00 AM EDT [facility] ([facility]) Name Value Range Interpretation Code Description Data Leighann rce(s) Supporting Document(s) White Blood Count 8.4 10 4.0-10.0 [facility] Red Blood Count 5.85 10 4.00-5.40 [facility] ([facility]) Mean Corpuscular Volume 85.6 fl 80.0-96.0 [facility] ([facility]) Hematocrit 50.1 % 36.0-47.0 [facility]) Hemoglobin 15.4 g/dL 12.0-15.5 [facility]) Red Cell Distribution Width 14.0 % 11.5-14.5 [facility] ([facility]) Mean Corpuscular HGB Conc 30.7 g/dL 32.0-36.5 [facility] ([facility]) Mean Corpuscular Hemoglobin 26.3 pg 27.0-33.0 [facility] ([facility]) Platelet Count, Automated 311 10 150-450 [facility] ([facility]) Nucleated Red Blood Cell % 0.0 % 0-0 [facility] ([facility]) ID Date Data Source [id number] 05/04/2020 07:20:00 AM EDT [facility] ([facility]) Name Value Range Interpretation Code Description Data Leighann rce(s) Supporting Document(s) Glucose, Fasting 130 mg/dL 70-100 [facility] ([facility]) Creatinine For GFR 1.00 mg/dL 0.55-1.30 [facility] ([facility]) Blood Urea Nitrogen 14 mg/dL 7-18 [facility] ([facility]) Glomerular Filtration Rate 59.2 [facility] ([facility]) <content>Units are mL/min/1.73 m2</content>
<content></content>
<content>Chronic Kidney Disease Staging per NKF:</content>
<content></content>
<content>Stage I & II GFR >=60 Normal to Mildly Decreased</content>
<content>Stage III GFR 30- 59 Moderately Decreased</content>
<content>Stage IV GFR 15-29 Severely Decreased</content>
<content>Stage V GFR <15 Very Little GFR Left</content>
<content>ESRD GFR <15 on PIPE LINE WALKER</content>
<content></content> Potassium Serum 4.0 meq/L 3.5-5.1 [facility] ([facility]) Sodium Level 139 meq/L 136-145 [facility] ([facility]) Anion Gap 5 meq/L 8-16 [facility]) Calcium Level 9.2 mg/dL 8.8-10.2 [facility] ([facility]) Carbon Dioxide Level 31 meq/L 21-32 [facility] ([facility]) Chloride Level 103 meq/L 98-107 [facility] ([facility]) ID Date Data Source [id number] 05/04/2020 07:20:00 AM EDT [facility] ([facility]) Name Value Range Interpretation Code Description Data Leighann rce(s) Supporting Document(s) Blood Type Laboratory test result [facility] ([facility]) AB Screen (Indirect Addie)Vis Laboratory test result [facility] ([facility]) ID Date Data Source [id number] 04/29/2020 10:00:00 AM EDT [facility] Name Value Range Interpretation Code Description Data Leighann rce(s) Supporting Document(s) SARS coronavirus 2 RNA [facility] This lab was ordered by [facility] and reported by [facility]. ID Date Data Source [id number] 04/29/2020 09:14:00 AM EDT [facility] ([facility]) Name Value Range Interpretation Code Description Data Leighann rce(s) Supporting Document(s) Urea nitrogen [Mass/volume] in Serum or Plasma 25 mg/dL 7-18 [facility] ([facility]) Glucose [Mass/volume] in Serum or Plasma 151 mg/dL 74-99 [facility] ([facility]) 100-125 mg/dL PRE-DIABETES/FASTING >126 mg/dL DIABETES/FASTING Potassium [Moles/volume] in Serum or Plasma 4.1 meq/L 3.5-5.1 [facility] ([facility]) Creatinine 1.1 mg/dL 0.6-1.3 [facility] Sodium [Moles/volume] in Serum or Plasma 137 meq/L 136-145 [facility] ([facility]) Calcium [Mass/volume] in Serum or Plasma 9.1 mg/dL 8.5-10.1 [facility] ([facility]) Carbon dioxide, total [Moles/volume] in Serum or Plasma 32 meq/L 21 -32 [facility] ([facility]) Chloride [Moles/volume] in Serum or Plasma 97 meq/L 98-107 [facility] ([facility]) Aspartate aminotransferase [Enzymatic activity/volume] in Serum or Plasma 17 U/L 15-37 [facility] Alkaline phosphatase isoenzyme [Units/volume] in Serum or Pl asma 64 mg/dL 46-116 [facility] Total Bilirubin 0.4 mg/dL 0.2-1.0 [facility] ([facility]) Albumin [Mass/volume] in Serum or Plasma 3.8 g/dL 3.4-5.0 [facility] Alanine aminotransferase [Enzymatic activity/volume] in Seru m or Plasma 21 U/L 12-78 [facility] A/G Ratio 0.90 CALC 1.00-1.90 [facility] ([facility]) Proteinase 3 Ab [Units/volume] in Serum 8.0 g/dL 6.4-8.2 [facility] Glomerular filtration rate/1.73 sq M pre dicted among blacks [Volume Rate/Area] in Serum or Plasma by Creatinine-based formula (MDRD) Laboratory test result [facility] <content>CHRONIC KIDNEY DISEASE STAGING PER NKF</content>
<content></content>
<content>STAGE I & II GFR >= 60 NORMAL TO MILDLY DECREASED</content>
<content>STAGE III GFR 30-59 MODERATELY DECREASED</content>
<content>STAGE IV GFR 15-29 SEVERELY DECREASED</content>
<content>STAGE V GFR <15 VERY LITTLE GFR LEFT</content>
<content>ESRD GFR <15 ON PIPE LINE WALKER</content>
<content></content> Glomerular filtration rate/1.73 sq M pre dicted among non-blacks [Volume Rate/Area] in Serum or Plasma by Creatinine-based formula (MDRD) 50 mL/min [facility] ID Date Data Source [id number] 04/29/2020 09:14:00 AM EDT [facility] Name Value Range Interpretation Code Description Data Leighann rce(s) Supporting Document(s) Hemoglobin A1c/Hemoglobin.total in Blood 7.2 % [facility] ([facility]) Lab Result Notes: Pre-Diabetes 5.7 - 6.4 % Diabetes = or > 6.5% Glucose mean value [Mass/volume] in Blood Estimated fr om glycated hemoglobin 160 mg/dL 60-110 [facility] ID Date Data Source [id number] 04/29/2020 09:14:00 AM EDT [facility] ([facility]) Name Value Range Interpretation Code Description Data Leighann rce(s) Supporting Document(s) Hemoglobin [Mass/volume] in Blood 15.0 g/dL 12.0-18.0 [facility] Erythrocytes [#/volume] in Blood by Automated count 5.61 x10*6/UL 4.2 0-6.30 [facility] Leukocytes [#/volume] in Blood by Automated count 7.4 x10*3/UL 4.1-10 .9 [facility] MCH 26.7 pg 26.0-32.0 [facility] ([facility]) MCV 81.2 fL 80.0-97.0 [facility] ([facility]) Hematocrit [Volume Fraction] of Blood by Automated count 45.6 % 3 7.0-51.0 [facility] Platelets [#/volume] in Blood by Automated count 319 x10*3/UL 140-440 [facility] MCHC 32.9 g/dL 31.0-38.0 [facility] ([facility]) Erythrocyte distribution width [Ratio] by Automated count 13.8 % 11.6-13.7 [facility] ([facility]) Mid % 5.6 % 1.7-9.3 [facility] ([facility]) Lymph % 18.5 % 10.0-58.5 [facility] ([facility]) MPV 7.8 FL 7.8-11.0 [facility] ([facility]) Mid # 0.5 x10*3/UL 0.1-0.6 [facility] ([facility]) Neut % 75.9 % 37.0-92.0 [facility]) Lymph # 1.3 x10*3/UL 0.6-4.1 [facility] ([facility]) Neut # 5.6 x10*3/UL 2.0-7.8 [facility] ([facility]) ID Date Data Source [id number] 04/13/2020 03:25:00 PM EDT [facility] ([facility]) Name Value Range Interpretation Code Description Data Leighann rce(s) Supporting Document(s) Cancer Ag 19-9 [Units/volume] in Serum or Plasma 70.1 U/ML [facility] ([facility]) THE CA 19-9 ASSAY IS PERFORMED ON THE [employer] BY CHEMILUMINESCENCE AND SHOULD NOT BE COMPARED INTERCHANGEABLY WITH OTHER METHODS. IT SHOULD NOT BE USED ALONE A SCREENING TEST OR DIAGNOSIS FOR THE PRESENCE OR ABSENCE OF MALIGNANT DISEASE. PREDICTIONS OF DISEASE RECURRENCE SHOULD NOT BE BASED SOLELY ON VALUES OBTAINED FROM SERIAL PATIENT SERUM VALUES. Carcinoembryonic Ag [Mass/volume] in Serum or Plasma 1.5 ng/mL [facility] ([facility]) THE CEA ASSAY IS PERFORMED ON THE [employer] BY CHEMILUMINESCENCE AND SHOULD NOT BE COMPARED INTERCHANGEABLY WITH OTHER METHODS. IT SHOULD NOT BE USED ALONE A SCREENING TEST OR DIAGNOSIS FOR THE PRESENCE OR ABSENCE OF MALIGNANT DISEASE. PREDICTIONS OF DISEASE RECURRENCE SHOULD NOT BE BASED SOLELY ON VALUES OBTAINED FROM SERIAL PATIENT SERUM VALUES. Cancer Ag 125 [Units/volume] in Serum or Plasma 9.9 U/ML [facility] ([facility]) THE CA 125 ASSAY IS PERFORMED ON THE [employer] BY CHEMILUMINESCENCE AND SHOULD NOT BE COMPARED INTERCHANGEABLY WITH OTHER METHODS. IT SHOULD NOT BE USED ALONE A SCREENING TEST OR DIAGNOSIS FOR THE PRESENCE OR ABSENCE OF MALIGNANT DISEASE. PREDICTIONS OF DISEASE RECURRENCE SHOULD NOT BE BASED SOLELY ON VALUES OBTAINED FROM SERIAL PATIENT SERUM VALUES. Lactate dehydrogenase [Enzymatic activit y/volume] in Serum or Plasma by Lactate to pyruvate reaction 207 U/L 84-246 [facility] ([facility]) ID Date Data Source [id number] 02/28/2020 10:57:00 AM EDT [facility] ([facility]) Name Value Range Interpretation Code Description Data Leighann rce(s) Supporting Document(s) Hemoglobin 13.7 g/dL 12.0-15.5 [facility] White Blood Count 9.0 10 4.0-10.0 [facility] ([facility]) Red Blood Count 5.13 10 4.00-5.40 [facility] ([facility]) Mean Corpuscular Hemoglobin 26.7 pg 27.0-33.0 [facility] ([facility]) Hematocrit 43.6 % 36.0-47.0 [facility]) Mean Corpuscular Volume 85.0 fl 80.0-96.0 [facility] ([facility]) Platelet Count, Automated 300 10 150-450 [facility] ([facility]) Mean Corpuscular HGB Conc 31.4 g/dL 32.0-36.5 [facility] ([facility]) Red Cell Distribution Width 14.1 % 11.5-14.5 [facility] ([facility]) Neutrophils % 75.1 % 36.0-66.0 [facility] ([facility]) Eos % 1.2 % 0.0-3.0 [facility]) Lymph % 16.6 % 24.0-44.0 [facility]) [place] % 5.9 % 0.0-5.0 [facility]) Immature Granulocyte % 0.6 % 0-3.0 [facility] ([facility]) Nucleated Red Blood Cell % 0.0 % 0-0 [facility] ([facility]) Baso % 0.6 % 0.0-1.0 [facility]) [place] # 0.5 10 0.0-0.8 [facility]) Lymph # 1.5 10 1.5-5.0 [facility]) Neutrophils # 6.8 10 1.5-8.5 [facility] ([facility]) Eos # 0.1 10 0.0-0.5 [facility]) Baso # 0.1 10 0.0-0.2 [facility]) ID Date Data Source [id number] 02/28/2020 10:57:00 AM EDT [facility] ([facility]) Name Value Range Interpretation Code Description Data Leighann rce(s) Supporting Document(s) Inr 1.20 [facility] THERAPUTIC HUMAN INR VALUES INDICATIONS NORMAL RANGES PROPHYLAXIS/TREATMENT OF: VENOUS THROMBOSIS 2.0-3.0 PULMONARY EMBOLISM 2.0-3.0 PREVENTION OF SYSTEMIC EMBOLISM FROM: TISSUE HEART VALVES 2.0-3.0 ACUTE MYOCARDIAL INFARCTION 2.0-3.0 VALVULAR HEART DISEASE 2.0-3.0 ATRIAL FIBRILLATION 2.0-3.0 MECHANICAL VALVES(HIGH RISK) 2.5-3.5 RECURRENT MYOCARDIAL INFARCTION 2.5-3.5 Prothrombin Time 15.5 s 11.8-14.0 [facility] ([facility]) Partial Thromboplastin Time 35.1 s 25.0-38.4 [facility] ([facility]) ID Date Data Source [id number] 02/28/2020 10:50:00 AM EDT [facility] ([facility]) Name Value Range Interpretation Code Description Data [facility] rce(s) Supporting Document(s) Cancer Ag 19-9 [Units/volume] in Serum or Plasma 68.5 U/ML [facility] ([facility]) THE CA 19-9 ASSAY IS PERFORMED ON THE [employer] BY CHEMILUMINESCENCE AND SHOULD NOT BE COMPARED INTERCHANGEABLY WITH OTHER METHODS. IT SHOULD NOT BE USED ALONE A SCREENING TEST OR DIAGNOSIS FOR THE PRESENCE OR ABSENCE OF MALIGNANT DISEASE. PREDICTIONS OF DISEASE RECURRENCE SHOULD NOT BE BASED SOLELY ON VALUES OBTAINED FROM SERIAL PATIENT SERUM VALUES. Cancer Ag 125 [Units/volume] in Serum or Plasma 10.3 U/ML [facility] ([facility]) THE CA 125 ASSAY IS PERFORMED ON THE [facility] [employer] BY CHEMILUMINESCENCE AND SHOULD NOT BE COMPARED INTERCHANGEABLY WITH OTHER METHODS. IT SHOULD NOT BE USED ALONE A SCREENING TEST OR DIAGNOSIS FOR THE PRESENCE OR ABSENCE OF MALIGNANT DISEASE. PREDICTIONS OF DISEASE RECURRENCE SHOULD NOT BE BASED SOLELY ON VALUES OBTAINED FROM SERIAL PATIENT SERUM VALUES. Carcinoembryonic Ag [Mass/volume] in Serum or Plasma 2.7 ng/mL [facility] ([facility]) THE CEA ASSAY IS PERFORMED ON THE [employer] BY CHEMILUMINESCENCE AND SHOULD NOT BE COMPARED INTERCHANGEABLY WITH OTHER METHODS. IT SHOULD NOT BE USED ALONE A SCREENING TEST OR DIAGNOSIS FOR THE PRESENCE OR ABSENCE OF MALIGNANT DISEASE. PREDICTIONS OF DISEASE RECURRENCE SHOULD NOT BE BASED SOLELY ON VALUES OBTAINED FROM SERIAL PATIENT SERUM VALUES. ID Date Data Source [id number] 02/28/2020 10:50:00 AM EDT [facility] ([facility]) Name Value Range Interpretation Code Description Data Leighann rce(s) Supporting Document(s) Glucose, Fasting 130 mg/dL 70-100 [facility] ([facility]) Creatinine For GFR 1.27 mg/dL 0.55-1.30 [facility] ([facility]) Blood Urea Nitrogen 28 mg/dL 7-18 [facility] ([facility]) Potassium Serum 3.7 meq/L 3.5-5.1 [facility] ([facility]) Sodium Level 139 meq/L 136-145 [facility] ([facility]) Glomerular Filtration Rate 45.1 [facility] ([facility]) <content>Units are mL/min/1.73 m2</content>
<content></content>
<content>Chronic Kidney Disease Staging per NKF:</content>
<content></content>
<content>Stage I & II GFR >=60 Normal to Mildly Decreased</content>
<content>Stage III GFR 30- 59 Moderately Decreased</content>
<content>Stage IV GFR 15-29 Severely Decreased</content>
<content>Stage V GFR <15 Very Little GFR Left</content>
<content>ESRD GFR <15 on PIPE LINE WALKER</content>
<content></content> Carbon Dioxide Level 30 mmol/L 20-29 [facility] Anion Gap 6 meq/L 8-16 [facility] ([facility]) Calcium Level 9.2 mg/dL 8.8-10.2 [facility] ([facility]) Chloride Level 103 meq/L 98-107 [facility] ([facility]) ID Date Data Source [id number] 02/28/2020 10:50:00 AM EDT [facility] ([facility]) Name Value Range Interpretation Code Description Data Leighann rce(s) Supporting Document(s) Ast/Sgot 17 IU/L 0-40 [facility] ([facility]) Alt/SGPT 19 IU/L 0-32 [facility] ([facility]) Bilirubin,Direct Laboratory test result 0.0-0.2 [facility] ([facility]) Alkaline Phosphatase 74 U/L 45-117 [facility] ([facility]) Bilirubin,Total 0.4 mg/dL 0.2-1.0 [facility] ([facility]) Albumin 3.4 GM/DL 3.2-5.2 [facility] ([facility]) Total Protein 8.6 GM/DL 6.4-8.2 [facility] ([facility]) Albumin/Globulin Ratio 0.7 1.2-2.2 [facility] ([facility]) ID Date Data Source [id number] 12/07/2019 07:37:00 AM EDT [facility] ([facility]) Name Value Range Interpretation Code Description Data Leighann rce(s) Supporting Document(s) Microalbumin Urine 484.7 mg/L 1.3-20.0 [facility] ([facility]) Microalb/Creat Ratio 370.8 ug/mg 0.0-30.0 [facility] ([facility]) Urine Creatinine 130.7 mg/dL 30.0-125.0 [facility] ([facility]) ID Date Data Source [id number] 12/07/2019 07:37:00 AM EDT [facility] Name Value Range Interpretation Code Description Data Leighann rce(s) Supporting Document(s) Cholesterol [Mass/volume] in Serum or Plasma 238 mg/dL 131-200 [facility] ([facility]) Triglyceride [Mass/volume] in Serum or Plasma 112 mg/dL 30-150 [facility] ([facility]) Cholesterol in LDL [Mass/volume] in Serum or Plasma by calcu lation 159 CALC 50-159 [facility] ([facility]) Cholesterol in HDL [Mass/volume] in Serum or Plasma 57 mg/dL 35-60 [facility] ([facility]) ID Date Data Source [id number] 12/07/2019 07:37:00 AM EDT [facility] ([facility]) Name Value Range Interpretation Code Description Data Leighann rce(s) Supporting Document(s) Glucose [Mass/volume] in Serum or Plasma 99 mg/dL 74-99 [facility] ([facility]) 100-125 mg/dL PRE-DIABETES/FASTING >126 mg/dL DIABETES/FASTING Urea nitrogen [Mass/volume] in Serum or Plasma 27 mg/dL 7-18 [facility] ([facility]) Creatinine 1.1 mg/dL 0.6-1.3 [facility] Potassium [Moles/volume] in Serum or Plasma 4.1 meq/L 3.5-5.1 [facility] ([facility]) Sodium [Moles/volume] in Serum or Plasma 142 meq/L 136-145 [facility] ([facility]) Chloride [Moles/volume] in Serum or Plasma 102 meq/L 98-107 [facility] Carbon dioxide, total [Moles/volume] in Serum or Plasma 32 meq/L 21 -32 [facility] ([facility]) Alkaline phosphatase isoenzyme [Units/volume] in Serum or Pl asma 79 mg/dL 46-116 [facility] ([facility]) Calcium [Mass/volume] in Serum or Plasma 9.0 mg/dL 8.5-10.1 [facility] ([facility]) Total Bilirubin 0.3 mg/dL 0.2-1.0 [facility] ([facility]) Alanine aminotransferase [Enzymatic activity/volume] in Seru m or Plasma 21 U/L 12-78 [facility] ([facility]) Albumin [Mass/volume] in Serum or Plasma 3.3 g/dL 3.4-5.0 [facility] ([facility]) Aspartate aminotransferase [Enzymatic activity/volume] in Serum or Plasma 19 U/L 15-37 [facility] ([facility] ) A/G Ratio 0.77 CALC 1.00-1.90 [facility] ([facility]) Glomerular filtration rate/1.73 sq M pre dicted among non-blacks [Volume Rate/Area] in Serum or Plasma by Creatinine-based formula (MDRD) 50 mL/min [facility] Proteinase 3 Ab [Units/volume] in Serum 7.6 g/dL 6.4-8.2 [facility] Glomerular filtration rate/1.73 sq M pre dicted among blacks [Volume Rate/Area] in Serum or Plasma by Creatinine-based formula (MDRD) Laboratory test result [facility] ([facility]) <content>CHRONIC KIDNEY DISEASE STAGING PER NKF</content>
<content></content>
<content>STAGE I & II GFR >= 60 NORMAL TO MILDLY DECREASED</content>
<content>STAGE III GFR 30-59 MODERATELY DECREASED</content>
<content>STAGE IV GFR 15-29 SEVERELY DECREASED</content>
<content>STAGE V GFR <15 VERY LITTLE GFR LEFT</content>
<content>ESRD GFR <15 ON PIPE LINE WALKER</content>
<content></content> ID Date Data Source [id number] 12/07/2019 07:37:00 AM EDT [facility]) Name Value Range Interpretation Code Description Data Leighann rce(s) Supporting Document(s) Hemoglobin A1c/Hemoglobin.total in Blood 8.2 g/dL 4.8-5.6 [facility] ([facility]) Lab Result Notes: Pre-Diabetes 5.7 - 6.4 % Diabetes = or > 6.5% Glucose mean value [Mass/volume] in Blood Estimated fr om glycated hemoglobin 189 mg/dL 60-110 [facility] ([facility] ) ID Date Data Source [id number] 12/07/2019 07:37:00 AM EDT [facility]) Name Value Range Interpretation Code Description Data Leighann rce(s) Supporting Document(s) Leukocytes [#/volume] in Blood by Automated count 7.4 x10*3/UL 4.1-10 .9 [facility] Erythrocytes [#/volume] in Blood by Automated count 5.51 x10*6/UL 4.2 0-6.30 [facility] Hematocrit [Volume Fraction] of Blood by Automated count 43.9 % 3 7.0-51.0 [facility] Hemoglobin [Mass/volume] in Blood 14.3 g/dL 12.0-18.0 [facility] MCH 26.1 pg 26.0-32.0 [facility] ([facility]) MCV 79.8 fL 80.0-97.0 [facility] ([facility]) MCHC 32.7 g/dL 31.0-38.0 [facility] ([facility]) Erythrocyte distribution width [Ratio] by Automated count 14.2 % 11.6-13.7 [facility] Lymph % 20.1 % 10.0-58.5 [facility] ([facility]) Platelets [#/volume] in Blood by Automated count 261 x10*3/UL 140-440 [facility] MPV 7.5 FL 7.8-11.0 [facility] ([facility]) Neut % 72.5 % 37.0-92.0 [facility] ([facility]) Mid % 7.4 % 1.7-9.3 [facility] ([facility]) Lymph # 1.4 x10*3/UL 0.6-4.1 [facility] ([facility]) Mid # 0.7 x10*3/UL 0.1-0.6 [facility] ([facility]) Neut # 5.3 x10*3/UL 2.0-7.8 [facility] ID Date Data Source [id number] 12/07/2019 07:37:00 AM EDT [facility] Name Value Range Interpretation Code Description Data Leighann rce(s) Supporting Document(s) Hemoglobin A1c/Hemoglobin.total in Blood Laboratory test result [facility] ([facility]) Procedure Vital Signs ID Date Data Source [id number] Name Value Range Interpretation Code Description Data Source(s) Body mass index (BMI) [Ratio] 53.4 kg/m2 53.4 k g/m2 [facility] Oxygen saturation in Arterial blood by Pulse oximetry 96 % 96 % [facility] RM Air Body weight 299.00 [lb_av] 299.00 [lb_av] [facility] ([facility]) Body height 62.75 [in_i] 62.75 [in_i] [facility] ([facility]) 5'2.75" Heart rate 86 /min 86 /min [facility] Diastolic blood pressure 70 mm[Hg] 70 mm[Hg] [facility] ([facility]) Systolic blood pressure 130 mm[Hg] 130 mm[Hg] [facility] ([facility]) Body mass index (BMI) [Ratio] 51.6 kg/m2 51.6 k g/m2 [facility] ([facility]) Body weight 289.00 [lb_av] 289.00 [lb_av] [facility] ([facility]) Body height 62.75 [in_i] 62.75 [in_i] [facility] ([facility]) 5'2.75" Heart rate 76 /min 76 /min [facility] ([facility]) Diastolic blood pressure 80 mm[Hg] 80 mm[Hg] [facility] Systolic blood pressure 128 mm[Hg] 128 mm[Hg] [facility] ([facility]) Body height 62.75 [in_i] 62.75 [in_i] [facility] ([facility]) 5'2.75" Heart rate 74 /min 74 /min [facility] ([facility]) Diastolic blood pressure 60 mm[Hg] 60 mm[Hg] [facility]) Systolic blood pressure 110 mm[Hg] 110 mm[Hg] [facility] ([facility]) Body mass index (BMI) [Ratio] 50.5 kg/m2 50.5 k g/m2 [facility] ([facility]) Body weight 283.00 [lb_av] 283.00 [lb_av] [facility] T ([facility])
[2020-09-25] MEDS ORDERED: ELIQ5TAB PO (08:58)
--- NOTE | 2020-09-25 09:44 | REP ---
INDICATION: purple red distal 2nd phalynx. COMPARISON: Right toe series 09/30/2016 TECHNIQUE: Four views FINDINGS: There is an intra-articular fracture distal end of the proximal phalanx of the 2nd toe. Fracture fragment stays with the middle phalanx and is displaced as the middle phalanx is laterally subluxed. 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 Other joints show minor degenerative changes. There has been a fusion of the IP joint of the great toe since the previous study. IMPRESSION: Intra-articular fracture distal end of the proximal phalanx 2nd toe with some lateral subluxation of the middle phalanx on the proximal phalanx but no dislocation. Interval fusion of the IP joint of the great toe since the 2017 prior. <Electronically signed by Jesus Nichols > 09/25/20 [id number]
[2020-09-25 09:47] LABS: BASO # 0.1 10^3/uL (0.0-0.2); BASO % 0.6 % (0.0-1.0); EOS # 0.1 10^3/uL (0.0-0.5); EOS % 1.3 % (0.0-3.0); HEMATOCRIT 49.2 % (36.0-47.0); HEMOGLOBIN 14.8 g/dl (12.0-15.5); LYMPH # 2.1 10^3/uL (1.5-5.0); MEAN CORPUSCULAR HEMOGLOBIN 26.5 pg (27.0-33.0); MEAN CORPUSCULAR HGB CONC 30.1 g/dl (32.0-36.5); MONO # 0.7 10^3/uL (0.0-0.8); MONO % 7.4 % (2.0-8.0); NEUTROPHILS # 6.5 10^3/uL (1.5-8.5); NEUTROPHILS % 68.3 % (36.0-66.0); PLATELET COUNT, AUTOMATED 303 10^3/uL (150-450); RED BLOOD COUNT 5.59 10^6/uL (4.00-5.40); WHITE BLOOD COUNT 9.5 10^3/uL (4.0-10.0)
[2020-09-25 09:57] LABS: INR 1.08; PROTHROMBIN TIME 14.2 SECONDS (12.5-14.3)
[2020-09-25 09:58] LABS: PARTIAL THROMBOPLASTIN TIME 33.8 SECONDS (24.2-38.5)
[2020-09-25 09:59] LABS: BLOOD UREA NITROGEN 33 MG/DL (7-18); CARBON DIOXIDE LEVEL 33 MEQ/L (21-32); CHLORIDE LEVEL 100 MEQ/L (98-107); CREATININE FOR GFR 1.21 MG/DL (0.55-1.30); GLOMERULAR FILTRATION RATE 47.5 (>45); GLUCOSE, FASTING 166 MG/DL (70-100); POTASSIUM SERUM 3.8 MEQ/L (3.5-5.1); SODIUM LEVEL 139 MEQ/L (136-145)
[2020-09-25 10:00] LABS: ALBUMIN 3.9 GM/DL (3.2-5.2); ALT/SGPT 20 U/L (12-78); BILIRUBIN,DIRECT 0.2 MG/DL (0.0-0.2); BILIRUBIN,TOTAL 0.6 MG/DL (0.2-1.0); CALCIUM LEVEL 9.1 MG/DL (8.8-10.2); TOTAL PROTEIN 8.3 GM/DL (6.4-8.2)
--- OUTSIDE RECORDS SUMMARY | 2020-09-25 10:05 | CCD ---
Author Author [facility] Organization [facility] Address Unknown Phone Unavailable Care Team Providers Care Supervisor Prop Making Name Role Phone Ayala Brody MD Unavailable [...] Unavailable Unavailable Ayala Brody MD Unavailable Unavailable Mary GraceAyala MD Unavailable Unavailable Eagle BendAyala MD Unavailable Unavailable Eagle BendAyala MD Unavailable Unavailable Eagle BendAyala MD Unavailable Unavailable Mary GraceAyala MD Unavailable Unavailable Eagle BendAyala MD Unavailable Unavailable Eagle BendAyala MD Unavailable Unavailable Eagle BendAyala MD Unavailable Unavailable Eagle BendAyala MD Unavailable Unavailable Mary GraceAyala MD Unavailable Unavailable Eagle BendAyala MD Unavailable Unavailable Mary GraceAyala MD Unavailable Unavailable Mary GraceAyala MD Unavailable Unavailable Mary GraceAyala MD Unavailable Unavailable Mary GraceAyala MD Unavailable Unavailable Eagle BendAyala MD Unavailable Unavailable Eagle BendAyala MD Unavailable Unavailable Mary GraceAyala MD Unavailable Unavailable Eagle BendAyala MD Unavailable Unavailable Mary GraceAyala MD Unavailable Unavailable Mary GraceAyala MD Unavailable Unavailable Mary GraceAyala MD Unavailable Unavailable Eagle BendAyala MD Unavailable Unavailable Eagle BendAyala MD Unavailable Unavailable Eagle BendAyala MD Unavailable Unavailable Eagle BendAyala MD Unavailable Unavailable Eagle BendAyala MD Unavailable Unavailable Eagle BendAyala MD Unavailable Unavailable Mary GraceAyala MD Unavailable Unavailable Mary GraceAyala MD Unavailable Unavailable Eagle BendAyala MD Unavailable Unavailable Eagle BendAyala MD Unavailable Unavailable Eagle BendAyala MD Unavailable Unavailable Mary GraceAyala MD Unavailable Unavailable Mary GraceAyala MD Unavailable Unavailable Mary GraceAyala mejía MD Unavailable Unavailable Mary GraceAyala mejía MD Unavailable Unavailable Eagle BendAyala MD Unavailable Unavailable Eagle BendAyala mejía MD Unavailable Unavailable Eagle BendAyala MD Unavailable Unavailable Eagle BendAyala MD Unavailable Unavailable Mary GraceAyala mejía MD Unavailable Unavailable Mary GraceAyala mejía MD Unavailable Unavailable Eagle BendAyala mejía MD Unavailable Unavailable Eagle BendAyala MD Unavailable Unavailable Mary GraceAyala MD Unavailable Unavailable Eagle BendAyala MD Unavailable Unavailable Eagle BendAyala MD Unavailable Unavailable Eagle BendAyala MD Unavailable Unavailable Eagle BendAyala MD Unavailable Unavailable Eagle BendAyala MD Unavailable Unavailable Mary GraceAyala MD Unavailable Unavailable Eagle BendAyala MD Unavailable Unavailable Mary GraceAyala MD Unavailable Unavailable Eagle BendAyala MD Unavailable Unavailable Mary GraceAyala MD Unavailable Unavailable Mary Grace, F Cast MD Unavailable Unavailable Eagle BendAyala mejía MD Unavailable Unavailable Leandro, Danika VENEER JOINTER HELPER Unavailable Unavailable Leandro, Danika VENEER JOINTER HELPER Unavailable Unavailable Leandro, Danika VENEER JOINTER HELPER Unavailable Unavailable Leandro, Danika VENEER JOINTER HELPER Unavailable Unavailable Leandro, Danika VENEER JOINTER HELPER Unavailable Unavailable Leandro, Danika VENEER JOINTER HELPER Unavailable Unavailable Leandro, Danika VENEER JOINTER HELPER Unavailable Unavailable Leandro, Danika VENEER JOINTER HELPER Unavailable Unavailable Leandro, Danika VENEER JOINTER HELPER Unavailable Unavailable Leandro, Danika VENEER JOINTER HELPER Unavailable Unavailable Leandro, Danika VENEER JOINTER HELPER Unavailable Unavailable Leandro, Danika VENEER JOINTER HELPER Unavailable Unavailable Leandro, Danika VENEER JOINTER HELPER Unavailable Unavailable Leandro, Danika VENEER JOINTER HELPER Unavailable Unavailable Leandro, Danika VENEER JOINTER HELPER Unavailable Unavailable Leandro, Danika VENEER JOINTER HELPER Unavailable Unavailable Leandro, Danika VENEER JOINTER HELPER Unavailable Unavailable Leandro, Danika VENEER JOINTER HELPER Unavailable Unavailable Leandro, Danika VENEER JOINTER HELPER Unavailable Unavailable Leandro, Danika VENEER JOINTER HELPER Unavailable Unavailable Leandro, Danika VENEER JOINTER HELPER Unavailable Unavailable Leandro, Danika VENEER JOINTER HELPER Unavailable Unavailable Leandro, Danika VENEER JOINTER HELPER Unavailable Unavailable Leandro, Danika VENEER JOINTER HELPER Unavailable Unavailable Leandro, Dnaika VENEER JOINTER HELPER Unavailable Unavailable Leandro, Danika VENEER JOINTER HELPER Unavailable Unavailable Leandro, Danika VENEER JOINTER HELPER Unavailable Unavailable Leandro, Danika VENEER JOINTER HELPER Unavailable Unavailable Leandro, Danika VENEER JOINTER HELPER Unavailable Unavailable Leandro, Danika VENEER JOINTER HELPER Unavailable Unavailable Leandro, Danika VENEER JOINTER HELPER Unavailable Unavailable Leandro, Danika VENEER JOINTER HELPER Unavailable Unavailable Leandro, Danika VENEER JOINTER HELPER Unavailable Unavailable Leandro, Danika VENEER JOINTER HELPER Unavailable Unavailable Leandro, Danika VENEER JOINTER HELPER Unavailable Unavailable Leandro, Danika VENEER JOINTER HELPER Unavailable Unavailable Leandro, Danika VENEER JOINTER HELPER Unavailable Unavailable Leandro, Danika VENEER JOINTER HELPER Unavailable Unavailable Leandro, Danika VENEER JOINTER HELPER Unavailable Unavailable Leandro, Danika VENEER JOINTER HELPER Unavailable Unavailable Leandro, Danika VENEER JOINTER HELPER Unavailable Unavailable Leandro, Danika VENEER JOINTER HELPER Unavailable Unavailable Leandro, Danika VENEER JOINTER HELPER Unavailable Unavailable Leandro, Danika VENEER JOINTER HELPER Unavailable Unavailable Leandro, Danika VENEER JOINTER HELPER Unavailable Unavailable Leandro, Danika VENEER JOINTER HELPER Unavailable Unavailable Leandro, Danika VENEER JOINTER HELPER Unavailable Unavailable Leandro, Danika VENEER JOINTER HELPER Unavailable Unavailable Leandro, Danika VENEER JOINTER HELPER Unavailable Unavailable Leandro, Danika VENEER JOINTER HELPER Unavailable Unavailable Leandro, Danika VENEER JOINTER HELPER Unavailable Unavailable Leandro, Danika VENEER JOINTER HELPER Unavailable Unavailable Leandro, Danika VENEER JOINTER HELPER Unavailable Unavailable YVON, J Kim ANP Unavailable [...] is protected by Article 27-F of the [facility] Public Health law. If you continue you may have access to information: Regarding HIV / AIDS; Provided by facilities licensed or operated by the [facility] Office of Mental Health; or Provided by the [facility] Office for People With Developmental Disabilities. If such information is present, then the following [facility] mandated warning applies: This information has [...] law may result in a fine or [place] health care facility sentence or both. A general authorization for the release of medical or other information is NOT sufficient authorization for further disc losure. Family History Family Member Name Family Member Gender Family Member Status Date o f Status Description Data Source(s) Unknown Male Problem [facility] [place] Encounters Encounter Providers Location Date Indications Data Source(s ) Outpatient Attender: Kim SANZ NEO Alfredo 08/2019 12:45:00 PM EST [facility] ([facility] ) Outpatient Attender: Segun Alfredo 0 04/29/2020 08:40:00 AM EDT [facility] ([facility] ) Outpatient Attender: Danika Alfredo 0 12/07/2019 08:15:00 AM EDT [facility] ([facility] ) Immunizations Vaccine Date Status Description Data Source(s) TB Skin test is not vaccine. 05/24/2020 12:46:00 PM EDT completed [facility] ([facility]) Influenza, injectable, MDCK, preservative free, yaquelin valent 04/29/2020 08:30:00 AM EDT completed [facility]) Medications Medication Brand Name Start [...] 07/05/2020 12:00:00 AM EST ORAL active [facility] ([facility]) Immunization Adminstration,1 Vaccine/Toxoid 04/29/2020 12:00 :00 AM EDT completed [facility] ([facility]) Medication administered onsite Clotrimazole 10 MG/ML Topical Cream [Lotrimin] Lotrimin AF 04/29/2020 12:00:00 AM EDT active [facility] ([facility]) Onetouch Ultra 03/18/2020 12:00:00 AM EDT act yolanda [facility] ([facility]) 15 mg 02/08/2020 12:00:00 AM EDT [...] 12:00:00 AM EDT ORAL act yolanda [facility] ([facility]) atorvastatin 80 MG Oral Tablet [Lipitor] Lipitor 12/07/2019 12:00: 00 AM EDT ORAL active [facility] ([facility]) 5 mg 11/04/2019 12:00:00 AM EDT [...] type / Coverage type Policy ID Covered constitution party ID Covered constitution party's relationship to vargas Policy Vargas Plan Information EMEDNY [id number] SP [id number] [facility] MCRO [id number] SP [id number] UN COMMUNITY PLAN MCDO [id number] SP [id number] [facility](MCAID) O [id number] S [id number] [place] [employer] Medigap Part B [id number] Self [id number] [place] Medigap Part B [id number] Self [id number] Medicaid Medigap Part B [id number] Self [id number] [facility] Community Allie/Ess PLS Commercial [id number] Self [id number] [place] Medigap Part B [id number] Self [id number] [place] Medigap Part B [id number] Self [id number] Medicaid Medigap Part B [id number] Self [id number] [place] Medigap Part B [id number] Self [id number] [place] Medigap Part B [id number] Self [id number] Medicaid Medigap Part B [id number] Self [id number] [place] [employer] Medigap Part B [id number] Self [id number] [place] Medigap Part B [id number] Self [id number] Medicaid Medigap Part B [id number] Self [id number] [facility] Medicaid Medicaid [id number] Self [id number] [place] Medigap Part B [id number] Self [id number] [place] Medigap Part B [id number] Self [id number] Medicaid Medigap Part B [id number] Self [id number] [place] [employer] Medigap Part B [id number] Self [id number] [place] Medigap Part B [id number] Self [id number] Medicaid Medigap Part B [id number] Self [id number] [place] [employer] Medigap Part B [id number] Self [id number] [place] Medigap Part B [id number] Self [id number] Medicaid Medigap Part B [id number] Self [id number] [place] [employer] Medigap Part B [id number] Self [id number] [place] Medigap Part B [id number] Self [id number] Medicaid Medigap Part B [id number] Self [id number] [place] [employer] Commercial [id number] Self [id number] [place] [employer] Commercial [id number] Self [id number] Medicaid Medigap Part B [id number] Self [id number] [place] [employer] Commercial [id number] Self [id number] [place] [employer] Commercial [id number] Self [id number] Medicaid Medigap Part B [id number] Self [id number] [facility] Allie/Ess PLS Commercial [id number] Self [id number] [facility] [id number] SP [id number] [facility] [id number] SP [id number] [place] [employer] Commercial [id number] Self [id number] [place] [employer] Commercial [id number] Self [id number] Medicaid Medigap Part B [id number] Self [id number] [facility] MEDICAID [id number] Keely [id number] [facility] MEDICAID [id number] Keely [id number] [facility] MEDICAID PI PI [place] [employer] Commercial [id number] Self [id number] [place] [employer] Commercial [id number] Self [id number] [facility] Allie/Ess PLS Commercial [id number] Self [id number] Medicaid Medicaid [id number] Self [id number] [place] [employer] Commercial [id number] Self [id number] [place] [employer] Commercial [id number] Self [id number] [place] [employer] Commercial [id number] Self [id number] [place] [employer] Commercial [id number] Self [id number] [place] [employer] Commercial [id number] Self [id number] [place] [employer] Commercial [id number] Self [id number] [place] [employer] Commercial [id number] Self [id number] [place] [employer] Commercial [id number] Self [id number] [place] 306/806 [id number] SP [id number] [place] [employer] Commercial [id number] Self [id number] [place] [employer] Commercial [id number] Self [id number] [employer] BCBS B [id number] S [id number] [id number] [place] [employer] Commercial 802 Self 802 [place] [employer] Commercial [id number] Self [id number] [place] Commercial 802 Self [id number] [employer] [place] 306/806 [id number] SP [id number] OTHER WORKERS COMPENSATION [id number] SP [id number] SELF PAY UNAVAILABLE SP UNAVAILA BLE STATEWIDE IND PPO [id number] SP [id number] [employer] BC[employer] P [id number] S [id number] Surgeries/Procedures Procedure Description Date Indications Data Source(s) ECG ROUTINE ECG W/LEAST 12 LDS W/I&R 04/29/2020 12:00: 00 AM EDT [facility] ([facility]) Diabetic Retinal Eye Exam 01/21/2020 12:00:00 AM EDT [facility] ([facility]) Diabetic Retinal Eye Exam 01/12/2020 12:00:00 AM EDT [facility] ([facility]) Diabetic Retinal Eye Exam 12/21/2019 12:00:00 AM EDT [facility] ([facility]) Diabetic Retinal Eye Exam 12/08/2019 12:00:00 AM EDT [facility] ([facility]) Results ID Date Data Source [id number] 09/06/2020 12:00:00 AM EST [facility] Name Value Range Interpretation Code Description Data Leighann rce(s) Supporting Document(s) SARS coronavirus 2 Ag Not Detected [facility] This lab was ordered by [facility] and reported by [facility]. ID Date Data Source [id number] 07/05/2020 01:07:00 PM EST [facility] ([facility]) Name Value Range Interpretation Code Description Data Leighann rce(s) Supporting Document(s) Triglyceride [Mass/volume] in Serum or Plasma 81 mg/dL 30-150 [facility] ([facility]) Cholesterol in HDL [Mass/volume] in Serum or Plasma 70 mg/dL 35-60 [facility] ([facility]) Cholesterol [Mass/volume] in Serum or Plasma 226 mg/dL 131-200 [facility] ([facility]) Cholesterol in LDL [Mass/volume] in Serum or Plasma by calcu lation 140 CALC 50-159 [facility] ([facility]) ID Date Data Source [id number] 07/05/2020 01:07:00 PM EST [facility] ([facility]) Name Value Range Interpretation Code Description Data Leighann rce(s) Supporting Document(s) Glucose [Mass/volume] in Serum or Plasma 208 mg/dL 74-99 [facility] ([facility]) 100-125 mg/dL PRE-DIABETES/FASTING >126 mg/dL DIABETES/FASTING Urea nitrogen [Mass/volume] in Serum or Plasma 28 mg/dL 7-18 [facility] ([facility]) Potassium [Moles/volume] in Serum or Plasma 4.6 meq/L 3.5-5.1 [facility] ([facility]) Sodium [Moles/volume] in Serum or Plasma 141 meq/L 136-145 [facility] ([facility]) Creatinine 1.2 mg/dL 0.6-1.3 [facility] ([facility]) Chloride [Moles/volume] in Serum or Plasma 102 meq/L 98-107 [facility] ([facility]) Calcium [Mass/volume] in Serum or Plasma 8.8 mg/dL 8.5-10.1 [facility] ([facility]) Carbon dioxide, total [Moles/volume] in Serum or Plasma 33 meq/L 21 -32 [facility] ([facility]) Glomerular filtration rate/1.73 sq M pre dicted among blacks [Volume Rate/Area] in Serum or Plasma by Creatinine-based formula (MDRD) 55 mL/min [facility] <content>CHRONIC KIDNEY DISEASE STAGING PER NKF</content>
<content></content>
<content>STAGE I & II GFR >= 60 NORMAL TO MILDLY DECREASED</content>
<content>STAGE III GFR 30-59 MODERATELY DECREASED</content>
<content>STAGE IV GFR 15-29 SEVERELY DECREASED</content>
<content>STAGE V GFR <15 VERY LITTLE GFR LEFT</content>
<content>ESRD GFR <15 ON BRIM RAISER</content>
<content></content> Glomerular filtration rate/1.73 sq M pre dicted among non-blacks [Volume Rate/Area] in Serum or Plasma by Creatinine-based formula (MDRD) 45 mL/min [facility] ID Date Data Source [id number] 07/05/2020 01:07:00 PM EST [facility] Name Value Range Interpretation Code Description Data Leighann rce(s) Supporting Document(s) Hemoglobin A1c/Hemoglobin.total in Blood 7.2 % [facility] Result Notes: Pre-Diabetes 5.7 - 6.4 % Diabetes = or > 6.5% Glucose mean value [Mass/volume] in Blood Estimated fr om glycated hemoglobin 160 mg/dL 60-110 [facility] ID Date Data Source [id number] 07/05/2020 01:07:00 PM EST [facility] ([facility]) Name Value Range Interpretation Code Description Data Leighann rce(s) Supporting Document(s) Erythrocytes [#/volume] in Blood by Automated count 5.06 x10*6/UL 4.2 0-6.30 [facility] ([facility]) Leukocytes [#/volume] in Blood by Automated count 7.6 x10*3/UL 4.1-10 .9 [facility] ([facility]) Hemoglobin [Mass/volume] in Blood 13.9 g/dL 12.0-18.0 [facility] ([facility]) MCV 81.5 fL 80.0-97.0 [facility] [facility]) Hematocrit [Volume Fraction] of Blood by Automated count 41.3 % 3 7.0-51.0 [facility] ([facility]) MCH 27.5 pg 26.0-32.0 [facility] [facility]) Erythrocyte distribution width [Ratio] by Automated count 13.7 % 11.6-13.7 [facility] ([facility]) Platelets [#/volume] in Blood by Automated count 298 x10*3/UL 140-440 [facility] ([facility]) MCHC 33.8 g/dL 31.0-38.0 [facility] [facility]) Lymph % 19.6 % 10.0-58.5 [facility] [facility]) Mid % 5.0 % 1.7-9.3 [facility] [facility]) MPV 7.9 FL 7.8-11.0 [facility] [facility]) Neut % 75.4 % 37.0-92.0 [facility] [facility]) Mid # 0.4 x10*3/UL 0.1-0.6 [facility] ([facility]) Lymph # 1.5 x10*3/UL 0.6-4.1 [facility] ([facility]) Neut # 5.7 x10*3/UL 2.0-7.8 [facility] ([facility]) ID Date Data Source [id number] 06/28/2020 12:00:00 AM EST [facility] Name Value Range Interpretation Code Description Data Leighann rce(s) Supporting Document(s) SARS coronavirus 2 [facility] This lab was ordered by [facility] and reported by [facility]. ID Date Data Source [id number] 05/05/2020 11:29:00 AM EDT [facility] ([facility]) Name Value Range Interpretation Code Description Data Leighann rce(s) Supporting Document(s) Bedside Glucose 96 mg/dL 80-115 [facility] ([facility]) ID Date Data Source [id number] 05/05/2020 05:35:00 AM EDT [facility] ([facility]) Name Value Range Interpretation Code Description Data Leighann rce(s) Supporting Document(s) Glucose, Fasting 179 mg/dL 70-100 [facility] ([facility]) Blood Urea Nitrogen 19 mg/dL 7-18 [facility] ([facility]) Creatinine For GFR 1.11 mg/dL 0.55-1.30 [facility] ([facility]) Glomerular Filtration Rate 52.5 [facility] ([facility]) <content>Units are mL/min/1.73 m2</content>
<content></content>
<content>Chronic Kidney Disease Staging per NKF:</content>
<content></content>
<content>Stage I & II GFR >=60 Normal to Mildly Decreased</content>
<content>Stage III GFR 30- 59 Moderately Decreased</content>
<content>Stage IV GFR 15-29 Severely Decreased</content>
<content>Stage V GFR <15 Very Little GFR Left</content>
<content>ESRD GFR <15 on BRIM RAISER</content>
<content></content> Potassium Serum 3.9 meq/L 3.5-5.1 [facility] ([facility]) Sodium Level 134 meq/L 136-145 [facility] ([facility]) Carbon Dioxide Level 31 meq/L 21-32 [facility] ([facility]) Anion Gap 3 meq/L 8-16 [facility] [facility]) Chloride Level 100 meq/L 98-107 [facility] ([facility]) Alt/SGPT 19 U/L 12-78 [facility] [facility]) Ast/Sgot 18 U/L 7-37 [facility] [facility]) Calcium Level 8.6 mg/dL 8.8-10.2 [facility] ([facility]) Total Protein 7.2 GM/DL 6.4-8.2 [facility] ([facility]) Alkaline Phosphatase 63 U/L 45-117 [facility] ([facility]) Bilirubin,Total 0.2 mg/dL 0.2-1.0 [facility] ([facility]) Albumin 2.9 GM/DL 3.2-5.2 [facility] [facility]) Albumin/Globulin Ratio 0.7 1.2-2.2 [facility] ([facility]) ID Date Data Source [id number] 05/05/2020 05:35:00 AM EDT [facility] ([facility]) Name Value Range Interpretation Code Description Data Leighann rce(s) Supporting Document(s) Red Blood Count 5.38 10 4.00-5.40 [facility] ([facility]) White Blood Count 13.4 10 4.0-10.0 [facility] ([facility]) Mean Corpuscular Volume 83.8 fl 80.0-96.0 [facility] ([facility]) Hematocrit 45.1 % 36.0-47.0 [facility] Hemoglobin 14.2 g/dL 12.0-15.5 [facility] ([facility]) Red Cell Distribution Width 14.0 % 11.5-14.5 [facility] ([facility]) Mean Corpuscular HGB Conc 31.5 g/dL 32.0-36.5 MEDE NT ([facility]) Mean Corpuscular Hemoglobin 26.4 pg 27.0-33.0 [facility] ([facility]) Neutrophils % 88.1 % 36.0-66.0 [facility] ([facility]) Lymph % 6.5 % 24.0-44.0 [facility] [facility]) Platelet Count, Automated 321 10 150-450 [facility] NT ([facility]) [place] % 4.9 % 0.0-5.0 [facility] [facility]) Eos % 0.0 % 0.0-3.0 [facility] [facility] Baso % 0.1 % 0.0-1.0 [facility] Neutrophils # 11.8 10 1.5-8.5 [facility] ([facility]) Immature Granulocyte % 0.4 % 0-3.0 [facility] ([facility]) Nucleated Red Blood Cell % 0.0 % 0-0 [facility] ([facility]) Lymph # 0.9 10 1.5-5.0 [facility] [facility]) [place] # 0.7 10 0.0-0.8 [facility] [facility] Eos # 0.0 10 0.0-0.5 [facility] [facility] Baso # 0.0 10 0.0-0.2 [facility] [facility] ID Date Data Source [id number] 05/04/2020 08:04:00 PM EDT [facility] ([facility]) Name Value Range Interpretation Code Description Data Leighann rce(s) Supporting Document(s) Bedside Glucose 189 mg/dL 80-115 [facility] ID Date Data Source [id number] 05/04/2020 05:14:00 PM EDT [facility] ([facility]) Name Value Range Interpretation Code Description Data Leighann rce(s) Supporting Document(s) Bedside Glucose 189 mg/dL 80-115 [facility] ([facility]) ID Date Data Source [id number] 05/04/2020 01:35:00 PM EDT [facility] ([facility]) Name Value Range Interpretation Code Description Data Leighann rce(s) Supporting Document(s) Bedside Glucose 170 mg/dL 80-115 [facility] ([facility]) Nurse Notified ID Date Data Source [id number] 05/04/2020 08:10:00 AM EDT [facility] ([facility]) Name Value Range Interpretation Code Description Data Leighann rce(s) Supporting Document(s) Bedside Glucose 122 mg/dL 80-115 [facility] ([facility]) ID Date Data Source [id number] 05/04/2020 07:20:00 AM EDT MED[facility] ([facility]) Name Value Range Interpretation Code Description Data Leighann rce(s) Supporting Document(s) White Blood Count 8.4 10 4.0-10.0 [facility] ([facility]) Red Blood Count 5.85 10 4.00-5.40 [facility] ([place] [facility]) Mean Corpuscular Volume 85.6 fl 80.0-96.0 [facility] ([place] [facility]) Hematocrit 50.1 % 36.0-47.0 [facility] ([place] [facility]) Hemoglobin 15.4 g/dL 12.0-15.5 [facility] ([place] [facility]) Red Cell Distribution Width 14.0 % 11.5-14.5 ME DENT ([facility]) Mean Corpuscular HGB Conc 30.7 g/dL 32.0-36.5 MEDE NT ([facility]) Mean Corpuscular Hemoglobin 26.3 pg 27.0-33.0 ME DENT ([facility]) Platelet Count, Automated 311 10 150-450 MEDE NT ([facility]) Nucleated Red Blood Cell % 0.0 % 0-0 MED ENT ([facility]) ID Date Data Source [id number] 05/04/2020 07:20:00 AM EDT MED[facility] ([facility]) Name Value Range Interpretation Code Description Data Leighann rce(s) Supporting Document(s) Glucose, Fasting 130 mg/dL 70-100 [facility] ([facility]) Creatinine For GFR 1.00 mg/dL 0.55-1.30 [facility] ([facility]) Blood Urea Nitrogen 14 mg/dL 7-18 [facility] ([facility]) Glomerular Filtration Rate 59.2 [facility] ([place] <content>Units are mL/min/1.73 m2</content>
<content></content>
<content>Chronic Kidney Disease Staging per NKF:</content>
<content></content>
<content>Stage I & II GFR >=60 Normal to Mildly Decreased</content>
<content>Stage III GFR 30- 59 Moderately Decreased</content>
<content>Stage IV GFR 15-29 Severely Decreased</content>
<content>Stage V GFR <15 Very Little GFR Left</content>
<content>ESRD GFR <15 on BRIM RAISER</content>
<content></content> Potassium Serum 4.0 meq/L 3.5-5.1 MED[facility] ([facility]) Sodium Level 139 meq/L 136-145 [facility] ([place] [facility]) Anion Gap 5 meq/L 8-16 [facility] ([place] [facility]) Calcium Level 9.2 mg/dL 8.8-10.2 [facility] ([facility]) Carbon Dioxide Level 31 meq/L 21-32 [facility] ([facility]) Chloride Level 103 meq/L 98-107 [facility] ([facility]) ID Date Data Source [id number] 05/04/2020 07:20:00 AM EDT MED[facility] ([facility]) Name Value Range Interpretation Code Description Data Leighann rce(s) Supporting Document(s) Blood Type Laboratory test result [facility] ([facility]) AB Screen (Indirect Addie)Vis Laboratory test result [facility] ([facility]) ID Date Data Source [id number] 04/29/2020 10:00:00 AM EDT [facility] Name Value Range Interpretation Code Description Data Leighann rce(s) Supporting Document(s) SARS coronavirus 2 RNA [facility] This lab was ordered by [facility] and reported by [facility]. ID Date Data Source [id number] 04/29/2020 09:14:00 AM EDT MED[facility] ([facility]) Name Value Range Interpretation Code Description Data Leighann rce(s) Supporting Document(s) Urea nitrogen [Mass/volume] in Serum or Plasma 25 mg/dL 7-18 [facility] ([facility]) Glucose [Mass/volume] in Serum or Plasma 151 mg/dL 74-99 [facility] ([facility]) 100-125 mg/dL PRE-DIABETES/FASTING >126 mg/dL DIABETES/FASTING Potassium [Moles/volume] in Serum or Plasma 4.1 meq/L 3.5-5.1 [facility] ([facility]) Creatinine 1.1 mg/dL 0.6-1.3 [facility] ([place] [facility]) Sodium [Moles/volume] in Serum or Plasma 137 meq/L 136-145 [facility] ([facility]) Calcium [Mass/volume] in Serum or Plasma 9.1 mg/dL 8.5-10.1 [facility] ([facility]) Carbon dioxide, total [Moles/volume] in Serum or Plasma 32 meq/L 21 -32 [facility] ([facility]) Chloride [Moles/volume] in Serum or Plasma 97 meq/L 98-107 [facility] ([place]) Aspartate aminotransferase [Enzymatic activity/volume] in Serum or Plasma 17 U/L 15-37 [facility] ([facility] ) Alkaline phosphatase isoenzyme [Units/volume] in Serum or Pl asma 64 mg/dL 46-116 [facility] ([facility] [facility]) Total Bilirubin 0.4 mg/dL 0.2-1.0 [facility] ([facility]) Albumin [Mass/volume] in Serum or Plasma 3.8 g/dL 3.4-5.0 [facility] ([place] [facility]) Alanine aminotransferase [Enzymatic activity/volume] in Seru m or Plasma 21 U/L 12-78 [facility] ([place] [facility]) A/G Ratio 0.90 CALC 1.00-1.90 [facility] [facility] Proteinase 3 Ab [Units/volume] in Serum 8.0 g/dL 6.4-8.2 [facility] ([place] [facility] Glomerular filtration rate/1.73 sq M pre dicted among blacks [Volume Rate/Area] in Serum or Plasma by Creatinine-based formula (MDRD) Laboratory test result [facility] ([place] [facility]) <content>CHRONIC KIDNEY DISEASE STAGING PER NKF</content>
<content></content>
<content>STAGE I & II GFR >= 60 NORMAL TO MILDLY DECREASED</content>
<content>STAGE III GFR 30-59 MODERATELY DECREASED</content>
<content>STAGE IV GFR 15-29 SEVERELY DECREASED</content>
<content>STAGE V GFR <15 VERY LITTLE GFR LEFT</content>
<content>ESRD GFR <15 ON BRIM RAISER</content>
<content></content> Glomerular filtration rate/1.73 sq M pre dicted among non-blacks [Volume Rate/Area] in Serum or Plasma by Creatinine-based formula (MDRD) 50 mL/min [facility] ([place] [facility] ID Date Data Source [id number] 04/29/2020 09:14:00 AM EDT [facility] Name Value Range Interpretation Code Description Data Leighann rce(s) Supporting Document(s) Hemoglobin A1c/Hemoglobin.total in Blood 7.2 % [facility] ([facility] [facility]) Lab Result Notes: Pre-Diabetes 5.7 - 6.4 % Diabetes = or > 6.5% Glucose mean value [Mass/volume] in Blood Estimated fr om glycated hemoglobin 160 mg/dL 60-110 [facility] ([facility] ) ID Date Data Source [id number] 04/29/2020 09:14:00 AM EDT MED[facility] ([facility]) Name Value Range Interpretation Code Description Data Leighann rce(s) Supporting Document(s) Hemoglobin [Mass/volume] in Blood 15.0 g/dL 12.0-18.0 [facility] ([place] [facility] Erythrocytes [#/volume] in Blood by Automated count 5.61 x10*6/UL 4.2 0-6.30 [facility] ([place] [facility] Leukocytes [#/volume] in Blood by Automated count 7.4 x10*3/UL 4.1-10 .9 [facility] ([place] [facility] MCH 26.7 pg 26.0-32.0 [facility] ([facility]) MCV 81.2 fL 80.0-97.0 [facility] ([facility]) Hematocrit [Volume Fraction] of Blood by Automated count 45.6 % 3 7.0-51.0 [facility] ([place] [facility] Platelets [#/volume] in Blood by Automated count 319 x10*3/UL 140-440 [facility] ([place] [facility] MCHC 32.9 g/dL 31.0-38.0 [facility] ([facility]) Erythrocyte distribution width [Ratio] by Automated count 13.8 % 11.6-13.7 [facility] ([place] [facility]) Mid % 5.6 % 1.7-9.3 [facility] ([place] [facility]) Lymph % 18.5 % 10.0-58.5 [facility] ([facility]) MPV 7.8 FL 7.8-11.0 [facility] ([facility]) Mid # 0.5 x10*3/UL 0.1-0.6 [facility] ([facility] [facility]) Neut % 75.9 % 37.0-92.0 [facility] ([place] [facility]) Lymph # 1.3 x10*3/UL 0.6-4.1 [facility] ([place] [facility]) Neut # 5.6 x10*3/UL 2.0-7.8 [facility] ([place] [facility]) ID Date Data Source [id number] 04/13/2020 03:25:00 PM EDT MED[facility] ([facility]) Name Value Range Interpretation Code Description Data Leighann rce(s) Supporting Document(s) Cancer Ag 19-9 [Units/volume] in Serum or Plasma 70.1 U/ML [facility] [facility]) THE CA 19-9 ASSAY IS PERFORMED ON THE [employer] BY CHEMILUMINESCENCE AND SHOULD NOT BE COMPARED INTERCHANGEABLY WITH OTHER METHODS. IT SHOULD NOT BE USED ALONE A SCREENING TEST OR DIAGNOSIS FOR THE PRESENCE OR ABSENCE OF MALIGNANT DISEASE. PREDICTIONS OF DISEASE RECURRENCE SHOULD NOT BE BASED SOLELY ON VALUES OBTAINED FROM SERIAL PATIENT SERUM VALUES. Carcinoembryonic Ag [Mass/volume] in Serum or Plasma 1.5 ng/mL [facility] ([place] [facility]) THE CEA ASSAY IS PERFORMED ON THE [employer] BY CHEMILUMINESCENCE AND SHOULD NOT BE COMPARED INTERCHANGEABLY WITH OTHER METHODS. IT SHOULD NOT BE USED ALONE A SCREENING TEST OR DIAGNOSIS FOR THE PRESENCE OR ABSENCE OF MALIGNANT DISEASE. PREDICTIONS OF DISEASE RECURRENCE SHOULD NOT BE BASED SOLELY ON VALUES OBTAINED FROM SERIAL PATIENT SERUM VALUES. Cancer Ag 125 [Units/volume] in Serum or Plasma 9.9 U/ML [facility] ([place] [facility]) THE CA 125 ASSAY IS PERFORMED ON THE [employer] BY CHEMILUMINESCENCE AND SHOULD NOT BE COMPARED [...] Lactate to pyruvate reaction 207 U/L 84-246 [facility] ([facility]) ID Date Data Source [id number] 02/28/2020 10:57:00 AM EDT [facility] ([facility]) Name Value Range Interpretation Code Description Data Leighann rce(s) Supporting Document(s) Hemoglobin 13.7 g/dL 12.0-15.5 [facility] ([place] [facility]) White Blood Count 9.0 10 4.0-10.0 [facility] ([facility]) Red Blood Count 5.13 10 4.00-5.40 [facility] ([facility]) Mean Corpuscular Hemoglobin 26.7 pg 27.0-33.0 ME DENT ([place] [facility]) Hematocrit 43.6 % 36.0-47.0 [facility] ([place] [facility]) Mean Corpuscular Volume 85.0 fl 80.0-96.0 [facility] ([place] [facility]) Platelet Count, Automated 300 10 150-450 MEDE NT ([place] [facility]) Mean Corpuscular HGB Conc 31.4 g/dL 32.0-36.5 MED[facility] NT ([place] [facility]) Red Cell Distribution Width 14.1 % 11.5-14.5 ME [facility]ENT ([place] [facility]) Neutrophils % 75.1 % 36.0-66.0 [facility] ([facility]) Eos % 1.2 % 0.0-3.0 [facility] ([place] [facility]) Lymph % 16.6 % 24.0-44.0 [facility] ([place] [facility]) [place] % 5.9 % 0.0-5.0 [facility] ([place] [facility]) Immature Granulocyte % 0.6 % 0-3.0 [facility] ([place] [facility]) Nucleated Red Blood Cell % 0.0 % 0-0 MED ENT ([place] [facility]) Baso % 0.6 % 0.0-1.0 [facility] ([place] [facility]) [place] # 0.5 10 0.0-0.8 [facility] ([place] [facility]) Lymph # 1.5 10 1.5-5.0 [facility] ([place] [facility]) Neutrophils # 6.8 10 1.5-8.5 [facility] ([facility]) Eos # 0.1 10 0.0-0.5 [facility] ([place] [facility]) Baso # 0.1 10 0.0-0.2 [facility] ([place] [facility]) ID Date Data Source [id number] 02/28/2020 10:57:00 AM EDT [facility]) Name Value Range Interpretation Code Description Data Leighann rce(s) Supporting Document(s) Inr 1.20 [facility] ([facility]) THERAPUTIC HUMAN INR VALUES INDICATIONS NORMAL RANGES PROPHYLAXIS/TREATMENT OF: VENOUS THROMBOSIS 2.0-3.0 PULMONARY EMBOLISM 2.0-3.0 PREVENTION OF SYSTEMIC EMBOLISM FROM: TISSUE HEART VALVES 2.0-3.0 ACUTE MYOCARDIAL INFARCTION 2.0-3.0 VALVULAR HEART DISEASE 2.0-3.0 ATRIAL FIBRILLATION 2.0-3.0 MECHANICAL VALVES(HIGH RISK) 2.5-3.5 RECURRENT MYOCARDIAL INFARCTION 2.5-3.5 Prothrombin Time 15.5 s 11.8-14.0 [facility] ([facility]) Partial Thromboplastin Time 35.1 s 25.0-38.4 [facility] ([place] [facility]) ID Date Data Source [id number] 02/28/2020 10:50:00 AM EDT [facility] Name Value Range Interpretation Code Description Data Leighann rce(s) Supporting Document(s) Cancer Ag 19-9 [Units/volume] in Serum or Plasma 68.5 U/ML [facility] ([place] [facility]) THE CA 19-9 ASSAY IS PERFORMED ON THE [facility] BY CHEMILUMINESCENCE AND SHOULD NOT BE COMPARED INTERCHANGEABLY WITH OTHER METHODS. IT SHOULD NOT BE USED ALONE A SCREENING TEST OR DIAGNOSIS FOR THE PRESENCE OR ABSENCE OF MALIGNANT DISEASE. PREDICTIONS OF DISEASE RECURRENCE SHOULD NOT BE BASED SOLELY ON VALUES OBTAINED FROM SERIAL PATIENT SERUM VALUES. Cancer Ag 125 [Units/volume] in Serum or Plasma 10.3 U/ML [facility] ([place] [facility] THE CA 125 ASSAY IS PERFORMED ON THE [facility] [employer] BY CHEMILUMINESCENCE AND SHOULD NOT BE COMPARED INTERCHANGEABLY WITH OTHER METHODS. IT SHOULD NOT BE USED ALONE A SCREENING TEST OR DIAGNOSIS FOR THE PRESENCE OR ABSENCE OF MALIGNANT DISEASE. PREDICTIONS OF DISEASE RECURRENCE SHOULD NOT BE BASED SOLELY ON VALUES OBTAINED FROM SERIAL PATIENT SERUM VALUES. Carcinoembryonic Ag [Mass/volume] in Serum or Plasma 2.7 ng/mL [facility] ([place] [facility]) THE CEA ASSAY IS PERFORMED ON THE [employer] BY CHEMILUMINESCENCE AND SHOULD NOT BE COMPARED INTERCHANGEABLY WITH OTHER METHODS. IT SHOULD NOT BE USED ALONE A SCREENING TEST OR DIAGNOSIS FOR THE PRESENCE OR ABSENCE OF MALIGNANT DISEASE. PREDICTIONS OF DISEASE RECURRENCE SHOULD NOT BE BASED SOLELY ON VALUES OBTAINED FROM SERIAL PATIENT SERUM VALUES. ID Date Data Source [id number] 02/28/2020 10:50:00 AM EDT MED[facility] ([facility]) Name Value Range Interpretation Code Description Data Leighann rce(s) Supporting Document(s) Glucose, Fasting 130 mg/dL 70-100 [facility] ([facility]) Creatinine For GFR 1.27 mg/dL 0.55-1.30 [facility] ([facility]) Blood Urea Nitrogen 28 mg/dL 7-18 [facility] ([facility]) Potassium Serum 3.7 meq/L 3.5-5.1 [facility] ([facility]) Sodium Level 139 meq/L 136-145 [facility] ([place] [facility]) Glomerular Filtration Rate 45.1 [facility] E[facility] ([place] [facility]) <content>Units are mL/min/1.73 m2</content>
<content></content>
<content>Chronic Kidney Disease Staging per NKF:</content>
<content></content>
<content>Stage I & II GFR >=60 Normal to Mildly Decreased</content>
<content>Stage III GFR 30- 59 Moderately Decreased</content>
<content>Stage IV GFR 15-29 Severely Decreased</content>
<content>Stage V GFR <15 Very Little GFR Left</content>
<content>ESRD GFR <15 on BRIM RAISER</content>
<content></content> Carbon Dioxide Level 30 mmol/L 20-29 [facility] Anion Gap 6 meq/L 8-16 [facility] ([place] [facility]) Calcium Level 9.2 mg/dL 8.8-10.2 [facility] ([facility]) Chloride Level 103 meq/L 98-107 [facility] ([facility]) ID Date Data Source [id number] 02/28/2020 10:50:00 AM EDT [facility]) Name Value Range Interpretation Code Description Data Leighann rce(s) Supporting Document(s) Ast/Sgot 17 IU/L 0-40 [facility] ([place] [facility]) Alt/SGPT 19 IU/L 0-32 [facility] ([place] [facility]) Bilirubin,Direct Laboratory test result 0.0-0.2 [facility] ([place] [facility]) Alkaline Phosphatase 74 U/L 45-117 [facility] ([facility]) Bilirubin,Total 0.4 mg/dL 0.2-1.0 [facility] ([facility]) Albumin 3.4 GM/DL 3.2-5.2 [facility] ([place] [facility]) Total Protein 8.6 GM/DL 6.4-8.2 [facility] ([facility]) Albumin/Globulin Ratio 0.7 1.2-2.2 [facility] ([place] [facility]) ID Date Data Source [id number] 12/07/2019 07:37:00 AM EDT [facility] ([facility]) Name Value Range Interpretation Code Description Data Leighann rce(s) Supporting Document(s) Microalbumin Urine 484.7 mg/L 1.3-20.0 [facility] ([facility]) Microalb/Creat Ratio 370.8 ug/mg 0.0-30.0 [facility] ([place] [facility]) Urine Creatinine 130.7 mg/dL 30.0-125.0 [facility] ([facility]) ID Date Data Source [id number] 12/07/2019 07:37:00 AM EDT [facility] ([facility]) Name Value Range Interpretation Code Description Data Leighann rce(s) Supporting Document(s) Cholesterol [Mass/volume] in Serum or Plasma 238 mg/dL 131-200 [facility] ([place] [facility]) Triglyceride [Mass/volume] in Serum or Plasma 112 mg/dL 30-150 [facility] ([place] [facility]) Cholesterol in LDL [Mass/volume] in Serum or Plasma by calcu lation 159 CALC 50-159 [facility] ([place] [facility]) Cholesterol in HDL [Mass/volume] in Serum or Plasma 57 mg/dL 35-60 [facility] ([place] [facility]) ID Date Data Source [id number] 12/07/2019 07:37:00 AM EDT [facility] ([facility]) Name Value Range Interpretation Code Description Data Leighann rce(s) Supporting Document(s) Glucose [Mass/volume] in Serum or Plasma 99 mg/dL 74-99 [facility] ([place] [facility]) 100-125 mg/dL PRE-DIABETES/FASTING >126 mg/dL DIABETES/FASTING Urea nitrogen [Mass/volume] in Serum or Plasma 27 mg/dL 7-18 [facility] ([place] [facility]) Creatinine 1.1 mg/dL 0.6-1.3 [facility] ([facility]) Potassium [Moles/volume] in Serum or Plasma 4.1 meq/L 3.5-5.1 [facility] ([place] [facility]) Sodium [Moles/volume] in Serum or Plasma 142 meq/L 136-145 [facility] ([place] [facility]) Chloride [Moles/volume] in Serum or Plasma 102 meq/L 98-107 [facility] ([place] [facility]) Carbon dioxide, total [Moles/volume] in Serum or Plasma 32 meq/L 21 -32 [facility] ([place] [facility]) Alkaline phosphatase isoenzyme [Units/volume] in Serum or Pl asma 79 mg/dL 46-116 [facility] ([place] [facility]) Calcium [Mass/volume] in Serum or Plasma 9.0 mg/dL 8.5-10.1 [facility] ([place] [facility]) Total Bilirubin 0.3 mg/dL 0.2-1.0 [facility] ([facility]) Alanine aminotransferase [Enzymatic activity/volume] in Seru m or Plasma 21 U/L 12-78 [facility] ([place] [facility]) Albumin [Mass/volume] in Serum or Plasma 3.3 g/dL 3.4-5.0 [facility] ([place] [facility]) Aspartate aminotransferase [Enzymatic activity/volume] in Serum or Plasma 19 U/L 15-37 [facility] ([place] [facility] ) A/G Ratio 0.77 CALC 1.00-1.90 [facility] ([place] [facility]) Glomerular filtration rate/1.73 sq M pre dicted among non-blacks [Volume Rate/Area] in Serum or Plasma by Creatinine-based formula (MDRD) 50 mL/min [facility] [facility] Proteinase 3 Ab [Units/volume] in Serum 7.6 g/dL 6.4-8.2 [facility] Glomerular filtration rate/1.73 sq M pre dicted among blacks [Volume Rate/Area] in Serum or Plasma by Creatinine-based formula (MDRD) Laboratory test result [facility] ([facility]) <content>CHRONIC KIDNEY DISEASE STAGING PER NKF</content>
<content></content>
<content>STAGE I & II GFR >= 60 NORMAL TO MILDLY DECREASED</content>
<content>STAGE III GFR 30-59 MODERATELY DECREASED</content>
<content>STAGE IV GFR 15-29 SEVERELY DECREASED</content>
<content>STAGE V GFR <15 VERY LITTLE GFR LEFT</content>
<content>ESRD GFR <15 ON BRIM RAISER</content>
<content></content> ID Date Data Source [id number] 12/07/2019 07:37:00 AM EDT [facility] ([facility]) Name Value Range Interpretation Code Description Data Leighann rce(s) Supporting Document(s) Hemoglobin A1c/Hemoglobin.total in Blood 8.2 g/dL 4.8-5.6 [facility] ([facility]) Lab Result Notes: Pre-Diabetes 5.7 - 6.4 % Diabetes = or > 6.5% Glucose mean value [Mass/volume] in Blood Estimated fr om glycated hemoglobin 189 mg/dL 60-110 [facility] ([facility] ) ID Date Data Source [id number] 12/07/2019 07:37:00 AM EDT [facility]) Name Value Range Interpretation Code Description Data Leighann rce(s) Supporting Document(s) Leukocytes [#/volume] in Blood by Automated count 7.4 x10*3/UL 4.1-10 .9 [facility] ([facility]) Erythrocytes [#/volume] in Blood by Automated count 5.51 x10*6/UL 4.2 0-6.30 [facility] ([facility]) Hematocrit [Volume Fraction] of Blood by Automated count 43.9 % 3 7.0-51.0 [facility] ([place] [facility] Hemoglobin [Mass/volume] in Blood 14.3 g/dL 12.0-18.0 [facility] ([place] [facility] MCH 26.1 pg 26.0-32.0 [facility] ([facility]) MCV 79.8 fL 80.0-97.0 [facility] ([facility]) MCHC 32.7 g/dL 31.0-38.0 [facility] ([facility]) Erythrocyte distribution width [Ratio] by Automated count 14.2 % 11.6-13.7 [facility] ([place] [facility] Lymph % 20.1 % 10.0-58.5 [facility] ([facility]) Platelets [#/volume] in Blood by Automated count 261 x10*3/UL 140-440 [facility] ([place] [facility] MPV 7.5 FL 7.8-11.0 [facility] ([facility]) Neut % 72.5 % 37.0-92.0 [facility] ([facility]) Mid % 7.4 % 1.7-9.3 [facility] ([facility]) Lymph # 1.4 x10*3/UL 0.6-4.1 [facility] ([place] [facility]) Mid # 0.7 x10*3/UL 0.1-0.6 [facility] ([place] [facility]) Neut # 5.3 x10*3/UL 2.0-7.8 [facility] ([place] [facility] ID Date Data Source [id number] 12/07/2019 07:37:00 AM EDT [facility] ([facility] Name Value Range Interpretation Code Description Data Leighann rce(s) Supporting Document(s) Hemoglobin A1c/Hemoglobin.total in Blood Laboratory test result [facility] Procedure Vital Signs ID Date Data Source [id number] Name Value Range Interpretation Code Description Data Source(s) Body mass index (BMI) [Ratio] 53.4 kg/m2 53.4 k g/m2 [facility] ([facility]) Oxygen saturation in Arterial blood by Pulse oximetry 96 % 96 % [facility] ([facility]) RM Air Body weight 299.00 [lb_av] 299.00 [lb_av] [facility] ([facility] [facility]) Body height 62.75 [in_i] 62.75 [in_i] [facility] ([facility] 5'2.75" Heart rate 86 /min 86 /min [facility] ([facility]) Diastolic blood pressure 70 mm[Hg] 70 mm[Hg] [facility] ([place] [facility]) Systolic blood pressure 130 mm[Hg] 130 mm[Hg] [facility] [facility] Body mass index (BMI) [Ratio] 51.6 kg/m2 51.6 k g/m2 [facility] ([place] [facility]) Body weight 289.00 [lb_av] 289.00 [lb_av] [facility] T ([place] [facility]) Body height 62.75 [in_i] 62.75 [in_i] [facility] 5'2.75" Heart rate 76 /min 76 /min [facility] Diastolic blood pressure 80 mm[Hg] 80 mm[Hg] [facility] ([place] [facility]) Systolic blood pressure 128 mm[Hg] 128 mm[Hg] [facility] ([place] [facility]) Body height 62.75 [in_i] 62.75 [in_i] [facility] 5'2.75" Heart rate 74 /min 74 /min [facility] ([facility]) Diastolic blood pressure 60 mm[Hg] 60 mm[Hg] [facility] ([place] [facility]) Systolic blood pressure 110 mm[Hg] 110 mm[Hg] [facility] [facility] Body mass index (BMI) [Ratio] 50.5 kg/m2 50.5 k g/m2 [facility] ([place] [facility]) Body weight 283.00 [lb_av] 283.00 [lb_av] [facility] T ([place] [facility])
[2020-09-25 10:16] LABS: ERYTHROCYTE SEDIMENTATION RATE 35 mm/hr (0-30)
[2020-09-25 10:19] LABS: CK-MB VALUE MASS 1.5 NG/ML (<3.6); CPK CREATINE PHOSPHOKINASE 164 U/L (26-192); MB/CK RELATIVE INDEX 0.91 (< OR =4); TROPONIN I < 0.02 NG/ML (< 0.10)
[2020-09-25 10:59] VITALS: BP 111/55
--- NOTE | 2020-09-25 14:57 | ECGEPIP ---
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
== END 2020-09-25 11:14 | disposition home or self-care (01) ==
LOC: M ED 08:50
DX: S92.512A Displaced fracture of proximal phalanx of left lesser toe(s), initial encounter for closed fracture (principal); X58.XXXA Exposure to other specified factors, initial encounter; Y92.9 Unspecified place or not applicable; Y93.9 Activity, unspecified; Y99.9 Unspecified external cause status; R01.1 Cardiac murmur, unspecified; E11.21 Type 2 diabetes mellitus with diabetic nephropathy; I10 Essential (primary) hypertension; G47.33 Obstructive sleep apnea (adult) (pediatric); Z86.718 Personal history of other venous thrombosis and embolism; Z79.01 Long term (current) use of anticoagulants; Z79.4 Long term (current) use of insulin; Z79.899 Other long term (current) drug therapy; Z88.0 Allergy status to penicillin

== ENCOUNTER 2021-01-05 17:08 | Emergency (ER) | payer MEDICARE, OTHER ==
[~2021-01-05] VITALS: Ht 160 cm; Wt 131.8 kg
[2021-01-05 18:40] LABS: BASO # 0.1 10^3/uL (0.0-0.2); BASO % 0.7 % (0.0-1.0); EOS # 0.2 10^3/uL (0.0-0.5); EOS % 1.6 % (0.0-3.0); HEMATOCRIT 43.6 % (36.0-47.0); HEMOGLOBIN 13.3 g/dl (12.0-15.5); LYMPH # 1.3 10^3/uL (1.5-5.0); LYMPH % 13.6 % (24.0-44.0); MEAN CORPUSCULAR HEMOGLOBIN 26.5 pg (27.0-33.0); MEAN CORPUSCULAR HGB CONC 30.5 g/dl (32.0-36.5); MONO # 0.5 10^3/uL (0.0-0.8); MONO % 5.4 % (2.0-8.0); NEUTROPHILS # 7.2 10^3/uL (1.5-8.5); NEUTROPHILS % 78.3 % (36.0-66.0); PLATELET COUNT, AUTOMATED 273 10^3/uL (150-450); RED BLOOD COUNT 5.01 10^6/uL (4.00-5.40); WHITE BLOOD COUNT 9.2 10^3/uL (4.0-10.0)
[2021-01-05 19:07] LABS: BLOOD UREA NITROGEN 22 MG/DL (7-18); CALCIUM LEVEL 9.6 MG/DL (8.8-10.2); CARBON DIOXIDE LEVEL 28 MEQ/L (21-32); CHLORIDE LEVEL 104 MEQ/L (98-107); CK-MB VALUE MASS < 1.0 NG/ML (<3.6); CPK CREATINE PHOSPHOKINASE 115 U/L (26-192); CREATININE FOR GFR 0.85 MG/DL (0.55-1.30); GLOMERULAR FILTRATION RATE > 60.0 (>45); GLUCOSE, FASTING 146 MG/DL (70-100); MB/CK RELATIVE INDEX 0.87 (< OR =4); NT-PRO BNP 1128 PG/ML (<125); POTASSIUM SERUM 3.9 MEQ/L (3.5-5.1); SODIUM LEVEL 139 MEQ/L (136-145); TROPONIN I < 0.02 NG/ML (< 0.10)
--- NOTE | 2021-01-05 20:19 | ECGEPIP ---
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
[2021-01-05 20:38] LABS: C REACTIVE PROTEIN QUANTITATIV 2.35 MG/DL (0.00-0.30)
[2021-01-05] MEDS ORDERED: FUROSEMIDE 40MG/4ML VIAL (J1940) IV ONE (21:00)
--- NOTE | 2021-01-05 22:06 | REPVR ---
PROCEDURE INFORMATION: Exam: US Duplex Lower Extremity Veins, Bilateral Exam date and time: 01/05/2021 9:43 PM Age: 65 years old Clinical indication: Edema, localized; Lower extremity, bilateral; Additional info: Leg swelling, HX of dvt TECHNIQUE: Imaging protocol: Real-time duplex ultrasound of the extremities with 2-D lan scale, color Doppler flow and spectral waveform analysis with image documentation. Complete exam focused on the bilateral lower extremity veins. COMPARISON: US Duplex, Ext LOWER veins, bilat 04/18/2019 12:53 AM FINDINGS: Right deep veins: Unremarkable. The common femoral, femoral, proximal profunda femoral and popliteal veins are patent without thrombus. Normal Doppler waveforms. Normal compressibility and/or augmentation response. Right superficial veins: Saphenofemoral junction is patent without thrombus. Left deep veins: Unremarkable. The common femoral, femoral, proximal profunda femoral and popliteal veins are patent without thrombus. Normal Doppler waveforms. Normal compressibility and/or augmentation response. Left superficial veins: Saphenofemoral junction is patent without thrombus. Lymph nodes: Small lymph nodes right groin. Soft tissues: Mild soft tissue swelling bilaterally. IMPRESSION: No evidence of acute DVT right or left leg. Electronically signed by: Candelario José On 01/05/2021 22:05:45 PM
[2021-01-05 22:34] VITALS: BP 172/76
[2021-01-05] MEDS ORDERED: TORS20TA2 PO (22:45)
== END 2021-01-05 23:03 | disposition home or self-care (01) ==
LOC: M ED 17:08
DX: R22.43 Localized swelling, mass and lump, lower limb, bilateral (principal); I25.10 Atherosclerotic heart disease of native coronary artery without angina pectoris; I50.9 Heart failure, unspecified; Z88.0 Allergy status to penicillin; Z79.01 Long term (current) use of anticoagulants; Z79.899 Other long term (current) drug therapy
CPT/HCPCS: 80048; 82550; 82553; 83880; 84484; 85025; 86140; 93005; 93970; 96374; 99284; J1940

== ENCOUNTER 2021-01-07 12:09 | Emergency (ER) | payer MEDICAID, MEDICARE, OTHER ==
[~2021-01-07] VITALS: Ht 160 cm; Wt 136.4 kg
[~2021-01-07 12:09] MED LIST changes: +TORS20TA2 PO
[2021-01-07] MEDS ORDERED: AREDS PO (12:41)
[2021-01-07 13:36] LABS: BASO # 0.1 10^3/uL (0.0-0.2); BASO % 0.6 % (0.0-1.0); EOS # 0.1 10^3/uL (0.0-0.5); HEMATOCRIT 43.4 % (36.0-47.0); HEMOGLOBIN 13.4 g/dl (12.0-15.5); LYMPH % 12.7 % (24.0-44.0); MEAN CORPUSCULAR HEMOGLOBIN 26.5 pg (27.0-33.0); MEAN CORPUSCULAR HGB CONC 30.9 g/dl (32.0-36.5); MEAN CORPUSCULAR VOLUME 85.9 fl (80.0-96.0); MONO # 0.5 10^3/uL (0.0-0.8); MONO % 6.4 % (2.0-8.0); NEUTROPHILS # 6.2 10^3/uL (1.5-8.5); NEUTROPHILS % 78.8 % (36.0-66.0); PLATELET COUNT, AUTOMATED 299 10^3/uL (150-450); RED BLOOD COUNT 5.05 10^6/uL (4.00-5.40); WHITE BLOOD COUNT 7.8 10^3/uL (4.0-10.0)
[2021-01-07 14:01] LABS: ERYTHROCYTE SEDIMENTATION RATE 47 mm/hr (0-30)
[2021-01-07 14:23] LABS: C REACTIVE PROTEIN QUANTITATIV 4.38 MG/DL (0.00-0.30); CALCIUM LEVEL 8.7 MG/DL (8.8-10.2); CREATININE FOR GFR 1.29 MG/DL (0.55-1.30); GLOMERULAR FILTRATION RATE 44.2 (>45); POTASSIUM SERUM 4.1 MEQ/L (3.5-5.1)
[2021-01-07 15:01] VITALS: BP 131/61
== END 2021-01-07 15:08 | disposition home or self-care (01) ==
LOC: M ED 12:09
DX: E11.622 Type 2 diabetes mellitus with other skin ulcer (principal); I87.311 Chronic venous hypertension (idiopathic) with ulcer of right lower extremity; E78.5 Hyperlipidemia, unspecified; K21.9 Gastro-esophageal reflux disease without esophagitis; Z79.4 Long term (current) use of insulin; Z79.01 Long term (current) use of anticoagulants; Z88.0 Allergy status to penicillin

== ENCOUNTER → 2021-02-01 | Outpatient (CLI) | payer MEDICARE ==
[~2021-02-01] MED LIST changes: +AREDS PO
--- NOTE | 2021-02-01 15:47 | REP ---
INDICATION: CHRONIC VENOUS HYPERTENSION LOWER REMY EXT COMPARISON: None. TECHNIQUE: Reyes scale and color Doppler evaluation using linear high frequency transducer. FINDINGS: Ultrasound examination of the right and left lower extremity deep venous structures from the common femoral vein through the popliteal veins demonstrates normal compressibility flow and wave patterns in response to respiration and augmentation. There is no evidence for deep venous thrombosis. Bilateral calf veins could not be assessed due to technical factors and surrounding edema. Right lower extremity demonstrates reflux through the mid to distal greater saphenous vein. Specifically, the mid saphenous vein at the thigh measures 7 mm diameter with reflux duration 7 seconds and the distal greater saphenous vein at the knee measures 5 mm diameter with reflux duration 6.4 seconds. Left lower extremity demonstrates reflux in the distal greater saphenous vein measuring 3 mm diameter with reflux duration 6.5 seconds as well as at the lesser saphenous vein measuring 6 mm diameter with reflux duration 4.4 seconds. Reflux is also identified within the popliteal vein. IMPRESSION: No evidence for deep venous thrombosis. Mild amounts of reflux noted bilaterally as described above. <Electronically signed by Aamir Medina > 02/01/21 [id number]
== END ==
LOC: M RAD 12:41
PROVIDERS: ATTEND Physician Assistant
DX: I87.313 Chronic venous hypertension (idiopathic) with ulcer of bilateral lower extremity (principal)

== ENCOUNTER → 2021-03-21 | Outpatient (POV) | payer MEDICARE ==
[~2021-03-21] VITALS: Ht 157.5 cm; Wt 136.3 kg
[2021-03-21 10:20] VITALS: BP 150/78
--- NOTE | 2021-03-23 09:40 | IRCOV ---
[facility] IR Consult Office Visit IR Consult Office Visit DATE: Mar 21, 2021 REASON FOR CONSULTATION/CHIEF COMPLAINT: Recurrent right lower extremity venous ulcers. 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 This is associated with aching and leg fatigue. This is worse at the end of the day. She spent many decades on her feet all day. She does wear compression stockings. She does complain of bulging varicose veins. She's had recurrent right lower extremity venous ulcers, which take a long time to heal. She complains of bilateral lower extremity DVT decades ago, the last one in the right lower extremity in 2006. She also states she had a PE at that time. She is on Eliquis. She denies any prior venous ablations. She denies intermittent claudication or rest pain. She denies prior arterial thrombosis, cold leg, gangrene. She is a nonsmoker. ALLERGIES: Please see below. HOME MEDICATIONS: Please see below. 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 SOCIAL HISTORY: Nonsmoker. Denies alcohol or drugs. REVIEW OF SYSTEMS: Otherwise negative. PHYSICAL EXAMINATION: VITAL SIGNS: Please see below. GENERAL APPEARANCE: Appears well. Comfortable at rest. Central obesity. HEENT: No scleral icterus. RESPIRATORY: Normal breathing at rest. CARDIOVASCULAR: Normal rate. ABDOMEN: Distended but soft. EXTREMITIES: Left lower extremity: Edema. Warm to touch. Hemosiderin deposition over the busby and around the ankle. Skin dry and thickened. No ulcerations. No gangrene. Motor 5 out of 5. Sensation intact. AT/ PT 2+ Right lower extremity: Edema. Warm to touch. Hemosiderin deposition over the busby and around the ankle. Skin dry and thickened. No ulcerations. No gangrene. Motor 5 out of 5. Sensation intact. AT/ PT 2+ NEUROLOGICAL: Alert and oriented. PSYCHIATRIC: Appropriate to circumstance. LABORATORY DATA: 01/07/2021 hemoglobin 13.4 hematocrit 43.4 WBC 7.8 platelets 299. Sodium 136 potassium 4.1 BUN 32 creatinine 1.29 GFR 44.2 Imaging: I personally reviewed the bilateral lower extremity venous reflux study performed 02/01/2021. Dilated right greater saphenous vein with greater than 0.5 seconds of reflux. Dilated left greater saphenous vein with greater than 0.5 seconds of reflux. No deep vein thrombus. ASSESSMENT/PLAN: 65-year-old diabetic female with bilateral lower extremity swelling, fatigue and recurrent right medial malleolar venous ulcer. I agree patient would benefit from EVLT therapy. We should target the right leg first. We discussed the risks and benefits of the procedure and patient is willing to proceed. We will schedule the patient for right lower extremity EVLT. I spent 30 minutes reviewing patient's records, imaging and in consultation with the patient. Thank you for this referral. Cc Galina Kirkpatrick Allergies Coded Allergies: Penicillins (Verified Allergy, Intermediate, hives, 04/26/20) Home Medications Scheduled Amlodipine Besylate (Amlodipine Besylate), 10 MG PO DAILY, (Reported) Apixaban (Eliquis), 5 MG PO BID, (Reported) Atorvastatin Calcium (Lipitor), 80 MG PO QPM, (Reported) Ertugliflozin Pidolate (Steglatro), 15 MG PO DAILY, (Reported) Insulin NPH Hum/Reg Insulin Hm (Humulin 70-30 Vial), 42 UNITS [place] QAM, (Reported) Insulin NPH Hum/Reg Insulin Hm (Humulin 70-30 Vial), 40 UNITS SC QPM, (Reported) Losartan Potassium (Losartan Potassium), 50 MG PO DAILY, (Reported) Potassium Chloride (Klor-Con M10), 10 MEQ PO DAILY, (Reported) Torsemide (Torsemide), 1 TAB PO DAILY [Areds], PO DAILY, (Reported) VS, I&O, 24H, Fishbone Vital Signs/I&O Vital Signs Date Time Temp Pulse Resp B/P (MAP) Pulse Ox O2 Delivery O2 Flow Rate FiO2 03/21/21 10:20 96.5 60 20 150/78 (102) 98 Room Air SORAIDA CARRION MD Mar 23, 2021 09:40
== END ==
LOC: M IRPOV 10:13
PROVIDERS: ATTEND Radiology Diagnostic Radiology
DX: L97.319 Non-pressure chronic ulcer of right ankle with unspecified severity (principal); R60.0 Localized edema; E11.9 Type 2 diabetes mellitus without complications; I10 Essential (primary) hypertension; Z79.01 Long term (current) use of anticoagulants; Z79.4 Long term (current) use of insulin; Z79.899 Other long term (current) drug therapy; Z86.711 Personal history of pulmonary embolism; Z86.718 Personal history of other venous thrombosis and embolism; Z88.0 Allergy status to penicillin; Z90.710 Acquired absence of both cervix and uterus

== ENCOUNTER → 2021-04-19 | Outpatient (CLI) | payer MEDICARE ==
[~2021-04-19] MED LIST changes: -KLOR10TA76 PO; +LIDOCAINE 1% MDV 20ML VIAL As Ordered ONE; +LIDOCAINE 2% MDV 20ML VIAL As Ordered ONE; +MIDAZOLAM INJ 2MG/2ML VIAL (J2250 PER 1MG) As Ordered ONE; +NS 1,000 ML IV SCH; +POTA-136 PO; +PROMETHAZINE INJ 25 MG/ML VIAL (J2550) As Ordered ONE; +diphenhydrAMINE 50MG/ML VIAL (J1200) As Ordered ONE; +fentaNYL 100 MCG/2 ML INJECTION (J3010) As Ordered ONE
[2021-04-19 15:15] VITALS: BP 144/84
--- NOTE | 2021-04-20 11:48 | IRPON ---
IR Postoperative Note Date Of Procedure: Apr 19, 2021 Time Of Procedure: 16:00 IR Postoperative Note IR Endovenous laser treatment for right leg varicose vein. IR Ultrasound of the right leg. IR Tumescent anesthesia under ultrasound guidance. IR Moderate sedation. Clinical information: Right lower extremity nonhealing venous ulcer. Dilated greater saphenous vein with greater than 0.5 seconds of reflux. Physician: Dr. Yepez. Procedure: The patient was advised of the benefits, risks and alternatives of the procedure and informed consent was obtained. The time-out was performed with verification of the patient's name, MRN, site of procedure and type of procedure to be performed. The patient was positioned in the supine position on the table. The site was prepped and draped in the usual sterile fashion. Moderate sedation was performed by the physician including the presence of an independent trained RN who assisted in monitoring the patient's level of consciousness and physiologic status. Following the administration of fentanyl and Versed , the physician spent 60 minutes of continuous face to face time with the patient. Ultrasound of the right lower extremity demonstrates dilated right greater saphenous vein with greater than 0.5 seconds reflux. The access site was identified with ultrasound and anesthetized with lidocaine. The right greater saphenous vein was accessed under ultrasound guidance at the upper calf, using a micro introducer needle. An 018 cope wire was advanced into the vein. Incision at the access site was made using a scalpel. The needle was removed and an access catheter was advanced over the wire under ultrasound guidance to > 2.5 centimeters from the saphenofemoral junction. The wire was removed and the laser fiber was advanced through the catheter under ultrasound guidance and positioned with the tip located 2.5 cm from the saphenous femoral junction. Tumescent anesthesia was then injected under ultrasound guidance along the entire length of the vein to be treated. Repeat ultrasound of the saphenofemoral junction was used to confirm positioning of the tip of the laser back 2.5 cm from junction. The patient was positioned in Trendelenburg. The laser was then activated and under ultrasound guidance used to laser the Right greater saphenous vein back to the access point. Simultaneous manual compression was applied to the treated vein. Treatment: Wattage: 7. Time: 176 seconds. Pullback rate 1 cm every 7 seconds. Total Energy deposited 1231 joules. Treatment 50 joules per centimeter of vein. The fiber, catheter and sheath were removed, pressure held and hemostasis achieved. A sterile dressing was applied to the site. Compression dressing was then applied to the leg, from ankle to groin. The patient tolerated the procedure well and was returned to the PRU in stable condition. EBL: < 5 ml. Complications: None. Impression: 1. Ultrasound demonstrates dilated right greater saphenous vein with greater than 0.5 seconds reflux. 2. Successful right greater saphenous vein ablation with laser. 3. Compression dressing applied from ankle to groin. Patient to return in 1 week for follow up ultrasound at which time the compression dressing will be switched to stockings. Thank you this referral. Cc HELEN Ang SIMA MD Apr 20, 2021 11:48
== END ==
LOC: M IRPRO 11:08
PROVIDERS: ATTEND Radiology Diagnostic Radiology
DX: I83.009 Varicose veins of unspecified lower extremity with ulcer of unspecified site (principal); L97.919 Non-pressure chronic ulcer of unspecified part of right lower leg with unspecified severity
CPT/HCPCS: 36478; 76940; 99152; 99153; J1200; J2250; J3010

== ENCOUNTER → 2021-04-26 | Outpatient (CLI) | payer MEDICARE ==
[~2021-04-26] MED LIST changes: -LIDOCAINE 1% MDV 20ML VIAL As Ordered ONE; -LIDOCAINE 2% MDV 20ML VIAL As Ordered ONE; -MIDAZOLAM INJ 2MG/2ML VIAL (J2250 PER 1MG) As Ordered ONE; -NS 1,000 ML IV SCH; -PROMETHAZINE INJ 25 MG/ML VIAL (J2550) As Ordered ONE; -diphenhydrAMINE 50MG/ML VIAL (J1200) As Ordered ONE; -fentaNYL 100 MCG/2 ML INJECTION (J3010) As Ordered ONE
--- NOTE | 2021-04-26 10:15 | REP ---
INDICATION: S/P EVLT. COMPARISON: None. TECHNIQUE: Multiple ultrasonographic images of the deep venous structures of the right lower extremity were obtained from the inguinal ligament to the ankle. Venous compression techniques, color doppler imaging, and augmentation techniques were also obtained where appropriate. As per the ACR guidelines the anterior tibial vein can not be effectively evaluated. Only compression techniques in the calf on the peroneal and posterior tibial veins was attempted/performed. FINDINGS: There is no abnormal echogenic material seen within any of the visualized deep venous structures that would suggest acute thrombosis. Coaptation is unremarkable throughout. Doppler interrogation shows an expected response to respiratory variability and augmentation in the thigh. Compression techniques in the calf were unobtainable. The color flow images show what appears to be a normal vascular pattern throughout the thigh. Note is made of echogenic material in the greater saphenous vein. IMPRESSION: There is no ultrasonographic evidence of deep venous thrombosis involving any of the visualized deep venous structures of the right lower extremity as described above. Due to technical parameters calf vein DVT can not be ruled out. There is evidence of greater saphenous vein thrombosis. <Electronically signed by Haris Herrera > 04/26/21 1011
== END ==
LOC: M RAD 09:25
PROVIDERS: ATTEND Radiology Diagnostic Radiology
DX: M79.604 Pain in right leg (principal)

== ENCOUNTER 2021-04-30 14:06 | Inpatient (IN) | payer MEDICARE ==
[~2021-04-30] VITALS: Ht 157.5 cm; Wt 131.8 kg
[2021-04-30] MEDS ORDERED: HUMU70IN SC (14:47)
[2021-04-30 16:03] LABS: BASO % 0.5 % (0.0-1.0); EOS # 0.2 10^3/uL (0.0-0.5); EOS % 1.8 % (0.0-3.0); HEMATOCRIT 46.5 % (36.0-47.0); HEMOGLOBIN 14.7 g/dl (12.0-15.5); LYMPH # 1.2 10^3/uL (1.5-5.0); LYMPH % 14.5 % (24.0-44.0); MEAN CORPUSCULAR HEMOGLOBIN 26.7 pg (27.0-33.0); MEAN CORPUSCULAR HGB CONC 31.6 g/dl (32.0-36.5); MEAN CORPUSCULAR VOLUME 84.5 fl (80.0-96.0); MONO # 0.6 10^3/uL (0.0-0.8); MONO % 6.7 % (2.0-8.0); NEUTROPHILS # 6.3 10^3/uL (1.5-8.5); PLATELET COUNT, AUTOMATED 302 10^3/uL (150-450); WHITE BLOOD COUNT 8.3 10^3/uL (4.0-10.0)
--- NOTE | 2021-04-30 16:20 | REP ---
INDICATION: right chest pain, elevated BP. COMPARISON: 04/18/2019 TECHNIQUE: Portable FINDINGS: The technique utilized in obtaining the radiograph has magnified the cardiac silhouette and attenuated the interstitial markings. The cardiomediastinal silhouette lung wilkins are unchanged. The heart is not enlarged. Lung wilkins are clear. The pleural angles are sharp. The osseous structures stable intact. IMPRESSION: No acute cardiopulmonary disease or significant change compared to the prior exam. <Electronically signed by Haris Herrera > 04/30/21 [id number]
[2021-04-30 16:34] LABS: BLOOD UREA NITROGEN 22 MG/DL (7-18); C REACTIVE PROTEIN QUANTITATIV 1.86 MG/DL (0.00-0.30); CALCIUM LEVEL 9.6 MG/DL (8.8-10.2); CARBON DIOXIDE LEVEL 35 MEQ/L (21-32); CHLORIDE LEVEL 100 MEQ/L (98-107); CK-MB VALUE MASS < 1.0 NG/ML (<3.6); CPK CREATINE PHOSPHOKINASE 93 U/L (26-192); CREATININE FOR GFR 1.09 MG/DL (0.55-1.30); GLOMERULAR FILTRATION RATE 53.5 (>45); GLUCOSE, FASTING 183 MG/DL (70-100); MAGNESIUM LEVEL 1.6 MG/DL (1.8-2.4); MB/CK RELATIVE INDEX 1.08 (< OR =4); POTASSIUM SERUM 4.2 MEQ/L (3.5-5.1); SODIUM LEVEL 138 MEQ/L (136-145); TROPONIN I < 0.02 NG/ML (< 0.10)
[2021-04-30] MEDS ORDERED: NITROGLYCERIN 0.4 MG SUBL TABLET SL PRN (16:55)
[2021-04-30] MEDS ORDERED: ISOVUE-370 76% 100ML VIAL As Ordered ONE (17:15)
[2021-04-30] MEDS ORDERED: hydrALAZINE 20MG/ML 1ML VIAL (J0360 PER 20MG) IV ONE (18:30)
--- NOTE | 2021-04-30 18:43 | REPVR ---
PROCEDURE INFORMATION: Exam: CTA Chest With Contrast Exam date and time: 04/30/2021 6:03 PM Age: 66 years old Clinical indication: Shortness of breath; Additional info: Pe TECHNIQUE: Imaging protocol: Computed tomographic angiography of the chest with contrast. 3D rendering (Not supervised by radiologist): MIP and/or 3D reconstructed images were created by the technologist. Radiation optimization: All CT scans at this facility use at least one of these dose optimization techniques: automated exposure control; mA and/or kV adjustment per patient size (includes targeted exams where dose is matched to clinical indication); or iterative reconstruction. Contrast material: ISOVUE 370; Contrast volume: 75 ml; Contrast route: INTRAVENOUS (IV); COMPARISON: CT ANGIO CHEST 05/07/2014 9:28 AM FINDINGS: Pulmonary arteries: There is a small linear area pulmonary embolus at the origin of the descending pulmonary arterial branch and also a linear filling defect. There are small to moderate-sized pulmonary emboli in 3 branches of the pulmonary arteries to the right lung base. In several of the descending branches of the left pulmonary artery there is a linear filling defect consistent with mild pulmonary embolus. Aorta: There is opacification of the aorta. Thyroid: Normal thyroid. Lungs: Unremarkable. No consolidation. No masses. Pleural spaces: The the the lungs appear clear and there is no evidence of pneumothorax. There is also no evidence of pleural effusion. Heart: The heart is normal in size and there is no pericardial effusion. Lymph nodes: There is no evidence of mediastinal or hilar lymphadenopathy. Bones/joints: There is no evidence of bony abnormality. Soft tissues: There is no evidence of soft tissue abnormality. IMPRESSION: 1. The study is positive for pulmonary embolus. Small to moderate-sized pulmonary emboli are noted at the descending branch of the right pulmonary artery with a linear band like filling defect and a small area of thrombus along the wall. Small to moderate-sized pulmonary emboli in descending branches near the right pulmonary artery to the right lung base. 2. Linear filling defect consistent with mild embolus descending branch left pulmonary artery. Electronically signed by: Candelario José On 04/30/2021 18:43:08 PM
[2021-04-30] MEDS ORDERED: STEG15TA PO (19:48)
[2021-04-30] MEDS ORDERED: TORS20TA2 PO (19:51)
[2021-04-30] MEDS ORDERED: ELIQ5TAB PO (19:53)
[2021-04-30] MEDS ORDERED: HEPARIN SOD (PORCINE) 5000UNITS/ML 1ML VIAL/SYRINGE IV PRN ×2 (19:55→23:50)
[2021-04-30] MEDS ORDERED: HOME MED LIST COMPLETE! XX SCH (19:55)
[2021-04-30] MEDS ORDERED: HEPARIN DRIP 25,000 UNITS in IV 1 EA IV SCH ×2 (19:55→23:50)
[2021-04-30] MEDS ORDERED: HEPARIN SOD (PORCINE) 5000UNITS/ML 1ML VIAL/SYRINGE IV ONE (19:55)
[2021-04-30 20:06] LABS: CPK CREATINE PHOSPHOKINASE 88 U/L (26-192); MB/CK RELATIVE INDEX 1.14 (< OR =4); TROPONIN I < 0.02 NG/ML (< 0.10)
[2021-04-30 20:15] LABS: RSV AMPLIFICATION NEGATIVE (NEGATIVE)
[2021-04-30] MEDS ORDERED: ACETAMINOPHEN TAB 650MG DOSE (2X325MG) PO ONE (23:05)
--- NOTE | 2021-04-30 23:38 | HPEPDOC ---
[facility] Medical History & Physical Date of Admission Apr 30, 2021 Date of Service: Apr 30, 2021 History and Physical CHIEF COMPLAINT: Chest discomfort HISTORY OF PRESENT ILLNESS: 66-year-old female history of IDDM, hypertension, hyperlipidemia, previous PE and DVT on eliquis who presents because of a one-day history of chest discomfort described as 3/10 sharp mid chest that does not radiate and has been constant for the past 24 hours. She endorses that she's had very similar pain before 2006 when she had a PE last. Nothing alleviates or worsens the pain. She denies any shortness of breath or palpitations. Imaging in the emergency department reveals patient has bilateral PE. I discussed with the ED Dr. Altamirano the patient may benefit from transfer to a facility that has IR/vascular surgery if patient's RV/LV ratio on CT is 1.0. Transfer attempt was made calls to [facility], [facility], [facility], [facility], [place], [facility], [place] and unfortunately transfer was not possible [place] and [facility] both recommended patient could be admitted to [facility] on heparin drip and repeat transfer attempt can be made tomorrow if still necessary. They recommended that emergent transfer is not necessary at this time. IR Dr Yepez is here tomorrow. 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 REVIEW OF SYSTEMS: 10 point review of systems complete all negative otherwise stated in HPI HOME MEDICATIONS: Please see below. PHYSICAL EXAMINATION: Constitutional: Awake and alert, in no apparent distress ENT: Sclera are clear. Mucosa is moist. Respiratory: Lungs CTA bilaterally. No respiratory distress. No use of accessory muscles. Able to speak in full sentences Cardiovascular: Her heart rate is generally regular but at one point I may have heard a period of irregular heart rate. No chest pain at time of exam. Gastrointestinal: Abdomen is soft, non distended, non tender, BS present. Musculoskeletal: Dependent symmetrical lower extremity edema Neurologic: No focal neurological deficit. Mental Status: A&O x3, normal affect LABORATORY DATA: See below. IMAGING: See chart MICROBIOLOGY: Please see below. ASSESSMENT/PLAN 66-year-old female history of IDDM, hypertension, hyperlipidemia, previous PE and DVT on eliquis who presents because of a one-day history of chest discomfort found to have acute bilateral PE, hemodynamically stable, admitted for yahaira canseco. # Bilateral PE: Started on heparin drip. Fu echo, Fu lower extremity duplex, Tele monitoring. Discuss with IR tomorrow if candidate for catheter directed thrombolysis, if IR not available or unwilling to do procedure Patricia asks we call in the morning as they likely will have bed availability if procedure deemed necessary, as of right now patient is hemodynamically stable and comfortable. Home eliquis held. # Chest pain: likely from the PE. Will rule out ACS. Trend Trops. first two n egative. EKG NSR. # Hypertension: Uncontrolled. Continue home meds. Monitor and titrate. IV hydralazine if needed # DM: ISS. Frequent Accu-Cheks. Hypoglycemic precautions. Continue home insulin regiment # STACY: May use home CPAP machine # Hyperlipidemia: Continue home statin # DVT prophylaxis: On heparin drip A Yousef Hospitalist Vital Signs Vital Signs Date Time Temp Pulse Resp B/P (MAP) Pulse Ox O2 Delivery O2 Flow Rate FiO2 04/30/21 23:01 92 17 95 Room Air 04/30/21 23:00 184/85 (118) 04/30/21 22:31 97.3 Laboratory Data Labs 24H Laboratory Tests 2 04/30/21 15:12: Immature Granulocyte % (Auto) 0.5, Neutrophils (%) (Auto) 76.0H, Lymphocytes (%) (Auto) 14.5L, Monocytes (%) (Auto) 6.7, Eosinophils (%) (Auto) 1.8, Basophils (%) (Auto) 0.5, Neutrophils # (Auto) 6.3, Lymphocytes # (Auto) 1.2L, Monocytes # (Auto) 0.6, Eosinophils # (Auto) 0.2, Basophils # (Auto) 0.0, Nucleated Red Blood Cells % (auto) 0.0, Anion Gap 3L, Glomerular Filtration Rate 53.5, Calcium Level 9.6, Magnesium Level 1.6L, Total Creatine Kinase 93, Creatine Kinase MB < 1.0, Creatine Kinase MB Relative Index 1.08, Troponin I < 0.02, C-Reactive Protein, Quantitative 1.86H, Thyroid Stimulating Hormone (TSH) 3.980H 04/30/21 19:24: Activated Partial Thromboplast Time 33.8 04/30/21 19:27: Total Creatine Kinase 88, Creatine Kinase MB 1.0, Creatine Kinase MB Relative Index 1.14, Troponin I < 0.02 04/30/21 19:29: Coronavirus (COVID-19)(PCR) NEGATIVE, Influenza Type A (RT-PCR) NEGATIVE, Influenza Type B (RT-PCR) NEGATIVE, Respiratory Syncytial Virus (PCR) NEGATIVE CBC/BMP Laboratory Tests 04/30/21 15:12 Home Medications Scheduled Amlodipine Besylate (Amlodipine Besylate) 10 Mg Tab, 10 MG PO DAILY Apixaban (Eliquis) 5 Mg Tablet, 5 MG PO BID Atorvastatin Calcium (Lipitor) 80 Mg Tablet, 80 MG PO QPM Ertugliflozin Pidolate (Steglatro) 15 Mg Tablet, 15 MG PO DAILY Insulin NPH Hum/Reg Insulin Hm (Humulin 70-30 Vial) 1 Inj Inj, 42 UNITS SC QAM Insulin NPH Hum/Reg Insulin Hm (Humulin 70-30 Vial) 100 Unit/1 Ml Vial, 20 UNITS SC QHS Losartan Potassium (Losartan Potassium) 50 Mg Tablet, 50 MG PO DAILY Potassium Chloride (Klor-Con M10) 10 Meq Tabcr, 10 MEQ PO DAILY Torsemide (Torsemide) 20 Mg Tablet, 20 MG PO DAILY [Areds] , 2 TABS PO DAILY Allergies Coded Allergies: Penicillins (Verified Allergy, Intermediate, hives, 04/26/20) ELADIA SON MD Apr 30, 2021 23:38
[2021-04-30] MEDS ORDERED: GLUCAGON INJ 1MG VIAL SC PRN (23:50)
[2021-04-30] MEDS ORDERED: MOM 30ML SUSPENSION UDC PO PRN (23:50)
[2021-04-30] MEDS ORDERED: GLUCOSE 4GM CHEW TABLET PO PRN (23:50)
[2021-04-30] MEDS ORDERED: DEXTROSE 50% 50 ML SYRINGE IV PRN (23:50)
[2021-05-01 00:36] LABS: HEMATOCRIT 46.1 % (36.0-47.0); HEMOGLOBIN 14.9 g/dl (12.0-15.5); MEAN CORPUSCULAR HEMOGLOBIN 26.9 pg (27.0-33.0); MEAN CORPUSCULAR HGB CONC 32.3 g/dl (32.0-36.5); MEAN CORPUSCULAR VOLUME 83.4 fl (80.0-96.0); PLATELET COUNT, AUTOMATED 279 10^3/uL (150-450); RED BLOOD COUNT 5.53 10^6/uL (4.00-5.40); WHITE BLOOD COUNT 9.2 10^3/uL (4.0-10.0)
[2021-05-01] MEDS: ATORVASTATIN 20 MG TAB PO SCH ×2 (00:45→20:28)
[2021-05-01 01:40] VITALS: BP 160/72
--- NOTE | 2021-05-01 02:36 | REPVR ---
PROCEDURE INFORMATION: Exam: US Duplex Lower Extremity Veins, Bilateral Exam date and time: 05/01/2021 1:24 AM Age: 66 years old Clinical indication: Pulmonary emboli seen in the CTA chest on 04/30/2021. TECHNIQUE: Imaging protocol: Real-time duplex ultrasound of the extremities with 2-D lan scale, color Doppler flow and spectral waveform analysis with image documentation. Complete exam focused on the bilateral lower extremity veins. COMPARISON: US Duplex, Ext,LOWER veins,unilat 04/26/2021 9:46 AM FINDINGS: Right deep veins: Unremarkable. The common femoral, femoral, and popliteal veins are patent without thrombus. Normal compressibility, augmentation response and Doppler waveforms. According to the cardiac cath technologist notes, the right calf veins were not able to be visualized secondary to the patient's body habitus. Right superficial veins: Saphenofemoral junction is patent without thrombus. Left deep veins: There are nonocclusive deep vein thromboses involving the left popliteal vein and the left femoral vein just proximal to the left popliteal vein. The remainder of the left femoral vein and left common femoral vein are patent and demonstrate normal color Doppler flow and compressibility. Left superficial veins: Saphenofemoral junction is patent without thrombus. IMPRESSION: 1. Nonocclusive deep vein thromboses involving the left popliteal vein and the left superficial femoral vein just proximal to the left popliteal vein. 2. No deep vein thrombosis in the veins imaged in the right lower extremity. Electronically signed by: Efe Kendall On 05/01/2021 02:36:09 AM
[2021-05-01 04:00] VITALS: BP 113/55
[2021-05-01 05:46] LABS: HEMATOCRIT 42.7 % (36.0-47.0); HEMOGLOBIN 13.8 g/dl (12.0-15.5); MEAN CORPUSCULAR HEMOGLOBIN 27.3 pg (27.0-33.0); MEAN CORPUSCULAR HGB CONC 32.3 g/dl (32.0-36.5); MEAN CORPUSCULAR VOLUME 84.6 fl (80.0-96.0); PLATELET COUNT, AUTOMATED 287 10^3/uL (150-450); RED BLOOD COUNT 5.05 10^6/uL (4.00-5.40); WHITE BLOOD COUNT 7.4 10^3/uL (4.0-10.0)
--- NOTE | 2021-05-01 05:56 | ECGEPIP ---
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
--- NOTE | 2021-05-01 05:59 | ECGEPIP ---
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
[2021-05-01 06:58] VITALS: BP 121/51
[2021-05-01 07:55] LABS: ALBUMIN 3.1 GM/DL (3.2-5.2); ALT/SGPT 19 U/L (12-78); BILIRUBIN,TOTAL 0.6 MG/DL (0.2-1.0); BLOOD UREA NITROGEN 21 MG/DL (7-18); CALCIUM LEVEL 9.1 MG/DL (8.8-10.2); CARBON DIOXIDE LEVEL 31 MEQ/L (21-32); CHLORIDE LEVEL 101 MEQ/L (98-107); CREATININE FOR GFR 0.97 MG/DL (0.55-1.30); GLOMERULAR FILTRATION RATE > 60.0 (>45); GLUCOSE, FASTING 169 MG/DL (70-100); MAGNESIUM LEVEL 1.5 MG/DL (1.8-2.4); POTASSIUM SERUM 3.9 MEQ/L (3.5-5.1); SODIUM LEVEL 141 MEQ/L (136-145); TOTAL PROTEIN 7.2 GM/DL (6.4-8.2)
[2021-05-01] MEDS ORDERED: APIXABAN 5 MG TAB (ELIQUIS) PO SCH (09:00)
[2021-05-01] MEDS: HumaLOG INSULIN (NovoLOG) PER UNIT SC SCH ×3 (09:17→18:19)
[2021-05-01] MEDS: LOSARTAN 50MG TABLET PO SCH (09:18)
[2021-05-01] MEDS: POTASSIUM CHLORIDE 10MEQ SR TABLET PO SCH (09:18)
[2021-05-01] MEDS: TORSEMIDE 20 MG TAB PO SCH (09:18)
[2021-05-01] MEDS: HumuLIN (NovoLIN)70/30 INSULIN INJ PER UNIT SC SCH (09:18)
[2021-05-01 11:30] VITALS: BP 103/52
[2021-05-01] MEDS: MAG SULF 1GM/100ML (MAG RUN) 1 GM in IV 1 EA IV SCH ×2 (12:56→14:11)
[2021-05-01 16:10] VITALS: BP 113/55
--- NOTE | 2021-05-01 17:01 | IPNPDOC ---
Date Seen The patient was seen on 05/01/21. Progress Note SUBJECTIVE: HISTORY OF PRESENT ILLNESS: This is a 66 year old female with history of IDDM, HTN, Hyperlipidemia, previous PE and DVT on qu who presented to the [facility] emergency room on 04/30/21 with a one day history of right sided chest pain that she describes as intermittently sharp with dull pressure between. She states that it is from her sternum through the inferior right breast. She was not active when the pain started, no obvious precipitating event. She reports that the pain is similar to her previous PE in 2006. She also notes a frontal MCGRATH on Saturday (04/29/21). Nothing makes the pain better or worse. Imaging in the ER revealed that patient has bilateral PEs. A transfer attempt was made on 04/30/21 but was unsuccessful ([facility], [place], [facility], [place], [place], [place], [facility], [facility]). Both [place] and [facility] advised that we start her on a heparin drip and make another transfer attempt today (05/01/21) if still necessary. Today (05/01/21) she endorses continued chest pain that is consistent with her presenting chest pain (intermittently sharp with dull pressure between). She denies SOB, cough, LOC, irregular HR or palpitations. Review of systems: Cardiac: Reports right sided intermittent sharp chest pain followed by a dull heaviness; denies palpitations Respiratory: Denies shortness of breath, coughing Gastrointestinal: Denies nausea, vomiting, diarrhea, melena, bright red blood per rectum : Denies dysuria, hematuria Neuro: Endorses headache (frontal in nature on 04/29/2021); denies dizziness, loss of consciousness, blurry/worsening vision OBJECTIVE: PE Constitutional: Obese female sitting in bed, awake and alert, NAD EENT: Sclera clear, MMM Respiratory: Lungs CTA bilaterally. No respiratory distress. No use of accessory muscles. Able to speak in full sentences CV: RRR, S1, S2, faint potential murmur GI: Abdomen soft, obese, non-distended, non-tender, BS present and normoactive Extremities: Some dryness and erythema at ankles with no obvious edema/pitting Mental Status: appropriate mood, normal affect, cooperative and interested in her care. IMAGING: US BLE Venous Doppler 04/30/21 1. Nonocclusive deep vein thromboses involving the left popliteal vein and the left superficial femoral vein just proximal to the left popliteal vein. 2. No deep vein thrombosis in the veins imaged in the right lower extremity. CTA Chest w contrast 04/30/21 1. The study is positive for pulmonary embolus. Small to moderate-sized pulmonary emboli are noted at the descending branch of the right pulmonary artery with a linear band like filling defect and a small area of thrombus along the wall. Small to moderate-sized pulmonary emboli in descending branches near the right pulmonary artery to the right lung base. 2. Linear filling defect consistent with mild embolus descending branch left pulmonary artery. 3. There is no evidence of right ventricular strain and approximately a 1-1 ratio. Chest X-Ray Portable 04/30/21 No acute cardiopulmonary disease or significant change compared to the prior exam. RECENT PROCEDEURES: - RT GSV vein stripping 2/2 venous reflux 04/19/21 - LT side also scheduled per pt ASSESSMENT AND PLAN This is a 66 year old female with history of IDDM, HTN, Hyperlipidemia, previous PE and DVT on Eliquis who presented to the [facility] emergency room on 04/30/21 with a one day history of right sided chest pain that she describes as intermittently sharp with dull pressure between. She states that it is from her sternum through the inferior right breast. Imaging in the ER revealed that patient has bilateral PEs. Patient is hemodynamically stable. Likely a mild PE. A transfer attempt was made on 04/30/21 but was unsuccessful Patient was admitted to the hospitalist service for monitoring of bilateral pulmonary emboli #Bilateral PE with Eliquis failure - Home Eliquis held, patient started on IV Heparin drip - BLE Venous Doppler resulted non-occlusive clot in LLE (see above) - Echo performed, pending results - At 18:00 05/01/21 patient will be switched to SC Lovenox 90mg q12h - Anticipate patient will d/c to home on Lovenox x30d and then start Coumadin PO (due to NAOC failure) - Consulted IR (Dr. Yepez) about use of tPa, IR recommends no tPa, no IVC filter just anticoagulants at this time # Chest pain likely 2/2 BL PE - Less likely ACS, troponins negative x3, EKG in ER NSR #Hypomagnesemia - 04/30/21 15:12 - 1.6 - 05/01/21 05:30 1.5 - IV Magnesium sulfate/dextrose 1g (2 bags total) started at 12:56 05/01/21 #Mildly elevated TSH -Orders: Repeating TSH, adding T4, and total T3 # Hypertension, uncontrolled - Hydralazine IV 10mg administered once - Continue home BP medications - BP down trending and normalizing # DM2 - c/w ISS - Monitor POC glucose - Hypoglycemic precautions - Continue home insulin regiment # STACY - May use home CPAP # Hyperlipidemia - Continue home statin # DVT prophylaxis: - On IV heparin drip VS, I&O, 24H, Fishbone Vital Signs/I&O Vital Signs Date Time Temp Pulse Resp B/P (MAP) Pulse Ox O2 Delivery O2 Flow Rate FiO2 05/01/21 16:10 97.5 84 20 113/55 (74) 92 Room Air I&O- Last 24 Hours up to 6 AM 05/01/21 06:00 Output Total 700 ml Balance -700 ml Laboratory Data 24H LABS Laboratory Tests 2 04/30/21 19:24: Activated Partial Thromboplast Time 33.8 04/30/21 19:27: Total Creatine Kinase 88, Creatine Kinase MB 1.0, Creatine Kinase MB Relative Index 1.14, Troponin I < 0.02 04/30/21 19:29: Coronavirus (COVID-19)(PCR) NEGATIVE, Influenza Type A (RT-PCR) NEGATIVE, Influenza Type B (RT-PCR) NEGATIVE, Respiratory Syncytial Virus (PCR) NEGATIVE 05/01/21 00:25: Activated Partial Thromboplast Time > 240.0*H, Nucleated Red Blood Cells % (auto) 0.0 05/01/21 01:55: Bedside Glucose (Misc Panel) 190H 05/01/21 02:47: Troponin I < 0.02 05/01/21 05:30: Nucleated Red Blood Cells % (auto) 0.0, Anion Gap 9, Glomerular Filtration Rate > 60.0, Calcium Level 9.1, Magnesium Level 1.5L, Total Bilirubin 0.6, Aspartate Amino Transf (AST/SGOT) 21, Alanine Aminotransferase (ALT/SGPT) 19, Alkaline Phosphatase 69, Total Protein 7.2, Albumin 3.1L, Albumin/Globulin Ratio 0.8L 05/01/21 08:24: Bedside Glucose (Misc Panel) 152H 05/01/21 09:14: Activated Partial Thromboplast Time 74.0H 05/01/21 10:35: Bedside Glucose (Misc Panel) 209H 05/01/21 11:54: Bedside Glucose (Misc Panel) 216H 05/01/21 14:47: Activated Partial Thromboplast Time 71.6H CBC/BMP Laboratory Tests 05/01/21 00:25 05/01/21 05:30 Microbiology Microbiology 05/01/21 Stool Occult Blood (OTONIEL) - Final, Complete GME ATTESTATION GME ATTESTATION My faculty preceptor for this patient encounter was physically present during the encounter and was fully available. All aspects of the patient interview, examination, medical decision making process, and medical care plan development were reviewed and approved by the faculty preceptor. The faculty preceptor is aware and concurs with the plan as stated in the body of this note and will atte st to such by his/her cosignature. ATTENDING NOTE I, Moncho Mayorga, have independently examined this patient and performed my own physical exam, as well as reviewed the documentation and edited where necessary. I have discussed in detail with the resident / student the findings and plan of treatment as documented by the resident / student and edited their note. I agree with their findings and treatment plan and have edited their documentation. I will continue to follow the patient during this hospital stay. Kade Gama DO May 01, 2021 17:01 MONCHO MAYORGA MD May 01, 2021 17:08
[2021-05-01] MEDS: ENOXAPARIN 100MG/1ML SYRINGE (J1650 PER 10MG) SC SCH (18:20)
[2021-05-01 20:00] VITALS: BP 114/53
[2021-05-01] MEDS ORDERED: HumaLOG INSULIN (NovoLOG) PER UNIT SC SCH (21:00)
[2021-05-01] MEDS ORDERED: HumuLIN (NovoLIN)70/30 INSULIN INJ PER UNIT SC SCH (21:00)
[2021-05-01] MEDS ORDERED: ACETAMINOPHEN TAB 650MG DOSE (2X325MG) PO PRN (21:25)
[2021-05-01] MEDS ORDERED: PERCOCET 5MG/325MG TAB PO PRN (21:25)
[2021-05-02] VITALS: BP 111/65
--- NOTE | 2021-05-02 00:42 | ECHO ---
ECHOCARDIOGRAM DATE OF PROCEDURE: 05/01/2021 Age: 66 Gender: Female Height: 157 cm Weight: 132 kg REFERRING PHYSICIAN: Dr. Logan Batista INDICATION: Bilateral pulmonary embolism 2D MEASUREMENTS: IVS 1.3 cm LV 3.9 cm LVPW 1.3 cm LA 4.0 cm Aorta 3.1 cm Left atrial volume index 35 DOPPLER MEASUREMENT Mitral E wave velocity 57 Mitral A 51 E prime septal 5.7 E prime lateral 9.1 FINDINGS: This study is of rather limited technical quality with very poor visualization corresponding to patient's body habitus, underlying sinus rhythm. Normal LV size with mild left ventricular hypertrophy and overall likely normal LV systolic function based on fair views. I do not appreciate any existing wall motion abnormalities. Right ventricle was not well seen. Left atrium is at least mildly enlarged. The right atrium was poorly visualized. The aortic valve is minimally sclerotic, but has 3-cusps and preserved mobility. There are also mild degenerative abnormalities of mitral valve. Right-sided heart valves were not well seen. Some pericardial fat pad, but no effusion is seen. Inferior vena cava was not visualized. Aortic root is normal. Aortic arch also appears grossly normal. Abdominal aorta was not well seen. Doppler interrogation of aortic valve reveals no stenosis or insufficiency. There is trace mitral insufficiency. Right-sided hardware also was not seen so I cannot comment on their function. Mitral inflow pattern and tissue Doppler imaging of mitral annulus revealed grade 2 diastolic dysfunction. CONCLUSIONS: 1. Study is of very limited technical quality with difficult visualization. Underlying sinus rhythm. 2. Normal LV size with mild left ventricular hypertrophy and preserved LV function. Grade 2 diastolic dysfunction. 3. No hemodynamically significant aortic and mitral valvular disease. 4. Right-sided heart chambers and valves were not well seen. 5. No significant pericardial effusion. 6. Unable to estimate central venous pressure and pulmonary artery pressure.
[2021-05-02 04:00] VITALS: BP 129/64
[2021-05-02 06:20] LABS: FREE T4 0.96 NG/DL (0.76-1.46); THYROID STIMULATING HORMONE 2.74 uIU/ML (0.358-3.740)
[2021-05-02] MEDS: ENOXAPARIN 100MG/1ML SYRINGE (J1650 PER 10MG) SC SCH (06:40)
[2021-05-02 07:48] VITALS: BP 126/62
[2021-05-02 07:49] LABS: BASO # 0.1 10^3/uL (0.0-0.2); BASO % 0.7 % (0.0-1.0); EOS # 0.1 10^3/uL (0.0-0.5); EOS % 1.3 % (0.0-3.0); HEMATOCRIT 42.5 % (36.0-47.0); HEMOGLOBIN 13.3 g/dl (12.0-15.5); LYMPH # 1.7 10^3/uL (1.5-5.0); LYMPH % 25.5 % (24.0-44.0); MEAN CORPUSCULAR HEMOGLOBIN 26.8 pg (27.0-33.0); MEAN CORPUSCULAR HGB CONC 31.3 g/dl (32.0-36.5); MEAN CORPUSCULAR VOLUME 85.7 fl (80.0-96.0); MONO # 0.6 10^3/uL (0.0-0.8); MONO % 9.1 % (2.0-8.0); NEUTROPHILS # 4.3 10^3/uL (1.5-8.5); NEUTROPHILS % 63.1 % (36.0-66.0); PLATELET COUNT, AUTOMATED 294 10^3/uL (150-450); RED BLOOD COUNT 4.96 10^6/uL (4.00-5.40); WHITE BLOOD COUNT 6.7 10^3/uL (4.0-10.0)
[2021-05-02 08:04] LABS: ALBUMIN 2.8 GM/DL (3.2-5.2); BILIRUBIN,TOTAL 0.3 MG/DL (0.2-1.0); CALCIUM LEVEL 8.6 MG/DL (8.8-10.2); CREATININE FOR GFR 1.28 MG/DL (0.55-1.30); GLOMERULAR FILTRATION RATE 44.4 (>45); POTASSIUM SERUM 3.7 MEQ/L (3.5-5.1); TOTAL PROTEIN 6.7 GM/DL (6.4-8.2)
[2021-05-02] MEDS: HumuLIN (NovoLIN)70/30 INSULIN INJ PER UNIT SC SCH (08:33)
[2021-05-02 08:34] VITALS: BP 126/62
[2021-05-02] MEDS: TORSEMIDE 20 MG TAB PO SCH (08:34)
[2021-05-02] MEDS: HumaLOG INSULIN (NovoLOG) PER UNIT SC SCH ×2 (08:34→12:00)
[2021-05-02] MEDS: LOSARTAN 50MG TABLET PO SCH (08:34)
[2021-05-02] MEDS: POTASSIUM CHLORIDE 10MEQ SR TABLET PO SCH (08:34)
[2021-05-02 09:36] LABS: TOTAL T3 73.8 NG/DL (60.0-181.0)
[2021-05-02] MEDS ORDERED: LOVE0.8I SC (11:07)
[2021-05-02 12:00] VITALS: BP 104/52
--- NOTE | 2021-05-02 19:35 | DS.PDOC ---
Discharge Summary General Date of Admission Apr 30, 2021 at 23:38 Date of Discharge May 02, 2021 Attending Physician: JASON CAMPOS MD Specialist/Consultants Involve: SORAIDA CARRION MD Discharge Summary PROCEDURES PERFORMED DURING STAY: [None]. ADMITTING DIAGNOSES: 1. Bilateral PE 2. Chest pain 3. Hypertension 4. DM 5. Obstructive 6. Sleep apnea 7. Hyperlipidemia 8. Morbid obesity DISCHARGE DIAGNOSES: 1. Bilateral PE - discharged on Lovenox 2. Chest pain 3. Hypertension 4. DM 5. Obstructive 6. Sleep apnea 7. Hyperlipidemia 8. Morbid obesity COMPLICATIONS/CHIEF COMPLAINT: Bilateral Pulmonary Embolism. HISTORY OF PRESENT ILLNESS: 66-year-old female history of IDDM, hypertension, hyperlipidemia, previous PE and DVT on eliquis who presents because of a one-day history of chest discomfort described as 3/10 sharp mid chest that does not radiate and has been constant for the past 24 hours. She endorses that she's had very similar pain before 2006 when she had a PE last. Nothing alleviates or worsens the pain. She denies any shortness of breath or palpitations. Imaging in the emergency department reveals patient has bilateral PE. She was admitted on a heparin drip after multiple transfer attempts were were made and unsuccessf ul. HOSPITAL COURSE: 04/30/2021: Admitted for inpatient management. Heparin drip was started and pl aced on telemetry troponins were trended due to chest pain. Presented with uncontrolled hypertension at home meds were continued. Hydralazine was administered once in the ER 05/01/2021: She endorsed continued right-sided chest pain. Heparin was stopped and was transitioned to Lovenox. Troponins were negative x3. Given IV magnesium supplementation. Blood pressure was down trending and continued to normalize compared to admission. Echo was severely limited due to body habitus. 05/02/2021: Patient reported improvement in chest pain and only noticed mild twinges at times. Patient was advised that she should continue Lovenox for the next 30 days and then transition to warfarin under the care of her PCP. DISCHARGE MEDICATIONS: Please see below. ALLERGIES: Please see below. PHYSICAL EXAMINATION ON DISCHARGE: VITAL SIGNS: Please see below. GENERAL: 66-year-old, morbidly obese, female, resting in bed, no acute distress HEENT: Head normocephalic/atraumatic CARDIOVASCULAR EXAMINATION: Regular rate and rhythm, faint potential murmur RESPIRATORY EXAMINATION: Distant lung sounds bilaterally due to body habitus ABDOMINAL EXAMINATION: Normoactive bowel sounds, nontender to palpation EXTREMITIES: 2+ radial pulses bilaterally IMAGING: US BLE Venous Doppler 04/30/21: 1. Nonocclusive deep vein thromboses involving the left popliteal vein and the left superficial femoral vein just proximal to the left popliteal vein. 2. No deep vein thrombosis in the veins imaged in the right lower extremity. CTA Chest w contrast 04/30/21 1. The study is positive for pulmonary embolus. Small to moderate-sized pulmonary emboli are noted at the descending branch of the right pulmonary ar lulu with a linear band like filling defect and a small area of thrombus along the wall. Small to moderate-sized pulmonary emboli in descending branches near the right pulmonary artery to the right lung base. 2. Linear filling defect consistent with mild embolus descending branch left pulmonary artery. 3. There is no evidence of right ventricular strain and approximately a 1-1 ratio. Chest X-Ray Portable 04/30/21 No acute cardiopulmonary disease or significant change compared to the prior ex am. Vascular ultrasound 05/01/2021 1. Nonocclusive deep vein thromboses involving the left popliteal vein and the left superficial femoral vein just proximal to the left popliteal vein. 2. No deep vein thrombosis in the veins imaged in the right lower extremity. Echocardiogram 05/01/2021 1. Study is of very limited technical quality with difficult visualization. Underlying sinus rhythm. 2. Normal LV size with mild left ventricular hypertrophy and preserved LV function. Grade 2 diastolic dysfunction. 3. No hemodynamically significant aortic and mitral valvular disease. 4. Right-sided heart chambers and valves were not well seen. 5. No significant pericardial effusion. 6. Unable to estimate central venous pressure and pulmonary artery pressure. PROGNOSIS: Improving ACTIVITY: [As tolerated]. DIET: Low-salt diet DISPOSITION: 01 Home, Self-Care. DISCHARGE INSTRUCTIONS AND ITEMS TO FOLLOW-UP ON OUTPATIENT Continue Lovenox as directed for 30 days. Follow-up with PCP (Kim Kraft) within 1 week, and discuss bridging to warfarin after failing outpatient Eliquis. Continue home medications as directed. Should presenting symptoms return and/or worsen, please return to the ED for evaluation and treatment. Thank you very much for allowing us to be part of your care. DISCHARGE CONDITION: [Stable]. TIME SPENT ON DISCHARGE: 30 minutes. Vital Signs/I&Os Vital Signs Date Time Temp Pulse Resp B/P (MAP) Pulse Ox O2 Delivery O2 Flow Rate FiO2 05/02/21 12:00 98.0 76 16 104/52 (69) 95 Room Air I&O- Last 24 Hours up to 6 AM 05/02/21 06:00 Intake Total 855 ml Output Total 550 ml Balance 305 ml Laboratory Data Labs 24H Laboratory Tests 2 05/01/21 20:15: Bedside Glucose (Misc Panel) 191H 05/02/21 05:02: Immature Granulocyte % (Auto) 0.3, Neutrophils (%) (Auto) 63.1, Lymphocytes (%) (Auto) 25.5, Monocytes (%) (Auto) 9.1H, Eosinophils (%) (Auto) 1.3, Basophils (%) (Auto) 0.7, Neutrophils # (Auto) 4.3, Lymphocytes # (Auto) 1.7, Monocytes # (Auto) 0.6, Eosinophils # (Auto) 0.1, Basophils # (Auto) 0.1, Nucleated Red Blood Cells % (auto) 0.0, Anion Gap 8, Glomerular Filtration Rate 44.4L, Calcium Level 8.6L, Total Bilirubin 0.3, Aspartate Amino Transf (AST/SGOT) 20, Alanine Aminotransferase (ALT/SGPT) 19, Alkaline Phosphatase 62, Total Protein 6.7, Albumin 2.8L, Albumin/Globulin Ratio 0.7L, Thyroid Stimulating Hormone (TSH) 2.740, Free Thyroxine 0.96, Total Triiodothyronine 73.8 05/02/21 08:21: Bedside Glucose (Misc Panel) 111 05/02/21 12:22: Bedside Glucose (Misc Panel) 149H CBC/BMP Laboratory Tests 05/02/21 05:02 FSBS Laboratory Tests Test 05/01/21 20:15 05/02/21 08:21 05/02/21 12:22 Range/Units Bedside Glucose (Misc Panel) 191 111 149 80-115 MG/DL Microbiology Microbiology 05/01/21 Stool Occult Blood (OTONIEL) - Final, Complete Discharge Medications Scheduled Amlodipine Besylate (Amlodipine Besylate) 10 Mg Tab, 10 MG PO DAILY, (Reported) Atorvastatin Calcium (Lipitor) 80 Mg Tablet, 80 MG PO QPM, (Reported) Enoxaparin Sodium (Lovenox) 100 Mg/1 Ml Syringe, 90 MG SC Q12H Ertugliflozin Pidolate (Steglatro) 15 Mg Tablet, 15 MG PO DAILY, (Reported) Insulin NPH Hum/Reg Insulin Hm (Humulin 70-30 Vial) 1 Inj Inj, 42 UNITS SC QAM, (Reported) Insulin NPH Hum/Reg Insulin Hm (Humulin 70-30 Vial) 100 Unit/1 Ml Vial, 20 UNITS SC QHS, (Reported) Losartan Potassium (Losartan Potassium) 50 Mg Tablet, 50 MG PO DAILY, (Reported) Potassium Chloride (Klor-Con M10) 10 Meq Tabcr, 10 MEQ PO DAILY, (Reported) Torsemide (Torsemide) 20 Mg Tablet, 20 MG PO DAILY, (Reported) [Areds] , 2 TABS PO DAILY, (Reported) Allergies Coded Allergies: Penicillins (Verified Allergy, Intermediate, hives, 04/26/20) GME ATTESTATION GME ATTESTATION My faculty preceptor for this patient encounter was physically present during the encounter and was fully available. All aspects of the patient interview, examination, medical decision making process, and medical care plan development were reviewed and approved by the faculty preceptor. The faculty preceptor is aware and concurs with the plan as stated in the body of this note and will attest to such by his/her cosignature. ATTENDING NOTE I personally examined the patient and discussed her findings, management and discharged plan as detailed by the resident physician above. Briefly, Ms. Avila had eliquis failure and had a VTEs while on eliquis and due to that, she has now been transitioned to therapeutic lovenox for which she will be prescribed 1 month of injections with the instruction to promptly follow up with her PCP who will bridge her to coumadin. Kade Gama DO May 02, 2021 19:35 JASON CAMPOS MD May 02, 2021 21:12
== END 2021-05-02 15:37 | disposition home or self-care (01) | DRG 176 ==
LOC: M ED 14:06 → M ED INP 23:38 → ENRESERV 05-01 00:02 → M PCU 05-01 01:32
PROVIDERS: ADMIT Family Medicine; ATTEND Internal Medicine
DX: I26.99 Other pulmonary embolism without acute cor pulmonale (principal); Z68.43 Body mass index [BMI] 50.0-59.9, adult; I82.432 Acute embolism and thrombosis of left popliteal vein; I82.412 Acute embolism and thrombosis of left femoral vein; I10 Essential (primary) hypertension; E11.9 Type 2 diabetes mellitus without complications; E66.01 Morbid (severe) obesity due to excess calories; E78.5 Hyperlipidemia, unspecified; G47.33 Obstructive sleep apnea (adult) (pediatric); Z79.01 Long term (current) use of anticoagulants; Z79.4 Long term (current) use of insulin; Z79.899 Other long term (current) drug therapy; Z88.0 Allergy status to penicillin; E83.42 Hypomagnesemia

== ENCOUNTER → 2021-05-09 | Outpatient (POV) | payer MEDICARE ==
[~2021-05-09] VITALS: Ht 157.5 cm; Wt 130.9 kg
[~2021-05-09] MED LIST changes: +LOVE0.8I SC; +STEG15TA PO
[2021-05-09 09:35] VITALS: BP 155/72
--- NOTE | 2021-05-11 14:01 | IRPN ---
[facility] IR Progress Note IR Progress Note DATE: May 09, 2021 FOLLOW-UP: Status post right lower extremity EVLT. Patient states her right leg is doing very well. She has noticed decreased pain, fatigue and swelling in the right lower extremity. Incidentally she was noted to have a DVT in the left lower extremity despite being on Eliquis. She has been started on Lovenox and will be transitioned to Coumadin in 30 days. ON EXAMINATION: Right lower extremity: Decreased edema compared to preprocedure. No calf tenderness. Imaging: I reviewed her 1 week post EVLT follow-up ultrasound. There is no deep vein thrombosis. Good treatment result with complete saphenous ablation. IMPRESSION: Doing well status post right lower extremity EVLT. Patient is encouraged to continue wearing right lower extremity compression as able. No further follow-up scheduled unless initiated by patient and/or referring provider. Thank you for this referral. Cc Galina Delgado PA-C Allergies Coded Allergies: Penicillins (Verified Allergy, Intermediate, hives, 04/26/20) VS,Fishbone, I+O VS, Fishbone, I+O Vital Signs Date Time Temp Pulse Resp B/P (MAP) Pulse Ox O2 Delivery O2 Flow Rate FiO2 05/09/21 09:35 97.0 71 20 155/72 (99) 98 Room Air SORAIDA CARRION MD May 11, 2021 14:01
== END ==
LOC: M IRPOV 09:27
PROVIDERS: ATTEND Radiology Diagnostic Radiology
DX: I82.402 Acute embolism and thrombosis of unspecified deep veins of left lower extremity (principal); I73.89 Other specified peripheral vascular diseases; Z79.01 Long term (current) use of anticoagulants; Z48.812 Encounter for surgical aftercare following surgery on the circulatory system
CPT/HCPCS: 85610; G0463

== ENCOUNTER → 2021-05-09 | Outpatient (REF) | payer MEDICARE, OTHER ==
[2021-05-09 13:24] LABS: INR 1.02; PROTHROMBIN TIME 13.8 SECONDS (12.7-14.5)
== END ==
LOC: M LAB REF 11:45
PROVIDERS: ATTEND Internal Medicine
DX: I73.89 Other specified peripheral vascular diseases (principal); Z79.01 Long term (current) use of anticoagulants

== ENCOUNTER → 2021-06-14 | Outpatient (REF) | payer MEDICARE, OTHER ==
[2021-06-14 12:34] LABS: INR 3.92; PROTHROMBIN TIME 38.6 SECONDS (12.7-14.5)
== END ==
LOC: M LAB REF 12:02
PROVIDERS: ATTEND Internal Medicine
DX: Z79.01 Long term (current) use of anticoagulants (principal)

== ENCOUNTER 2022-01-27 09:26 | Emergency (ER) | payer MEDICARE, OTHER ==
[~2022-01-27] VITALS: Ht 157.5 cm; Wt 132.7 kg
[~2022-01-27 09:26] MED LIST changes: +LOSA50TA28 PO; -LOSA50TA88 PO
[2022-01-27] MEDS ORDERED: SEMA1PEN2 (09:53)
[2022-01-27] MEDS ORDERED: WARF-23 (09:53)
[2022-01-27] MEDS ORDERED: GABA-1171 (09:53)
[2022-01-27] MEDS ORDERED: FARX1TAB3 (09:53)
[2022-01-27 11:43] VITALS: BP 194/77
== END 2022-01-27 12:22 | disposition home or self-care (01) ==
LOC: EDBD 09:26 → M ED 09:26
DX: S09.90XA Unspecified injury of head, initial encounter (principal); W18.30XA Fall on same level, unspecified, initial encounter; Z79.01 Long term (current) use of anticoagulants; E11.9 Type 2 diabetes mellitus without complications; Y92.009 Unspecified place in unspecified non-institutional (private) residence as the place of occurrence of the external cause; Y93.9 Activity, unspecified; Y99.9 Unspecified external cause status; Z88.0 Allergy status to penicillin; Z79.4 Long term (current) use of insulin; Z79.899 Other long term (current) drug therapy

== ENCOUNTER → 2022-01-30 | Outpatient (CLI) | payer MEDICARE, OTHER ==
[~2022-01-30] MED LIST changes: +FARX1TAB3; +GABA-1171; +SEMA1PEN2; +WARF-23
== END ==
LOC: M WHC 13:35
PROVIDERS: ATTEND Internal Medicine
DX: Z12.31 Encounter for screening mammogram for malignant neoplasm of breast (principal); M85.89 Other specified disorders of bone density and structure, multiple sites

== ENCOUNTER 2022-09-10 19:05 | Emergency (ER) | payer MEDICARE, OTHER ==
[~2022-09-10] VITALS: Ht 157.5 cm; Wt 130.9 kg
[2022-09-10 20:12] LABS: BASO % 0.5 % (0.0-1.0); EOS # 0.1 10^3/uL (0.0-0.5); EOS % 1.1 % (0.0-3.0); HEMOGLOBIN 13.7 g/dl (12.0-15.5); LYMPH # 1.3 10^3/uL (1.5-5.0); LYMPH % 15.9 % (24.0-44.0); MEAN CORPUSCULAR HEMOGLOBIN 27.9 pg (27.0-33.0); MEAN CORPUSCULAR HGB CONC 31.1 g/dl (32.0-36.5); MEAN CORPUSCULAR VOLUME 89.6 fl (80.0-96.0); MONO # 0.5 10^3/uL (0.0-0.8); MONO % 6.1 % (2.0-8.0); NEUTROPHILS # 6.1 10^3/uL (1.5-8.5); NEUTROPHILS % 75.9 % (36.0-66.0); PLATELET COUNT, AUTOMATED 284 10^3/uL (150-450); RED BLOOD COUNT 4.91 10^6/uL (4.00-5.40)
[2022-09-10 20:36] LABS: INR 2.59; PROTHROMBIN TIME 28.2 SECONDS (12.5-14.5)
[2022-09-10 20:37] LABS: PARTIAL THROMBOPLASTIN TIME 44.8 SECONDS (24.8-34.2)
[2022-09-10 20:50] LABS: ALBUMIN 3.5 G/DL (3.2-5.2); BILIRUBIN,TOTAL 0.3 MG/DL (0.3-1.2); CALCIUM LEVEL 9.2 MG/DL (8.3-10.6); CREATININE FOR GFR 1.12 MG/DL (0.55-1.30); GLOMERULAR FILTRATION RATE 51.7 (>45); POTASSIUM SERUM 4.3 MMOL/L (3.5-5.1); TOTAL PROTEIN 7.1 G/DL (5.7-8.2)
[2022-09-11] MEDS ORDERED: **hydrALAZINE** 50 MG TAB PO ONE (05:15)
[2022-09-11 05:25] VITALS: BP 190/82
[2022-09-11] MEDS ORDERED: ISOVUE-370 76% 100ML VIAL As Ordered ONE (06:35)
[2022-09-11] MEDS ORDERED: ANEC4CRE3 TOP (07:55)
[2022-09-11 08:21] VITALS: BP 144/78
== END 2022-09-11 08:28 | disposition home or self-care (01) ==
LOC: M ED 19:05
DX: R06.00 Dyspnea, unspecified (principal); M79.605 Pain in left leg; E11.9 Type 2 diabetes mellitus without complications; E78.5 Hyperlipidemia, unspecified; I10 Essential (primary) hypertension; Z86.711 Personal history of pulmonary embolism; Z79.01 Long term (current) use of anticoagulants; Z88.0 Allergy status to penicillin; Z79.02 Long term (current) use of antithrombotics/antiplatelets; Z79.4 Long term (current) use of insulin; Z79.890 Hormone replacement therapy; Z79.891 Long term (current) use of opiate analgesic; Z79.899 Other long term (current) drug therapy
CPT/HCPCS: 36415; 71275; 80053; 85025; 85610; 85730; 93971; 99284; Q9967

== ENCOUNTER 2022-11-20 18:47 | Inpatient (IN) | payer MEDICARE, OTHER ==
[~2022-11-20] VITALS: Ht 160 cm; Wt 132.1 kg
[~2022-11-20 18:47] MED LIST changes: +ANEC4CRE3 TOP
[2022-11-20 20:06] LABS: HEMATOCRIT 44.7 % (36.0-47.0); HEMOGLOBIN 13.9 g/dl (12.0-15.5); MEAN CORPUSCULAR HGB CONC 31.1 g/dl (32.0-36.5); PLATELET COUNT, AUTOMATED 224 10^3/uL (150-450); RED BLOOD COUNT 5.14 10^6/uL (4.00-5.40); WHITE BLOOD COUNT 12.1 10^3/uL (4.0-10.0)
[2022-11-20 20:16] LABS: CALCIUM LEVEL 8.5 MG/DL (8.3-10.6); CREATININE FOR GFR 1.04 MG/DL (0.55-1.30); GLOMERULAR FILTRATION RATE 56.3 (>45); POTASSIUM SERUM 4.3 MMOL/L (3.5-5.1)
[2022-11-20 20:18] LABS: INR 1.84; PROTHROMBIN TIME 21.6 SECONDS (12.5-14.5)
[2022-11-20 20:19] LABS: PARTIAL THROMBOPLASTIN TIME 33.9 SECONDS (24.8-34.2)
[2022-11-20] MEDS ORDERED: ONDANSETRON 4MG ORAL DISINTEGRATING TAB PO ONE (23:00)
[2022-11-20] MEDS ORDERED: ACETAMINOPHEN 325 MG TAB PO ONE (23:00)
[2022-11-20 23:55] LABS: BASO # 0.1 10^3/uL (0.0-0.2); BASO % 0.6 % (0.0-1.0); LYMPH # 0.4 10^3/uL (1.5-5.0); LYMPH % 2.9 % (24.0-44.0); MONO # 0.5 10^3/uL (0.0-0.8); MONO % 3.7 % (2.0-8.0); NEUTROPHILS # 11.3 10^3/uL (1.5-8.5); NEUTROPHILS % 92.3 % (36.0-66.0)
[2022-11-20 23:58] LABS: ALBUMIN 3.4 G/DL (3.2-5.2); BILIRUBIN,DIRECT 0.2 MG/DL (<0.4); BILIRUBIN,TOTAL 0.7 MG/DL (0.3-1.2); TOTAL PROTEIN 7.3 G/DL (5.7-8.2)
[2022-11-21] MEDS ORDERED: ISOVUE-370 76% 100ML VIAL As Ordered ONE (00:04)
[2022-11-21] MEDS ORDERED: cefTRIAXone SOD 1 GM in D5W MINI-BAG PLUS 50 ML IV ONE (03:50)
[2022-11-21] MEDS ORDERED: MAALOX 30 ML SUSP *UDC PO PRN (05:05)
[2022-11-21] MEDS ORDERED: MOM 30ML SUSPENSION UDC PO PRN (05:05)
[2022-11-21] MEDS ORDERED: DULA3PEN SC (05:26)
[2022-11-21] MEDS ORDERED: WARF-23 PO ×2 (05:26)
[2022-11-21] MEDS ORDERED: MAGN400T35 PO (05:26)
[2022-11-21] MEDS ORDERED: WARF-20 PO (05:26)
[2022-11-21] MEDS ORDERED: GABA-1171 PO (05:26)
[2022-11-21] MEDS ORDERED: LOSA100T45 PO (05:26)
[2022-11-21] MEDS ORDERED: TORS10TA3 PO (05:26)
[2022-11-21] MEDS ORDERED: FARX1TAB3 PO (05:26)
[2022-11-21] MEDS ORDERED: HOME MED LIST COMPLETE! XX SCH (05:30)
[2022-11-21] MEDS ORDERED: GLUCOSE 4GM CHEW TABLET PO PRN (05:40)
[2022-11-21] MEDS ORDERED: GLUCAGON INJ 1MG VIAL SC PRN (05:40)
[2022-11-21] MEDS ORDERED: DEXTROSE 50% 50ML SYRINGE IV PRN (05:40)
[2022-11-21] MEDS: guaiFENesin ER 600 MG TAB PO SCH ×2 (06:11→20:46)
[2022-11-21 06:34] LABS: BASO % 0.6 % (0.0-1.0); HEMATOCRIT 42.2 % (36.0-47.0); LYMPH # 0.6 10^3/uL (1.5-5.0); LYMPH % 7.8 % (24.0-44.0); MEAN CORPUSCULAR HEMOGLOBIN 27.1 pg (27.0-33.0); MEAN CORPUSCULAR HGB CONC 30.8 g/dl (32.0-36.5); MEAN CORPUSCULAR VOLUME 88.1 fl (80.0-96.0); MONO # 0.5 10^3/uL (0.0-0.8); MONO % 6.3 % (2.0-8.0); NEUTROPHILS # 6.1 10^3/uL (1.5-8.5); NEUTROPHILS % 84.7 % (36.0-66.0); PLATELET COUNT, AUTOMATED 198 10^3/uL (150-450); RED BLOOD COUNT 4.79 10^6/uL (4.00-5.40); WHITE BLOOD COUNT 7.2 10^3/uL (4.0-10.0)
[2022-11-21 06:56] LABS: CREATININE FOR GFR 0.99 MG/DL (0.55-1.30); GLOMERULAR FILTRATION RATE 59.6 (>45); POTASSIUM SERUM 4.1 MMOL/L (3.5-5.1)
[2022-11-21] MEDS: ATORVASTATIN 20 MG TAB PO SCH (08:00)
[2022-11-21] MEDS: LOSARTAN 50MG TABLET PO SCH (08:00)
[2022-11-21] MEDS: TORSEMIDE 20 MG TAB PO SCH (08:00)
[2022-11-21] MEDS: LEVEMIR (INSULIN DETEMIR) 1 UNITS/0.01ML SC SCH ×2 (08:02→20:47)
[2022-11-21] MEDS: INSULIN LISPRO (NovoLOG) PER UNIT SC SCH ×3 (08:03→18:52)
[2022-11-21] MEDS: PANTOPRAZOLE 40MG TAB (PROTONIX) PO SCH (12:51)
[2022-11-21] MEDS: ACETAMINOPHEN TAB 650MG DOSE (2X325MG) PO PRN (14:41)
[2022-11-21 16:25] VITALS: BP 102/46
[2022-11-21] MEDS ORDERED: WARFARIN SOD 5MG TAB PO SCH (17:00)
[2022-11-21 17:03] LABS: HEMOGLOBIN 13.7 g/dl (12.0-15.5)
[2022-11-21 20:15] VITALS: BP 119/67
[2022-11-21] MEDS ORDERED: INSULIN LISPRO (NovoLOG) PER UNIT SC SCH (21:00)
[2022-11-21] MEDS ORDERED: GABAPENTIN 100 MG CAP PO SCH (21:00)
[2022-11-22 00:36] VITALS: BP 131/60
[2022-11-22 00:47] LABS: HEMATOCRIT 41.4 % (36.0-47.0); HEMOGLOBIN 12.8 g/dl (12.0-15.5)
[2022-11-22] MEDS ORDERED: cefTRIAXone SOD 1 GM in D5W MINI-BAG PLUS 50 ML IV SCH (04:00)
[2022-11-22 04:46] VITALS: BP 116/58
[2022-11-22] MEDS: ACETAMINOPHEN TAB 650MG DOSE (2X325MG) PO PRN (05:05)
[2022-11-22 06:28] LABS: BASO # 0.1 10^3/uL (0.0-0.2); BASO % 0.6 % (0.0-1.0); EOS % 0.5 % (0.0-3.0); HEMATOCRIT 40.2 % (36.0-47.0); HEMOGLOBIN 12.7 g/dl (12.0-15.5); LYMPH # 1.5 10^3/uL (1.5-5.0); LYMPH % 19.2 % (24.0-44.0); MEAN CORPUSCULAR HEMOGLOBIN 27.3 pg (27.0-33.0); MEAN CORPUSCULAR HGB CONC 31.6 g/dl (32.0-36.5); MEAN CORPUSCULAR VOLUME 86.3 fl (80.0-96.0); MONO # 0.8 10^3/uL (0.0-0.8); MONO % 10.5 % (2.0-8.0); NEUTROPHILS # 5.4 10^3/uL (1.5-8.5); NEUTROPHILS % 68.6 % (36.0-66.0); PLATELET COUNT, AUTOMATED 219 10^3/uL (150-450); RED BLOOD COUNT 4.66 10^6/uL (4.00-5.40); WHITE BLOOD COUNT 7.9 10^3/uL (4.0-10.0)
[2022-11-22 06:38] LABS: INR 1.81; PROTHROMBIN TIME 21.3 SECONDS (12.5-14.5)
[2022-11-22 06:50] LABS: CREATININE FOR GFR 1.2 MG/DL (0.55-1.30); GLOMERULAR FILTRATION RATE 47.7 (>45); POTASSIUM SERUM 3.4 MMOL/L (3.5-5.1)
[2022-11-22] MEDS: INSULIN LISPRO (NovoLOG) PER UNIT SC SCH ×3 (07:30→13:35)
[2022-11-22 07:48] VITALS: BP 110/56
[2022-11-22] MEDS ORDERED: POTASSIUM CHLORIDE 10MEQ SR TABLET PO ONE (08:00)
[2022-11-22] MEDS ORDERED: PREVNAR-20 VACCINE 0.5ML SYRINGE IM.IMMUN ONE (09:00)
[2022-11-22] MEDS: ATORVASTATIN 20 MG TAB PO SCH (09:14)
[2022-11-22] MEDS: guaiFENesin ER 600 MG TAB PO SCH (09:14)
[2022-11-22] MEDS: LOSARTAN 50MG TABLET PO SCH (09:14)
[2022-11-22] MEDS: PANTOPRAZOLE 40MG TAB (PROTONIX) PO SCH (09:14)
[2022-11-22] MEDS: LEVEMIR (INSULIN DETEMIR) 1 UNITS/0.01ML SC SCH (09:15)
[2022-11-22] MEDS: TORSEMIDE 20 MG TAB PO SCH (09:15)
[2022-11-22] MEDS ORDERED: DOXY-444 PO (10:27)
[2022-11-22] MEDS ORDERED: PROT1TAB2 PO (10:27)
[2022-11-22] MEDS ORDERED: CEFD300C41 PO (10:27)
[2022-11-22] MEDS ORDERED: WARF-23 PO (10:27)
[2022-11-22 11:49] VITALS: BP 114/56
[2022-11-26] MEDS ORDERED: WARFARIN SOD 2.5MG TAB PO SCH (17:00)
== END 2022-11-22 13:51 | disposition home or self-care (01) | DRG 202 ==
LOC: M ED 18:47 → M ED INP 11-21 04:34 → ENRESERV 11-21 14:59 → M PCU 11-21 16:19
PROVIDERS: ADMIT Family Medicine; ATTEND Family Medicine
PROC: B246ZZZ Ultrasonography of Right and Left Heart (ICD-10-PCS; principal; 2022-11-21)
DX: J40 Bronchitis, not specified as acute or chronic (principal); N39.0 Urinary tract infection, site not specified; R04.2 Hemoptysis; Z68.42 Body mass index [BMI] 45.0-49.9, adult; E11.42 Type 2 diabetes mellitus with diabetic polyneuropathy; G47.33 Obstructive sleep apnea (adult) (pediatric); I10 Essential (primary) hypertension; E78.5 Hyperlipidemia, unspecified; Z86.711 Personal history of pulmonary embolism; Z86.718 Personal history of other venous thrombosis and embolism; E66.9 Obesity, unspecified; Z79.4 Long term (current) use of insulin; Z79.01 Long term (current) use of anticoagulants; Z79.899 Other long term (current) drug therapy; Z88.0 Allergy status to penicillin; Z20.822 Contact with and (suspected) exposure to COVID-19; K44.9 Diaphragmatic hernia without obstruction or gangrene; I87.2 Venous insufficiency (chronic) (peripheral); B34.9 Viral infection, unspecified

== ENCOUNTER 2023-04-10 16:06 | Emergency (ER) | payer MEDICARE, OTHER ==
[~2023-04-10] VITALS: Ht 157.5 cm; Wt 129.1 kg
[~2023-04-10 16:06] MED LIST changes: +CEFD300C41 PO; +DOXY-444 PO; +DULA3PEN SC; +FARX1TAB3 PO; +GABA-1171 PO; +LOSA100T46 PO; +MAGN400T35 PO; +PROT1TAB2 PO; +TORS10TA3 PO; +WARF-20 PO; +WARF-23 PO
[2023-04-10] MEDS ORDERED: SPIR-10 (16:24)
[2023-04-10] MEDS ORDERED: SEMA2PEN (16:24)
[2023-04-10 16:49] VITALS: TEMP 97.9
[2023-04-10] MEDS ORDERED: METOCLOPRAMIDE INJ 10MG/2ML VIAL IV ONE (17:15)
[2023-04-10] MEDS ORDERED: LABETALOL 100MG/20ML VIAL IV STA (17:15)
[2023-04-10 17:43] VITALS: BP 156/90
[2023-04-10 18:11] VITALS: BP 136/81
[2023-04-10 18:19] LABS: BASO % 0.3 % (0.0-1.0); EOS % 0.3 % (0.0-3.0); HEMATOCRIT 43.8 % (36.0-47.0); HEMOGLOBIN 13.8 g/dl (12.0-15.5); LYMPH # 1.1 10^3/uL (1.5-5.0); LYMPH % 11.6 % (24.0-44.0); MEAN CORPUSCULAR HEMOGLOBIN 27.5 pg (27.0-33.0); MEAN CORPUSCULAR HGB CONC 31.5 g/dl (32.0-36.5); MEAN CORPUSCULAR VOLUME 87.3 fl (80.0-96.0); MONO # 0.4 10^3/uL (0.0-0.8); MONO % 3.8 % (2.0-8.0); NEUTROPHILS # 7.6 10^3/uL (1.5-8.5); NEUTROPHILS % 83.6 % (36.0-66.0); PLATELET COUNT, AUTOMATED 251 10^3/uL (150-450); RED BLOOD COUNT 5.02 10^6/uL (4.00-5.40); WHITE BLOOD COUNT 9.1 10^3/uL (4.0-10.0)
[2023-04-10 18:21] VITALS: O2SAT 97
[2023-04-10 18:35] LABS: INR 1.38; PROTHROMBIN TIME 16.6 SECONDS (12.5-14.5)
[2023-04-10 18:39] LABS: ETHYL ALCOHOL (ETHANOL) < 0.003 % (0.000-0.010)
[2023-04-10 18:41] LABS: ALBUMIN 3.3 G/DL (3.2-5.2); ALKALINE PHOSPHATASE 58 U/L (46-116); ALT/SGPT 17 U/L (7.0-40); AST/SGOT 25 U/L (<34); BILIRUBIN,DIRECT < 0.1 MG/DL (<0.4); BILIRUBIN,TOTAL 0.3 MG/DL (0.3-1.2); BLOOD UREA NITROGEN 20 MG/DL (9-23); CALCIUM LEVEL 8.7 MG/DL (8.3-10.6); CARBON DIOXIDE LEVEL 28 MMOL/L (20-31); CHLORIDE LEVEL 104 MMOL/L (98-107); CREATININE FOR GFR 0.87 MG/DL (0.55-1.30); GLOMERULAR FILTRATION RATE > 60.0 (>45); GLUCOSE, FASTING 129 MG/DL (74-106); POTASSIUM SERUM 4.6 MMOL/L (3.5-5.1); SODIUM LEVEL 140 MMOL/L (136-145); TOTAL PROTEIN 7.1 G/DL (5.7-8.2)
[2023-04-10 18:42] LABS: THYROID STIMULATING HORMONE 1.327 uIU/ML (0.55-4.78)
[2023-04-10 18:56] LABS: CPK CREATINE PHOSPHOKINASE 126 U/L (34-145); MB/CK RELATIVE INDEX 0.79 (< OR =4)
[2023-04-10 19:06] LABS: RSV AMPLIFICATION NEGATIVE (NEGATIVE)
[2023-04-10] MEDS ORDERED: NITROFURANTOIN (MACROBID) 100 MG CAP PO ONE (19:55)
[2023-04-10] MEDS ORDERED: MACR100C43 PO (19:55)
== END 2023-04-10 20:27 | disposition home or self-care (01) ==
LOC: M ED 16:06
DX: N39.0 Urinary tract infection, site not specified (principal); R51.9 Headache, unspecified; E10.9 Type 1 diabetes mellitus without complications; I10 Essential (primary) hypertension; J45.909 Unspecified asthma, uncomplicated; Z88.0 Allergy status to penicillin; Z79.02 Long term (current) use of antithrombotics/antiplatelets; Z79.811 Long term (current) use of aromatase inhibitors; Z79.01 Long term (current) use of anticoagulants; Z79.899 Other long term (current) drug therapy
CPT/HCPCS: 70450; 80048; 80076; 81001; 82077; 82550; 82553; 84443; 84484; 85025; 85610; 87088; 87186; 87631; 93041; 94760; 96374; 96375; 99284; J1920; J2765

== ENCOUNTER → 2023-04-24 | Outpatient (REF) | payer MEDICARE, OTHER ==
[~2023-04-24] MED LIST changes: +MACR100C43 PO; +SEMA2PEN; +SPIR-10
[2023-04-24 13:08] LABS: APPEARANCE, URINE CLOUDY (CLEAR); BACTERIA, URINE AUTO 2+ (NEGATIVE); BILIRUBIN, URINE AUTO NEGATIVE (NEGATIVE); BLOOD, URINE BLOOD 1+ (NEGATIVE); COLOR, URINE YELLOW (YELLOW); GLUCOSE, URINE (UA) AUTO NEGATIVE (NEGATIVE); KETONE, URINE AUTO NEGATIVE (NEGATIVE); LEUKOCYTE ESTERASE, URINE AUTO 3+ (NEGATIVE); MUCUS, URINE SMALL (NEGATIVE); NITRITE, URINE AUTO NEGATIVE (NEGATIVE); PROTEIN, URINE AUTO 2+ mg/dL (NEGATIVE); RBC, URINE AUTO 3 /HPF (0-3); SQUAMOUS EPITHELIAL CELL UR AU 4 /HPF (0-6); UROBILINOGEN, URINE AUTO 0.2 mg/dL (0.0-2.0); WBC, URINE AUTO TNTC /HPF (0-3)
== END ==
LOC: M LAB REF 12:32
PROVIDERS: ATTEND Internal Medicine
DX: N39.0 Urinary tract infection, site not specified (principal); Z79.01 Long term (current) use of anticoagulants

== ENCOUNTER → 2023-12-06 | Outpatient (CLI) | payer MEDICARE, MEDICAID ==
[~2023-12-06] MED LIST changes: +CEFD1CAP9 PO; -CEFD300C41 PO; +DOXY-440 PO; -DOXY-444 PO
[2023-12-06 13:02] LABS: HEPATITIS B SURFACE ANTIGEN NEGATIVE (NEGATIVE)
[2023-12-06 13:15] LABS: HIV SCREEN CENTAUR SOURCE NEGATIVE (NEGATIVE)
== END ==
LOC: M LAB 11:45
PROVIDERS: ATTEND Physician Assistant
DX: L97.514 Non-pressure chronic ulcer of other part of right foot with necrosis of bone (principal)

== ENCOUNTER → 2024-02-10 | Outpatient (REF) | payer MEDICARE, MEDICAID ==
[2024-02-10 12:43] LABS: INR 3.39
== END ==
LOC: M LAB REF 12:20
PROVIDERS: ATTEND Internal Medicine
DX: Z86.711 Personal history of pulmonary embolism (principal); Z79.01 Long term (current) use of anticoagulants

== ENCOUNTER 2024-04-01 14:05 | Emergency (ER) | payer MEDICARE, MEDICAID ==
[~2024-04-01] VITALS: Ht 157.5 cm; Wt 123.5 kg
[2024-04-01] MEDS ORDERED: FINE10TA (17:38)
[2024-04-01] MEDS ORDERED: WARF-18 PO (17:38)
[2024-04-01 18:08] LABS: INR 1.68; PROTHROMBIN TIME 19.3 SECONDS (12.5-14.5)
[2024-04-01 19:42] VITALS: BP 130/62; TEMP 97.3; O2SAT 97
== END 2024-04-01 19:43 | disposition home or self-care (01) ==
LOC: M ED 14:05
DX: R60.0 Localized edema (principal); I87.2 Venous insufficiency (chronic) (peripheral); I10 Essential (primary) hypertension; E11.9 Type 2 diabetes mellitus without complications; E78.5 Hyperlipidemia, unspecified; M54.50 Low back pain, unspecified; Z88.0 Allergy status to penicillin; Z86.718 Personal history of other venous thrombosis and embolism

== ENCOUNTER 2024-04-07 12:33 | Emergency (ER) | payer MEDICAID, MEDICARE ==
[~2024-04-07] VITALS: Ht 157.5 cm; Wt 121.9 kg
[~2024-04-07 12:33] MED LIST changes: +FINE10TA; +WARF-18 PO
[2024-04-07 12:34] VITALS: BP 167/74; TEMP 96.6; O2SAT 95
== END 2024-04-07 15:07 | disposition home or self-care (01) ==
LOC: M ED 12:33
DX: S90.121A Contusion of right lesser toe(s) without damage to nail, initial encounter (principal); W22.8XXA Striking against or struck by other objects, initial encounter; I87.311 Chronic venous hypertension (idiopathic) with ulcer of right lower extremity; M54.50 Low back pain, unspecified; I10 Essential (primary) hypertension; E11.9 Type 2 diabetes mellitus without complications; Y92.009 Unspecified place in unspecified non-institutional (private) residence as the place of occurrence of the external cause; Y93.89 Activity, other specified; Y99.9 Unspecified external cause status; Z88.0 Allergy status to penicillin; Z79.02 Long term (current) use of antithrombotics/antiplatelets; Z79.4 Long term (current) use of insulin; Z79.811 Long term (current) use of aromatase inhibitors; Z79.899 Other long term (current) drug therapy; Z79.01 Long term (current) use of anticoagulants; Z86.711 Personal history of pulmonary embolism

== ENCOUNTER 2024-08-25 18:00 | Emergency (ER) | payer MEDICAID, MEDICARE ==
[~2024-08-25] VITALS: Ht 157.5 cm; Wt 125.9 kg
[~2024-08-25 18:00] MED LIST changes: +ATOR-398 PO; -LIPI80TA PO
[2024-08-25] MEDS ORDERED: DOXY100T (18:10)
[2024-08-25 19:41] LABS: BASO % 0.5 % (0.0-1.0); EOS # 0.1 10^3/uL (0.0-0.5); EOS % 0.8 % (0.0-3.0); HEMATOCRIT 44.2 % (36.0-47.0); HEMOGLOBIN 13.6 g/dl (12.0-15.5); LYMPH # 1.1 10^3/uL (1.5-5.0); LYMPH % 15.2 % (24.0-44.0); MEAN CORPUSCULAR HGB CONC 30.8 g/dl (32.0-36.5); MEAN CORPUSCULAR VOLUME 87.9 fl (80.0-96.0); MONO # 0.5 10^3/uL (0.0-0.8); MONO % 6.2 % (2.0-8.0); NEUTROPHILS # 5.7 10^3/uL (1.5-8.5); PLATELET COUNT, AUTOMATED 298 10^3/uL (150-450); RED BLOOD COUNT 5.03 10^6/uL (4.00-5.40); WHITE BLOOD COUNT 7.4 10^3/uL (4.0-10.0)
[2024-08-25 19:53] LABS: INR 2.35; PARTIAL THROMBOPLASTIN TIME 43.1 SECONDS (24.8-34.2); PROTHROMBIN TIME 25.8 SECONDS (12.5-14.5)
[2024-08-25 20:04] LABS: CALCIUM LEVEL 8.5 MG/DL (8.3-10.6); CREATININE FOR GFR 1.13 MG/DL (0.55-1.30); GLOMERULAR FILTRATION RATE 50.8 (>45); POTASSIUM SERUM 4.1 MMOL/L (3.5-5.1)
[2024-08-25] MEDS ORDERED: NOVOINJ2 SC (22:27)
[2024-08-25 22:40] LABS: KETONE, URINE AUTO RFX NEGATIVE (NEGATIVE); LEUKOCYTE ESTERASE UR AUTO RFX 1+ (NEGATIVE); NITRITE, URINE AUTO RFX NEGATIVE (NEGATIVE); RBC, URINE AUTO RFX 3 /HPF (0-3); SQUAM EPITHELIAL CELL UR AURFX 0 /HPF (0-6); WBC, URINE AUTO RFX 4 /HPF (0-3)
[2024-08-25] MEDS ORDERED: CVS1CAP2 PO (23:08)
[2024-08-25 23:19] VITALS: BP 165/71; TEMP 97.3; O2SAT 97
== END 2024-08-25 23:20 | disposition home or self-care (01) ==
LOC: M ED 18:00
DX: L02.214 Cutaneous abscess of groin (principal); I10 Essential (primary) hypertension; G47.33 Obstructive sleep apnea (adult) (pediatric); E10.9 Type 1 diabetes mellitus without complications; Z88.0 Allergy status to penicillin; Z79.02 Long term (current) use of antithrombotics/antiplatelets; Z79.4 Long term (current) use of insulin; Z79.899 Other long term (current) drug therapy; Z79.01 Long term (current) use of anticoagulants; Z86.711 Personal history of pulmonary embolism

== ENCOUNTER 2024-09-28 16:37 | Inpatient (IN) | payer MEDICAID, MEDICARE, OTHER ==
[~2024-09-28] VITALS: Ht 157.5 cm; Wt 124.7 kg
[~2024-09-28 16:37] MED LIST changes: +CVS1CAP2 PO; +DOXY100T; -FINE10TA; +FINE10TA PO; +NOVOINJ2 SC; -SEMA2PEN; +SEMA2PEN SC; -SPIR-10; +SPIR-10 PO
[2024-09-28 18:46] LABS: HEMATOCRIT 39.8 % (36.0-47.0); HEMOGLOBIN 12.5 g/dl (12.0-15.5); MEAN CORPUSCULAR HEMOGLOBIN 27.1 pg (27.0-33.0); MEAN CORPUSCULAR HGB CONC 31.4 g/dl (32.0-36.5); MEAN CORPUSCULAR VOLUME 86.1 fl (80.0-96.0); PLATELET COUNT, AUTOMATED 300 10^3/uL (150-450); RED BLOOD COUNT 4.62 10^6/uL (4.00-5.40); WHITE BLOOD COUNT 6.2 10^3/uL (4.0-10.0)
[2024-09-28 19:06] LABS: ETHYL ALCOHOL (ETHANOL) < 0.003 % (0.000-0.010)
[2024-09-28 19:07] LABS: ACETONE/KETONE 0.45 MMOL/L (0.02-0.27)
[2024-09-28 19:11] LABS: HEMOGLOBIN A1c 7.9 % (4.0-6.0)
[2024-09-28 19:26] LABS: ALBUMIN 2.5 G/DL (3.2-5.2); ALKALINE PHOSPHATASE 151 U/L (35-104); ALT/SGPT 31 U/L (7.0-40); AST/SGOT 59 U/L (<34); BILIRUBIN,DIRECT 0.5 MG/DL (<0.4); BILIRUBIN,TOTAL 0.9 MG/DL (0.3-1.2); BLOOD UREA NITROGEN 38 MG/DL (9-23); CALCIUM LEVEL 8.3 MG/DL (8.3-10.6); CARBON DIOXIDE LEVEL 24 MMOL/L (20-31); CHLORIDE LEVEL 96 MMOL/L (98-107); CREATININE FOR GFR 1.37 MG/DL (0.55-1.30); GLOMERULAR FILTRATION RATE 40.7 (>45); GLUCOSE, FASTING 259 MG/DL (74-106); LIPASE 34 U/L (12-53); MAGNESIUM LEVEL 1.4 MG/DL (1.8-2.4); PHOSPHORUS LEVEL 1.9 MG/DL (2.4-5.1); SODIUM LEVEL 131 MMOL/L (136-145); TOTAL PROTEIN 7.5 G/DL (5.7-8.2)
[2024-09-28 19:41] LABS: LYMPHOCYTES 2 % (16-44); METAMYELOCYTES 4 % (0-0); NEUTROPHILS 85 % (28-66); OSMOLALITY SERUM 302 MOSM/KG (280-301)
[2024-09-28 19:42] LABS: PLATELET ESTIMATE NORMAL (NORMAL)
[2024-09-28] MEDS: NS (Normal Saline) 0.9% 1,000 ML IV ONE (20:15)
[2024-09-28 20:27] LABS: INR 1.45; PARTIAL THROMBOPLASTIN TIME 34.1 SECONDS (24.8-34.2); PROTHROMBIN TIME 17.9 SECONDS (12.5-14.5)
[2024-09-28 20:51] LABS: PROCALCITONIN 6.22 ng/ml
[2024-09-28 20:57] LABS: C REACTIVE PROTEIN QUANTITATIV 29.07 MG/DL (<1.0)
[2024-09-28] MEDS: VANCOMYCIN HCL 2,000 MG, VIAL MATE ADAPTER 1 EACH in NS 500 ML IV ONE (21:18)
[2024-09-28] MEDS ORDERED: ISOVUE-370 76% 100ML VIAL As Ordered ONE (21:56)
[2024-09-28] MEDS ORDERED: DEXTROSE 50% 50ML SYRINGE IV PRN (23:40)
[2024-09-28] MEDS ORDERED: GLUCOSE 4 GM CHEW PO PRN (23:40)
[2024-09-28] MEDS ORDERED: GLUCAGON INJ 1MG VIAL SC PRN (23:40)
[2024-09-28] MEDS ORDERED: PIPERACILLIN/TAZOBACTAM SOD 4.5 GM in DEXTROSE 5% (D5W) ADV/MINI-BAG 50 ML IV SCH (23:40)
[2024-09-29] MEDS ORDERED: LOSA50TA28 PO (00:10)
[2024-09-29] MEDS ORDERED: ACET650T61 PO (00:10)
[2024-09-29] MEDS: PANTOPRAZOLE 40MG VIAL IV ONE (00:11)
[2024-09-29] MEDS ORDERED: HOME MED LIST COMPLETE! XX SCH (00:15)
[2024-09-29] MEDS: INSULIN LISPRO (NovoLOG) PER UNIT SC SCH (00:20)
[2024-09-29] MEDS: CLINDAMYCIN 900 MG in IV 1 EA IV SCH (00:42)
[2024-09-29] MEDS: NYSTATIN 100,000 UNITS/GM TOPICAL PWD 15GM TOP SCH (00:47)
[2024-09-29] MEDS: MEROPENEM INJ 1 GM in IV 1 EA IV SCH (02:29)
[2024-09-29] MEDS: ACETAMINOPHEN *IV* 650 MG in IV 1 EA IV PRN (03:58)
[2024-09-29 04:25] LABS: KETONE, URINE AUTO RFX NEGATIVE (NEGATIVE); LEUKOCYTE ESTERASE UR AUTO RFX NEGATIVE (NEGATIVE); NITRITE, URINE AUTO RFX NEGATIVE (NEGATIVE); RBC, URINE AUTO RFX 26 /HPF (0-3); SQUAM EPITHELIAL CELL UR AURFX 3 /HPF (0-6); WBC, URINE AUTO RFX 10 /HPF (0-3)
[2024-09-29] MEDS: HEPARIN SOD (PORCINE) 5000UNITS/ML 1ML VIAL/SYRINGE SQ SCH (05:59)
[2024-09-29 07:13] LABS: BASO % 0.3 % (0.0-1.0); EOS % 0.2 % (0.0-3.0); HEMATOCRIT 34.3 % (36.0-47.0); HEMOGLOBIN 10.9 g/dl (12.0-15.5); LYMPH # 0.7 10^3/uL (1.5-5.0); LYMPH % 5.8 % (24.0-44.0); MEAN CORPUSCULAR HGB CONC 31.8 g/dl (32.0-36.5); MEAN CORPUSCULAR VOLUME 85.1 fl (80.0-96.0); MONO # 1.1 10^3/uL (0.0-0.8); MONO % 9.4 % (2.0-8.0); NEUTROPHILS # 10.1 10^3/uL (1.5-8.5); NEUTROPHILS % 82.7 % (36.0-66.0); PLATELET COUNT, AUTOMATED 288 10^3/uL (150-450); RED BLOOD COUNT 4.03 10^6/uL (4.00-5.40); WHITE BLOOD COUNT 12.2 10^3/uL (4.0-10.0)
[2024-09-29 07:49] LABS: ALBUMIN 1.9 G/DL (3.2-5.2); BILIRUBIN,TOTAL 0.7 MG/DL (0.3-1.2); CREATININE FOR GFR 1.25 MG/DL (0.55-1.30); GLOMERULAR FILTRATION RATE 45.2 (>45); MAGNESIUM LEVEL 1.6 MG/DL (1.8-2.4); POTASSIUM SERUM 4.2 MMOL/L (3.5-5.1); TOTAL PROTEIN 5.9 G/DL (5.7-8.2)
[2024-09-29] MEDS ORDERED: SPIRONOLACTONE 12.5MG PER 1/2 TABLET PO SCH (09:00)
[2024-09-29] MEDS ORDERED: TORSEMIDE 10 MG TABLET PO SCH (09:00)
[2024-09-29] MEDS ORDERED: LOSARTAN 50MG TABLET PO SCH (09:00)
[2024-09-29 11:37] LABS: VANCOMYCIN RANDOM 15.2 UG/ML
[2024-09-29] MEDS: VANCOMYCIN HCL 1,250 MG, VIAL MATE ADAPTER 1 EACH in NS 250 ML IV SCH (14:04)
[2024-09-29] MEDS ORDERED: MIDAZOLAM INJ 2MG/2ML VIAL As Ordered ONE (15:19)
[2024-09-29] MEDS ORDERED: fentaNYL 100 MCG/2 ML INJECTION As Ordered ONE (15:19)
[2024-09-29] MEDS ORDERED: LIDOCAINE 2% 100MG/5ML SDV (FOR ANES.) As Ordered ONE (15:20)
[2024-09-29] MEDS ORDERED: ONDANSETRON 4MG 2ML VIAL As Ordered ONE (15:20)
[2024-09-29] MEDS ORDERED: KETOROLAC 60MG 2ML VIAL As Ordered ONE (15:20)
[2024-09-29] MEDS ORDERED: propofoL 200 MG/20 ML VIAL As Ordered ONE (15:20)
[2024-09-29] MEDS: LIDOCAINE 1% SDV 30ML VIAL As Ordered ONE (15:22)
[2024-09-29] MEDS ORDERED: ROCURONIUM BROMIDE 50MG/5ML VIAL As Ordered ONE (15:59)
[2024-09-29] MEDS: POVIDONE-IODINE 5% OPHTH PREP SOL 30ML As Ordered ONE (16:30)
[2024-09-29] MEDS: LIDOCAINE W/EPINEPHRINE 1% 20ML VIAL As Ordered ONE (16:30)
[2024-09-29] MEDS ORDERED: SUGAMMADEX SODIUM 500 MG/5 ML VIAL (BRIDION) As Ordered ONE (16:43)
[2024-09-29] MEDS ORDERED: fentaNYL 100 MCG/2 ML INJECTION IV PRN (17:00)
[2024-09-29] MEDS ORDERED: ONDANSETRON 4MG 2ML VIAL IV PRN (17:00)
[2024-09-29] MEDS ORDERED: oxyCODONE 5MG TAB PO PRN (17:00)
[2024-09-29] MEDS ORDERED: MORPHINE 2 MG/ML 1ML VIAL IV PRN (17:00)
[2024-09-29] MEDS ORDERED: MORPHINE 10 MG/ML 1ML VIAL IV PRN (17:00)
[2024-09-29 19:55] VITALS: BP 140/57; TEMP 97.9; O2SAT 100
[2024-09-29 20:20] VITALS: BP 150/54; TEMP 97.7; O2SAT 99
[2024-09-29 20:50] VITALS: BP 146/54; TEMP 97.7; O2SAT 98
[2024-09-29] MEDS: PANTOPRAZOLE 40MG VIAL IV SCH (21:41)
[2024-09-29] MEDS: ATORVASTATIN 20 MG TAB PO SCH (21:42)
[2024-09-29] MEDS: GABAPENTIN 100 MG CAP PO SCH (21:42)
[2024-09-29 21:50] VITALS: BP 146/63; TEMP 97.7; O2SAT 98
[2024-09-29 22:50] VITALS: BP 148/65; TEMP 98.1; O2SAT 99
[2024-09-30] VITALS (11 sets, daily range): BP systolic 99–147; BP diastolic 42–67; TEMP 97.5–98.8; O2SAT 93–100
[2024-09-30] MEDS: PERCOCET 5MG/325MG TAB PO PRN (00:14)
[2024-09-30 06:19] LABS: BASO % 0.3 % (0.0-1.0); EOS % 0.3 % (0.0-3.0); HEMATOCRIT 32.7 % (36.0-47.0); HEMOGLOBIN 10.5 g/dl (12.0-15.5); LYMPH # 0.8 10^3/uL (1.5-5.0); LYMPH % 8.1 % (24.0-44.0); MEAN CORPUSCULAR HEMOGLOBIN 27.2 pg (27.0-33.0); MEAN CORPUSCULAR HGB CONC 32.1 g/dl (32.0-36.5); MEAN CORPUSCULAR VOLUME 84.7 fl (80.0-96.0); MONO # 0.9 10^3/uL (0.0-0.8); MONO % 9.4 % (2.0-8.0); NEUTROPHILS # 7.9 10^3/uL (1.5-8.5); NEUTROPHILS % 80.2 % (36.0-66.0); PLATELET COUNT, AUTOMATED 287 10^3/uL (150-450); RED BLOOD COUNT 3.86 10^6/uL (4.00-5.40); WHITE BLOOD COUNT 9.9 10^3/uL (4.0-10.0)
[2024-09-30] MEDS: MAG SULF 1GM/100ML (MAG RUN) 1 GM in IV 1 EA IV SCH (06:38)
[2024-09-30 06:46] LABS: ALBUMIN 1.7 G/DL (3.2-5.2); BILIRUBIN,TOTAL 0.5 MG/DL (0.3-1.2); CALCIUM LEVEL 7.5 MG/DL (8.3-10.6); CREATININE FOR GFR 1.08 MG/DL (0.55-1.30); GLOMERULAR FILTRATION RATE 53.5 (>45); MAGNESIUM LEVEL 1.7 MG/DL (1.8-2.4); POTASSIUM SERUM 4.5 MMOL/L (3.5-5.1); TOTAL PROTEIN 5.7 G/DL (5.7-8.2)
[2024-09-30 08:50] LABS: VANCOMYCIN RANDOM 16.1 UG/ML
[2024-09-30] MEDS: NS (Normal Saline) 0.9% 1,000 ML IV SCH (12:52)
[2024-09-30] MEDS ORDERED: dexmedeTOMIDine (4MCG/ML)200MCG/50ML BTL (PRECEDEX) As Ordered ONE (12:53)
[2024-09-30] MEDS ORDERED: fentaNYL 250 MCG/5 ML INJECTION As Ordered ONE (12:53)
[2024-09-30] MEDS ORDERED: ACETAMINOPHEN 1000MG/100ML IV BAG As Ordered ONE (14:22)
[2024-09-30] MEDS ORDERED: ePHEDrine SULFATE 25 MG/5 ML(5MG/ML) SYRINGE As Ordered ONE (14:23)
[2024-09-30] MEDS ORDERED: INSULIN LISPRO (NovoLOG) PER UNIT SC PRN (15:20)
[2024-09-30] MEDS ORDERED: HYDROMORPHONE HCL 0.5 MG/ 0.5 ML SYRINGE IV PRN (15:20)
[2024-09-30] MEDS ORDERED: GLUCOSE 4 GM CHEW PO PRN (15:20)
[2024-09-30] MEDS ORDERED: fentaNYL 100 MCG/2 ML INJECTION IV PRN (15:20)
[2024-09-30] MEDS: LR 1,000 ML IV SCH (15:20)
[2024-09-30] MEDS ORDERED: oxyCODONE 5MG TAB PO PRN (15:20)
[2024-09-30] MEDS ORDERED: ONDANSETRON 4MG 2ML VIAL IV PRN (15:20)
[2024-09-30] MEDS ORDERED: DEXTROSE 50% 50ML SYRINGE IV PRN (15:20)
[2024-09-30] MEDS ORDERED: GLUCAGON INJ 1MG VIAL SC PRN (15:20)
[2024-09-30] MEDS: CEPACOL LOZENGE PO PRN (20:28)
[2024-10-01 00:10] VITALS: BP 123/53; TEMP 97.9; O2SAT 98
[2024-10-01 05:22] VITALS: BP 128/62; TEMP 97.3; O2SAT 98
[2024-10-01 06:01] LABS: BASO # 0.1 10^3/uL (0.0-0.2); BASO % 0.6 % (0.0-1.0); EOS # 0.1 10^3/uL (0.0-0.5); HEMATOCRIT 30.8 % (36.0-47.0); HEMOGLOBIN 9.4 g/dl (12.0-15.5); LYMPH # 1.6 10^3/uL (1.5-5.0); LYMPH % 20.6 % (24.0-44.0); MEAN CORPUSCULAR HEMOGLOBIN 26.2 pg (27.0-33.0); MEAN CORPUSCULAR HGB CONC 30.5 g/dl (32.0-36.5); MEAN CORPUSCULAR VOLUME 85.8 fl (80.0-96.0); MONO # 0.9 10^3/uL (0.0-0.8); MONO % 11.4 % (2.0-8.0); NEUTROPHILS # 4.9 10^3/uL (1.5-8.5); NEUTROPHILS % 62.6 % (36.0-66.0); PLATELET COUNT, AUTOMATED 266 10^3/uL (150-450); RED BLOOD COUNT 3.59 10^6/uL (4.00-5.40); WHITE BLOOD COUNT 7.8 10^3/uL (4.0-10.0)
[2024-10-01 06:19] LABS: CALCIUM LEVEL 7.3 MG/DL (8.3-10.6); CREATININE FOR GFR 1.05 MG/DL (0.55-1.30); GLOMERULAR FILTRATION RATE 55.3 (>45); MAGNESIUM LEVEL 2.1 MG/DL (1.8-2.4); POTASSIUM SERUM 4.3 MMOL/L (3.5-5.1)
[2024-10-01] MEDS ORDERED: GLUCAGON INJ 1MG VIAL SC PRN (07:20)
[2024-10-01] MEDS ORDERED: DEXTROSE 50% 50ML SYRINGE IV PRN (07:20)
[2024-10-01] MEDS ORDERED: GLUCOSE 4 GM CHEW PO PRN (07:20)
[2024-10-01 12:06] VITALS: BP 127/64; TEMP 97.5; O2SAT 94
[2024-10-01] MEDS: INSULIN LISPRO (NovoLOG) PER UNIT SC SCH ×2 (12:31→21:00)
[2024-10-01] MEDS: PERCOCET 5MG/325MG TAB PO PRN (16:04)
[2024-10-01 20:00] VITALS: BP 146/60; TEMP 97; O2SAT 98
[2024-10-02 04:00] VITALS: BP 151/65; TEMP 97.3; O2SAT 97
[2024-10-02 06:14] LABS: HEMATOCRIT 32.6 % (36.0-47.0); HEMOGLOBIN 10.1 g/dl (12.0-15.5); MEAN CORPUSCULAR HEMOGLOBIN 26.4 pg (27.0-33.0); MEAN CORPUSCULAR VOLUME 85.3 fl (80.0-96.0); PLATELET COUNT, AUTOMATED 297 10^3/uL (150-450); RED BLOOD COUNT 3.82 10^6/uL (4.00-5.40); WHITE BLOOD COUNT 7.9 10^3/uL (4.0-10.0)
[2024-10-02 06:23] LABS: BLOOD UREA NITROGEN 24 MG/DL (9-23); C REACTIVE PROTEIN QUANTITATIV 10.99 MG/DL (<1.0); CALCIUM LEVEL 7.3 MG/DL (8.3-10.6); CARBON DIOXIDE LEVEL 26 MMOL/L (20-31); CHLORIDE LEVEL 105 MMOL/L (98-107); CREATININE FOR GFR 0.94 MG/DL (0.55-1.30); GLOMERULAR FILTRATION RATE > 60.0 (>45); GLUCOSE, FASTING 204 MG/DL (74-106); POTASSIUM SERUM 4.8 MMOL/L (3.5-5.1); SODIUM LEVEL 137 MMOL/L (136-145)
[2024-10-02 08:05] LABS: ANISOCYTOSIS 1+; EOSINOPHILS 2 % (0-3); LYMPHOCYTES 23 % (16-44); METAMYELOCYTES 1 % (0-0); MONOCYTES 10 % (0-5); MYELOCYTES 1 % (0-0); NEUTROPHILS 59 % (28-66); PLATELET ESTIMATE NORMAL (NORMAL)
[2024-10-02 08:06] LABS: HYPOCHROMASIA 1+
[2024-10-02 08:45] VITALS: BP 149/64; TEMP 97.5; O2SAT 97
[2024-10-02] MEDS: SENOKOT S TAB PO SCH (11:41)
[2024-10-02 12:00] VITALS: BP 159/69; TEMP 97.3; O2SAT 95
[2024-10-02] MEDS: BISACODYL 10MG SUPP PR PRN (16:59)
[2024-10-02 19:57] VITALS: BP 138/62; TEMP 97.8; O2SAT 98
[2024-10-02] MEDS: BISACODYL ENEMA 10MG/30ML PR ONE (20:01)
[2024-10-03] VITALS (9 sets, daily range): BP systolic 140–162; BP diastolic 50–67; TEMP 96.8–97.3; O2SAT 98–100
[2024-10-03 04:57] LABS: BASO # 0.1 10^3/uL (0.0-0.2); BASO % 0.6 % (0.0-1.0); EOS # 0.1 10^3/uL (0.0-0.5); EOS % 1.2 % (0.0-3.0); HEMATOCRIT 33.5 % (36.0-47.0); HEMOGLOBIN 10.5 g/dl (12.0-15.5); LYMPH # 1.8 10^3/uL (1.5-5.0); LYMPH % 20.2 % (24.0-44.0); MEAN CORPUSCULAR HEMOGLOBIN 26.8 pg (27.0-33.0); MEAN CORPUSCULAR HGB CONC 31.3 g/dl (32.0-36.5); MEAN CORPUSCULAR VOLUME 85.5 fl (80.0-96.0); MONO # 0.7 10^3/uL (0.0-0.8); MONO % 7.7 % (2.0-8.0); NEUTROPHILS # 5.8 10^3/uL (1.5-8.5); NEUTROPHILS % 64.4 % (36.0-66.0); PLATELET COUNT, AUTOMATED 305 10^3/uL (150-450); RED BLOOD COUNT 3.92 10^6/uL (4.00-5.40)
[2024-10-03 05:32] LABS: BLOOD UREA NITROGEN 20 MG/DL (9-23); CALCIUM LEVEL 7.4 MG/DL (8.3-10.6); CARBON DIOXIDE LEVEL 26 MMOL/L (20-31); CHLORIDE LEVEL 105 MMOL/L (98-107); CREATININE FOR GFR 0.84 MG/DL (0.55-1.30); GLOMERULAR FILTRATION RATE > 60.0 (>45); GLUCOSE, FASTING 205 MG/DL (74-106); MAGNESIUM LEVEL 1.8 MG/DL (1.8-2.4); POTASSIUM SERUM 4.8 MMOL/L (3.5-5.1); SODIUM LEVEL 139 MMOL/L (136-145)
[2024-10-03] MEDS: INSULIN LISPRO (NovoLOG) PER UNIT SC SCH ×3 (06:00→21:36)
[2024-10-03] MEDS ORDERED: GLUCAGON INJ 1MG VIAL SC PRN ×2 (07:00→13:50)
[2024-10-03] MEDS ORDERED: GLUCOSE 4 GM CHEW PO PRN ×2 (07:00→13:50)
[2024-10-03] MEDS ORDERED: DEXTROSE 50% 50ML SYRINGE IV PRN ×2 (07:00→13:50)
[2024-10-03] MEDS: BUPivacaine LIPOSOME/PF 266MG 20ML VIAL (13.3MG/ML)(EXPAREL) As Ordered ONE (11:39)
[2024-10-03] MEDS ORDERED: oxyCODONE 5MG TAB PO PRN (12:25)
[2024-10-03] MEDS ORDERED: fentaNYL 100 MCG/2 ML INJECTION IV PRN (12:25)
[2024-10-03] MEDS ORDERED: ONDANSETRON 4MG 2ML VIAL IV PRN (12:25)
[2024-10-03] MEDS ORDERED: MEPERIDINE 25 MG/ML 1ML VIAL IV PRN (12:25)
[2024-10-03] MEDS: HYDROMORPHONE HCL 0.5 MG/ 0.5 ML SYRINGE IV PRN (13:00)
[2024-10-03] MEDS: NS (Normal Saline) 0.9% 1,000 ML IV SCH (13:30)
[2024-10-04] VITALS (12 sets, daily range): BP systolic 98–169; BP diastolic 46–79; TEMP 97.3–98.4; O2SAT 91–98
[2024-10-04 06:23] LABS: CALCIUM LEVEL 7.1 MG/DL (8.3-10.6); CREATININE FOR GFR 0.98 MG/DL (0.55-1.30); GLOMERULAR FILTRATION RATE 59.9 (>45); POTASSIUM SERUM 5.1 MMOL/L (3.5-5.1)
[2024-10-04] MEDS: INSULIN LISPRO (NovoLOG) PER UNIT SC SCH (07:41)
[2024-10-04] MEDS: MAGNESIUM OXIDE 400MG TAB (MAG-OX) PO SCH (07:42)
[2024-10-04] MEDS: DAPAGLIFLOZIN PROPANEDIOL 10MG TABLET (FARXIGA) PO SCH (07:42)
[2024-10-04 07:53] LABS: BASO % 0.2 % (0.0-1.0); EOS # 0.1 10^3/uL (0.0-0.5); EOS % 0.4 % (0.0-3.0); HEMATOCRIT 23.6 % (36.0-47.0); LYMPH # 1.6 10^3/uL (1.5-5.0); LYMPH % 14.3 % (24.0-44.0); MEAN CORPUSCULAR HEMOGLOBIN 26.7 pg (27.0-33.0); MEAN CORPUSCULAR HGB CONC 31.4 g/dl (32.0-36.5); MEAN CORPUSCULAR VOLUME 85.2 fl (80.0-96.0); MONO # 0.7 10^3/uL (0.0-0.8); MONO % 6.3 % (2.0-8.0); NEUTROPHILS # 8.3 10^3/uL (1.5-8.5); PLATELET COUNT, AUTOMATED 328 10^3/uL (150-450); RED BLOOD COUNT 2.77 10^6/uL (4.00-5.40); WHITE BLOOD COUNT 11.2 10^3/uL (4.0-10.0)
[2024-10-04 08:31] LABS: HEMOGLOBIN 7.4 g/dl (12.0-15.5)
[2024-10-04] MEDS: HumuLIN (NovoLIN)70/30 INSULIN INJ PER UNIT SC SCH ×2 (09:22→18:00)
[2024-10-04] MEDS: NS 500 ML IV ONE (12:08)
[2024-10-04 18:58] LABS: HEMOGLOBIN 10.8 g/dl (12.0-15.5)
[2024-10-05 01:06] VITALS: O2SAT 98
[2024-10-05 01:11] VITALS: O2SAT 95
[2024-10-05 04:00] VITALS: BP 150/72; TEMP 97.5; O2SAT 98
[2024-10-05 06:22] LABS: HEMATOCRIT 34.2 % (36.0-47.0); HEMOGLOBIN 10.9 g/dl (12.0-15.5); MEAN CORPUSCULAR HGB CONC 31.9 g/dl (32.0-36.5); MEAN CORPUSCULAR VOLUME 84.7 fl (80.0-96.0); PLATELET COUNT, AUTOMATED 416 10^3/uL (150-450); RED BLOOD COUNT 4.04 10^6/uL (4.00-5.40); WHITE BLOOD COUNT 12.7 10^3/uL (4.0-10.0)
[2024-10-05 06:47] LABS: CALCIUM LEVEL 7.5 MG/DL (8.3-10.6); CREATININE FOR GFR 1.02 MG/DL (0.55-1.30); GLOMERULAR FILTRATION RATE 57.2 (>45); MAGNESIUM LEVEL 1.8 MG/DL (1.8-2.4)
[2024-10-05 07:19] LABS: EOSINOPHILS 1 % (0-3); LYMPHOCYTES 20 % (16-44); METAMYELOCYTES 3 % (0-0); MONOCYTES 6 % (0-5); MYELOCYTES 1 % (0-0); NEUTROPHILS 68 % (28-66)
[2024-10-05 07:20] LABS: PLATELET ESTIMATE NORMAL (NORMAL)
[2024-10-05 12:00] VITALS: BP 155/57; TEMP 97.7; O2SAT 95
[2024-10-05 20:00] VITALS: BP 133/56; TEMP 97.5; O2SAT 94
[2024-10-06 04:00] VITALS: BP 137/56; TEMP 97.5; O2SAT 97
[2024-10-06 05:58] LABS: HEMOGLOBIN 10.9 g/dl (12.0-15.5); MEAN CORPUSCULAR HGB CONC 31.1 g/dl (32.0-36.5); MEAN CORPUSCULAR VOLUME 86.8 fl (80.0-96.0); PLATELET COUNT, AUTOMATED 433 10^3/uL (150-450); RED BLOOD COUNT 4.03 10^6/uL (4.00-5.40); WHITE BLOOD COUNT 11.4 10^3/uL (4.0-10.0)
[2024-10-06 06:17] LABS: CALCIUM LEVEL 7.7 MG/DL (8.3-10.6); CREATININE FOR GFR 1.05 MG/DL (0.55-1.30); GLOMERULAR FILTRATION RATE 55.3 (>45); MAGNESIUM LEVEL 1.8 MG/DL (1.8-2.4); POTASSIUM SERUM 4.7 MMOL/L (3.5-5.1)
[2024-10-06 07:12] LABS: BASOPHILS 1 % (0-1); EOSINOPHILS 1 % (0-3); LYMPHOCYTES 22 % (16-44); MONOCYTES 10 % (0-5); MYELOCYTES 1 % (0-0); NEUTROPHILS 65 % (28-66)
[2024-10-06 07:13] LABS: PLATELET ESTIMATE NORMAL (NORMAL)
[2024-10-06 12:02] VITALS: BP 132/51; TEMP 97.7; O2SAT 97
[2024-10-06] MEDS ORDERED: ACETAMINOPHEN 325 MG TAB PO PRN (13:00)
[2024-10-06 22:06] VITALS: BP 149/60; TEMP 97.7; O2SAT 96
[2024-10-07 04:08] VITALS: BP 114/50; TEMP 97.7; O2SAT 97
[2024-10-07] MEDS ORDERED: PERCOCET PO (08:47)
== END 2024-10-07 12:01 | DRG 616 ==
LOC: M ED 16:37 → EEVIPCON 23:15 → M ED INP 23:15 → M MSPAV 09-29 19:43
PROVIDERS: ADMIT Student in an Organized Health Care Education/Training Program; ATTEND General Practice
PROC: 0JBR0ZZ Excision of Left Foot Subcutaneous Tissue and Fascia, Open Approach (ICD-10-PCS; 2024-09-29)
PROC: 0Y6N0Z0 Detachment at Left Foot, Complete, Open Approach (ICD-10-PCS; principal; 2024-09-30 14:45)
PROC: 0Y6J0Z3 Detachment at Left Lower Leg, Low, Open Approach (ICD-10-PCS; 2024-10-03)
DX: E11.621 Type 2 diabetes mellitus with foot ulcer (principal); M72.6 Necrotizing fasciitis; L03.116 Cellulitis of left lower limb; E11.52 Type 2 diabetes mellitus with diabetic peripheral angiopathy with gangrene; Z68.43 Body mass index [BMI] 50.0-59.9, adult; I96 Gangrene, not elsewhere classified; M86.672 Other chronic osteomyelitis, left ankle and foot; D62 Acute posthemorrhagic anemia; E11.69 Type 2 diabetes mellitus with other specified complication; E11.40 Type 2 diabetes mellitus with diabetic neuropathy, unspecified; E11.22 Type 2 diabetes mellitus with diabetic chronic kidney disease; E11.628 Type 2 diabetes mellitus with other skin complications; E11.65 Type 2 diabetes mellitus with hyperglycemia; E66.01 Morbid (severe) obesity due to excess calories; I12.9 Hypertensive chronic kidney disease with stage 1 through stage 4 chronic kidney disease, or unspecified chronic kidney disease; N18.9 Chronic kidney disease, unspecified; G47.33 Obstructive sleep apnea (adult) (pediatric); Z79.01 Long term (current) use of anticoagulants; Z86.718 Personal history of other venous thrombosis and embolism; Z86.711 Personal history of pulmonary embolism; Z79.4 Long term (current) use of insulin; Z88.0 Allergy status to penicillin; Z79.899 Other long term (current) drug therapy

== ENCOUNTER → 2024-10-12 | Outpatient (REF) | payer MEDICARE, MEDICAID ==
[~2024-10-12] MED LIST changes: +ACET650T61 PO; +PERCOCET PO
[2024-10-12 16:48] LABS: INR 1.06; PROTHROMBIN TIME 14.1 SECONDS (12.5-14.5)
== END ==
LOC: SKLAB2 15:39
PROVIDERS: ATTEND Internal Medicine
DX: Z79.01 Long term (current) use of anticoagulants (principal)

== ENCOUNTER → 2024-10-12 | Outpatient (REF) | payer MEDICARE, MEDICAID ==
[2024-10-12 13:53] LABS: BASO # 0.1 10^3/uL (0.0-0.2); BASO % 0.6 % (0.0-1.0); EOS # 0.2 10^3/uL (0.0-0.5); EOS % 1.5 % (0.0-3.0); HEMATOCRIT 33.5 % (36.0-47.0); HEMOGLOBIN 10.3 g/dl (12.0-15.5); LYMPH # 1.2 10^3/uL (1.5-5.0); LYMPH % 10.4 % (24.0-44.0); MEAN CORPUSCULAR HEMOGLOBIN 27.2 pg (27.0-33.0); MEAN CORPUSCULAR HGB CONC 30.7 g/dl (32.0-36.5); MEAN CORPUSCULAR VOLUME 88.4 fl (80.0-96.0); MONO # 0.5 10^3/uL (0.0-0.8); MONO % 4.4 % (2.0-8.0); NEUTROPHILS # 9.6 10^3/uL (1.5-8.5); NEUTROPHILS % 82.5 % (36.0-66.0); PLATELET COUNT, AUTOMATED 492 10^3/uL (150-450); RED BLOOD COUNT 3.79 10^6/uL (4.00-5.40); WHITE BLOOD COUNT 11.7 10^3/uL (4.0-10.0)
[2024-10-12 14:17] LABS: ALBUMIN 2.2 G/DL (3.2-5.2); BILIRUBIN,TOTAL 0.4 MG/DL (0.3-1.2); CALCIUM LEVEL 8.5 MG/DL (8.3-10.6); CREATININE FOR GFR 0.99 MG/DL (0.55-1.30); GLOMERULAR FILTRATION RATE 59.2 (>45); POTASSIUM SERUM 4.7 MMOL/L (3.5-5.1); TOTAL PROTEIN 6.7 G/DL (5.7-8.2)
[2024-10-12 15:53] LABS: C REACTIVE PROTEIN QUANTITATIV 3.42 MG/DL (<1.0)
== END ==
LOC: SKLAB2 13:10
PROVIDERS: ATTEND Internal Medicine
DX: M86.9 Osteomyelitis, unspecified (principal); Z79.01 Long term (current) use of anticoagulants

== ENCOUNTER → 2024-10-19 | Outpatient (REF) | payer MEDICARE, MEDICAID ==
[2024-10-19 11:12] LABS: BASO # 0.1 10^3/uL (0.0-0.2); BASO % 0.7 % (0.0-1.0); EOS # 0.4 10^3/uL (0.0-0.5); HEMATOCRIT 37.8 % (36.0-47.0); HEMOGLOBIN 11.5 g/dl (12.0-15.5); LYMPH # 1.9 10^3/uL (1.5-5.0); LYMPH % 27.3 % (24.0-44.0); MEAN CORPUSCULAR HGB CONC 30.4 g/dl (32.0-36.5); MEAN CORPUSCULAR VOLUME 88.7 fl (80.0-96.0); MONO # 0.4 10^3/uL (0.0-0.8); NEUTROPHILS # 4.1 10^3/uL (1.5-8.5); NEUTROPHILS % 59.7 % (36.0-66.0); PLATELET COUNT, AUTOMATED 394 10^3/uL (150-450); RED BLOOD COUNT 4.26 10^6/uL (4.00-5.40); WHITE BLOOD COUNT 6.8 10^3/uL (4.0-10.0)
[2024-10-19 11:26] LABS: INR 1.68
[2024-10-19 11:43] LABS: C REACTIVE PROTEIN QUANTITATIV 0.9 MG/DL (<1.0)
[2024-10-19 11:44] LABS: ALBUMIN 2.8 G/DL (3.2-5.2); BILIRUBIN,TOTAL 0.5 MG/DL (0.3-1.2); CALCIUM LEVEL 8.9 MG/DL (8.3-10.6); CREATININE FOR GFR 1.03 MG/DL (0.55-1.30); GLOMERULAR FILTRATION RATE 56.6 (>45); POTASSIUM SERUM 4.7 MMOL/L (3.5-5.1); TOTAL PROTEIN 7.8 G/DL (5.7-8.2)
== END ==
LOC: SKLAB2 10:16
PROVIDERS: ATTEND Internal Medicine
DX: M86.9 Osteomyelitis, unspecified (principal); Z79.01 Long term (current) use of anticoagulants

== ENCOUNTER → 2024-10-24 | Outpatient (REF) | payer MEDICAID, MEDICARE | LOC: SKLAB2 17:09 | PROVIDERS: ATTEND Nurse Practitioner Family | DX: R05.9 Cough, unspecified (principal); R11.2 Nausea with vomiting, unspecified; M47.816 Spondylosis without myelopathy or radiculopathy, lumbar region; M16.0 Bilateral primary osteoarthritis of hip ==

== ENCOUNTER → 2024-10-26 | Outpatient (REF) | payer MEDICARE ==
[2024-10-26 12:12] LABS: BASO # 0.1 10^3/uL (0.0-0.2); BASO % 0.9 % (0.0-1.0); EOS # 0.3 10^3/uL (0.0-0.5); EOS % 3.7 % (0.0-3.0); HEMOGLOBIN 12.1 g/dl (12.0-15.5); LYMPH # 1.4 10^3/uL (1.5-5.0); LYMPH % 18.1 % (24.0-44.0); MEAN CORPUSCULAR HEMOGLOBIN 26.3 pg (27.0-33.0); MEAN CORPUSCULAR HGB CONC 29.5 g/dl (32.0-36.5); MEAN CORPUSCULAR VOLUME 89.1 fl (80.0-96.0); MONO # 0.4 10^3/uL (0.0-0.8); MONO % 5.1 % (2.0-8.0); NEUTROPHILS # 5.4 10^3/uL (1.5-8.5); NEUTROPHILS % 71.8 % (36.0-66.0); PLATELET COUNT, AUTOMATED 360 10^3/uL (150-450); WHITE BLOOD COUNT 7.5 10^3/uL (4.0-10.0)
[2024-10-26 12:24] LABS: INR 2.47; PROTHROMBIN TIME 26.8 SECONDS (12.5-14.5)
[2024-10-26 12:43] LABS: C REACTIVE PROTEIN QUANTITATIV 2.57 MG/DL (<1.0)
[2024-10-26 12:44] LABS: ALBUMIN 2.9 G/DL (3.2-5.2); ALKALINE PHOSPHATASE 66 U/L (35-104); ALT/SGPT 16 U/L (7.0-40); AST/SGOT 17 U/L (<34); BILIRUBIN,TOTAL 0.4 MG/DL (0.3-1.2); BLOOD UREA NITROGEN 39 MG/DL (9-23); CARBON DIOXIDE LEVEL 28 MMOL/L (20-31); CHLORIDE LEVEL 101 MMOL/L (98-107); CREATININE FOR GFR 0.97 MG/DL (0.55-1.30); GLOMERULAR FILTRATION RATE > 60.0 (>45); GLUCOSE, FASTING 225 MG/DL (74-106); POTASSIUM SERUM 4.4 MMOL/L (3.5-5.1); SODIUM LEVEL 138 MMOL/L (136-145); TOTAL PROTEIN 7.7 G/DL (5.7-8.2)
== END ==
LOC: SKLAB2 10:28
PROVIDERS: ATTEND Internal Medicine
DX: I82.409 Acute embolism and thrombosis of unspecified deep veins of unspecified lower extremity (principal); Z79.01 Long term (current) use of anticoagulants; M86.9 Osteomyelitis, unspecified

== ENCOUNTER → 2024-10-29 | Outpatient (REF) | payer MEDICARE | LOC: SKLAB2 10-28 13:24 | PROVIDERS: ATTEND Internal Medicine | DX: R19.7 Diarrhea, unspecified (principal) ==

== ENCOUNTER → 2024-10-30 | Outpatient (REF) | payer MEDICARE ==
[2024-10-30 06:42] LABS: HEMATOCRIT 39.1 % (36.0-47.0); HEMOGLOBIN 12.2 g/dl (12.0-15.5); MEAN CORPUSCULAR HEMOGLOBIN 27.5 pg (27.0-33.0); MEAN CORPUSCULAR HGB CONC 31.2 g/dl (32.0-36.5); MEAN CORPUSCULAR VOLUME 88.3 fl (80.0-96.0); PLATELET COUNT, AUTOMATED 295 10^3/uL (150-450); RED BLOOD COUNT 4.43 10^6/uL (4.00-5.40); WHITE BLOOD COUNT 6.2 10^3/uL (4.0-10.0)
[2024-10-30 07:08] LABS: BLOOD UREA NITROGEN 37 MG/DL (9-23); CALCIUM LEVEL 8.5 MG/DL (8.3-10.6); CARBON DIOXIDE LEVEL 25 MMOL/L (20-31); CHLORIDE LEVEL 103 MMOL/L (98-107); CREATININE FOR GFR 0.87 MG/DL (0.55-1.30); GLOMERULAR FILTRATION RATE > 60.0 (>45); GLUCOSE, FASTING 162 MG/DL (74-106); POTASSIUM SERUM 3.9 MMOL/L (3.5-5.1); SODIUM LEVEL 138 MMOL/L (136-145)
== END ==
LOC: SKLAB2 07:00
PROVIDERS: ATTEND Internal Medicine
DX: R19.7 Diarrhea, unspecified (principal)

== ENCOUNTER → 2024-11-02 | Outpatient (REF) ==
[2024-11-02 11:14] LABS: BASO # 0.1 10^3/uL (0.0-0.2); BASO % 0.6 % (0.0-1.0); EOS # 0.3 10^3/uL (0.0-0.5); EOS % 3.5 % (0.0-3.0); HEMATOCRIT 41.1 % (36.0-47.0); HEMOGLOBIN 12.8 g/dl (12.0-15.5); LYMPH # 1.9 10^3/uL (1.5-5.0); LYMPH % 22.4 % (24.0-44.0); MEAN CORPUSCULAR HEMOGLOBIN 27.2 pg (27.0-33.0); MEAN CORPUSCULAR HGB CONC 31.1 g/dl (32.0-36.5); MEAN CORPUSCULAR VOLUME 87.3 fl (80.0-96.0); MONO # 0.5 10^3/uL (0.0-0.8); MONO % 5.9 % (2.0-8.0); NEUTROPHILS # 5.6 10^3/uL (1.5-8.5); NEUTROPHILS % 67.1 % (36.0-66.0); PLATELET COUNT, AUTOMATED 310 10^3/uL (150-450); RED BLOOD COUNT 4.71 10^6/uL (4.00-5.40); WHITE BLOOD COUNT 8.3 10^3/uL (4.0-10.0)
[2024-11-02 11:27] LABS: INR 2.71; PROTHROMBIN TIME 28.8 SECONDS (12.5-14.5)
[2024-11-02 11:40] LABS: ALBUMIN 2.9 G/DL (3.2-5.2); ALKALINE PHOSPHATASE 65 U/L (35-104); ALT/SGPT 29 U/L (7.0-40); AST/SGOT 44 U/L (<34); BILIRUBIN,TOTAL 0.5 MG/DL (0.3-1.2); BLOOD UREA NITROGEN 34 MG/DL (9-23); C REACTIVE PROTEIN QUANTITATIV 0.53 MG/DL (<1.0); CALCIUM LEVEL 8.7 MG/DL (8.3-10.6); CARBON DIOXIDE LEVEL 27 MMOL/L (20-31); CHLORIDE LEVEL 106 MMOL/L (98-107); CREATININE FOR GFR 0.93 MG/DL (0.55-1.30); GLOMERULAR FILTRATION RATE > 60.0 (>45); GLUCOSE, FASTING 199 MG/DL (74-106); POTASSIUM SERUM 4.3 MMOL/L (3.5-5.1); SODIUM LEVEL 140 MMOL/L (136-145); TOTAL PROTEIN 7.4 G/DL (5.7-8.2)
== END ==
LOC: SKLAB2 09:45
PROVIDERS: ATTEND Internal Medicine
DX: M86.9 Osteomyelitis, unspecified (principal); I82.409 Acute embolism and thrombosis of unspecified deep veins of unspecified lower extremity

== ENCOUNTER → 2024-11-09 | Outpatient (REF) | payer MEDICARE ==
[2024-11-09 10:03] LABS: BASO # 0.1 10^3/uL (0.0-0.2); BASO % 0.7 % (0.0-1.0); EOS # 0.2 10^3/uL (0.0-0.5); EOS % 2.9 % (0.0-3.0); HEMATOCRIT 42.7 % (36.0-47.0); HEMOGLOBIN 13.1 g/dl (12.0-15.5); LYMPH # 2.3 10^3/uL (1.5-5.0); LYMPH % 33.3 % (24.0-44.0); MEAN CORPUSCULAR HGB CONC 30.7 g/dl (32.0-36.5); MONO # 0.4 10^3/uL (0.0-0.8); MONO % 6.3 % (2.0-8.0); NEUTROPHILS # 3.8 10^3/uL (1.5-8.5); NEUTROPHILS % 56.5 % (36.0-66.0); PLATELET COUNT, AUTOMATED 280 10^3/uL (150-450); RED BLOOD COUNT 4.85 10^6/uL (4.00-5.40); WHITE BLOOD COUNT 6.8 10^3/uL (4.0-10.0)
[2024-11-09 10:29] LABS: C REACTIVE PROTEIN QUANTITATIV < 0.50 MG/DL (<1.0)
[2024-11-09 10:30] LABS: ALBUMIN 2.9 G/DL (3.2-5.2); ALKALINE PHOSPHATASE 60 U/L (35-104); ALT/SGPT 30 U/L (7.0-40); AST/SGOT 33 U/L (<34); BILIRUBIN,TOTAL 0.4 MG/DL (0.3-1.2); BLOOD UREA NITROGEN 30 MG/DL (9-23); CALCIUM LEVEL 8.6 MG/DL (8.3-10.6); CARBON DIOXIDE LEVEL 25 MMOL/L (20-31); CHLORIDE LEVEL 107 MMOL/L (98-107); CREATININE FOR GFR 0.88 MG/DL (0.55-1.30); GLOMERULAR FILTRATION RATE > 60.0 (>45); GLUCOSE, FASTING 172 MG/DL (74-106); POTASSIUM SERUM 4.3 MMOL/L (3.5-5.1); SODIUM LEVEL 142 MMOL/L (136-145); TOTAL PROTEIN 7.1 G/DL (5.7-8.2)
[2024-11-09 11:37] LABS: INR 4.26; PROTHROMBIN TIME 40.5 SECONDS (12.5-14.5)
== END ==
LOC: SKLAB2 07:00
PROVIDERS: ATTEND Internal Medicine
DX: N18.9 Chronic kidney disease, unspecified (principal); Z86.718 Personal history of other venous thrombosis and embolism

== ENCOUNTER → 2024-11-16 | Outpatient (REF) | payer MEDICARE ==
[2024-11-16 06:37] LABS: INR 2.85; PROTHROMBIN TIME 29.8 SECONDS (12.5-14.5)
== END ==
LOC: SKLAB2 07:00
PROVIDERS: ATTEND Internal Medicine
DX: Z86.718 Personal history of other venous thrombosis and embolism (principal)

== ENCOUNTER → 2024-11-25 | Outpatient (REF) | payer MEDICARE | LOC: SKLAB2 13:06 | PROVIDERS: ATTEND Internal Medicine | DX: Z53.8 Procedure and treatment not carried out for other reasons (principal) ==

== ENCOUNTER → 2024-11-26 | Outpatient (REF) | payer MEDICARE | LOC: SKLAB2 10:04 | PROVIDERS: ATTEND Internal Medicine | DX: R19.7 Diarrhea, unspecified (principal) ==

== ENCOUNTER → 2024-12-14 | Outpatient (REF) | payer MEDICARE ==
[2024-12-14 12:00] LABS: INR 2.46; PROTHROMBIN TIME 26.7 SECONDS (12.5-14.5)
== END ==
LOC: SKLAB2 11:18
PROVIDERS: ATTEND Internal Medicine
DX: Z86.718 Personal history of other venous thrombosis and embolism (principal); Z79.01 Long term (current) use of anticoagulants

== ENCOUNTER → 2024-12-22 | Outpatient (REF) | payer MEDICARE, MEDICAID ==
[2024-12-22 17:25] LABS: HEMATOCRIT 42.6 % (36.0-47.0); HEMOGLOBIN 13.1 g/dl (12.0-15.5); MEAN CORPUSCULAR HEMOGLOBIN 26.8 pg (27.0-33.0); MEAN CORPUSCULAR HGB CONC 30.8 g/dl (32.0-36.5); MEAN CORPUSCULAR VOLUME 87.1 fl (80.0-96.0); PLATELET COUNT, AUTOMATED 283 10^3/uL (150-450); RED BLOOD COUNT 4.89 10^6/uL (4.00-5.40); WHITE BLOOD COUNT 6.6 10^3/uL (4.0-10.0)
[2024-12-22 17:47] LABS: BILIRUBIN,TOTAL 0.2 MG/DL (0.3-1.2); CREATININE FOR GFR 0.96 MG/DL (0.55-1.30); GLOMERULAR FILTRATION RATE 64.1 (>45); MAGNESIUM LEVEL 1.7 MG/DL (1.8-2.4); POTASSIUM SERUM 3.9 MMOL/L (3.5-5.1); TOTAL PROTEIN 6.9 G/DL (5.7-8.2)
== END ==
LOC: SKLAB2 16:54
PROVIDERS: ATTEND Internal Medicine
DX: R22.0 Localized swelling, mass and lump, head (principal)

== ENCOUNTER → 2024-12-23 | Outpatient (CLI) | payer MEDICARE ==
[~2024-12-23] MED LIST changes: +ISOVUE-370 76% 100ML VIAL As Ordered ONE
== END ==
LOC: M RAD 10:20
PROVIDERS: ATTEND Internal Medicine
DX: K02.9 Dental caries, unspecified (principal); K05.5 Other periodontal diseases
CPT/HCPCS: 70487; Q9967

== ENCOUNTER → 2025-02-04 | Outpatient (REF) | payer MEDICARE ==
[~2025-02-04] MED LIST changes: -ISOVUE-370 76% 100ML VIAL As Ordered ONE
[2025-02-04 12:12] LABS: INR 3.14
== END ==
LOC: SKLAB2 09:24
PROVIDERS: ATTEND Internal Medicine
DX: Z79.01 Long term (current) use of anticoagulants (principal)

== ENCOUNTER → 2025-02-11 | Outpatient (REF) | payer MEDICARE ==
[2025-02-11 11:21] LABS: INR 2.22
== END ==
LOC: SKLAB2 10:08
PROVIDERS: ATTEND Internal Medicine
DX: Z86.718 Personal history of other venous thrombosis and embolism (principal)

== ENCOUNTER → 2025-02-27 | Outpatient (CLI) | payer MEDICARE ==
[~2025-02-27] MED LIST changes: +HYDR12.510 PO; -HYDR12CA PO
[2025-02-27 10:24] LABS: APPEARANCE, URINE CLOUDY (CLEAR); BACTERIA, URINE AUTO 3+ (NEGATIVE); BILIRUBIN, URINE AUTO NEGATIVE (NEGATIVE); BLOOD, URINE BLOOD 3+ (NEGATIVE); GLUCOSE, URINE (UA) AUTO 3+ mg/dL (NEGATIVE); KETONE, URINE AUTO NEGATIVE (NEGATIVE); LEUKOCYTE ESTERASE, URINE AUTO 1+ (NEGATIVE); NITRITE, URINE AUTO NEGATIVE (NEGATIVE); PROTEIN, URINE AUTO 2+ mg/dL (NEGATIVE); RBC, URINE AUTO TNTC /HPF (0-3); SPECIFIC GRAVITY URINE AUTO 1.022 (1.002-1.035); SQUAMOUS EPITHELIAL CELL UR AU 9 /HPF (0-6); UROBILINOGEN, URINE AUTO 0.2 mg/dL (0.0-2.0); WBC, URINE AUTO TNTC /HPF (0-3); YEAST LIKE CELL URINE AUTO LARGE
[2025-02-27 18:25] LABS: INR 1.8
== END ==
LOC: SKLAB2 08:54
PROVIDERS: ATTEND Physician Assistant
DX: R31.9 Hematuria, unspecified (principal); Z86.718 Personal history of other venous thrombosis and embolism

== ENCOUNTER → 2025-03-15 | Outpatient (REF) | payer MEDICARE ==
[2025-03-15 11:50] LABS: INR 2.93
== END ==
LOC: SKLAB2 07:00
PROVIDERS: ATTEND Internal Medicine
DX: Z86.718 Personal history of other venous thrombosis and embolism (principal); Z79.01 Long term (current) use of anticoagulants

== ENCOUNTER → 2025-03-15 | Outpatient (REF) | payer MEDICARE ==
[2025-03-15 19:13] LABS: APPEARANCE, URINE TURBID (CLEAR); BACTERIA, URINE AUTO 3+ (NEGATIVE); BILIRUBIN, URINE AUTO NEGATIVE (NEGATIVE); BLOOD, URINE BLOOD 3+ (NEGATIVE); GLUCOSE, URINE (UA) AUTO NEGATIVE (NEGATIVE); KETONE, URINE AUTO NEGATIVE (NEGATIVE); LEUKOCYTE ESTERASE, URINE AUTO 3+ (NEGATIVE); NITRITE, URINE AUTO NEGATIVE (NEGATIVE); PROTEIN, URINE AUTO 2+ mg/dL (NEGATIVE); RBC, URINE AUTO 152 /HPF (0-3); SPECIFIC GRAVITY URINE AUTO 1.008 (1.002-1.035); SQUAMOUS EPITHELIAL CELL UR AU 0 /HPF (0-6); UROBILINOGEN, URINE AUTO 0.2 mg/dL (0.0-2.0); WBC, URINE AUTO TNTC /HPF (0-3); YEAST LIKE CELL URINE AUTO LARGE
== END ==
LOC: SKLAB2 16:07
PROVIDERS: ATTEND Internal Medicine
DX: R30.9 Painful micturition, unspecified (principal); M54.50 Low back pain, unspecified

== ENCOUNTER → 2025-03-18 | Outpatient (REF) | payer MEDICARE ==
[2025-03-18 08:59] LABS: CALCIUM LEVEL 8.6 MG/DL (8.3-10.6); CARBON DIOXIDE LEVEL 28.0 MMOL/L (20-31); CHLORIDE LEVEL 104.0 MMOL/L (98-107); CREATININE FOR GFR 1.05 MG/DL (0.55-1.30); GLOMERULAR FILTRATION RATE 57.5 (>45); POTASSIUM SERUM 4.7 MMOL/L (3.5-5.1); SODIUM LEVEL 141.0 MMOL/L (136-145)
[2025-03-18 09:08] LABS: INR 2.79
== END ==
LOC: SKLAB2 07:00
PROVIDERS: ATTEND Internal Medicine
DX: Z79.01 Long term (current) use of anticoagulants (principal)

== ENCOUNTER → 2025-03-26 | Outpatient (REF) | payer MEDICARE ==
[2025-03-26 16:47] LABS: INR 3.54
== END ==
LOC: SKLAB2 15:38
PROVIDERS: ATTEND Internal Medicine
DX: Z86.718 Personal history of other venous thrombosis and embolism (principal)

== ENCOUNTER → 2025-03-30 | Outpatient (REF) | payer MEDICARE ==
[2025-03-30 09:38] LABS: INR 4.57
== END ==
LOC: SKLAB2 07:00
PROVIDERS: ATTEND Internal Medicine
DX: Z79.01 Long term (current) use of anticoagulants (principal)

== ENCOUNTER → 2025-03-31 | Outpatient (REF) | payer MEDICARE ==
[2025-03-31 09:12] LABS: INR 4.23
== END ==
LOC: SKLAB2 07:00
PROVIDERS: ATTEND Internal Medicine
DX: Z79.01 Long term (current) use of anticoagulants (principal)

== ENCOUNTER → 2025-04-02 | Outpatient (REF) | payer MEDICARE ==
[2025-04-02 09:50] LABS: INR 2.99
== END ==
LOC: SKLAB2 07:00
PROVIDERS: ATTEND Internal Medicine
DX: Z86.718 Personal history of other venous thrombosis and embolism (principal)

== ENCOUNTER 2025-04-04 00:42 | Emergency (ER) | payer MEDICARE ==
[~2025-04-04] VITALS: Ht 157.5 cm; Wt 115.5 kg
[2025-04-04 00:54] VITALS: TEMP 97.4
[2025-04-04] MEDS: ONDANSETRON 4MG 2ML VIAL IV ONE (02:42)
[2025-04-04] MEDS: NS (Normal Saline) 0.9% 1,000 ML IV ONE (02:42)
[2025-04-04 02:49] LABS: BASO # 0.1 10^3/uL (0.0-0.2); BASO % 0.5 % (0.0-1.0); EOS # 0.1 10^3/uL (0.0-0.5); EOS % 0.5 % (0.0-3.0); LYMPH # 1.9 10^3/uL (1.5-5.0); LYMPH % 18.3 % (24.0-44.0); MONO # 0.6 10^3/uL (0.0-0.8); MONO % 6.2 % (2.0-8.0); NEUTROPHILS # 7.5 10^3/uL (1.5-8.5); NEUTROPHILS % 74.3 % (36.0-66.0); PLATELET COUNT, AUTOMATED 354 10^3/uL (150-450)
[2025-04-04 03:17] LABS: INR 2.78
[2025-04-04 03:56] LABS: ALT/SGPT 24.0 U/L (7.0-40); AST/SGOT 30.0 U/L (<34); CALCIUM LEVEL 8.6 MG/DL (8.3-10.6); CARBON DIOXIDE LEVEL 21.0 MMOL/L (20-31); CHLORIDE LEVEL 105.0 MMOL/L (98-107); CREATININE FOR GFR 1.05 MG/DL (0.55-1.30); GLOMERULAR FILTRATION RATE 57.5 (>45); POTASSIUM SERUM 6.2 MMOL/L (3.5-5.1); SODIUM LEVEL 138.0 MMOL/L (136-145)
[2025-04-04 05:28] VITALS: BP 174/74
[2025-04-04 05:59] LABS: CALCIUM LEVEL 6.6 MG/DL (8.3-10.6); CARBON DIOXIDE LEVEL 20.0 MMOL/L (20-31); CHLORIDE LEVEL 113.0 MMOL/L (98-107); CREATININE FOR GFR 0.83 MG/DL (0.55-1.30); GLOMERULAR FILTRATION RATE 76.3 (>45); POTASSIUM SERUM 4.7 MMOL/L (3.5-5.1); SODIUM LEVEL 144.0 MMOL/L (136-145)
[2025-04-04 06:12] VITALS: O2SAT 97
== END 2025-04-04 07:05 | disposition home or self-care (01) ==
LOC: M ED 00:42
DX: K30 Functional dyspepsia (principal); K21.9 Gastro-esophageal reflux disease without esophagitis; K29.70 Gastritis, unspecified, without bleeding; I10 Essential (primary) hypertension; E11.9 Type 2 diabetes mellitus without complications; Z88.0 Allergy status to penicillin; Z86.711 Personal history of pulmonary embolism; Z86.718 Personal history of other venous thrombosis and embolism; Z79.1 Long term (current) use of non-steroidal anti-inflammatories (NSAID); Z79.02 Long term (current) use of antithrombotics/antiplatelets; Z79.4 Long term (current) use of insulin; Z79.01 Long term (current) use of anticoagulants; Z79.899 Other long term (current) drug therapy
CPT/HCPCS: 71046; 80048; 80053; 83690; 84484; 85025; 85610; 85730; 93005; 96361; 96374; 99284; J2405

== ENCOUNTER → 2025-04-06 | Outpatient (REF) | payer MEDICARE ==
[2025-04-06 12:37] LABS: BASO # 0.0 10^3/uL (0.0-0.2); BASO % 0.4 % (0.0-1.0); EOS # 0.1 10^3/uL (0.0-0.5); EOS % 1.0 % (0.0-3.0); LYMPH # 1.8 10^3/uL (1.5-5.0); LYMPH % 21.8 % (24.0-44.0); MONO # 0.8 10^3/uL (0.0-0.8); MONO % 9.7 % (2.0-8.0); NEUTROPHILS # 5.6 10^3/uL (1.5-8.5); NEUTROPHILS % 66.7 % (36.0-66.0); PLATELET COUNT, AUTOMATED 323 10^3/uL (150-450)
[2025-04-06 13:04] LABS: CALCIUM LEVEL 8.0 MG/DL (8.3-10.6); CARBON DIOXIDE LEVEL 25.0 MMOL/L (20-31); CHLORIDE LEVEL 104.0 MMOL/L (98-107); CREATININE FOR GFR 1.03 MG/DL (0.55-1.30); GLOMERULAR FILTRATION RATE 58.9 (>45); POTASSIUM SERUM 4.4 MMOL/L (3.5-5.1); SODIUM LEVEL 137.0 MMOL/L (136-145)
== END ==
LOC: SKLAB2 11:47
PROVIDERS: ATTEND Internal Medicine
DX: R11.2 Nausea with vomiting, unspecified (principal)

== ENCOUNTER → 2025-05-02 | Outpatient (REF) | payer MEDICARE | LOC: SKLAB2 07:00 | PROVIDERS: ATTEND Nurse Practitioner Adult Health | DX: R09.89 Other specified symptoms and signs involving the circulatory and respiratory systems (principal); K59.00 Constipation, unspecified; Z90.49 Acquired absence of other specified parts of digestive tract ==

== ENCOUNTER → 2025-05-07 | Outpatient (REF) | payer MEDICARE | LOC: SKLAB2 18:35 | PROVIDERS: ATTEND Internal Medicine | DX: R31.9 Hematuria, unspecified (principal) ==

== ENCOUNTER → 2025-05-07 | Outpatient (REF) | payer MEDICARE, MEDICAID ==
[~2025-05-07] MED LIST changes: +ACET1TAB55 PO; +DICL20GE TP; +DULA4.5P SQ; +FAMO20TA4 PO; +FIDA200TA PO; +LACT20EL PO; +LEVO75TAB PO; +MAGN400T33 PO; +ONDA-83 PO; +PANT-23 PO; +PROBCAP14 PO; +PYRI0.4T PO; +SENN-186 PO; +TUMS500C PO; +VIBE75TA PO
[2025-05-07 22:08] LABS: APPEARANCE, URINE TURBID (CLEAR); BACTERIA, URINE AUTO 3+ (NEGATIVE); BILIRUBIN, URINE AUTO NEGATIVE (NEGATIVE); BLOOD, URINE BLOOD 3+ (NEGATIVE); GLUCOSE, URINE (UA) AUTO NEGATIVE (NEGATIVE); KETONE, URINE AUTO NEGATIVE (NEGATIVE); LEUKOCYTE ESTERASE, URINE AUTO 2+ (NEGATIVE); MUCUS, URINE SMALL (NEGATIVE); NITRITE, URINE AUTO NEGATIVE (NEGATIVE); PROTEIN, URINE AUTO 2+ mg/dL (NEGATIVE); RBC, URINE AUTO TNTC /HPF (0-3); SPECIFIC GRAVITY URINE AUTO 1.008 (1.002-1.035); SQUAMOUS EPITHELIAL CELL UR AU 0 /HPF (0-6); UROBILINOGEN, URINE AUTO 0.2 mg/dL (0.0-2.0); WBC, URINE AUTO TNTC /HPF (0-3)
== END ==
LOC: SKLAB2 18:47
PROVIDERS: ATTEND Internal Medicine
DX: R31.9 Hematuria, unspecified (principal)

== ENCOUNTER → 2025-05-08 | Outpatient (REF) | payer MEDICARE ==
[~2025-05-08] MED LIST changes: -ACET1TAB55 PO; -DICL20GE TP; -DULA4.5P SQ; -FAMO20TA4 PO; -FIDA200TA PO; -LACT20EL PO; -LEVO75TAB PO; -MAGN400T33 PO; -ONDA-83 PO; -PANT-23 PO; -PROBCAP14 PO; -PYRI0.4T PO; -SENN-186 PO; -TUMS500C PO; -VIBE75TA PO
[2025-05-08 19:16] LABS: APPEARANCE, URINE TURBID (CLEAR); BACTERIA, URINE AUTO 3+ (NEGATIVE); BILIRUBIN, URINE AUTO NEGATIVE (NEGATIVE); BLOOD, URINE BLOOD 3+ (NEGATIVE); GLUCOSE, URINE (UA) AUTO NEGATIVE (NEGATIVE); KETONE, URINE AUTO NEGATIVE (NEGATIVE); LEUKOCYTE ESTERASE, URINE AUTO 2+ (NEGATIVE); NITRITE, URINE AUTO NEGATIVE (NEGATIVE); PROTEIN, URINE AUTO 2+ mg/dL (NEGATIVE); RBC, URINE AUTO TNTC /HPF (0-3); SPECIFIC GRAVITY URINE AUTO 1.008 (1.002-1.035); SQUAMOUS EPITHELIAL CELL UR AU 0 /HPF (0-6); UROBILINOGEN, URINE AUTO 0.2 mg/dL (0.0-2.0); WBC, URINE AUTO TNTC /HPF (0-3)
== END ==
LOC: SKLAB2 15:30
PROVIDERS: ATTEND Internal Medicine
DX: R31.9 Hematuria, unspecified (principal)

== ENCOUNTER → 2025-05-14 | Outpatient (REF) | payer MEDICARE, OTHER ==
[~2025-05-14] MED LIST changes: +ACET1TAB55 PO; +DICL20GE TP; +DULA4.5P SQ; +FAMO20TA4 PO; +FIDA200TA PO; +LACT20EL PO; +LEVO75TAB PO; +MAGN400T33 PO; +ONDA-83 PO; +PANT-23 PO; +PROBCAP14 PO; +PYRI0.4T PO; +SENN-186 PO; +TUMS500C PO; +VIBE75TA PO
== END ==
LOC: SKLAB2 19:15
PROVIDERS: ATTEND Internal Medicine
DX: R30.0 Dysuria (principal); R22.43 Localized swelling, mass and lump, lower limb, bilateral; M79.89 Other specified soft tissue disorders; Z89.512 Acquired absence of left leg below knee

== ENCOUNTER 2025-05-17 16:20 | Inpatient (IN) | payer MEDICARE ==
[~2025-05-17] VITALS: Ht 160 cm; Wt 115.2 kg
[~2025-05-17 16:20] MED LIST changes: -ACET1TAB55 PO; -DICL20GE TP; -DULA4.5P SQ; -FAMO20TA4 PO; -FIDA200TA PO; -LACT20EL PO; -LEVO75TAB PO; -MAGN400T33 PO; -ONDA-83 PO; -PANT-23 PO; -PROBCAP14 PO; -PYRI0.4T PO; -SENN-186 PO; -TUMS500C PO; -VIBE75TA PO
[2025-05-17 17:06] LABS: BASO # 0.1 10^3/uL (0.0-0.2); BASO % 0.4 % (0.0-1.0); EOS # 0.1 10^3/uL (0.0-0.5); EOS % 0.4 % (0.0-3.0); LYMPH # 2.3 10^3/uL (1.5-5.0); LYMPH % 13.0 % (24.0-44.0); MONO # 0.8 10^3/uL (0.0-0.8); MONO % 4.4 % (2.0-8.0); NEUTROPHILS # 14.4 10^3/uL (1.5-8.5); NEUTROPHILS % 81.0 % (36.0-66.0); PLATELET COUNT, AUTOMATED 568 10^3/uL (150-450)
[2025-05-17] MEDS ORDERED: ACETAMINOPHEN 325 MG TAB PO ONE (17:25)
[2025-05-17 17:26] LABS: ALT/SGPT 26.0 U/L (7.0-40); AST/SGOT 25.0 U/L (<34); CALCIUM LEVEL 8.6 MG/DL (8.3-10.6); CARBON DIOXIDE LEVEL 24.0 MMOL/L (20-31); CHLORIDE LEVEL 101.0 MMOL/L (98-107); CREATININE FOR GFR 1.25 MG/DL (0.55-1.30); GLOMERULAR FILTRATION RATE 46.4 (>39); POTASSIUM SERUM 5.6 MMOL/L (3.5-5.1); SODIUM LEVEL 135.0 MMOL/L (136-145)
[2025-05-17] MEDS ORDERED: ISOVUE-370 76% 100 ML VIAL As Ordered ONE (17:37)
[2025-05-17] MEDS: NS (Normal Saline) 0.9% 1,000 ML IV ONE ×2 (17:45→21:24)
[2025-05-17] MEDS: ONDANSETRON 4MG 2ML VIAL IV ONE (17:45)
[2025-05-17 17:55] LABS: RSV AMPLIFICATION NEGATIVE (NEGATIVE)
[2025-05-17] MEDS: ACETAMINOPHEN *IV* 1,000 MG in IV 1 EA IV ONE (18:18)
[2025-05-17] MEDS: cefTRIAXone SOD 2 GM in DEXTROSE 5% (D5W) ADV/MINI-BAG 50 ML IV ONE (21:24)
[2025-05-17] MEDS ORDERED: FAMO20TA4 PO (21:42)
[2025-05-17] MEDS ORDERED: LACT20EL PO (21:42)
[2025-05-17] MEDS ORDERED: SENN-186 PO (21:42)
[2025-05-17] MEDS ORDERED: DICL20GE TP (21:42)
[2025-05-17] MEDS ORDERED: DULA4.5P SQ (21:42)
[2025-05-17] MEDS ORDERED: PYRI0.4T PO (21:42)
[2025-05-17] MEDS ORDERED: TUMS500C PO (21:42)
[2025-05-17] MEDS ORDERED: PANT-23 PO (21:42)
[2025-05-17] MEDS ORDERED: ONDA-83 PO (21:42)
[2025-05-17] MEDS ORDERED: VIBE75TA PO (21:42)
[2025-05-17] MEDS ORDERED: ACET1TAB55 PO (21:43)
[2025-05-17] MEDS ORDERED: HOME MED LIST COMPLETE! XX SCH (21:45)
[2025-05-17] MEDS ORDERED: MOM 30 ML SUSPENSION UDC PO PRN (22:50)
[2025-05-18] VITALS (7 sets, daily range): BP systolic 110–152; BP diastolic 49–68; TEMP 97–98.6; O2SAT 96–99
[2025-05-18] MEDS ORDERED: CEFEPIME HCL 2 GM in DEXTROSE 5% (D5W) ADV/MINI-BAG 50 ML IV SCH (01:20)
[2025-05-18] MEDS: NS (Normal Saline) 0.9% 1,000 ML IV SCH (02:11)
[2025-05-18 02:35] LABS: KETONE, URINE AUTO RFX NEGATIVE (NEGATIVE); NITRITE, URINE AUTO RFX NEGATIVE (NEGATIVE); RBC, URINE AUTO RFX 27 /HPF (0-3); SQUAM EPITHELIAL CELL UR AURFX 0 /HPF (0-6)
[2025-05-18 03:05] LABS: LEUKOCYTE ESTERASE UR AUTO RFX 3+ (NEGATIVE); WBC, URINE AUTO RFX TNTC /HPF (0-3)
[2025-05-18 04:19] LABS: PLATELET COUNT, AUTOMATED 462 10^3/uL (150-450)
[2025-05-18 04:33] LABS: ALT/SGPT 17.0 U/L (7.0-40); AST/SGOT 15.0 U/L (<34); CALCIUM LEVEL 7.9 MG/DL (8.3-10.6); CARBON DIOXIDE LEVEL 24.0 MMOL/L (20-31); CHLORIDE LEVEL 104.0 MMOL/L (98-107); CREATININE FOR GFR 1.22 MG/DL (0.55-1.30); GLOMERULAR FILTRATION RATE 47.7 (>39); POTASSIUM SERUM 4.9 MMOL/L (3.5-5.1); SODIUM LEVEL 138.0 MMOL/L (136-145)
[2025-05-18] MEDS: CEFEPIME HCL 1 GM in DEXTROSE 5% (D5W) ADV/MINI-BAG 50 ML IV SCH (04:36)
[2025-05-18] MEDS ORDERED: GLUCAGON INJ 1 MG VIAL SC PRN (06:05)
[2025-05-18] MEDS ORDERED: GLUCOSE 4 GM CHEW PO PRN (06:05)
[2025-05-18] MEDS ORDERED: LACTULOSE 20 GM/30 ML SYRUP UDC PO PRN (07:10)
[2025-05-18] MEDS ORDERED: PANTOPRAZOLE 40MG TAB PO SCH (09:00)
[2025-05-18] MEDS: PHENAZOPYRIDINE 100 MG TAB PO SCH (09:34)
[2025-05-18] MEDS: ONDANSETRON 4MG 2ML VIAL IV PRN (09:35)
[2025-05-18] MEDS: CALCIUM CARBONATE 500 MG CHEW U/D PO PRN (09:35)
[2025-05-18] MEDS: PANTOPRAZOLE 40MG TAB PO SCH (09:36)
[2025-05-18] MEDS ORDERED: DEXTROSE 50% 50 ML SYRINGE IV PRN (11:20)
[2025-05-18] MEDS: INSULIN LISPRO (NovoLOG) PER UNIT SC SCH ×2 (12:44→21:00)
[2025-05-18] MEDS: CEFEPIME HCL 2 GM in DEXTROSE 5% (D5W) ADV/MINI-BAG 50 ML IV SCH (14:25)
[2025-05-18] MEDS ORDERED: RIVAROXABAN 20MG TAB PO SCH (18:00)
[2025-05-18] MEDS: RIVAROXABAN 20MG TAB PO SCH (18:14)
[2025-05-18] MEDS ORDERED: ATORVASTATIN 20 MG TAB PO SCH (21:00)
[2025-05-18] MEDS: SENNA 8.6 MG TAB PO SCH (21:00)
[2025-05-18] MEDS: ACETAMINOPHEN 325 MG TAB PO PRN (21:22)
[2025-05-18] MEDS: FAMOTIDINE 20 MG TAB PO SCH (21:23)
[2025-05-18] MEDS: ATORVASTATIN 20 MG TAB PO SCH (21:23)
[2025-05-18] MEDS: GABAPENTIN 100 MG CAP PO SCH (21:24)
[2025-05-19 03:47] VITALS: BP 154/67; TEMP 96.6; O2SAT 99
[2025-05-19 05:15] VITALS: BP 152/54; O2SAT 100
[2025-05-19] MEDS ORDERED: VANCOMYCIN 125MG CAPSULE PO SCH (06:00)
[2025-05-19 07:26] LABS: BASO # 0.0 10^3/uL (0.0-0.2); BASO % 0.3 % (0.0-1.0); EOS # 0.3 10^3/uL (0.0-0.5); EOS % 2.1 % (0.0-3.0); LYMPH # 2.6 10^3/uL (1.5-5.0); LYMPH % 22.3 % (24.0-44.0); MONO # 0.9 10^3/uL (0.0-0.8); MONO % 7.4 % (2.0-8.0); NEUTROPHILS # 7.8 10^3/uL (1.5-8.5); NEUTROPHILS % 66.9 % (36.0-66.0); PLATELET COUNT, AUTOMATED 425 10^3/uL (150-450)
[2025-05-19 07:43] LABS: ALT/SGPT 12 U/L (7.0-40); AST/SGOT 14 U/L (<34); CALCIUM LEVEL 7.5 MG/DL (8.3-10.6); CARBON DIOXIDE LEVEL 23 MMOL/L (20-31); CHLORIDE LEVEL 109 MMOL/L (98-107); CREATININE FOR GFR 1.08 MG/DL (0.55-1.30); GLOMERULAR FILTRATION RATE 55.3 (>39); MAGNESIUM LEVEL 1.1 MG/DL (1.8-2.4); POTASSIUM SERUM 4.0 MMOL/L (3.5-5.1); SODIUM LEVEL 141 MMOL/L (136-145)
[2025-05-19 08:00] VITALS: BP 154/66; TEMP 96.6; O2SAT 100
[2025-05-19] MEDS: MAG SULF 1GM/100ML (MAG RUN) 1 GM in IV 1 EA IV SCH (09:59)
[2025-05-19] MEDS: FIDAXOMICIN 200 MG TAB PO SCH (10:00)
[2025-05-19 11:45] VITALS: BP 146/65; TEMP 97; O2SAT 96
[2025-05-19 19:20] VITALS: BP 130/60; TEMP 97.6; O2SAT 96
[2025-05-19] MEDS: MAG SULF 1GM/100ML (MAG RUN) 1 GM in IV 1 EA IV ONE (20:42)
[2025-05-20 01:09] VITALS: BP 133/87; TEMP 97; O2SAT 96
[2025-05-20 03:48] VITALS: BP 133/63; TEMP 97.4; O2SAT 96
[2025-05-20 05:45] LABS: BASO # 0.1 10^3/uL (0.0-0.2); BASO % 0.5 % (0.0-1.0); EOS # 0.3 10^3/uL (0.0-0.5); EOS % 3.2 % (0.0-3.0); LYMPH # 3.4 10^3/uL (1.5-5.0); LYMPH % 32.9 % (24.0-44.0); MONO # 0.6 10^3/uL (0.0-0.8); MONO % 5.7 % (2.0-8.0); NEUTROPHILS # 5.8 10^3/uL (1.5-8.5); NEUTROPHILS % 56.8 % (36.0-66.0); PLATELET COUNT, AUTOMATED 431 10^3/uL (150-450)
[2025-05-20 06:22] LABS: ALT/SGPT 16.0 U/L (7.0-40); AST/SGOT 19.0 U/L (<34); CALCIUM LEVEL 7.7 MG/DL (8.3-10.6); CARBON DIOXIDE LEVEL 23.0 MMOL/L (20-31); CHLORIDE LEVEL 106.0 MMOL/L (98-107); CREATININE FOR GFR 1.07 MG/DL (0.55-1.30); GLOMERULAR FILTRATION RATE 55.9 (>39); MAGNESIUM LEVEL 1.8 MG/DL (1.8-2.4); POTASSIUM SERUM 4.0 MMOL/L (3.5-5.1); SODIUM LEVEL 139.0 MMOL/L (136-145)
[2025-05-20 08:03] VITALS: BP 149/68; TEMP 97.1; O2SAT 97
[2025-05-20] MEDS: MAGNESIUM OXIDE 400 MG TAB PO SCH (08:18)
[2025-05-20] MEDS ORDERED: FIDA200TA PO (09:37)
[2025-05-20] MEDS ORDERED: LEVO75TAB PO (09:37)
[2025-05-20] MEDS ORDERED: PROBCAP14 PO (09:37)
[2025-05-20] MEDS ORDERED: MAGN400T33 PO (09:40)
[2025-05-20 12:00] VITALS: BP 136/64; TEMP 97.8; O2SAT 98
== END 2025-05-20 13:59 | DRG 872 ==
LOC: M ED 16:20 → EDBD 16:20 → M ED INP 22:49 → M PCU 05-18 00:33
PROVIDERS: ADMIT Student in an Organized Health Care Education/Training Program; ATTEND Internal Medicine
DX: A41.52 Sepsis due to Pseudomonas (principal); N13.30 Unspecified hydronephrosis; N39.0 Urinary tract infection, site not specified; A04.72 Enterocolitis due to Clostridium difficile, not specified as recurrent; I47.10 Supraventricular tachycardia, unspecified; I47.20 Ventricular tachycardia, unspecified; E87.1 Hypo-osmolality and hyponatremia; Z68.41 Body mass index [BMI] 40.0-44.9, adult; E78.5 Hyperlipidemia, unspecified; K21.9 Gastro-esophageal reflux disease without esophagitis; I12.9 Hypertensive chronic kidney disease with stage 1 through stage 4 chronic kidney disease, or unspecified chronic kidney disease; N18.30 Chronic kidney disease, stage 3 unspecified; E11.40 Type 2 diabetes mellitus with diabetic neuropathy, unspecified; E11.22 Type 2 diabetes mellitus with diabetic chronic kidney disease; E83.42 Hypomagnesemia; E87.6 Hypokalemia; E66.9 Obesity, unspecified; Z86.711 Personal history of pulmonary embolism; Z86.718 Personal history of other venous thrombosis and embolism; E28.2 Polycystic ovarian syndrome; Z79.01 Long term (current) use of anticoagulants; Z88.0 Allergy status to penicillin; Z79.899 Other long term (current) drug therapy

== ENCOUNTER → 2025-05-17 | Outpatient (REF) | payer MEDICARE ==
[2025-05-17 14:00] LABS: APPEARANCE, URINE TURBID (CLEAR); BACTERIA, URINE AUTO 3+ (NEGATIVE); BILIRUBIN, URINE AUTO NEGATIVE (NEGATIVE); BLOOD, URINE BLOOD 3+ (NEGATIVE); GLUCOSE, URINE (UA) AUTO NEGATIVE (NEGATIVE); KETONE, URINE AUTO NEGATIVE (NEGATIVE); LEUKOCYTE ESTERASE, URINE AUTO 1+ (NEGATIVE); MUCUS, URINE SMALL (NEGATIVE); NITRITE, URINE AUTO POSITIVE (NEGATIVE); PROTEIN, URINE AUTO 2+ mg/dL (NEGATIVE); RBC, URINE AUTO TNTC /HPF (0-3); SPECIFIC GRAVITY URINE AUTO 1.010 (1.002-1.035); SQUAMOUS EPITHELIAL CELL UR AU 0 /HPF (0-6); UROBILINOGEN, URINE AUTO 2.0 mg/dL (0.0-2.0); WBC, URINE AUTO TNTC /HPF (0-3)
== END ==
LOC: SKLAB2 12:50
PROVIDERS: ATTEND Family Medicine
DX: R30.0 Dysuria (principal)

== ENCOUNTER → 2025-06-08 | Outpatient (REF) | payer MEDICARE ==
[~2025-06-08] MED LIST changes: +ACET1TAB55 PO; +DICL20GE TP; +DULA4.5P SQ; +FAMO20TA4 PO; +FIDA200TA PO; +LACT20EL PO; +LEVO75TAB PO; +MAGN400T33 PO; +ONDA-83 PO; +PANT-23 PO; +PROBCAP14 PO; +PYRI0.4T PO; +SENN-186 PO; +TUMS500C PO; +VIBE75TA PO
[2025-06-08 11:00] LABS: PLATELET COUNT, AUTOMATED 345 10^3/uL (150-450)
== END ==
LOC: SKLAB2 09:18
PROVIDERS: ATTEND Family Medicine
DX: R58 Hemorrhage, not elsewhere classified (principal)

== ENCOUNTER → 2025-06-08 | Outpatient (REF) | payer MEDICARE ==
[2025-06-08 14:34] LABS: APPEARANCE, URINE TURBID (CLEAR); BACTERIA, URINE AUTO 2+ (NEGATIVE); BILIRUBIN, URINE AUTO NEGATIVE (NEGATIVE); BLOOD, URINE BLOOD 3+ (NEGATIVE); GLUCOSE, URINE (UA) AUTO NEGATIVE (NEGATIVE); KETONE, URINE AUTO NEGATIVE (NEGATIVE); LEUKOCYTE ESTERASE, URINE AUTO 2+ (NEGATIVE); NITRITE, URINE AUTO NEGATIVE (NEGATIVE); PROTEIN, URINE AUTO 2+ mg/dL (NEGATIVE); RBC, URINE AUTO TNTC /HPF (0-3); SPECIFIC GRAVITY URINE AUTO 1.010 (1.002-1.035); SQUAMOUS EPITHELIAL CELL UR AU 2 /HPF (0-6); UROBILINOGEN, URINE AUTO 0.2 mg/dL (0.0-2.0); WBC, URINE AUTO TNTC /HPF (0-3)
== END ==
LOC: SKLAB2 11:09
PROVIDERS: ATTEND Family Medicine
DX: R31.9 Hematuria, unspecified (principal); R58 Hemorrhage, not elsewhere classified

== ENCOUNTER → 2025-06-09 | Outpatient (REF) | payer MEDICARE ==
[2025-06-09 11:04] LABS: BASO # 0.0 10^3/uL (0.0-0.2); BASO % 0.4 % (0.0-1.0); EOS # 0.1 10^3/uL (0.0-0.5); EOS % 1.5 % (0.0-3.0); LYMPH # 2.0 10^3/uL (1.5-5.0); LYMPH % 29.6 % (24.0-44.0); MONO # 0.6 10^3/uL (0.0-0.8); MONO % 9.2 % (2.0-8.0); NEUTROPHILS # 4.0 10^3/uL (1.5-8.5); NEUTROPHILS % 59.2 % (36.0-66.0); PLATELET COUNT, AUTOMATED 354 10^3/uL (150-450)
[2025-06-09 11:23] LABS: ALT/SGPT 9.0 U/L (7.0-40); AST/SGOT 14.0 U/L (<34); CALCIUM LEVEL 7.8 MG/DL (8.3-10.6); CARBON DIOXIDE LEVEL 28.0 MMOL/L (20-31); CHLORIDE LEVEL 100.0 MMOL/L (98-107); CREATININE FOR GFR 1.06 MG/DL (0.55-1.30); GLOMERULAR FILTRATION RATE 56.5 (>39); POTASSIUM SERUM 4.4 MMOL/L (3.5-5.1); SODIUM LEVEL 136.0 MMOL/L (136-145)
== END ==
LOC: SKLAB2 10:05
PROVIDERS: ATTEND Family Medicine
DX: N39.0 Urinary tract infection, site not specified (principal)

== ENCOUNTER → 2025-06-23 | Outpatient (REF) | payer MEDICARE, MEDICAID ==
[2025-06-23 12:10] LABS: PLATELET COUNT, AUTOMATED 333 10^3/uL (150-450)
[2025-06-23 12:36] LABS: CALCIUM LEVEL 8.1 MG/DL (8.3-10.6); CARBON DIOXIDE LEVEL 26.0 MMOL/L (20-31); CHLORIDE LEVEL 98.0 MMOL/L (98-107); CREATININE FOR GFR 0.91 MG/DL (0.55-1.30); GLOMERULAR FILTRATION RATE 67.9 (>39); POTASSIUM SERUM 4.7 MMOL/L (3.5-5.1); SODIUM LEVEL 136.0 MMOL/L (136-145)
[2025-06-23 13:43] LABS: APPEARANCE, URINE CLOUDY (CLEAR); BACTERIA, URINE AUTO NEGATIVE (NEGATIVE); BILIRUBIN, URINE AUTO NEGATIVE (NEGATIVE); BLOOD, URINE BLOOD 1+ (NEGATIVE); GLUCOSE, URINE (UA) AUTO 1+ mg/dL (NEGATIVE); KETONE, URINE AUTO NEGATIVE (NEGATIVE); LEUKOCYTE ESTERASE, URINE AUTO 3+ (NEGATIVE); MUCUS, URINE SMALL (NEGATIVE); NITRITE, URINE AUTO NEGATIVE (NEGATIVE); PROTEIN, URINE AUTO 2+ mg/dL (NEGATIVE); RBC, URINE AUTO 22 /HPF (0-3); SPECIFIC GRAVITY URINE AUTO 1.019 (1.002-1.035); SQUAMOUS EPITHELIAL CELL UR AU 1 /HPF (0-6); UROBILINOGEN, URINE AUTO 0.2 mg/dL (0.0-2.0); WBC, URINE AUTO TNTC /HPF (0-3); YEAST LIKE CELL URINE AUTO LARGE
== END ==
LOC: SKLAB2 11:21
PROVIDERS: ATTEND Family Medicine
DX: R53.81 Other malaise (principal); D72.829 Elevated white blood cell count, unspecified

== ENCOUNTER → 2025-06-23 | Outpatient (REF) | payer MEDICARE, MEDICAID | LOC: SKLAB2 12:50 | PROVIDERS: ATTEND Family Medicine | DX: D72.829 Elevated white blood cell count, unspecified (principal) ==

== ENCOUNTER → 2025-06-25 | Outpatient (REF) | payer MEDICARE, MEDICAID ==
[2025-06-25 11:16] LABS: PLATELET COUNT, AUTOMATED 381 10^3/uL (150-450)
== END ==
LOC: SKLAB2 10:22
PROVIDERS: ATTEND Family Medicine
DX: D72.829 Elevated white blood cell count, unspecified (principal)

== ENCOUNTER → 2025-07-20 | Outpatient (REF) | payer MEDICARE, MEDICAID ==
[2025-07-20 15:09] LABS: ESTIMATED AVERAGE GLUCOSE 183.0 MG/DL (60-110)
[2025-07-20 15:33] LABS: INR 2.36
== END ==
LOC: SKLAB2 10:50
PROVIDERS: ATTEND Family Medicine
DX: Z79.01 Long term (current) use of anticoagulants (principal); Z79.899 Other long term (current) drug therapy

== ENCOUNTER → 2025-07-26 | Outpatient (CLI) | payer MEDICARE | LOC: M RAD 10:18 | PROVIDERS: ATTEND Nurse Practitioner Family | DX: R33.9 Retention of urine, unspecified (principal) ==